=== PATIENT | female | born 1945 | race Caucasian/White ===

== ENCOUNTER 2016-06-29 10:58 | Inpatient (IN) | payer OTHER, MEDICAID ==
[~2016-06-29] VITALS: Ht 162.6 cm; Wt 136.8 kg
[2016-06-29] MEDS ORDERED: ALBUTEROL 0.083% (NEB) 2.5 MG/3 ML AMP NEB STA ×2 (11:01→12:59)
[2016-06-29] MEDS ORDERED: IPRATROPIUM (NEB) 0.5 MG/2.5 ML AMP NEB STA ×2 (11:01→12:59)
[2016-06-29] MEDS ORDERED: SODIUM CHLORIDE 0.9% 1L BAG IV* STA (11:16)
--- NOTE | 2016-06-29 11:41 | ERA ---
ER Documentation Chief Complaint Date/Time DATE: 06/29/16 TIME: 11:21 Chief Complaint HPI This is a 71-year-old female that was brought into the emergency department from [facility] by EMS with a known history of DM and CHF after she developed an episode of tremors which was concerning for seizures. The patient has no history of seizure disorder however and during these tremors the patient did not lose consciousness, remembers the entire episode and did not bite her tongue or lose urinary incontinence. The tremors will last for roughly 20 seconds and then will spontaneously resolve. She had about 20 episodes and therefore EMS was called. When EMS arrived the patient was hypoxic satting at 60%. They placed her on a nonrebreather and her pulse ox improved to 98%. The patient's last known normal time was 13 hours prior to arrival at 10 PM yesterday evening after she had been playing bingo at her nursing care facility. There is been no documentation of productive or nonproductive cough. The patient has not had a fever. There has been no recent hospitalizations. The patient denies any chest pain, shortness of breath or pain in her lower extremities. The patient at baseline is alert awake to person place but not to time. The patient is able to ambulate with assistance. Patient has a history of diabetes and her blood glucose was normal according to EMS ROS All systems reviewed and are negative except as per history of present illness. Medications Home Meds Reported Medications Insulin Aspart* (Novolog Insulin Pen*) 100 Unit/Ml Soln, 0 SC .SLIDING SCALE AC , EA 0-149 = 0 UNITS 150-199 = 1 UNIT 200-249 = 2 UNITS 250-299 = 3 UNITS 300-349 = 4 UNITS 350-400 = 5 UNITS OVER 400 GIVE 5 UNITS AND CALL MD UNDER 60 USE HYPOGLYCEMIC PROTACOL AND CALL MD INSULIN IS TO BE GIVEN SUBCUTANEOUSLY BEFORE MEALS AND AT BEDTIME 06/29/16 Oxycodone Hcl* (Oxycontin*) 10 Mg Tab.sr.12h, 10 MG PO Q12 Y for PAIN MANAGMENT , TAB 06/29/16 Lactobacillus Combo No.11 (Probiotic) 1 Each Cap.sprink, 1 CAP PO DAILY, CAP 06/29/16 Guaifenesin-Dextromethorphan* (Robitussin* DM) 100MG/10MG/5ML Syrup, 5 ML PO Q6H Y for COUGH, ML 06/29/16 Cholecalciferol* (Vitamin D3*) 1,000 Unit Tablet, 2000 UNIT PO BID, TAB 06/29/16 Hydrocodone/Acetaminophen ([place] 5-325 Tablet) 1 Each Tablet, 2 EACH PO Q4 Y for SEVERE PAIN LEVEL 7-10, TAB 06/29/16 Hydrocodone/Acetaminophen ([place] 5-325 Tablet) 1 Each Tablet, 1 EACH PO Q4 Y for PAIN LEVEL 4-6, TAB 06/29/16 Metoclopramide* (Reglan*) 5 Mg Tablet, 5 MG PO Q8 Y for NAUSEA AND OR VOMITING, TAB 06/29/16 Pregabalin* (Lyrica*) 50 Mg Capsule, 50 MG PO TID, CAP 06/29/16 Atorvastatin Calcium (Atorvastatin Calcium) 10 Mg Tablet, 2.5 MG PO QHS, #30 TAB 06/29/16 Insulin Detemir (Levemir) 100 Unit/1 Ml Vial, 30 UNIT SC QHS, VIAL 06/29/16 Furosemide* (Lasix*) 40 Mg Tablet, 40 MG PO DAILY, TAB 06/29/16 Isosorbide Mononitrate* (Isosorbide Mononitrate*) 30 Mg Tab.er.24h, 30 MG PO DAILY, TAB 06/29/16 Hydralazine Hcl* (Hydralazine Hcl*) 100 Mg Tablet, 100 MG PO Q8 Y for ELEVATED BLOOD PRESSURE, #90 TAB HOLD IF SBP LOWER THAN 110 06/29/16 Gabapentin* (Gabapentin*) 300 Mg Capsule, 300 MG PO TID, #90 CAP 06/29/16 Roslyn-3S/Dha/Epa/Fish Oil/D3 (FISH OIL + D3 SOFTGEL) 1 Each Capsule, 1 EACH PO DAILY, CAP 06/29/16 Docusate Sodium* (Docusate Sodium*) 100 Mg Capsule, 100 MG PO BID, #60 CAP 06/29/16 Cranberry Fruit Concentrate (CRANBERRY) 450 Mg Capsule, 450 MG PO DAILY, CAP 06/29/16 Aspirin (Low Dose Aspirin) 81 Mg Tablet.dr, 81 MG PO DAILY, #30 TAB 06/29/16 Ascorbic Acid* (Ascorbic Acid*) 500 Mg/5 Ml Syrup, 500 MG PO BID, #300 ML 06/29/16 Zolpidem Tartrate* (Ambien*) 5 Mg Tablet, 5 MG PO QHS Y for INSOMNIA, #30 TAB 06/29/16 Allopurinol* (Allopurinol*) 100 Mg Tablet, 100 MG PO BID, TAB 06/29/16 Acetaminophen* (Acetaminophen*) 650 Mg Tablet, 650 MG PO Q6H Y for MILD PAIN LEVEL 1-3, #30 TAB 06/29/16 Allergies Allergies: Coded Allergies: Penicillins (Verified Allergy, Unknown, per xavi facesheet, 06/29/16) Sulfa (Sulfonamide Antibiotics) (Verified Allergy, Unknown, per xavi facesheet, 06/29/16) Physical Exam Vitals Vital Signs Date Time Temp Pulse Resp B/P Pulse Ox O2 Delivery O2 Flow Rate FiO2 06/29/16 14:05 83 20 139/83 100 BIPAP 06/29/16 13:14 85 20 97 Nasal Cannula 4.0 06/29/16 13:05 80 100 50 06/29/16 12:32 78 20 97 Nasal Cannula 4.0 06/29/16 12:32 4.0 06/29/16 12:03 Nasal Cannula 3 06/29/16 11:25 98.6 76 14 137/72 94 Physical Exam Constitutional:Well-developed. Well-nourished. HEENT:Normocephalic. Atraumatic.Pupils were equal round reactive to light. Very dry mucous membranes.No tonsillar exudates. Neck: No nuchal rigidity. No lymphadenopathy. No posterior cervical spine tenderness or step-offs. Respiratory: Not using accessory muscles of respiration.Lungs were clear to auscultation bilaterally. No rhonchi. No rales. No wheezing. Cardiovascular: Irregular rate rhythm.No murmurs. No rubs were appreciated.S1, S2 normal. Distal pulses are palpable 2+ bilaterally. GI: Abdomen was obese so exam is limited due to body habitus. Nontender. Non Distended. No pulsatile abdominal masses or bruits. No rebound. No guarding. Bowel sounds were present and normal. Muscle skeletal: Full range of motion of both the upper and lower extremities bilaterally.Normal muscle tone. Muscular strength 3 out of 5 in the bilateral lower extremities this is the patient's baseline Skin: No petechia, no purpura. No lesions on the palms or the soles of the feet. No maculopapular rash. Discoloration of the anterior surface of the distal third of the bilateral lower extremities with lymphedema NEURO: Patient was alert, awake, orientated x3.No facial droop. Gait not observed as patient was too weak to ambulate. Result Diagram: 06/29/16 1150 06/29/16 1150 Results 24 hrs Laboratory Tests Test 06/29/16 11:00 06/29/16 11:01 06/29/16 11:50 06/29/16 13:19 Amylase Level 190U/L Lipase 258U/L Blood Gas Specimen Source Blood arterial Arterial Blood Date Drawn 06/29/2016 12:40:20 PM Arterial Blood pH (Temp corrected) 7.231 Arterial Blood pCO2 (Temp correct) 67.0mmhg Arterial Blood pO2 (Temp corrected) 94.1mmHG Arterial Blood HCO3 27.5mmol/L Arterial Blood Base Excess -1.3mmol/L Arterial Blood Oxygen Saturation 94.4mmHG Bill Test ACCEPTAB Arterial Blood Gas Puncture Site Right Radial Arterial Blood Carboxyhemoglobin 1.1% Arterial Blood Methemoglobin 0.3% Blood Gas A-a O2 Differential 63.0mmHg Oxyhemoglobin Percent 93.1% Total Hemoglobin 12.2g/dl Blood Gas Temperature 37.0C Blood Gas Modality NASAL CANNULA FiO2 33.0% Blood Gas Critical Value Read Back PATSY [place] Blood Gas Notified Whom [facility] Blood Gas Notified Time 06/29/2016 12:46:52 PM White Blood Count 7.310^3/ul Red Blood Count 4.4210^6/ul Hemoglobin 12.0g/dl Hematocrit 41.0% Mean Corpuscular Volume 92.8fl Mean Corpuscular Hemoglobin 27.1pg Mean Corpuscular Hemoglobin Concent 29.3g/dl Red Cell Distribution Width 14.7% Platelet Count 73861^3/UL Mean Platelet Volume 12.7fl Neutrophils % 82.2% Lymphocytes % 9.7% Monocytes % 7.0% Eosinophils % 0.0% Basophils % 0.3% Nucleated Red Blood Cells % 0.4/100WBC Neutrophils # 6.010^3/ul Lymphocytes # 0.710^3/ul Monocytes # 0.510^3/ul Eosinophils # 0.010^3/ul Basophils # 0.010^3/ul Nucleated Red Blood Cells # 0.010^3/ul Prothrombin Time 13.4Sec Prothrombin Time Ratio 1.0 INR International Normalized Ratio 1.02 Activated Partial Thromboplast Time 26.4Sec Sodium Level 135mmol/L Potassium Level 5.5mmol/L Chloride Level 93mmol/L Carbon Dioxide Level 27mmol/L Anion Gap 21 Blood Urea Nitrogen 88mg/dl Creatinine 3.46mg/dl Glucose Level 209mg/dl Lactic Acid Level 1.7mmol/L 1.6mmol/L Calcium Level 8.8mg/dl Total Bilirubin 0.5mg/dl Direct Bilirubin 0.00mg/dl Indirect Bilirubin 0.5mg/dl Aspartate Amino Transf (AST/SGOT) 403IU/L Alanine Aminotransferase (ALT/SGPT) 274IU/L Alkaline Phosphatase 130IU/L Creatine Kinase 326IU/L Creatine Kinase Index 1.1 Creatinine Kinase MB (Mass) 3.44ng/ml Troponin I 0.407ng/ml B-Type Natriuretic Peptide 36664JI/ML Total Protein 7.7g/dl Albumin 4.6g/dl Globulin 3.10g/dl Albumin/Globulin Ratio 1.48 Free Thyroxine Index 2.59ug/ml Thyroxine (T4) 6.6ug/dl Triiodothyronine (T3) Uptake 39.3% Current Medications Medications (Trade) Dose Ordered Sig/Marissa Route PRN Reason Start Time Stop Time Status Last Admin Dose Admin Albuterol (Proventil 0.083% (Neb)) 5 mg ONCE STAT NEB 06/29/16 11:01 06/29/16 13:04 DC 06/29/16 12:31 Ipratropium [place] (Atrovent 0.02% (Neb)) 0.5 mg ONCE STAT NEB 06/29/16 11:01 06/29/16 11:04 DC 06/29/16 12:31 Sodium Chloride 3100 ml 3,100 ml BOLUS OVER 2 HOURS STAT IV* 06/29/16 11:16 06/29/16 11:18 DC 06/29/16 11:16 Vancomycin HCl 250 ml @ 125 mls/hr ONCE STAT IVPB 06/29/16 12:27 06/29/16 14:26 DC 06/29/16 14:47 Levofloxacin/ Dextrose (Levaquin 750 Mg/ D5W 150 ml (Pmx)) 150 ml @ 100 mls/hr ONCE STAT IVPB 06/29/16 12:27 06/29/16 13:56 DC 06/29/16 12:48 Albuterol (Proventil 0.083% (Neb)) 5 mg ONCE STAT NEB 06/29/16 12:59 06/29/16 13:01 DC 06/29/16 13:14 Ipratropium [place] (Atrovent 0.02% (Neb)) 0.5 mg ONCE STAT NEB 06/29/16 12:59 06/29/16 13:01 DC 06/29/16 13:13 Methylprednisolone Sodium Succinate (Solu-Medrol) 125 mg ONCE STAT IV 06/29/16 12:59 06/29/16 13:02 DC 06/29/16 13:09 Albuterol (Proventil 0.5% (Neb)) 15 mg ONCE STAT INH 06/29/16 13:01 06/29/16 13:09 DC 06/29/16 13:13 Sodium Bicarbonate (Na Bicarb 8.4% Syg) 50 ml ONCE STAT IV 06/29/16 13:01 06/29/16 13:09 DC 06/29/16 14:29 Calcium Chloride (Ca Chloride 10% Syg) 1,000 mg ONCE STAT IV 06/29/16 13:01 06/29/16 13:09 DC 06/29/16 14:29 Lorazepam (Ativan) 1 mg ONCE ONCE IV 06/29/16 13:30 06/29/16 13:31 DC 06/29/16 14:29 Aspirin (Aspirin) 325 mg ONCE ONCE PO 06/29/16 14:00 06/29/16 14:01 DC 06/29/16 14:30 Procedures/MDM The patient presented to the emergency department with an acute and persistent change in their mental status and new onset tremors. The differential diagnosis is diverse however reversible causes such as hypoglycemia, opiate overdose, thiamine deficiency were immediately considered. The patient was placed on a court monitor, continuous pulse oximetry and IV access was established. The patients airway was secure however hypoxic events such as anemia, shock, or severe pulmonary disease were all considered as etiologies in this patients presentation. Circulation assessed with good cap refill and did not require fluids or pressure support. Finger stick for rapid glucose determined to be normal. The patient was during physical exam having multiple tremors of the upper and lower extremities however she remained alert awake orientated and speaking during this activity with no ectopy on the court monitor and no hypoxia. The patient was placed on 2 L low-flow supplemental oxygen. The patient was given a gentle fluid bolus bolus of normal saline as she did appear to have severe clinical dehydration but given that the patient has CHF fluid hydration was limited to prevent fluid overload 12 Lead EKG tracing ordered and reviewed by myself showed: Irregular regular rhythm at 94 bpm and no arrhythmia. MA interval not appreciated as P waves were not present QRS duration normal. No ST segment elevation No ST segment depression. No changes consistent with acute ischemia. The patient began to become more drowsy and therefore at this time obtained a CT scan of the head which showed no acute intracerebral hemorrhage mass-effect or midline shift. The arterial blood gas was ordered by myself and indicated that the patient had a severe respiratory acidosis. I did feel the patient's symptoms could be exacerbated by CO2 narcosis. She had received a nebulizer treatment of albuterol Atrovent and now the patient was placed on noninvasive mechanical ventilation. The patient had significant elevation of BUN and creatinine have no previous documentation to indicate if this is new onset renal failure. The patient was hyperkalemic. She received an amp of bicarb calcium chloride and albuterol. The patient's troponin was elevated however she denied any chest pain. She will receive serial 12-lead EKG tracings and cardiac set of enzymes. The elevated troponin could also be from the patient's renal failure. She was prophylactically given aspirin 325 mg p.o. The patient was refusing a Kyle catheter to be placed. A chest maneuver for and reviewed by myself as well as radiologist indicated there is atelectasis in the right lung base versus possible infiltrate. The patient had blood cultures and urine cultures obtained was prophylactically treated for possible pneumonia. The patient received vancomycin and Levaquin as she has an allergy to penicillin. Critical Care: Time: 70 minutes Treatments/Evaluations: Close monitoring and treatment of unstable vital signs, cardiorespiratory, and neurologic status, while maintaining tight balance of fluid, respiratory, and cardiac interventions. Time does not include performing any of the above billable procedures. Patient will be admitted in serious condition to the ICU under the care of with an anticipated stay of greater than 2 midnights Departure Diagnosis: Primary Impression: CO2 narcosis Additional Impressions: CHF exacerbation Qualified Code: I50.9 - Acute on chronic congestive heart failure, unspecified congestive heart failure type Renal failure Acute hyperkalemia Condition: Serious RAFIQ GARNER Jun 29, 2016 11:33
--- NOTE | 2016-06-29 11:59 | RADRPT ---
PROCEDURE: XR Chest AP portable CLINICAL INDICATION: Altered mental status TECHNIQUE: An AP portable radiograph of the chest was submitted. COMPARISON: None. FINDINGS: Support Hardware: None Cardiovascular: The heart is mildly enlarged and the aorta appears atherosclerotic well the peripher al pulmonary vasculature is upper normal. Lung Chung: A suboptimal inspiration compresses lung parenchyma and infiltrate/atelectasis is seen within the right lung base obscuring the right hemidiaphragm. There is interstitial prominence at t he left lung base. Pleural Spaces: A right pleural fluid accumulation cannot be excluded as the costophrenic angle is o bscured. No pneumothorax is evident. Osseous Structures: The osseous structures appear intact. Soft Tissues: The soft tissues appear generous. IMPRESSION: 1. Mild cardiomegaly with atherosclerotic changes to the aorta. 2. Atelectasis/infiltrate involving the right lung base and possible right pleural fluid accumulati on. There is interstitial prominence of the left lung base exaggerated by suboptimal inspiration. Physician Fina Date Time Electronically viewed and signed by Gina White Physician on 06/29/2016 11:58 /
[2016-06-29 12:15] LABS: ADD SCAN DIFF NO
[2016-06-29 12:17] LABS: BASOPHILS % 0.3 % (0.0-2.0); LYMPHOCYTES # 0.7 10^3/ul (0.8-2.9); LYMPHOCYTES % 9.7 % (15.0-51.0); MEAN CORPUSCULAR HEMOGLOBIN 27.1 pg (29.0-33.0); MEAN CORPUSCULAR HGB CONC 29.3 g/dl (32.0-37.0); MEAN CORPUSCULAR VOLUME 92.8 fl (82.0-101.0); MEAN PLATELET VOLUME 12.7 fl (7.4-10.4); MONOCYTE # 0.5 10^3/ul (0.3-0.9); NEUTROPHILS % 82.2 % (39.0-77.0); NUCLEATED RED BLOOD CELLS% 0.4 /100WBC (0.0-0.0); PLATELET COUNT 181 10^3/UL (140-415); RED BLOOD COUNT 4.42 10^6/ul (4.20-5.40); RED CELL DISTRIBUTION WIDTH 14.7 % (11.5-14.5); WHITE BLOOD COUNT 7.3 10^3/ul (4.8-10.8)
[2016-06-29] MEDS ORDERED: VANCOMYCIN 1 GM (PMX) 250 ML IVPB STA (12:27)
[2016-06-29] MEDS ORDERED: LEVOFLOXACIN 750MG/D5W (PMX) 150 ML IVPB STA (12:27)
--- NOTE | 2016-06-29 12:27 | RADRPT ---
PROCEDURE: CT Brain without contrast. CLINICAL INDICATION: Altered Mental Status TECHNIQUE: CT scan of the brain was performed on a multidetector high-resolution CT scan. Axial im aging was obtained of the brain without contrast administration. Coronal and sagittal reformatted i mages were obtained from the axial source images. Standard CT scan of the head without contrast prot ocols were performed. The total exam CTDI equals 43.95 mGy and the total exam DLP equals 720.23 mGy-cm. One or more of the following dose reduction techniques were used: - Automated exposure control. - Adjustment of the mA and/or kV according to patient size. Use of iterative reconstruction technique. COMPARISON: None FINDINGS: The patient is tilted to the right and slightly rotated to the right. There is streak artifact degr ading optimal evaluation. There is mild generalized cerebral volume loss. Negative for intracrania l masses hemorrhages or midline shift. There is misregistration artifact present. There are no madhuri varial fractures demonstrated. The paranasal sinuses and mastoids are unremarkable. IMPRESSION: Mild generalized cerebral volume loss without evidence of intracranial masses hemorrhages or midline shift. RPTAT:AAJJ Physician Stephane Date Time Electronically viewed and signed by Physician Stephane on 06/29/2016 12:27 JOYCE/
[2016-06-29 12:33] LABS: ALBUMIN 4.6 g/dl (3.3-4.9)
[2016-06-29 12:34] LABS: POTASSIUM 5.5 mmol/L (3.5-5.1)
[2016-06-29 12:36] LABS: ALBUMIN/GLOBULIN RATIO 1.48; BILIRUBIN,INDIRECT 0.5 mg/dl (0-1.1); BILIRUBIN,TOTAL 0.5 mg/dl (0.2-1.3); CREATININE 3.46 mg/dl (0.44-1.00); TOTAL PROTEIN 7.7 g/dl (6.1-8.1)
[2016-06-29 12:37] LABS: CALCIUM 8.8 mg/dl (8.4-10.2)
[2016-06-29 12:45] LABS: CK-MB 3.44 ng/ml (0.0-2.4)
[2016-06-29 12:47] LABS: Allen Test ACCEPTAB; Arterial Base Excess -1.3 mmol/L (-3.0-3); Arterial COHb 1.1 % (0.0-3.0); Arterial Fraction of Oxyhgb 93.1 % (93.0-99.0); Arterial HCO3 27.5 mmol/L (22.0-26.0); Arterial MetHb 0.3 % (0.0-1.5); Arterial Total Hemglobin 12.2 g/dl (12.0-18.0); MODE NASAL CANNULA
[2016-06-29 12:53] LABS: T3 UPTAKE 39.3 % (23.5-40.5)
[2016-06-29 12:55] LABS: AMYLASE 190 U/L (11-123)
[2016-06-29 12:56] LABS: INR 1.02; PROTIME 13.4 Sec (12.2-14.2)
[2016-06-29 12:57] LABS: PARTIAL THROMBOPLASTIN TIME 26.4 Sec (25.0-35.0)
[2016-06-29] MEDS ORDERED: METHYLPREDNISOLONE 125 MG INJ IV STA (12:59)
[2016-06-29] MEDS ORDERED: CA CHLORIDE 10% 10 ML SYRINGE IV STA (13:01)
[2016-06-29] MEDS ORDERED: ALBUTEROL 0.5% (NEB) 2.5 MG/0.5 ML AMP INH STA (13:01)
[2016-06-29] MEDS ORDERED: NA BICARBONATE 8.4% 50 ML SYG IV STA (13:01)
[2016-06-29 13:02] LABS: TROPONIN-I 0.407 ng/ml (0.00-0.12)
[2016-06-29] MEDS ORDERED: ZOLP5TAB PO (13:15)
[2016-06-29] MEDS ORDERED: ACET-2047 PO (13:15)
[2016-06-29] MEDS ORDERED: ALLO100T PO (13:15)
[2016-06-29] MEDS ORDERED: ASCO500S2 PO (13:16)
[2016-06-29] MEDS ORDERED: ASPI-664 PO (13:16)
[2016-06-29] MEDS ORDERED: CRAN450C PO (13:16)
[2016-06-29] MEDS ORDERED: DOCU-159 PO (13:17)
[2016-06-29] MEDS ORDERED: OMEG-80 PO (13:17)
[2016-06-29] MEDS ORDERED: GABA300C16 PO (13:17)
[2016-06-29] MEDS ORDERED: HYDR100T7 PO (13:19)
[2016-06-29] MEDS ORDERED: FURO-109 PO (13:20)
[2016-06-29] MEDS ORDERED: LEVEM SC (13:20)
[2016-06-29] MEDS ORDERED: ISOS30TA5 PO (13:20)
[2016-06-29] MEDS ORDERED: ATOR10TA65 PO (13:22)
[2016-06-29] MEDS ORDERED: METO5TAB58 PO (13:23)
[2016-06-29] MEDS ORDERED: PREG50CA PO (13:23)
[2016-06-29] MEDS ORDERED: HYDR-906 PO ×2 (13:24→13:27)
[2016-06-29] MEDS ORDERED: CHOL100062 PO (13:28)
[2016-06-29] MEDS ORDERED: UDROBDM PO (13:29)
[2016-06-29] MEDS ORDERED: LORAZEPAM 2 MG INJ IV ONE (13:30)
[2016-06-29] MEDS ORDERED: LACT1CAP56 PO (13:30)
[2016-06-29] MEDS ORDERED: OXYC10TA63 PO (13:31)
[2016-06-29] MEDS ORDERED: NOVO3I SC (13:39)
[2016-06-29] MEDS: ASPIRIN 325 MG TAB PO ONE ×2 (14:00→14:30)
[2016-06-29] MEDS ORDERED: HYDROCODONE/APAP (5/325) TAB PO PRN (15:30)
[2016-06-29] MEDS ORDERED: ONDANSETRON 4 MG INJ IV PRN (15:30)
[2016-06-29] MEDS ORDERED: morphine 2 MG INJ IV PRN (15:30)
[2016-06-29] MEDS ORDERED: BUMETANIDE 6 MG in DEXTROSE 5% 36 ML IV ONE (15:30)
[2016-06-29] MEDS ORDERED: BISACODYL 10 MG SUPP PR PRN (15:30)
[2016-06-29] MEDS ORDERED: ACETAMINOPHEN 325 MG TAB PO PRN (15:30)
[2016-06-29] MEDS ORDERED: MAGNESIUM HYDROXIDE 30ML CUP PO PRN (15:30)
[2016-06-29] MEDS ORDERED: NITROGLYCERIN (SL) 0.4 MG TAB SL PRN ×2 (15:30→16:00)
[2016-06-29] MEDS ORDERED: ALBUTEROL/IPRATROPIUM (NEB) 3 ML AMP NEB PRN ×2 (15:30→17:00)
[2016-06-29 15:58] LABS: ADD UMIC YES; URINE BILIRUBIN (Dip) NEGATIVE (NEGATIVE); URINE BLOOD (Dip) NEGATIVE (NEGATIVE); URINE COLOR YELLOW (YELLOW); URINE GLUCOSE (Dip) NEGATIVE (NEGATIVE); URINE KETONES (Dip) TRACE (NEGATIVE); URINE LEUKOCYTE ESTERASE (Dip) 1+ (NEGATIVE); URINE NITRITE (Dip) NEGATIVE (NEGATIVE); URINE TOTAL PROTEIN (Dip) 1+ (NEGATIVE); URINE UROBILINOGEN (Dip) 0.2 E.U./dL (0.1-1.0)
[2016-06-29] MEDS ORDERED: DEXTROSE 50% 50 ML SYRINGE IV PRN ×2 (16:00)
[2016-06-29] MEDS ORDERED: ASPIRIN 325 MG TAB PO ONE (16:00)
[2016-06-29] MEDS ORDERED: GLUCOSE GEL 15 GRAM TUBE BUCCAL PRN (16:00)
[2016-06-29] MEDS ORDERED: GLUCOSE GEL 15 GRAM TUBE PO PRN ×2 (16:00)
[2016-06-29] MEDS ORDERED: GLUCAGON 1 MG INJ IM PRN (16:00)
[2016-06-29 16:10] LABS: BACTERIA,URINE MANY
[2016-06-29 16:11] LABS: SQUAMOUS EPITHELIAL CELL,UR FEW; URINE RBCS NONE SEEN /HPF (0)
[2016-06-29 16:22] LABS: BARBITURATES Negative (NEGATIVE); BENZODIAZEPINES Negative (NEGATIVE); CANNABINOIDS Negative (NEGATIVE); COCAINE Negative (NEGATIVE)
[2016-06-29 16:29] LABS: OPIATES Positive (NEGATIVE)
[2016-06-29] MEDS ORDERED: BUMETANIDE 1 MG INJ IV ONE (16:30)
--- NOTE | 2016-06-29 16:41 | CONS ---
DATE OF ADMISSION: 06/29/2016 DATE OF CONSULTATION: 06/29/2016 TYPE OF CONSULTATION: Pulmonary. CHIEF COMPLAINT: Shortness of breath. HISTORY OF PRESENT ILLNESS: Briefly, this is a 71-year-old morbidly obese female who is a resident of [facility], also a history of diabetes, congestive heart failure and likely due to d iastolic dysfunction, who was brought in initially by paramedics for tremors and on arrival was note d to be hypoxic with oxygen saturations of 60%. The patient also had an arterial blood gas in the e mergency room which was notable for an acute respiratory acidosis. At this point, the patient was p laced on BiPAP with significant improvement in her condition. At the time of my examination, the pa rogerio remained on BiPAP with settings of IPAP of 15 Pap of EPAP of 5 with 50% FIO2. PAST MEDICAL HISTORY: As above, otherwise unknown. MEDICATIONS: Please see MAR. ALLERGIES: 1. PENICILLIN. 2. SULFA. SOCIAL HISTORY: Resident of [facility] otherwise, prior tobacco but no alcohol or illi cit drug use. FAMILY HISTORY: Noncontributory. REVIEW OF SYSTEMS: Unable to obtain given patient not being able to speak while on BiPAP. PHYSICAL EXAMINATION: VITAL SIGNS: Blood pressure is 139/83 on with unsupported. Heart rate is 83, oxygen saturation 100 % on 50% FIO2 via BiPAP. Afebrile at 98.6. GENERAL: A morbidly obese female on noninvasive positive pressure ventilation in very mild distress . HEENT: Normocephalic, atraumatic. NECK: Supple. There is jugular venous distension notable, no thyromegaly. CARDIOVASCULAR: Distant S1 and S2, regular rate and rhythm. LUNGS: There are bibasilar crackles heard. ABDOMEN: Morbidly obese, soft, nontender. EXTREMITIES: There is chronic venous stasis changes bilaterally and 2+ lower extremity edema. LABORATORY DATA: ABG: pH 7.23, pCO2 67, pO2 is 94. Chemistry: BUN is 88, creatinine is 3.4. Pot assium is 5.5. AST is 403. ALT is 274, alkaline phosphatase is 130. CK is 326. Troponin is 0.41. BNP is 31,400. Chest x-ray shows considerable amount of pulmonary venous congestion with a right pleural effusion, likely cardiomegaly and prominent vascular congestion. IMPRESSION: 1. Acute hypoxemic and hypercapnic respiratory insufficiency likely due to congestive heart failure in a morbidly obese female with known diastolic dysfunction as well as possible obstructive sleep a pnea and COPD. Based on her laboratory data, I do not believe she has chronic CO2 retention, thereb y unlikely to have obesity hypoventilation syndrome. 2. Acute on chronic renal failure, unclear whether this may represent a cardiorenal etiology versus other. 3. Transaminitis, this may be due to passive congestion in a patient with right heart failure versu s maybe ischemic hepatopathy. 4. Elevated troponin. This may represent demand ischemia; however, will need to trend and I cannot rule out the possibility of a non-ST elevation myocardial infarction at this point. RECOMMENDATIONS: 1. 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 2. Would start a Bumex drip to help facilitate diuresis and if need be, we would start a nitroglyce rin drip as well to optimize preload reduction. 3. Continue to follow serum troponins and if there is a persistent more significant elevation may c onsider treatment for an ACS. 4. Obtain a 2-D echo to evaluate LV function. 5. Follow creatinine closely, as well as urine output and daily weights. 6. Obtain a right upper quadrant ultrasound and follow transaminases. 7. Admission to the ICU, is appropriate, given the patient's current condition and will continue to follow when the patient is in the ICU. Dictated By: VANESSA AVILEZ MD NK/NTS Conf#: [id number] DID#: [id number] CC: REBECCA SALAS MD; RAMY CAMPBELL MD;*EndCC*
[2016-06-29] MEDS ORDERED: ALBUTEROL/IPRATROPIUM (NEB) 3 ML AMP NEB SCH (17:00)
--- NOTE | 2016-06-29 17:01 | HP ---
DATE OF ADMISSION: 06/29/2016 PRIMARY CARE PHYSICIAN: Currently Dr. Humza Briceño at [facility]. CONSULTANTS ON THIS ADMISSION: 1. Mark Taveras MD from pulmonary critical care. 2. Jennie Fregoso MD from nephrology. CHIEF COMPLAINT ON ADMISSION: Altered level of consciousness. HISTORY OF PRESENT ILLNESS: This is a 71-year-old female, super morbid obesity, who is at this poin t wheelchair bound at most, diabetes mellitus, hypertension, congestive heart failure, primarily susan stolic dysfunction, diabetes mellitus, likely obstructive sleep apnea, chronic kidney disease with a baseline creatinine of at least 1.2 which was earlier this month per half-way [facility], who has been on a diuretic at the [facility] and apparently in her usual state of health u ntil this morning. The patient is usually alert and oriented x4. She does not require any suppleme ntal oxygen, according to the [facility] nurse, but this morning she was found to be l ethargic and difficult to arouse. When she was awake and being asked questions, she could only answ er her name. She was unable to process the questions or follow commands; 911 was called and the pat lou was brought to the emergency department. According to the nurse at the [facility] y, also, the patient was noted to have some tremors versus jerking movements, and they were worried about seizures. In the emergency department, patient was found to have some hypercapnia and respira tory acidosis on ABG. She was, therefore, placed on BiPAP. On her laboratory data, she was found t o have acute kidney injury on chronic kidney disease with hyperkalemia, potassium of 5.5, creatinine up to 3.46 and a BUN of 88. Also, LFTs are abnormal and her troponin is slightly elevated. She de finitely has a BNP elevated of 31,400. The patient is still lethargic currently; she is able to ope n her eyes when she is woken up, but she is unable to answer the questions appropriately. She is on BiPAP. She is noted to have some edema in the lower extremities, right lower extremity more promin ent than the left one. She is FULL CODE. 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 Chest x-ray is showing signs of possible underlying pulmonary edema. At this point, given the patient's laboratory data and her overall history, she may be in respirator y distress due to some volume overload. It is difficult to assess, but she will be placed on some d iuretic here. Nephrology is consulted, along with pulmonary critical care. She is being admitted t o the intensive care unit on BiPAP. ALLERGIES 1. PENICILLIN. 2. SULFA. PAST MEDICAL HISTORY: This is confirmed with the half-way facility. 1. Congestive heart failure, seems to be diastolic, as the patient had an echocardiogram back in that showed an EF of 60%, but severe asymmetric septal hypertrophy and mild to moderate mitral st enosis. 2. Diabetes mellitus. 3. Super morbid obesity. 4. Hypertension. 5. Diabetic neuropathy. 6. Chronic pain, narcotic dependent. 7. Likely obstructive sleep apnea, but patient has never been on nocturnal oxygen, CPAP or BiPAP, a ccording to half-way facility. 8. Gout, per records. 9. Hyperlipidemia. PAST SURGICAL HISTORY: None reported; the patient unable to give more details. REVIEW OF SYSTEMS: Unable to obtain from patient. OUTPATIENT MEDICATIONS: Based on half-way facility list of medications: 1. Atorvastatin 2.5 mg p.o. at bedtime. 2. Hydralazine 100 mg p.o. q.8 hours. 3. Isosorbide mononitrate 30 mg p.o. daily. 4. Fish oil 1 tab p.o. daily. 5. Tylenol 650 mg p.o. q.6 hours p.r.n. mild pain. 6. Aspirin 81 mg daily. 7. Gabapentin 300 mg p.o. t.i.d. 8. Sebastian 5/325 one tab p.o. q.4 hours p.r.n. pain level 4 to 6. 9. Sebastian 5/325 two tabs p.o. q.4 hours p.r.n. severe pain. 10. OxyContin 10 mg p.o. q.12 hours p.r.n. 11. Lyrica 50 mg p.o. t.i.d. 12. Ambien 5 mg p.o. at bedtime p.r.n. insomnia. 13. Lasix 40 mg p.o. daily. 14. Robitussin DM q.6 hours p.r.n. cough. 15. Colace 100 mg p.o. b.i.d. 16. Probiotic 1 tab p.o. daily. 17. Reglan 5 mg p.o. q.8 hours p.r.n. nausea, vomiting. 18. Sliding scale insulin. 19. Levemir 30 units subcutaneously at bedtime. 20. Vitamin C 500 mg p.o. b.i.d. 21. Vitamin D3 at 2000 units p.o. b.i.d. 22. Allopurinol 100 mg p.o. b.i.d. 23. Cranberry 450 mg p.o. daily. 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 P er half-way facility report, she is wheelchair bound at best. She does not use oxygen. She does not use any CPAP, BiPAP or nocturnal O2 at night. There is no reported history of smoking or o bstructive sleep apnea; this is according to the half-way facility. No history of alcohol us e. PHYSICAL EXAMINATION: VITAL SIGNS: Temperature is 98.6, pulse of 83, currently in sinus rhythm, respiratory rate of 20, b lood pressure 139/83. Patient is satting 100% on BiPAP; she is currently on 50%. ABG on arrival sh ows a pH of 7.23 with a pCO2 of 67.0 and a PaO2 of 94; this was on nasal cannula. GENERAL: She is lethargic, somnolent; does open her eyes when woken up. She is on the BiPAP curren tly. She does not seem to process all the information that is given. She is having a hard time ans wering questions. HEENT: Pupils are equally round and reactive to light. Extraocular muscles are intact. Anicteric sclerae. NECK: No thyromegaly noted, very difficult to assess JVD. HEART: Regular rate and rhythm. No murmur, rubs, or gallops. LUNGS: Decreased breath sounds significantly bilaterally, but respiratory effort is better at this point. She is on the BiPAP, therefore, the air movement is optimal. ABDOMEN: Soft, obese, nontender, nondistended. Kyle catheter has been placed. EXTREMITIES: She is noted to have bilateral chronic venous stasis dermatitis of both lower extremit ies, but right lower extremity is more edematous than the left lower extremity; the left lower extre mity is barely edematous, the right one is edematous. NEUROLOGIC: Again the patient is lethargic, somnolent, barely following commands. She is on the Bi PAP currently. LABORATORY DATA: White blood cell count is 7.3, hemoglobin 12.0, hematocrit 41.0, platelet count of 181. Chemistry with a sodium of 135, potassium 5.5, chloride 93, bicarbonate 27, BUN 88, creatinin e 3.46, glucose of 209. Lactate, the latest one is 1.6. Calcium 8.8, AST 403, ALT 274, alkaline ph osphatase 130. CK 326, CK-MB 2.44. Troponin of 0.407. BNP 31,400. Total protein 7.7, albumin 4.6 . Amylase 190, lipase 258. Free T4 of 2.59, T4 of 6.6 and T3 of 39.3. INR is 1.02, PT 13.4, PTT 26.4. RADIOLOGICAL DATA: 1. Chest x-ray shows mild cardiomegaly with atherosclerotic changes of the aorta, atelectatic infil trate involving the right lung base and possible right pleural effusion accumulation, interstitial p rominence of the left lung base exaggerated by suboptimal inspiration. 2. CAT scan of the brain showed mild generalized cerebral volume loss without evidence of intracran ial mass, hemorrhage or midline shift. DIAGNOSTICS: 1. EKG at this time shows sinus rhythm at 79 beats per minute with multiple PACs, no acute ST or T- wave abnormality. 2. A 2D echocardiogram is pending, but again there was a 2D echocardiogram done back in August 2015, therefore approximately almost a year now, that did showing normal left ventricular systolic functio n, severe asymmetric septal hypertrophy, ejection fraction of 60%, mild to moderate mitral stenosis. ASSESSMENT AND PLAN: This is a 71-year-old female with: 1. Altered level of consciousness, respiratory distress. According to the records from EMS and the emergency department, the patient had saturation down to 60% at the half-way facility. When she got here, she was satting in the upper-90s on nasal cannula. She is currently on BiPAP with si gns of hypercapnic respiratory failure, more so than hypoxic based on the ABG. Her chest x-ray and her overall medical history is pointing toward volume overload; therefore will attempt diuresis, and see how that would improve her respiratory status. I have consulted nephrology at this point, as t he patient is also having acute on chronic kidney disease that may make it difficult to diurese if t hat is what we need to do. We will trend her cardiac enzymes and 2D echocardiogram is ordered. Car diology has been consulted. Pulmonary critical care has been consulted and agrees with BiPAP peter staley. I have ordered nebulizers as needed. Will hold off of steroids for now, as there is no report ed history of COPD based on half-way and patient history. I will hold off antibiotics for no w. The patient already received a dose of Levaquin and vancomycin in the ER. Continue BiPAP for re spiratory support. 2. Acute kidney injury on chronic kidney disease. The patient has been on Lasix as an outpatient. A Kyle catheter has been placed. Renal ultrasound is ordered, as there is a reported history of g out. Continue allopurinol. Bumex drip for diuresis while awaiting nephrology evaluation. Strict I 's and O's. 3. Super morbid obesity with possibly obstructive sleep apnea. Continue BiPAP for now. 4. Diastolic congestive heart failure with reported severe septal hypertrophy on echocardiogram alexy ost a year ago, and also mild to moderate mitral stenosis. A 2D echocardiogram has been reordered. Patient is being diuresed for now. We will trend her cardiac enzymes. Her troponin is slightly el evated already, and further intervention based on cardiology evaluation and recommendations. 5. Hyperlipidemia. Check fasting lipid panel and followup on liver enzymes in the a.m. Holding of f the statins for now. 6. Abnormal liver enzymes may be secondary to congestive liver, if patient in volume overload. We will trend the liver function testing and hold off statins for now. Further evaluation based on res ults. We will check her ammonia level. 7. Diabetes mellitus. Check hemoglobin A1c in a.m. Continue subcutaneous insulin including Lantus and sliding scale insulin. 8. Chronic pain, narcotic dependent. Will hold off the scheduled OxyContin. Continue Sebastian as nee ded and morphine as needed. 9. Diabetic neuropathy. The patient is on both Neurontin and Lyrica. For now, we will just contin ue her Neurontin and discontinued Lyrica. 10. Gout, per records from half-way facility. Check uric acid and continue allopurinol. Wi ll also check a renal ultrasound. 11. Prophylaxis. Heparin subcutaneously for deep vein thrombosis prophylaxis while awaiting ultras ound of the lower extremity and Pepcid for GI prophylaxis. DISPOSITION: The patient is being admitted to the intensive care unit. Pulmonary, nephrology and c ardiology have been consulted. Dictated By: REBECCA HERNANDEZ/INDIA Conf#: [id number] DID#: [id number]
[2016-06-29 18:16] LABS: AADO2 Arterial 121.9 mmHg (7.0-24.0); Allen Test ACCEPTAB; Arterial Base Excess -0.4 mmol/L (-3.0-3); Arterial COHb 0.7 % (0.0-3.0); Arterial Fraction of Oxyhgb 93.6 % (93.0-99.0); Arterial HCO3 27.9 mmol/L (22.0-26.0); Arterial MetHb 0.3 % (0.0-1.5); Arterial Total Hemglobin 11.5 g/dl (12.0-18.0); Blood Gas IEPAP 15/5; Blood Gas PS 10; MODE MASK - BIPAP
[2016-06-29 18:18] LABS: POTASSIUM 4.6 mmol/L (3.5-5.1)
[2016-06-29 18:21] LABS: CREATININE 3.34 mg/dl (0.44-1.00)
[2016-06-29 18:22] LABS: CALCIUM 8.8 mg/dl (8.4-10.2)
[2016-06-29 18:33] LABS: CK-MB 5.71 ng/ml (0.0-2.4)
[2016-06-29 18:43] LABS: TROPONIN-I 0.378 ng/ml (0.00-0.12)
--- NOTE | 2016-06-29 19:53 | RADRPT ---
PROCEDURE: Ultrasound of the bilateral lower extremity venous system. CLINICAL INDICATION: Bilateral leg pain and swelling, deep venous thrombosis TECHNIQUE: Bowers scale with and without compression, color doppler, spectral doppler of the venous system of the bilateral lower extremities was performed. Venous augmentation maneuvers were utilized . COMPARISON: No prior studies are available for comparison. FINDINGS: RIGHT: Common femoral vein: Patent. Femoral vein: Poorly visualized distally due to the patient's body habitus but otherwise patent. Popliteal vein: Patent. Calf veins: Patent. No soft tissue abnormalities are identified. LEFT: Common femoral vein: Patent. Femoral vein: Poorly visualized distally due to the patient's body habitus but otherwise patent Popliteal vein: Patent. Calf veins: Not visualized No soft tissue abnormalities are identified. IMPRESSION: No evidence of a deep vein thrombosis within the bilateral lower extremities. RPTAT: AADD .Rich Nuñez MD, MD Date Time Electronically viewed and signed by .Rich Nuñez MD, on 06/29/2016 19:53 .B/
--- NOTE | 2016-06-29 19:58 | RADRPT ---
PROCEDURE: Renal US. CLINICAL INDICATION: Acute kidney injury. TECHNIQUE: Multiple sonographic images of the kidneys and urinary bladder were obtained. The imag es were reviewed on a PACS workstation. COMPARISON: No prior studies are available for comparison. FINDINGS: The right kidney measures 11.2 cm. The left kidney is not visualized. No right hydronephrosis, renal mass, or urinary stone is identified. The urinary bladder is not visualized. IMPRESSION: 1. Normal appearance of the right kidney. 2. Nonvisualization of the left kidney and urinary bladder. RPTAT: HTAR .Regulo Emery MD, Date Time Electronically viewed and signed by .Regulo Emery MD, on 06/29/2016 19:58 .R/
[2016-06-29 20:19] LABS: AADO2 Arterial 103.6 mmHg (7.0-24.0); Allen Test ACCEPTAB; Arterial Base Excess 0.8 mmol/L (-3.0-3); Arterial COHb 0.7 % (0.0-3.0); Arterial HCO3 29.4 mmol/L (22.0-26.0); Arterial MetHb 0.3 % (0.0-1.5); Arterial Total Hemglobin 12.6 g/dl (12.0-18.0); Blood Gas IEPAP 15/5; MODE MASK - BIPAP
[2016-06-29] MEDS: GABAPENTIN 300 MG CAP PO SCH (20:27)
[2016-06-29] MEDS: ALLOPURINOL 100 MG TAB PO SCH (20:28)
[2016-06-29] MEDS: DOCUSATE SODIUM 100 MG CAP PO SCH (20:28)
[2016-06-29] MEDS: CHOLECALCIFEROL 1,000 UNIT TAB PO SCH (20:28)
[2016-06-29] MEDS: ASCORBIC ACID 500 MG TAB PO SCH (20:28)
[2016-06-29] MEDS: INSULIN ASPART [NOVOLOG] 3 ML PEN SC SCH ×2 (20:32→22:41)
[2016-06-29] MEDS ORDERED: INSULIN GLARGINE [LANtus] 3 ML PEN SC SCH (21:00)
[2016-06-29 22:16] VITALS: BP 147/71; PULSE 79; RESP 20
[2016-06-29] MEDS: FAMOTIDINE 20 MG INJ IV SCH (22:39)
[2016-06-29] MEDS: HEPARIN 5,000 UNIT/0.5 ML VIAL SC SCH (22:40)
[2016-06-30] VITALS (8 sets, daily range): BP systolic 139–171; BP diastolic 61–83; PULSE 38–72; RESP 15–19; TEMP 98; Ht 162.6 cm; Wt 136.8 kg
[2016-06-30 03:05] LABS: CK-MB 4.83 ng/ml (0.0-2.4)
[2016-06-30 03:26] LABS: TROPONIN-I 0.251 ng/ml (0.00-0.12)
[2016-06-30 05:32] LABS: AADO2 Arterial 100.5 mmHg (7.0-24.0); Allen Test ACCEPTAB; Arterial Base Excess 5.4 mmol/L (-3.0-3); Arterial COHb 0.2 % (0.0-3.0); Arterial Fraction of Oxyhgb 96.1 % (93.0-99.0); Arterial HCO3 32.8 mmol/L (22.0-26.0); Arterial MetHb 0.3 % (0.0-1.5); Arterial Total Hemglobin 11.7 g/dl (12.0-18.0); Blood Gas IEPAP 18/8; MODE MASK - BIPAP
[2016-06-30 05:40] LABS: ADD SCAN DIFF NO
[2016-06-30 05:57] LABS: INR 1.15; PROTIME 14.7 Sec (12.2-14.2); PT RATIO 1.1
[2016-06-30] MEDS: HEPARIN 5,000 UNIT/0.5 ML VIAL SC SCH ×3 (05:57→22:42)
[2016-06-30 05:58] LABS: PARTIAL THROMBOPLASTIN TIME 21.4 Sec (25.0-35.0)
[2016-06-30 05:59] LABS: PHOSPHORUS 7.6 mg/dl (2.5-4.9)
[2016-06-30 06:00] LABS: CHOL/HDL RATIO 2.7 RATIO; MAGNESIUM 2.3 mg/dl (1.7-2.5)
[2016-06-30 06:07] LABS: ALBUMIN 3.6 g/dl (3.3-4.9)
[2016-06-30 06:08] LABS: POTASSIUM 4.7 mmol/L (3.5-5.1)
[2016-06-30 06:10] LABS: BILIRUBIN,INDIRECT 0.3 mg/dl (0-1.1); BILIRUBIN,TOTAL 0.3 mg/dl (0.2-1.3); CREATININE 3.1 mg/dl (0.44-1.00)
[2016-06-30 06:11] LABS: ALBUMIN/GLOBULIN RATIO 1.33; CALCIUM 8.8 mg/dl (8.4-10.2); TOTAL PROTEIN 6.3 g/dl (6.1-8.1)
[2016-06-30 06:30] LABS: THYROID STIMULATING HORMONE 0.206 MIU/L (0.465-4.680)
[2016-06-30 07:13] LABS: ABNORMAL IP MESSAGE 1; HEMATOCRIT 35.1 % (37.0-47.0); LYMPHOCYTES # 0.4 10^3/ul (0.8-2.9); LYMPHOCYTES % 7.8 % (15.0-51.0); MEAN CORPUSCULAR HEMOGLOBIN 28.4 pg (29.0-33.0); MEAN CORPUSCULAR HGB CONC 31.3 g/dl (32.0-37.0); MEAN CORPUSCULAR VOLUME 90.5 fl (82.0-101.0); MEAN PLATELET VOLUME 11.8 fl (7.4-10.4); MONOCYTE # 0.1 10^3/ul (0.3-0.9); MONOCYTES % 2.8 % (0.0-11.0); NEUTROPHIL # 4.1 10^3/ul (1.6-7.5); NUCLEATED RED BLOOD CELLS% 0.9 /100WBC (0.0-0.0); PLATELET COUNT 125 10^3/UL (140-415); RED BLOOD COUNT 3.88 10^6/ul (4.20-5.40); RED CELL DISTRIBUTION WIDTH 14.2 % (11.5-14.5); WHITE BLOOD COUNT 4.6 10^3/ul (4.8-10.8)
--- NOTE | 2016-06-30 08:30 | RADRPT ---
PROCEDURE: XR Chest. CLINICAL INDICATION: Respiratory failure. TECHNIQUE: Single frontal chest x-ray. COMPARISON: Exam dated 06/29/2016. FINDINGS: The examination is under inflated. There are atherosclerotic changes of the aorta. The cardiomediast inal silhouette remains enlarged. There is similar diffuse bilateral alveolar and interstitial dise ase and a moderate layering right effusion. There is no pneumothorax. There are no acute osseous a bnormalities. IMPRESSION: 1. Cardiomegaly with similar findings suggestive of moderate hydrostatic edema and layering moderat e right effusion. Correlate clinically for CHF. 2. Vascular calcifications consistent with atherosclerosis. RPTAT: GG .Ad Burnett MD, MD Date Time Electronically viewed and signed by .Ad Burnett MD, on 06/30/2016 08:30 .P/
--- NOTE | 2016-06-30 09:57 | PN ---
Date/Time of Note Date/Time of Note DATE: 06/30/16 TIME: 09:34 Assessment/Plan VTE Prophylaxis VTE Prophylaxis Intervention: heparin Lines/Catheters Urinary Cath still in place: Yes Reason Cath still needed: other (indicate) (strict i/o and DWIGHT ) Assessment/Plan Assessment/Plan 71-year-old female with: 1. Altered level of consciousness, acute hypercapnic and hypoxemic respiratory distress 2ry to CHF exacerbation acute on chronic diastolic dysfunction at least. On Diuresis, s/p Bumex gtt and will start on Bumex 2 mg IV bid today per Nephro recs and f/u cardiology On BIPAP, nebs prn Continue trending cardiac enzymes and 2D echocardiogram pending 2. Acute kidney injury on chronic kidney disease. Continue IV Bumex this AM post Bumex gtt overnight Good UOP Nephro to see Renal US done, could not visualize Left kidney 3. Super morbid obesity with possibly obstructive sleep apnea. Continue BiPAP for now. 4. Diastolic congestive heart failure with reported severe septal hypertrophy on echocardiogram almost a year ago, and also mild to moderate mitral stenosis. 2D 2D echocardiogram pending Continue diuresis Follow up cardiac enzymes. 5. Hyperlipidemia. Check Liver US and monitor LFTs prior to resuming statins. 6. Abnormal liver enzymes may be secondary to congestive liver. LFTs improving Hold off statins for now. Check Liver US 7. Diabetes mellitus. A1c 7.3 Continue subcutaneous insulin including Lantus and sliding scale insulin and titrate as needed 8. Chronic pain, narcotic dependent. Hold scheduled OxyContin until more awake Continue [place] as needed and morphine as needed. 9. Diabetic neuropathy. Continue Neurontin and discontinued Lyrica. 10. Gout, per records from snf facility. Uric acid wnl, continue allopurinol. Prophylaxis. Heparin subcutaneously for deep vein thrombosis prophylaxis while awaiting ultrasound of the lower extremity and Pepcid for GI prophylaxis. DISPOSITION: Downgrade to Telemetry Continue BiPAP and diuresis, follow up Nephrology, Cardiology and Pulmonary recommendations today Subjective 24 Hr Interval Summary Free Text/Dictation Patient remains stable this AM, on BiPAP, s/p Bumex gtt Appreciate Nephrology and Pulmonary recommendations Downgrading to Telemetry, on BIPAP Exam/Review of Systems Vital Signs Vitals Vital Signs Date Time Temp Pulse Resp B/P Pulse Ox O2 Delivery O2 Flow Rate FiO2 06/30/16 07:00 57 19 128/54 97 BIPAP 06/30/16 05:20 40 06/29/16 20:05 3.0 06/29/16 11:25 98.6 Intake and Output 06/29/16 06/29/16 06/30/16 15:00 23:00 07:00 Intake Total 400 ml Output Total 1100 ml Balance 400 ml -1100 ml Exam Constitutional: obese (super morbid), other (sleeping but easily arousable ) Respiratory: diminished breath sounds (bilaterally ), other (on BIPAP) Cardiovascular: nl pulses, regular rate and rhythm Gastrointestinal: non-tender, soft Musculoskeletal: other (chronic venous stasis changes ) Extremities: normal pulses Neurological: lethargic, other (easily arousable ) Results Result Diagram: 06/30/1651906/30/16519 Results 24 hrs Laboratory Tests Test 06/29/16 11:00 06/29/16 11:01 06/29/16 11:50 06/29/16 13:19 Amylase Level 190 H Lipase 258 Blood Gas Specimen Source Blood arterial Arterial Blood Date Drawn 06/29/2016 12:40:20 PM Arterial Blood pH (Temp corrected) 7.231 *L Arterial Blood pCO2 (Temp correct) 67.0 H Arterial Blood pO2 (Temp corrected) 94.1 H Arterial Blood HCO3 27.5 H Arterial Blood Base Excess -1.3 Arterial Blood Oxygen Saturation 94.4 L Bill Test ACCEPTAB Arterial Blood Gas Puncture Site Right Radial Arterial Blood Carboxyhemoglobin 1.1 Arterial Blood Methemoglobin 0.3 Blood Gas A-a O2 Differential 63.0 H Oxyhemoglobin Percent 93.1 Total Hemoglobin 12.2 Blood Gas Temperature 37.0 Blood Gas Modality NASAL CANNULA FiO2 33.0 Blood Gas Critical Value Read Back PATSY Longoria Blood Gas Notified Whom [facility] Blood Gas Notified Time 06/29/2016 12:46:52 PM White Blood Count 7.3 Red Blood Count 4.42 Hemoglobin 12.0 Hematocrit 41.0 Mean Corpuscular Volume 92.8 Mean Corpuscular Hemoglobin 27.1 L Mean Corpuscular Hemoglobin Concent 29.3 L Red Cell Distribution Width 14.7 H Platelet Count 181 Mean Platelet Volume 12.7 H Neutrophils % 82.2 H Lymphocytes % 9.7 L Monocytes % 7.0 Eosinophils % 0.0 Basophils % 0.3 Nucleated Red Blood Cells % 0.4 H Neutrophils # 6.0 Lymphocytes # 0.7 L Monocytes # 0.5 Eosinophils # 0.0 Basophils # 0.0 Nucleated Red Blood Cells # 0.0 Prothrombin Time 13.4 Prothrombin Time Ratio 1.0 INR International Normalized Ratio 1.02 Activated Partial Thromboplast Time 26.4 Sodium Level 135 Potassium Level 5.5 H Chloride Level 93 L Carbon Dioxide Level 27 Anion Gap 21 H Blood Urea Nitrogen 88 H Creatinine 3.46 H Glucose Level 209 Lactic Acid Level 1.7 1.6 Calcium Level 8.8 Total Bilirubin 0.5 Direct Bilirubin 0.00 Indirect Bilirubin 0.5 Aspartate Amino Transf (AST/SGOT) 403 H Alanine Aminotransferase (ALT/SGPT) 274 H Alkaline Phosphatase 130 H Creatine Kinase 326 H Creatine Kinase Index 1.1 Creatinine Kinase MB (Mass) 3.44 H Troponin I 0.407 *H B-Type Natriuretic Peptide 18273 H Total Protein 7.7 Albumin 4.6 Globulin 3.10 Albumin/Globulin Ratio 1.48 Free Thyroxine Index 2.59 Thyroxine (T4) 6.6 Triiodothyronine (T3) Uptake 39.3 Test 06/29/16 15:20 06/29/16 15:30 06/29/16 16:10 06/29/16 18:00 Lactic Acid Level 1.9 Urine Color YELLOW Urine Clarity SLIGHTLY CLOUDY Urine pH 5.0 Urine Specific [place] 1.025 Urine Ketones TRACE H Urine Nitrite NEGATIVE Urine Bilirubin NEGATIVE Urine Urobilinogen 0.2 E.U./dL Urine Leukocyte Esterase 1+ H Urine Microscopic RBC NONE SEEN Urine Microscopic WBC 10-25 Urine Squamous Epithelial Cells FEW Urine Bacteria MANY Urine Hemoglobin NEGATIVE Urine Glucose NEGATIVE Urine Total Protein 1+ H Urine Opiates Screen Positive Urine Barbiturates Negative Urine Amphetamines Screen Negative Urine Benzodiazepines Screen Negative Urine Cocaine Screen Negative Urine Cannabinoids Negative Uric Acid 6.8 Ammonia 14 Troponin I 0.415 *H Blood Gas Specimen Source Blood arterial Arterial Blood Date Drawn 06/29/2016 6:12:07 PM Arterial Blood pH (Temp corrected) 7.252 *L Arterial Blood pCO2 (Temp correct) 64.8 H Arterial Blood pO2 (Temp corrected) 88.8 Arterial Blood HCO3 27.9 H Arterial Blood Base Excess -0.4 Arterial Blood Oxygen Saturation 94.5 L Bill Test ACCEPTAB Arterial Blood Gas Puncture Site Right Radial Arterial Blood Carboxyhemoglobin 0.7 Arterial Blood Methemoglobin 0.3 Blood Gas A-a O2 Differential 121.9 H Oxyhemoglobin Percent 93.6 Total Hemoglobin 11.5 L Blood Gas Temperature 37.0 Blood Gas Respiration Rate 16.0 Blood Gas Actual Respiration Rate 16 Blood Gas Modality MASK - BIPAP FiO2 40.0 Blood Gas Pressure Support 10 Blood Gas IPAP/EPAP Ratio 15/ Blood Gas Critical Value Read Back GENE Holt Blood Gas Notified Whom [facility] Blood Gas Notified Time 06/29/2016 6:15:05 PM Test 06/29/16 18:06 06/29/16 19:54 06/29/16 19:59 06/29/16 22:24 Sodium Level 135 Potassium Level 4.6 Chloride Level 94 L Carbon Dioxide Level 26 Anion Gap 20 H Blood Urea Nitrogen 92 H Creatinine 3.34 H Glucose Level 255 H Calcium Level 8.8 Creatine Kinase 529 #H Creatine Kinase Index 1.1 Creatinine Kinase MB (Mass) 5.71 H Troponin I 0.378 *H Blood Gas Specimen Source Blood arterial Arterial Blood Date Drawn 06/29/2016 8:14:51 PM Arterial Blood pH (Temp corrected) 7.258 *L Arterial Blood pCO2 (Temp correct) 67.4 H Arterial Blood pO2 (Temp corrected) 104.1 H Arterial Blood HCO3 29.4 H Arterial Blood Base Excess 0.8 Arterial Blood Oxygen Saturation 96.0 Bill Test ACCEPTAB Arterial Blood Gas Puncture Site Right Radial Arterial Blood Carboxyhemoglobin 0.7 Arterial Blood Methemoglobin 0.3 Blood Gas A-a O2 Differential 103.6 H Oxyhemoglobin Percent 95.0 Total Hemoglobin 12.6 Blood Gas Temperature 37.0 Blood Gas Respiration Rate 16.0 Blood Gas Actual Respiration Rate 20 Blood Gas Modality MASK - BIPAP FiO2 40.0 Blood Gas IPAP/EPAP Ratio 15 Blood Gas Critical Value Read Back Jean-Pierre GARNER MD Blood Gas Notified Whom [facility] Blood Gas Notified Time 06/29/2016 8:18:47 PM Bedside Glucose 251 H 305 H Test 06/30/16 01:47 06/30/16 05:00 06/30/16 05:20 06/30/16 08:13 Creatine Kinase 396 H Creatine Kinase Index 1.2 Creatinine Kinase MB (Mass) 4.83 H Troponin I 0.251 *H Blood Gas Specimen Source Blood arterial Arterial Blood Date Drawn 06/30/2016 5:27:28 AM Arterial Blood pH (Temp corrected) 7.338 L Arterial Blood pCO2 (Temp correct) 62.5 H Arterial Blood pO2 (Temp corrected) 112.8 H Arterial Blood HCO3 32.8 H Arterial Blood Base Excess 5.4 H Arterial Blood Oxygen Saturation 96.6 Bill Test ACCEPTAB Arterial Blood Gas Puncture Site Right Radial Arterial Blood Carboxyhemoglobin 0.2 Arterial Blood Methemoglobin 0.3 Blood Gas A-a O2 Differential 100.5 H Oxyhemoglobin Percent 96.1 Total Hemoglobin 11.7 L Blood Gas Temperature 37.0 Blood Gas Respiration Rate 16.0 Blood Gas Actual Respiration Rate 19 Blood Gas Modality MASK - BIPAP FiO2 40.0 Blood Gas IPAP/EPAP Ratio 18/8 Blood Gas Notified Whom MG Blood Gas Notified Time 06/30/2016 5:32:00 AM White Blood Count 4.6 #L Red Blood Count 3.88 L Hemoglobin 11.0 L Hematocrit 35.1 L Mean Corpuscular Volume 90.5 Mean Corpuscular Hemoglobin 28.4 L Mean Corpuscular Hemoglobin Concent 31.3 L Red Cell Distribution Width 14.2 Platelet Count 125 #L Mean Platelet Volume 11.8 H Neutrophils % 89.0 H Lymphocytes % 7.8 L Monocytes % 2.8 Eosinophils % 0.0 Basophils % 0.0 Nucleated Red Blood Cells % 0.9 H Neutrophils # 4.1 Lymphocytes # 0.4 L Monocytes # 0.1 L Eosinophils # 0.0 Basophils # 0.0 Nucleated Red Blood Cells # 0.0 Prothrombin Time 14.7 H Prothrombin Time Ratio 1.1 INR International Normalized Ratio 1.15 Activated Partial Thromboplast Time 21.4 L Sodium Level 138 Potassium Level 4.7 Chloride Level 95 L Carbon Dioxide Level 30 Anion Gap 18 H Blood Urea Nitrogen 104 H Creatinine 3.10 H Glucose Level 250 H Hemoglobin A1c 7.2 H Lactic Acid Level 0.8 Calcium Level 8.8 Phosphorus Level 7.6 H Magnesium Level 2.3 Total Bilirubin 0.3 Direct Bilirubin 0.00 Indirect Bilirubin 0.3 Aspartate Amino Transf (AST/SGOT) 195 H Alanine Aminotransferase (ALT/SGPT) 218 H Alkaline Phosphatase 88 Total Protein 6.3 # Albumin 3.6 # Globulin 2.70 Albumin/Globulin Ratio 1.33 Triglycerides Level 92 Cholesterol Level 132 LDL Cholesterol, Calculated 66 HDL Cholesterol 48 Cholesterol/HDL Ratio 2.7 Thyroid Stimulating Hormone (TSH) 0.206 L Free Thyroxine 1.25 Bedside Glucose 230 H Medications Medications Current Medications Acetaminophen (Tylenol Tab) 650 mg Q6H PRN PO MILD PAIN LEVEL 1-3; Start at 15:30 Allopurinol (Zyloprim) 100 mg BID PO Last administered on 06/29/16 20:28; Admin Dose 100 MG; Start 06/29/16 at 21:00 Ascorbic Acid (Vitamin C) 500 mg BID PO Last administered on 06/29/16 20:28; Admin Dose 500 MG; Start 06/29/16 at 21:00 Aspirin (Halfprin) 81 mg DAILY PO ; Start 06/30/16 at 09:00 Cholecalciferol (Vitamin D) 2,000 unit BID PO Last administered on 06/29/16 20: 28; Admin Dose 2,000 UNIT; Start 06/29/16 at 21:00 Docusate Sodium (Colace) 100 mg BID PO Last administered on 06/29/16 20:28; Admin Dose 100 MG; Start 06/29/16 at 21:00 Gabapentin (Neurontin) 300 mg TID PO Last administered on 06/29/16 20:27; Admin Dose 300 MG; Start 06/29/16 at 21:00 Acetaminophen/ Hydrocodone Bitart ([place] (5/325)) 1 tab Q4 PRN PO PAIN LEVEL 4- 6 Last administered on 06/30/16 05:55; Admin Dose 1 TAB; Start 06/29/16 at 15:30 Acetaminophen/ Hydrocodone Bitart ([place] (5/325)) 2 tab Q4 PRN PO SEVERE PAIN LEVEL 7-10; Start 06/29/16 at 15:30 Isosorbide Mononitrate (Imdur) 30 mg DAILY PO ; Start 06/30/16 at 09:00 Insulin Glargine (Lantus) 20 unit QHS SC Last administered on 06/29/16 22:55; Admin Dose 20 UNIT; Start 06/29/16 at 21:00 Ondansetron HCl (Zofran Inj) 4 mg Q6H PRN IV NAUSEA AND/OR VOMITING; Start 06/29 at 15:30 Nitroglycerin (Nitroglycerin (Sl Tab) 0.4 Mg) 1 tab Q5M PRN SL CHEST PAIN; Start 06/29/16 at 15:30 Morphine Sulfate (morphine) 2 mg Q4H PRN IV PAIN LEVEL 7-10; Start 06/29/16 at 15:30 Magnesium Hydroxide (Milk Of Mag) 30 ml DAILY PRN PO CONSTIPATION; Start at 15:30 Bisacodyl (Dulcolax Supp) 10 mg DAILY PRN [place] CONSTIPATION; Start 06/29/16 at 15: 30 Famotidine (Pepcid Iv) 20 mg Q12 IV Last administered on 06/29/16 22:39; Admin Dose 20 MG; Start 06/29/16 at 21:00 Heparin Sodium (Porcine) (Heparin (5000 Units/0.5 ml)) 5,000 unit Q8 SC Last administered on 06/30/16 05:57; Admin Dose 5,000 UNIT; Start 06/29/16 at 22:00 Miscellaneous Information 1 ea NOTE XX ; Start 06/29/16 at 16:00 Glucose (Glutose) 15 gm Q15M PRN PO DECREASED GLUCOSE; Start 06/29/16 at 16:00 Glucose (Glutose) 22.5 gm Q15M PRN PO DECREASED GLUCOSE; Start 06/29/16 at 16:00 Dextrose (D50w Syringe) 25 ml Q15M PRN IV DECREASED GLUCOSE; Start 06/29/16 at 16:00 Dextrose (D50w Syringe) 50 ml Q15M PRN IV DECREASED GLUCOSE; Start 06/29/16 at 16:00 Glucagon (Glucagen) 1 mg Q15M PRN IM DECREASED GLUCOSE; Start 06/29/16 at 16:00 Glucose (Glutose) 15 gm Q15M PRN BUCCAL DECREASED GLUCOSE; Start 06/29/16 at 16: 00 Procedures Procedures PROCEDURE: Renal US. CLINICAL INDICATION: Acute kidney injury. TECHNIQUE: Multiple sonographic images of the kidneys and urinary bladder were obtained. The images were reviewed on a PACS workstation. COMPARISON: No prior studies are available for comparison. FINDINGS: The right kidney measures 11.2 cm. The left kidney is not visualized. No right hydronephrosis, renal mass, or urinary stone is identified. The urinary bladder is not visualized. IMPRESSION: 1. Normal appearance of the right kidney. 2. Nonvisualization of the left kidney and urinary bladder. PROCEDURE: Ultrasound of the bilateral lower extremity venous system. CLINICAL INDICATION: Bilateral leg pain and swelling, deep venous thrombosis TECHNIQUE: Bowers scale with and without compression, color doppler, spectral doppler of the venous system of the bilateral lower extremities was performed. Venous augmentation maneuvers were utilized. COMPARISON: No prior studies are available for comparison. FINDINGS: RIGHT: Common femoral vein: Patent. Femoral vein: Poorly visualized distally due to the patient's body habitus but otherwise patent. Popliteal vein: Patent. Calf veins: Patent. No soft tissue abnormalities are identified. LEFT: Common femoral vein: Patent. Femoral vein: Poorly visualized distally due to the patient's body habitus but otherwise patent Popliteal vein: Patent. Calf veins: Not visualized No soft tissue abnormalities are identified. IMPRESSION: No evidence of a deep vein thrombosis within the bilateral lower extremities. PROCEDURE: XR Chest. CLINICAL INDICATION: Respiratory failure. TECHNIQUE: Single frontal chest x-ray. COMPARISON: Exam dated 06/29/2016. FINDINGS: The examination is under inflated. There are atherosclerotic changes of the aorta. The cardiomediastinal silhouette remains enlarged. There is similar diffuse bilateral alveolar and interstitial disease and a moderate layering right effusion. There is no pneumothorax. There are no acute osseous abnormalities. IMPRESSION: 1. Cardiomegaly with similar findings suggestive of moderate hydrostatic edema and layering moderate right effusion. Correlate clinically for CHF. 2. Vascular calcifications consistent with atherosclerosis. REBECCA SALAS Jun 30, 2016 09:47
[2016-06-30] MEDS ORDERED: BUMETANIDE 1 MG INJ IV SCH ×2 (10:00)
[2016-06-30] MEDS: INSULIN ASPART [NOVOLOG] 3 ML PEN SC SCH ×6 (10:01→22:36)
[2016-06-30] MEDS: FAMOTIDINE 20 MG INJ IV SCH ×2 (10:02→21:31)
[2016-06-30] MEDS: DOCUSATE SODIUM 100 MG CAP PO SCH ×2 (10:02→21:41)
[2016-06-30] MEDS: GABAPENTIN 300 MG CAP PO SCH ×3 (10:03→21:42)
[2016-06-30] MEDS: CHOLECALCIFEROL 1,000 UNIT TAB PO SCH ×2 (10:03→21:41)
[2016-06-30] MEDS: ISOSORBIDE MONONITRATE(SR)30 MG TAB PO SCH (10:03)
[2016-06-30] MEDS: ALLOPURINOL 100 MG TAB PO SCH ×2 (10:03→21:41)
--- NOTE | 2016-06-30 10:12 | QN ---
Documentation Comment Observation Note: Time: 4 hours Family Hx: Negative for diabetes Evaluation: Multiple exams showed improving symptoms and no evidence of clinical decompensation. The patient was seen by Dr. Orellana in the morning after being here for 22 hours. The patient is no longer requiring ICU will be downgraded to a telemetry bed. CHRISTIAN BUSBY MD Jun 30, 2016 10:11
[2016-06-30 10:22] LABS: IRON 32 ug/dl (35-150)
[2016-06-30] MEDS ORDERED: BUMETANIDE 2 MG in DEXTROSE 5% 17 ML IV ONE (10:30)
[2016-06-30 10:31] LABS: TOTAL IRON BINDING CAPACITY 289 ug/dl (241-421)
[2016-06-30] MEDS: ASCORBIC ACID 500 MG TAB PO SCH ×2 (10:37→21:41)
[2016-06-30] MEDS: ASPIRIN (EC) 81 MG TAB PO SCH (10:37)
[2016-06-30 11:06] LABS: CK-MB 3.66 ng/ml (0.0-2.4)
[2016-06-30 11:15] LABS: TROPONIN-I 0.214 ng/ml (0.00-0.12)
--- NOTE | 2016-06-30 15:44 | RADRPT ---
Echocardiogram Report Patient Name: JONY YOUNG Gender: Female Date: 1945 Study Date: 30-Jun-2016 Manager Software Development: [facility] Location: ER=3 Race: = Ref. Physician: MARGY SALAS Quality: Technically Difficult Study Procedures: Transthoracic echocardiogram with complete 2D, M-Mode, and doppler examination. Indications: Congestive Heart Failure and elevated troponin. 2D/M Mode Doppler Measurement Value Normal Ranges Measurement Value Normal Ranges LVIDd 2D 5.2 3.5 - 5.6 cm PATRICK Vmax 1.1 cm2 LVIDs 2D 3.3 2.1 - 4.1 cm AV Peak Prabhu 1.6 m/sec FS 2D 35.7 % AV Peak PG 10.0 mmHg LVPWd 2D 1.3 0.6 - 1.1 cm LVOT Peak Prabhu 0.7 m/sec IVSd 2D 1.1 0.6 - 1.1 cm LVOT Peak PG 2.0 mmHg IVS/LVPW 2D 0.9 MV PHT 70.0 msec AoR Diam 2D 3.0 2.0 - 3.7 cm MV Peak Prabhu 1.4 m/sec LA/Ao 2D 2 0 - 1 MV Peak PG 8.0 mmHg EDV 2D 141.0 cm3 MV Mean Prabhu 0.6 m/sec ESV 2D 37.6 cm3 MV Mean PG 2.0 mmHg LA Dimen 2D 4.8 2.3 - 4.0 cm MV Decel Casey 5 LVOT Diam 1.8 cm MV PHT Peak Prabhu 1.1 m/sec LVOT Area 2.5 cm2 MV PHT 70.0 msec MV VTI 44.7 cm MVA PHT 3.1 cm2 TR Peak Prabhu 2.2 m/sec TR Peak PG 19.0 mmHg Findings Left Ventricle: Normal left ventricular systolic function. Normal left ventricular cavity size. Left ventricular wall thickness upper limits of normal. Ejection fraction is visually estimated at 65 %. Abnormal Diastolic Function. Right Ventricle: Normal right ventricular systolic function. Not well visualized. Left Atrium: There is moderate enlargement of left atrium. Right Atrium: Not well visualized. Mitral Valve: Mitral valve leaflets appear moderately thickened. Moderate mitral leaflet calcification. Moderate mitral annular calcification. Trace mitral regurgitation. Mild mitral stenosis. Aortic Valve: Normal appearance of the aortic valve. No significant aortic stenosis or insufficiency. Tricuspid Valve: Normal appearance of the tricuspid valve. Estimated peak PA systolic pressure 23 mmHg. There is mild tricuspid regurgitation. Pulmonic Valve: Pulmonic valve not well visualized. There is trace pulmonic regurgitation. Pericardium: Left pleural effusion seen. Aorta: Normal aortic root. IVC: Inferior vena cava without respiratory collapse, however, patient on BiPAP. Conclusions 1.Normal left ventricular systolic function. Normal left ventricular cavity size. Left ventricular wall thickness upper limits of normal. Ejection fraction is visually estimated at 65 %. Abnormal Diastolic Function. 2.Normal right ventricular systolic function. Not well visualized. 3.There is moderate enlargement of left atrium. 4.Not well visualized. 5.Mitral valve leaflets appear moderately thickened. Moderate mitral leaflet calcification. Moderate mitral annular calcification. Trace mitral regurgitation. Mild mitral stenosis. 6.No significant aortic stenosis or insufficiency. 7.Estimated peak PA systolic pressure 23 mmHg. There is mild tricuspid regurgitation. 8.Left pleural effusion seen. Electronically Signed By: Guy Greer 30-Jun-2016 15:42:49 -0700 Patient Name: JONY YOUNG Study Date: 30-Jun-2016 [id number]
--- NOTE | 2016-06-30 18:25 | CONS ---
Date/Time of Note Date/Time of Note DATE: 06/30/16 TIME: 18:20 Assessment/Plan Assessment/Plan Additional Assessment/Plan Acute decompensated diastolic congestive heart failure Respiratory failure Hypertension Morbid obesity Renal dysfunction -Patient with significant improvement in respiratory status with initiation of diuretic therapy. Patient currently off BiPAP on nasal cannula. Continue diuretics as per our nephrology colleagues. Troponins minimally elevated likely secondary to respiratory failure and decompensated congestive heart failure. ECG without any significant ischemic abnormalities. Continue aspirin therapy, no statin secondary to abnormal LFTs, no beta-safia secondary to bradycardia. Consultation Date/Type/Reason Admit Date/Time Type of Consultation: cv Reason for Consultation Shortness of breath Hx of Present Illness This is a 71-year-old female with past medical history of congestive heart failure, obesity, hypertension who presents with progressive worsening shortness of breath, and altered mental status. Patient found to be in decompensated congestive heart failure and respiratory failure. Patient placed on BiPAP and started on IV diuresis. Patient with significant improvement in symptoms with diuretics. She currently denies any chest pain, dizziness or lightheadedness. Her shortness of breath has improved significantly. She denies any abdominal pain, nausea or vomiting. She does walk daily using limited. She denies any fevers or chills. 12 point review of systems was performed with all pertinent positives and negatives mentioned above and all else is negative Constitutional: diaphoresis Eyes: no complaints ENT: no complaints Respiratory: shortness of breath, wheezing Cardiovascular: edema Gastrointestinal: no complaints Psychological: no complaints Past Medical History Obesity Medical History: coronary artery disease, diabetes, hypertension Past Surgical History Past Surgical Hx: no surgical history Family History Significant Family History: no pertinent family hx Social History Alcohol Use: none Smoking Status: Never smoker Drug Use: none Other Social History From nursing facility Exam/Review of Systems Vital Signs Vitals Vital Signs Date Time Temp Pulse Resp B/P Pulse Ox O2 Delivery O2 Flow Rate FiO2 06/30/16 17:00 98.0 65 19 137/61 97 Nasal Cannula 3.0 06/30/16 05:20 40 Intake and Output 06/29/16 06/29/16 06/30/16 15:00 23:00 07:00 Intake Total 400 ml Output Total 1100 ml Balance 400 ml -1100 ml Exam No apparent distress Constitutional: alert, obese, oriented Head: normocephalic Neck: supple Respiratory: other (Coarse breath sounds bilaterally and decreased at the bases , no wheezing) Cardiovascular: other (S1-S2 heard), regular rate and rhythm Gastrointestinal: bowel sounds, non-tender, soft Extremities: edema, other (No cyanosis) Results Result Diagram: 06/30/16 0520 06/30/16 0520 Results 24 hrs Laboratory Tests Test 06/29/16 19:54 06/29/16 19:59 06/29/16 22:24 06/30/16 01:47 Blood Gas Specimen Source Blood arterial Arterial Blood Date Drawn 06/29/2016 8:14:51 PM Arterial Blood pH (Temp corrected) 7.258 *L Arterial Blood pCO2 (Temp correct) 67.4 H Arterial Blood pO2 (Temp corrected) 104.1 H Arterial Blood HCO3 29.4 H Arterial Blood Base Excess 0.8 Arterial Blood Oxygen Saturation 96.0 Bill Test ACCEPTAB Arterial Blood Gas Puncture Site Right Radial Arterial Blood Carboxyhemoglobin 0.7 Arterial Blood Methemoglobin 0.3 Blood Gas A-a O2 Differential 103.6 H Oxyhemoglobin Percent 95.0 Total Hemoglobin 12.6 Blood Gas Temperature 37.0 Blood Gas Respiration Rate 16.0 Blood Gas Actual Respiration Rate 20 Blood Gas Modality MASK - BIPAP FiO2 40.0 Blood Gas IPAP/EPAP Ratio 15/5 Blood Gas Critical Value Read Back Jean-Pierre GARNER MD Blood Gas Notified Whom MG Blood Gas Notified Time 06/29/2016 8:18:47 PM Bedside Glucose 251 H 305 H Creatine Kinase 396 H Creatine Kinase Index 1.2 Creatinine Kinase MB (Mass) 4.83 H Troponin I 0.251 *H Test 06/30/16 05:00 06/30/16 05:20 06/30/16 08:13 06/30/16 09:57 Blood Gas Specimen Source Blood arterial Arterial Blood Date Drawn 06/30/2016 5:27:28 AM Arterial Blood pH (Temp corrected) 7.338 L Arterial Blood pCO2 (Temp correct) 62.5 H Arterial Blood pO2 (Temp corrected) 112.8 H Arterial Blood HCO3 32.8 H Arterial Blood Base Excess 5.4 H Arterial Blood Oxygen Saturation 96.6 Bill Test ACCEPTAB Arterial Blood Gas Puncture Site Right Radial Arterial Blood Carboxyhemoglobin 0.2 Arterial Blood Methemoglobin 0.3 Blood Gas A-a O2 Differential 100.5 H Oxyhemoglobin Percent 96.1 Total Hemoglobin 11.7 L Blood Gas Temperature 37.0 Blood Gas Respiration Rate 16.0 Blood Gas Actual Respiration Rate 19 Blood Gas Modality MASK - BIPAP FiO2 40.0 Blood Gas IPAP/EPAP Ratio 18/8 Blood Gas Notified Whom MG Blood Gas Notified Time 06/30/2016 5:32:00 AM White Blood Count 4.6 #L Red Blood Count 3.88 L Hemoglobin 11.0 L Hematocrit 35.1 L Mean Corpuscular Volume 90.5 Mean Corpuscular Hemoglobin 28.4 L Mean Corpuscular Hemoglobin Concent 31.3 L Red Cell Distribution Width 14.2 Platelet Count 125 #L Mean Platelet Volume 11.8 H Neutrophils % 89.0 H Lymphocytes % 7.8 L Monocytes % 2.8 Eosinophils % 0.0 Basophils % 0.0 Nucleated Red Blood Cells % 0.9 H Neutrophils # 4.1 Lymphocytes # 0.4 L Monocytes # 0.1 L Eosinophils # 0.0 Basophils # 0.0 Nucleated Red Blood Cells # 0.0 Prothrombin Time 14.7 H Prothrombin Time Ratio 1.1 INR International Normalized Ratio 1.15 Activated Partial Thromboplast Time 21.4 L Sodium Level 138 Potassium Level 4.7 Chloride Level 95 L Carbon Dioxide Level 30 Anion Gap 18 H Blood Urea Nitrogen 104 H Creatinine 3.10 H Glucose Level 250 H Hemoglobin A1c 7.2 H Lactic Acid Level 0.8 Calcium Level 8.8 Phosphorus Level 7.6 H Magnesium Level 2.3 Iron Level 32 L Total Iron Binding Capacity 289 Percent Iron Saturation 11 L Total Bilirubin 0.3 Direct Bilirubin 0.00 Indirect Bilirubin 0.3 Aspartate Amino Transf (AST/SGOT) 195 H Alanine Aminotransferase (ALT/SGPT) 218 H Alkaline Phosphatase 88 Total Protein 6.3 # Albumin 3.6 # Globulin 2.70 Albumin/Globulin Ratio 1.33 Triglycerides Level 92 Cholesterol Level 132 LDL Cholesterol, Calculated 66 HDL Cholesterol 48 Cholesterol/HDL Ratio 2.7 Thyroid Stimulating Hormone (TSH) 0.206 L Free Thyroxine 1.25 Bedside Glucose 230 H 200 Test 06/30/16 10:30 06/30/16 14:00 Creatine Kinase 273 H Creatine Kinase Index 1.3 Creatinine Kinase MB (Mass) 3.66 H Troponin I 0.214 *H B-Type Natriuretic Peptide 72308 H Parathyroid Hormone (Intact) Bedside Glucose 210 Medications Medications Current Medications Acetaminophen (Tylenol Tab) 650 mg Q6H PRN PO MILD PAIN LEVEL 1-3; Start at 15:30 Allopurinol (Zyloprim) 100 mg BID PO Last administered on 06/30/16 10:03; Admin Dose 100 MG; Start 06/29/16 at 21:00 Ascorbic Acid (Vitamin C) 500 mg BID PO Last administered on 06/30/16 10:37; Admin Dose 500 MG; Start 06/29/16 at 21:00 Aspirin (Halfprin) 81 mg DAILY PO Last administered on 06/30/16 10:37; Admin Dose 81 MG; Start 06/30/16 at 09:00 Cholecalciferol (Vitamin D) 2,000 unit BID PO Last administered on 06/30/16 10: 03; Admin Dose 2,000 UNIT; Start 06/29/16 at 21:00 Docusate Sodium (Colace) 100 mg BID PO Last administered on 06/30/16 10:02; Admin Dose 100 MG; Start 06/29/16 at 21:00 Gabapentin (Neurontin) 300 mg TID PO Last administered on 06/30/16 14:02; Admin Dose 300 MG; Start 06/29/16 at 21:00 Acetaminophen/ Hydrocodone Bitart ([place] (5/325)) 1 tab Q4 PRN PO PAIN LEVEL 4- 6 Last administered on 06/30/16 05:55; Admin Dose 1 TAB; Start 06/29/16 at 15:30 Acetaminophen/ Hydrocodone Bitart ([place] (5/325)) 2 tab Q4 PRN PO SEVERE PAIN LEVEL 7-10; Start 06/29/16 at 15:30 Isosorbide Mononitrate (Imdur) 30 mg DAILY PO Last administered on 06/30/16 10: 03; Admin Dose 30 MG; Start 06/30/16 at 09:00 Ondansetron HCl (Zofran Inj) 4 mg Q6H PRN IV NAUSEA AND/OR VOMITING; Start 06/29 at 15:30 Nitroglycerin (Nitroglycerin (Sl Tab) 0.4 Mg) 1 tab Q5M PRN SL CHEST PAIN; Start 06/29/16 at 15:30 Morphine Sulfate (morphine) 2 mg Q4H PRN IV PAIN LEVEL 7-10; Start 06/29/16 at 15:30 Magnesium Hydroxide (Milk Of Mag) 30 ml DAILY PRN PO CONSTIPATION; Start at 15:30 Bisacodyl (Dulcolax Supp) 10 mg DAILY PRN [place] CONSTIPATION; Start 06/29/16 at 15: 30 Famotidine (Pepcid Iv) 20 mg Q12 IV Last administered on 06/30/16 10:02; Admin Dose 20 MG; Start 06/29/16 at 21:00 Heparin Sodium (Porcine) (Heparin (5000 Units/0.5 ml)) 5,000 unit Q8 SC Last administered on 06/30/16 14:06; Admin Dose 5,000 UNIT; Start 06/29/16 at 22:00 Miscellaneous Information 1 ea NOTE XX ; Start 06/29/16 at 16:00 Glucose (Glutose) 15 gm Q15M PRN PO DECREASED GLUCOSE; Start 06/29/16 at 16:00 Glucose (Glutose) 22.5 gm Q15M PRN PO DECREASED GLUCOSE; Start 06/29/16 at 16:00 Dextrose (D50w Syringe) 25 ml Q15M PRN IV DECREASED GLUCOSE; Start 06/29/16 at 16:00 Dextrose (D50w Syringe) 50 ml Q15M PRN IV DECREASED GLUCOSE; Start 06/29/16 at 16:00 Glucagon (Glucagen) 1 mg Q15M PRN IM DECREASED GLUCOSE; Start 06/29/16 at 16:00 Glucose (Glutose) 15 gm Q15M PRN BUCCAL DECREASED GLUCOSE; Start 06/29/16 at 16: 00 Insulin Glargine (Lantus) 25 unit QHS SC ; Start 06/30/16 at 21:00 Guy Greer DO Jun 30, 2016 18:25
[2016-06-30] MEDS: INSULIN GLARGINE [LANtus] 3 ML PEN SC SCH (22:36)
[2016-07-01] VITALS (11 sets, daily range): BP systolic 106–153; BP diastolic 53–67; PULSE 60–83; RESP 16–21
[2016-07-01] MEDS: HEPARIN 5,000 UNIT/0.5 ML VIAL SC SCH (05:21)
[2016-07-01 06:30] LABS: ADD SCAN DIFF NO
[2016-07-01 06:37] LABS: BASOPHILS % 0.3 % (0.0-2.0); EOSINOPHILS # 0.1 10^3/ul (0.0-0.5); EOSINOPHILS % 0.8 % (0.0-7.0); HEMATOCRIT 34.6 % (37.0-47.0); HEMOGLOBIN 10.6 g/dl (12.0-16.0); LYMPHOCYTES # 0.9 10^3/ul (0.8-2.9); LYMPHOCYTES % 12.2 % (15.0-51.0); MEAN CORPUSCULAR HEMOGLOBIN 27.7 pg (29.0-33.0); MEAN CORPUSCULAR HGB CONC 30.6 g/dl (32.0-37.0); MEAN CORPUSCULAR VOLUME 90.3 fl (82.0-101.0); MEAN PLATELET VOLUME 11.4 fl (7.4-10.4); MONOCYTE # 0.6 10^3/ul (0.3-0.9); MONOCYTES % 7.5 % (0.0-11.0); NEUTROPHIL # 6.1 10^3/ul (1.6-7.5); NEUTROPHILS % 78.7 % (39.0-77.0); NUCLEATED RED BLOOD CELLS% 0.5 /100WBC (0.0-0.0); PLATELET COUNT 139 10^3/UL (140-415); RED BLOOD COUNT 3.83 10^6/ul (4.20-5.40); RED CELL DISTRIBUTION WIDTH 14.3 % (11.5-14.5); WHITE BLOOD COUNT 7.7 10^3/ul (4.8-10.8)
[2016-07-01 06:52] LABS: INR 1.11; PROTIME 14.3 Sec (12.2-14.2); PT RATIO 1.1
[2016-07-01 06:53] LABS: ALBUMIN 3.4 g/dl (3.3-4.9); POTASSIUM 4.2 mmol/L (3.5-5.1)
[2016-07-01 06:54] LABS: MAGNESIUM 2.3 mg/dl (1.7-2.5); PHOSPHORUS 6.2 mg/dl (2.5-4.9)
[2016-07-01 06:56] LABS: ALBUMIN/GLOBULIN RATIO 1.3; BILIRUBIN,INDIRECT 0.2 mg/dl (0-1.1); BILIRUBIN,TOTAL 0.2 mg/dl (0.2-1.3); CREATININE 2.82 mg/dl (0.44-1.00)
[2016-07-01 06:57] LABS: PARTIAL THROMBOPLASTIN TIME 23.3 Sec (25.0-35.0)
--- NOTE | 2016-07-01 07:27 | RADRPT ---
PROCEDURE: XR Chest. CLINICAL INDICATION: Pulmonary edema TECHNIQUE: Portable single view of the chest COMPARISON: 06/30 FINDINGS: Lung volumes are slightly improved but there has otherwise been no interval change. Cardiomegaly an d pulmonary vascular congestion with probable right pleural effusion. Underlying right base infiltr ate cannot be excluded. Probable interstitial edema. IMPRESSION: Slightly improved lung volumes. Otherwise stable exam. RPTAT: HLBE Rasheeda Alcala Physician Date Time Electronically viewed and signed by Rasheeda Alcala, Physician on 07/01/2016 07:27 LEROY/
[2016-07-01] MEDS: INSULIN ASPART [NOVOLOG] 3 ML PEN SC SCH ×6 (07:55→21:23)
[2016-07-01] MEDS: ASPIRIN (EC) 81 MG TAB PO SCH (08:45)
[2016-07-01] MEDS: FAMOTIDINE 20 MG INJ IV SCH (08:45)
[2016-07-01] MEDS: DOCUSATE SODIUM 100 MG CAP PO SCH ×2 (08:45→20:59)
[2016-07-01] MEDS: ISOSORBIDE MONONITRATE(SR)30 MG TAB PO SCH (08:46)
[2016-07-01] MEDS: CHOLECALCIFEROL 1,000 UNIT TAB PO SCH ×2 (08:47→20:59)
[2016-07-01] MEDS: GABAPENTIN 300 MG CAP PO SCH ×3 (08:47→20:59)
[2016-07-01] MEDS: ASCORBIC ACID 500 MG TAB PO SCH ×2 (08:47→20:59)
[2016-07-01] MEDS: ALLOPURINOL 100 MG TAB PO SCH ×2 (08:47→20:59)
--- NOTE | 2016-07-01 10:20 | CONS ---
Date/Time of Note Date/Time of Note DATE: 07/01/16 TIME: 10:13 Assessment/Plan Assessment/Plan Chief Complaint/Hosp Course - CKD III - ACUTE KIDNEY INJURY - CAD / CHF - ANEMIA - PANCYTOPENIA - DM - DM NEPHROPATHY - OBESITY - HYPERPHOSPHATEMIA PLAN: Acute Kidney Disease possible due to ATN & decrease renal perfusion due to CHF & Volume overload with decrease in CO Had ~ 6 hours of Bumex drip in the ER, remains on Bi-PAP Making better UO at this point Feels better & Less SOB - awaiting estimated proteinuria - add Tums PO TID with meals as a phosphourous binder for now - Start PO IRON for low Iron % - Bumex IV BID - Pending PTH THANK YOU V. MUCH Problems: Consultation Date/Type/Reason Admit Date/Time Jun 29, 2016 at 13:37 Initial Consult Date 06/30/16 Type of Consultation: NEPHROLOGY Reason for Consultation ACUTE KIDNEY INJURY CKD III 24 HR Interval Summary Constitutional: improved, no complaints Exam/Review of Systems Vital Signs Vitals Vital Signs Date Time Temp Pulse Resp B/P Pulse Ox O2 Delivery O2 Flow Rate FiO2 07/01/16 08:47 70 07/01/16 07:13 97.8 21 106/53 95 07/01/16 03:40 3.0 07/01/16 01:00 Nasal Cannula 07/01/16 00:30 32 Intake and Output 06/30/16 06/30/16 07/01/16 15:00 23:00 07:00 Intake Total 250 ml 500 ml Output Total 950 ml 800 ml Balance -700 ml -300 ml Exam Constitutional: alert, oriented Psych: no complaints Eyes: nl conjunctiva Neck: jvd, supple Respiratory: crackles/rales Cardiovascular: regular rate and rhythm, systolic murmur Gastrointestinal: soft Results Result Diagram: 07/01/16 0605 07/01/16 0605 Results 24 hrs Laboratory Tests Test 06/30/16 10:30 06/30/16 14:00 06/30/16 18:59 06/30/16 22:02 Creatine Kinase 273 H Creatine Kinase Index 1.3 Creatinine Kinase MB (Mass) 3.66 H Troponin I 0.214 *H B-Type Natriuretic Peptide 47848 H Parathyroid Hormone (Intact) Bedside Glucose 210 230 H 255 H Test 07/01/16 06:05 07/01/16 09:03 White Blood Count 7.7 # Red Blood Count 3.83 L Hemoglobin 10.6 L Hematocrit 34.6 L Mean Corpuscular Volume 90.3 Mean Corpuscular Hemoglobin 27.7 L Mean Corpuscular Hemoglobin Concent 30.6 L Red Cell Distribution Width 14.3 Platelet Count 139 L Mean Platelet Volume 11.4 H Neutrophils % 78.7 H Lymphocytes % 12.2 L Monocytes % 7.5 Eosinophils % 0.8 Basophils % 0.3 Nucleated Red Blood Cells % 0.5 H Neutrophils # 6.1 Lymphocytes # 0.9 Monocytes # 0.6 Eosinophils # 0.1 Basophils # 0.0 Nucleated Red Blood Cells # 0.0 Prothrombin Time 14.3 H Prothrombin Time Ratio 1.1 INR International Normalized Ratio 1.11 Activated Partial Thromboplast Time 23.3 L Sodium Level 141 Potassium Level 4.2 Chloride Level 97 Carbon Dioxide Level 33 H Anion Gap 15 Blood Urea Nitrogen 115 H Creatinine 2.82 H Glucose Level 112 # Calcium Level 8.0 L Phosphorus Level 6.2 H Magnesium Level 2.3 Total Bilirubin 0.2 Direct Bilirubin 0.00 Indirect Bilirubin 0.2 Aspartate Amino Transf (AST/SGOT) 133 H Alanine Aminotransferase (ALT/SGPT) 200 H Alkaline Phosphatase 82 Total Protein 6.0 L Albumin 3.4 Globulin 2.60 Albumin/Globulin Ratio 1.30 Bedside Glucose 102 Medications Medications Current Medications Acetaminophen (Tylenol Tab) 650 mg Q6H PRN PO MILD PAIN LEVEL 1-3 Last administered on 07/01/16 09:00; Admin Dose 650 MG; Start 06/29/16 at 15:30 Allopurinol (Zyloprim) 100 mg BID PO Last administered on 07/01/16 08:47; Admin Dose 100 MG; Start 06/29/16 at 21:00 Ascorbic Acid (Vitamin C) 500 mg BID PO Last administered on 07/01/16 08:47; Admin Dose 500 MG; Start 06/29/16 at 21:00 Aspirin (Halfprin) 81 mg DAILY PO Last administered on 07/01/16 08:45; Admin Dose 81 MG; Start 06/30/16 at 09:00 Cholecalciferol (Vitamin D) 2,000 unit BID PO Last administered on 07/01/16 08: 47; Admin Dose 2,000 UNIT; Start 06/29/16 at 21:00 Docusate Sodium (Colace) 100 mg BID PO Last administered on 07/01/16 08:45; Admin Dose 100 MG; Start 06/29/16 at 21:00 Gabapentin (Neurontin) 300 mg TID PO Last administered on 07/01/16 08:47; Admin Dose 300 MG; Start 06/29/16 at 21:00 Acetaminophen/ Hydrocodone Bitart ([place] (5/325)) 1 tab Q4 PRN PO PAIN LEVEL 4- 6 Last administered on 06/30/16 05:55; Admin Dose 1 TAB; Start 06/29/16 at 15:30 Acetaminophen/ Hydrocodone Bitart ([place] (5/325)) 2 tab Q4 PRN PO SEVERE PAIN LEVEL 7-10; Start 06/29/16 at 15:30 Isosorbide Mononitrate (Imdur) 30 mg DAILY PO Last administered on 07/01/16 08: 46; Admin Dose 30 MG; Start 06/30/16 at 09:00 Ondansetron HCl (Zofran Inj) 4 mg Q6H PRN IV NAUSEA AND/OR VOMITING; Start 06/29 at 15:30 Nitroglycerin (Nitroglycerin (Sl Tab) 0.4 Mg) 1 tab Q5M PRN SL CHEST PAIN; Start 06/29/16 at 15:30 Morphine Sulfate (morphine) 2 mg Q4H PRN IV PAIN LEVEL 7-10; Start 06/29/16 at 15:30 Magnesium Hydroxide (Milk Of Mag) 30 ml DAILY PRN PO CONSTIPATION; Start at 15:30 Bisacodyl (Dulcolax Supp) 10 mg DAILY PRN [place] CONSTIPATION; Start 06/29/16 at 15: 30 Famotidine (Pepcid Iv) 20 mg Q12 IV Last administered on 07/01/16 08:45; Admin Dose 20 MG; Start 06/29/16 at 21:00 Heparin Sodium (Porcine) (Heparin (5000 Units/0.5 ml)) 5,000 unit Q8 SC Last administered on 07/01/16 05:21; Admin Dose 5,000 UNIT; Start 06/29/16 at 22:00 Miscellaneous Information 1 ea NOTE XX ; Start 06/29/16 at 16:00 Glucose (Glutose) 15 gm Q15M PRN PO DECREASED GLUCOSE; Start 06/29/16 at 16:00 Glucose (Glutose) 22.5 gm Q15M PRN PO DECREASED GLUCOSE; Start 06/29/16 at 16:00 Dextrose (D50w Syringe) 25 ml Q15M PRN IV DECREASED GLUCOSE; Start 06/29/16 at 16:00 Dextrose (D50w Syringe) 50 ml Q15M PRN IV DECREASED GLUCOSE; Start 06/29/16 at 16:00 Glucagon (Glucagen) 1 mg Q15M PRN IM DECREASED GLUCOSE; Start 06/29/16 at 16:00 Glucose (Glutose) 15 gm Q15M PRN BUCCAL DECREASED GLUCOSE; Start 06/29/16 at 16: 00 Insulin Glargine (Lantus) 25 unit QHS SC Last administered on 06/30/16t 22:36; Admin Dose 25 UNIT; Start 06/30/16 at 21:00 SILVANA SIDHU MD Jul 01, 2016 10:20
--- NOTE | 2016-07-01 10:29 | PN ---
Date/Time of Note Date/Time of Note DATE: 07/01/16 TIME: 10:14 Assessment/Plan VTE Prophylaxis VTE Prophylaxis Intervention: SCD's Lines/Catheters IV Catheter Type (from Nrsg): Saline Lock Urinary Cath still in place: Yes Reason Cath still needed: other (indicate) (for DWIGHT and strict i/o ) Assessment/Plan Assessment/Plan 71-year-old female with: 1. Altered level of consciousness, acute hypercapnic and hypoxemic respiratory distress 2ry to CHF exacerbation acute on chronic diastolic dysfunction at least. On Diuresis, s/p Bumex gtt and on Bumex to be decreased to 1 mg IV bid today per Nephro recs and f/u cardiology On 2L NC, nebs prn Continue trending cardiac enzymes 2D echocardiogram with diastolic dysfunction and EF 65% 2. Acute kidney injury on chronic kidney disease. Continue IV Bumex this AM post Bumex gtt Good UOP Nephro following Renal US done, could not visualize Left kidney 3. Super morbid obesity with possibly obstructive sleep apnea. Continue BiPAP prn only 4. Diastolic congestive heart failure with reported severe septal hypertrophy on echocardiogram almost a year ago, and also mild to moderate mitral stenosis. 2D 2D echocardiogram confirmed diastolic dysfunction and EF 65%. Continue diuresis with Bumex IV today with plan to change to PO in AM . 5. Hyperlipidemia. Monitor LFTs prior to resuming statins. 6. Abnormal liver enzymes may be secondary to congestive liver. LFTs improving Hold off statins for now. Check Liver US if needed 7. Diabetes mellitus. A1c 7.3, BG better this AM on current regimen Continue subcutaneous insulin including Lantus and sliding scale insulin and titrate as needed 8. Chronic pain, narcotic dependent. Hold scheduled OxyContin for now. Continue [place] as needed and morphine as needed. PT eval 9. Diabetic neuropathy. Continue Neurontin and discontinued Lyrica. 10. Gout, per records from alf facility. Uric acid wnl, continue allopurinol. 11. Mild Anemia and thrombocytopenia. D/c Heparin, monitor 12. Urine cx with GNR, Levaquin and follow up culture and sensitivities Prophylaxis. SCDs for deep vein thrombosis prophylaxis and Pepcid for GI prophylaxis. DISPOSITION: On Telemetry. Continue BiPAP prn and diuresis, Cardiology and Pulmonary recommendations. Subjective 24 Hr Interval Summary Free Text/Dictation Patient feels better and found her on RA with O2 sats 85% when checked, back on 2L NC Afebrile and WBC wnl Urine cx with GNR Adjusting diuretics PT eval and d/c Kyle by AM Exam/Review of Systems Vital Signs Vitals Vital Signs Date Time Temp Pulse Resp B/P Pulse Ox O2 Delivery O2 Flow Rate FiO2 07/01/16 08:47 70 07/01/16 07:13 97.8 21 106/53 95 07/01/16 03:40 3.0 07/01/16 01:00 Nasal Cannula 07/01/16 00:30 32 Intake and Output 06/30/16 06/30/16 07/01/16 15:00 23:00 07:00 Intake Total 250 ml 500 ml Output Total 950 ml 800 ml Balance -700 ml -300 ml Exam Constitutional: alert, obese (morbid), oriented Respiratory: diminished breath sounds (bases b/l ), normal air movement Cardiovascular: nl pulses, regular rate and rhythm Gastrointestinal: non-tender, soft Musculoskeletal: nl extremities to inspection Extremities: edema (improving ), normal pulses, other (no clubbing or cyanosis ) Neurological: PATHOLOGICAL TECHNICIAN II-XII intact, nl mental status, nl speech, other ( generalized weakness ) Results Result Diagram: 07/01/1660407/01/16 0605 Results 24 hrs Laboratory Tests Test 06/30/16 10:30 06/30/16 14:00 06/30/16 18:59 06/30/16 22:02 Creatine Kinase 273 H Creatine Kinase Index 1.3 Creatinine Kinase MB (Mass) 3.66 H Troponin I 0.214 *H B-Type Natriuretic Peptide 86736 H Parathyroid Hormone (Intact) Bedside Glucose 210 230 H 255 H Test 07/01/16 06:05 07/01/16 09:03 White Blood Count 7.7 # Red Blood Count 3.83 L Hemoglobin 10.6 L Hematocrit 34.6 L Mean Corpuscular Volume 90.3 Mean Corpuscular Hemoglobin 27.7 L Mean Corpuscular Hemoglobin Concent 30.6 L Red Cell Distribution Width 14.3 Platelet Count 139 L Mean Platelet Volume 11.4 H Neutrophils % 78.7 H Lymphocytes % 12.2 L Monocytes % 7.5 Eosinophils % 0.8 Basophils % 0.3 Nucleated Red Blood Cells % 0.5 H Neutrophils # 6.1 Lymphocytes # 0.9 Monocytes # 0.6 Eosinophils # 0.1 Basophils # 0.0 Nucleated Red Blood Cells # 0.0 Prothrombin Time 14.3 H Prothrombin Time Ratio 1.1 INR International Normalized Ratio 1.11 Activated Partial Thromboplast Time 23.3 L Sodium Level 141 Potassium Level 4.2 Chloride Level 97 Carbon Dioxide Level 33 H Anion Gap 15 Blood Urea Nitrogen 115 H Creatinine 2.82 H Glucose Level 112 # Calcium Level 8.0 L Phosphorus Level 6.2 H Magnesium Level 2.3 Total Bilirubin 0.2 Direct Bilirubin 0.00 Indirect Bilirubin 0.2 Aspartate Amino Transf (AST/SGOT) 133 H Alanine Aminotransferase (ALT/SGPT) 200 H Alkaline Phosphatase 82 Total Protein 6.0 L Albumin 3.4 Globulin 2.60 Albumin/Globulin Ratio 1.30 Bedside Glucose 102 Medications Medications Current Medications Acetaminophen (Tylenol Tab) 650 mg Q6H PRN PO MILD PAIN LEVEL 1-3 Last administered on 07/01/16 09:00; Admin Dose 650 MG; Start 06/29/16 at 15:30 Allopurinol (Zyloprim) 100 mg BID PO Last administered on 07/01/16 08:47; Admin Dose 100 MG; Start 06/29/16 at 21:00 Ascorbic Acid (Vitamin C) 500 mg BID PO Last administered on 07/01/16 08:47; Admin Dose 500 MG; Start 06/29/16 at 21:00 Aspirin (Halfprin) 81 mg DAILY PO Last administered on 07/01/16 08:45; Admin Dose 81 MG; Start 06/30/16 at 09:00 Cholecalciferol (Vitamin D) 2,000 unit BID PO Last administered on 07/01/16 08: 47; Admin Dose 2,000 UNIT; Start 06/29/16 at 21:00 Docusate Sodium (Colace) 100 mg BID PO Last administered on 07/01/16 08:45; Admin Dose 100 MG; Start 06/29/16 at 21:00 Gabapentin (Neurontin) 300 mg TID PO Last administered on 07/01/16 08:47; Admin Dose 300 MG; Start 06/29/16 at 21:00 Acetaminophen/ Hydrocodone Bitart ([place] (5/325)) 1 tab Q4 PRN PO PAIN LEVEL 4- 6 Last administered on 06/30/16 05:55; Admin Dose 1 TAB; Start 06/29/16 at 15:30 Acetaminophen/ Hydrocodone Bitart ([place] (5/325)) 2 tab Q4 PRN PO SEVERE PAIN LEVEL 7-10; Start 06/29/16 at 15:30 Isosorbide Mononitrate (Imdur) 30 mg DAILY PO Last administered on 07/01/16 08: 46; Admin Dose 30 MG; Start 06/30/16 at 09:00 Ondansetron HCl (Zofran Inj) 4 mg Q6H PRN IV NAUSEA AND/OR VOMITING; Start 06/29 at 15:30 Nitroglycerin (Nitroglycerin (Sl Tab) 0.4 Mg) 1 tab Q5M PRN SL CHEST PAIN; Start 06/29/16 at 15:30 Morphine Sulfate (morphine) 2 mg Q4H PRN IV PAIN LEVEL 7-10; Start 06/29/16 at 15:30 Magnesium Hydroxide (Milk Of Mag) 30 ml DAILY PRN PO CONSTIPATION; Start at 15:30 Bisacodyl (Dulcolax Supp) 10 mg DAILY PRN [place] CONSTIPATION; Start 06/29/16 at 15: 30 Famotidine (Pepcid Iv) 20 mg Q12 IV Last administered on 07/01/16 08:45; Admin Dose 20 MG; Start 06/29/16 at 21:00 Heparin Sodium (Porcine) (Heparin (5000 Units/0.5 ml)) 5,000 unit Q8 SC Last administered on 07/01/16 05:21; Admin Dose 5,000 UNIT; Start 06/29/16 at 22:00 Miscellaneous Information 1 ea NOTE XX ; Start 06/29/16 at 16:00 Glucose (Glutose) 15 gm Q15M PRN PO DECREASED GLUCOSE; Start 06/29/16 at 16:00 Glucose (Glutose) 22.5 gm Q15M PRN PO DECREASED GLUCOSE; Start 06/29/16 at 16:00 Dextrose (D50w Syringe) 25 ml Q15M PRN IV DECREASED GLUCOSE; Start 06/29/16 at 16:00 Dextrose (D50w Syringe) 50 ml Q15M PRN IV DECREASED GLUCOSE; Start 06/29/16 at 16:00 Glucagon (Glucagen) 1 mg Q15M PRN IM DECREASED GLUCOSE; Start 06/29/16 at 16:00 Glucose (Glutose) 15 gm Q15M PRN BUCCAL DECREASED GLUCOSE; Start 06/29/16 at 16: 00 Insulin Glargine (Lantus) 25 unit QHS SC Last administered on 06/30/16t 22:36; Admin Dose 25 UNIT; Start 06/30/16 at 21:00 Procedures Procedures Echocardiogram Report Patient Name: JONY YOUNG Gender: Female Date: 1945 Study Date: 30-Jun-2016 Bias Cutter Helper: [facility] Location: ER=3 Race: = Ref. Physician: MARGY SALAS Quality: Technically Difficult Study Procedures: Transthoracic echocardiogram with complete 2D, M-Mode, and doppler examination. Indications: Congestive Heart Failure and elevated troponin. 2D/M Mode Doppler Measurement Value Normal Ranges Measurement Value Normal Ranges LVIDd 2D 5.2 3.5 - 5.6 cm PATRICK Vmax 1.1 cm2 LVIDs 2D 3.3 2.1 - 4.1 cm AV Peak Prabhu 1.6 m/sec FS 2D 35.7 % AV Peak PG 10.0 mmHg LVPWd 2D 1.3 0.6 - 1.1 cm LVOT Peak Prabhu 0.7 m/sec IVSd 2D 1.1 0.6 - 1.1 cm LVOT Peak PG 2.0 mmHg IVS/LVPW 2D 0.9 MV PHT 70.0 msec AoR Diam 2D 3.0 2.0 - 3.7 cm MV Peak Prabhu 1.4 m/sec LA/Ao 2D 2 0 - 1 MV Peak PG 8.0 mmHg EDV 2D 141.0 cm3 MV Mean Prabhu 0.6 m/sec ESV 2D 37.6 cm3 MV Mean PG 2.0 mmHg LA Dimen 2D 4.8 2.3 - 4.0 cm MV Decel [place] 5 LVOT Diam 1.8 cm MV PHT Peak Prabhu 1.1 m/sec LVOT Area 2.5 cm2 MV PHT 70.0 msec MV VTI 44.7 cm MVA PHT 3.1 cm2 TR Peak Prabhu 2.2 m/sec TR Peak PG 19.0 mmHg Findings Left Ventricle: Normal left ventricular systolic function. Normal left ventricular cavity size. Left ventricular wall thickness upper limits of normal. Ejection fraction is visually estimated at 65 %. Abnormal Diastolic Function. Right Ventricle: Normal right ventricular systolic function. Not well visualized. Left Atrium: There is moderate enlargement of left atrium. Right Atrium: Not well visualized. Mitral Valve: Mitral valve leaflets appear moderately thickened. Moderate mitral leaflet calcification. Moderate mitral annular calcification. Trace mitral regurgitation. Mild mitral stenosis. Aortic Valve: Normal appearance of the aortic valve. No significant aortic stenosis or insufficiency. Tricuspid Valve: Normal appearance of the tricuspid valve. Estimated peak PA systolic pressure 23 mmHg. There is mild tricuspid regurgitation. Pulmonic Valve: Pulmonic valve not well visualized. There is trace pulmonic regurgitation. Pericardium: Left pleural effusion seen. Aorta: Normal aortic root. IVC: Inferior vena cava without respiratory collapse, however, patient on BiPAP. Conclusions 1. Normal left ventricular systolic function. Normal left ventricular cavity size. Left ventricular wall thickness upper limits of normal. Ejection fraction is visually estimated at 65 %. Abnormal Diastolic Function. 2. Normal right ventricular systolic function. Not well visualized. 3. There is moderate enlargement of left atrium. 4. Not well visualized. 5. Mitral valve leaflets appear moderately thickened. Moderate mitral leaflet calcification. Moderate mitral annular calcification. Trace mitral regurgitation. Mild mitral stenosis. 6. No significant aortic stenosis or insufficiency. 7. Estimated peak PA systolic pressure 23 mmHg. There is mild tricuspid regurgitation. 8. Left pleural effusion seen. Electronically Signed By: Guy Greer 30-Jun-2016 15:42:49 -0700 REBECCA SALAS Jul 01, 2016 10:24
[2016-07-01] MEDS: BUMETANIDE 1 MG INJ IV SCH ×2 (10:30→18:20)
[2016-07-01] MEDS: FERROUS SULFATE (EC) 325 MG TAB PO SCH (10:30)
[2016-07-01] MEDS ORDERED: LEVOFLOXACIN 500 MG TAB PO SCH (11:10)
--- NOTE | 2016-07-01 12:43 | PN ---
DATE: 07/01/2016 Ms. Gales condition is stable. The patient is reporting significant improvement in shortness o f breath. Denies any wheezing, cough, chest pain, angina. PHYSICAL EXAMINATION: GENERAL: Elderly lady, morbidly obese, currently in no distress. VITAL SIGNS: Temperature 98.8 degree Fahrenheit, respiratory rate is 18 per minute, heart rate of 8 0 per minute, blood pressure is 130/70, O2 sat is 95% on 2 liters nasal cannula. HEENT: Supple neck. JVD difficult to see, because of short neck. No thyromegaly. No neck bruits. Midline trachea. No thyromegaly. Pupils are mid size, reactive to light. CHEST: Diminished but clear breath sounds. HEART: S1, S2 audible, no murmurs, regular rhythm. ABDOMEN: Soft, protuberant. Bowel sounds audible, no organomegaly. EXTREMITIES: No peripheral edema. CENTRAL NERVOUS SYSTEM: No focal deficit. MEDICATIONS: Reviewed. LABORATORY DATA: From today, sodium is 141, potassium 4.2, chloride 97, bicarbonate 33, creatinine 2.8, BUN 115. White count 7.7, hemoglobin 10.6, platelet count of 139. IMAGING: Chest x-ray also was reviewed from today which is showing improvement in pulmonary vascula r congestion as well as right upper lobe infiltrate. ASSESSMENT AND PLAN: 1. Patient admitted for CHF exacerbation with possibly some element of right lower lobe pneumonia, clinically and radiologically much improved. 2. Acute hypoxemic and hypercapnic respiratory failure. The patient off BiPAP now. 3. Chronic renal insufficiency. 4. Mild elevation in troponin. RECOMMENDATIONS: Continue current treatment. The patient responding well to current treatment shi men. Dictated By: MARIA C MOELLER/INDIA Conf#: [id number] DID#: [id number]
[2016-07-01] MEDS: CALCIUM CARBONATE 500 MG CHEW TAB PO SCH ×2 (13:00→20:59)
--- NOTE | 2016-07-01 13:12 | CONS ---
Date/Time of Note Date/Time of Note DATE: 07/01/16 TIME: 13:08 Assessment/Plan Assessment/Plan Additional Assessment/Plan Acute decompensated diastolic congestive heart failure Preserved EF Respiratory failure Hypertension Morbid obesity DWIGHT, improved -renal fxn improving, cont diuretics as BP and renal fxn permits. BP improved and HR. Cont ASA Consultation Date/Type/Reason Admit Date/Time Jun 29, 2016 at 13:37 Initial Consult Date 06/30/16 Type of Consultation: cv 24 HR Interval Summary Free Text/Dictation sob much better, no cp, dizziness Exam/Review of Systems Vital Signs Vitals Vital Signs Date Time Temp Pulse Resp B/P Pulse Ox O2 Delivery O2 Flow Rate FiO2 07/01/16 08:47 70 07/01/16 07:13 97.8 21 106/53 95 07/01/16 03:40 3.0 07/01/16 01:00 Nasal Cannula 07/01/16 00:30 32 Intake and Output 06/30/16 06/30/16 07/01/16 15:00 23:00 07:00 Intake Total 250 ml 500 ml Output Total 950 ml 800 ml Balance -700 ml -300 ml Exam nad, family at bedside Constitutional: alert, obese, oriented Head: normocephalic Neck: supple Respiratory: other (course bs, decrease at bases) Cardiovascular: other (s1s2), regular rate and rhythm Gastrointestinal: bowel sounds, non-tender, other (no guarding), soft Extremities: edema, other (no cyanosis) Results Result Diagram: 07/01/16 0605 07/01/16 0605 Results 24 hrs Laboratory Tests Test 06/30/16 14:00 06/30/16 18:59 06/30/16 22:02 07/01/16 06:05 Bedside Glucose 210 230 H 255 H White Blood Count 7.7 # Red Blood Count 3.83 L Hemoglobin 10.6 L Hematocrit 34.6 L Mean Corpuscular Volume 90.3 Mean Corpuscular Hemoglobin 27.7 L Mean Corpuscular Hemoglobin Concent 30.6 L Red Cell Distribution Width 14.3 Platelet Count 139 L Mean Platelet Volume 11.4 H Neutrophils % 78.7 H Lymphocytes % 12.2 L Monocytes % 7.5 Eosinophils % 0.8 Basophils % 0.3 Nucleated Red Blood Cells % 0.5 H Neutrophils # 6.1 Lymphocytes # 0.9 Monocytes # 0.6 Eosinophils # 0.1 Basophils # 0.0 Nucleated Red Blood Cells # 0.0 Prothrombin Time 14.3 H Prothrombin Time Ratio 1.1 INR International Normalized Ratio 1.11 Activated Partial Thromboplast Time 23.3 L Sodium Level 141 Potassium Level 4.2 Chloride Level 97 Carbon Dioxide Level 33 H Anion Gap 15 Blood Urea Nitrogen 115 H Creatinine 2.82 H Glucose Level 112 # Calcium Level 8.0 L Phosphorus Level 6.2 H Magnesium Level 2.3 Total Bilirubin 0.2 Direct Bilirubin 0.00 Indirect Bilirubin 0.2 Aspartate Amino Transf (AST/SGOT) 133 H Alanine Aminotransferase (ALT/SGPT) 200 H Alkaline Phosphatase 82 Total Protein 6.0 L Albumin 3.4 Globulin 2.60 Albumin/Globulin Ratio 1.30 Test 07/01/16 09:03 07/01/16 12:13 Bedside Glucose 102 154 Medications Medications Current Medications Acetaminophen (Tylenol Tab) 650 mg Q6H PRN PO MILD PAIN LEVEL 1-3 Last administered on 07/01/16 09:00; Admin Dose 650 MG; Start 06/29/16 at 15:30 Allopurinol (Zyloprim) 100 mg BID PO Last administered on 07/01/16 08:47; Admin Dose 100 MG; Start 06/29/16 at 21:00 Ascorbic Acid (Vitamin C) 500 mg BID PO Last administered on 07/01/16 08:47; Admin Dose 500 MG; Start 06/29/16 at 21:00 Aspirin (Halfprin) 81 mg DAILY PO Last administered on 07/01/16 08:45; Admin Dose 81 MG; Start 06/30/16 at 09:00 Cholecalciferol (Vitamin D) 2,000 unit BID PO Last administered on 07/01/16 08: 47; Admin Dose 2,000 UNIT; Start 06/29/16 at 21:00 Docusate Sodium (Colace) 100 mg BID PO Last administered on 07/01/16 08:45; Admin Dose 100 MG; Start 06/29/16 at 21:00 Gabapentin (Neurontin) 300 mg TID PO Last administered on 07/01/16 08:47; Admin Dose 300 MG; Start 06/29/16 at 21:00 Acetaminophen/ Hydrocodone Bitart ([place] (5/325)) 1 tab Q4 PRN PO PAIN LEVEL 4- 6 Last administered on 06/30/16 05:55; Admin Dose 1 TAB; Start 06/29/16 at 15:30 Acetaminophen/ Hydrocodone Bitart ([place] (5/325)) 2 tab Q4 PRN PO SEVERE PAIN LEVEL 7-10; Start 06/29/16 at 15:30 Isosorbide Mononitrate (Imdur) 30 mg DAILY PO Last administered on 07/01/16 08: 46; Admin Dose 30 MG; Start 06/30/16 at 09:00 Ondansetron HCl (Zofran Inj) 4 mg Q6H PRN IV NAUSEA AND/OR VOMITING; Start 06/29 at 15:30 Nitroglycerin (Nitroglycerin (Sl Tab) 0.4 Mg) 1 tab Q5M PRN SL CHEST PAIN; Start 06/29/16 at 15:30 Morphine Sulfate (morphine) 2 mg Q4H PRN IV PAIN LEVEL 7-10; Start 06/29/16 at 15:30 Magnesium Hydroxide (Milk Of Mag) 30 ml DAILY PRN PO CONSTIPATION; Start at 15:30 Bisacodyl (Dulcolax Supp) 10 mg DAILY PRN [place] CONSTIPATION; Start 06/29/16 at 15: 30 Famotidine (Pepcid Iv) 20 mg Q12 IV Last administered on 07/01/16 08:45; Admin Dose 20 MG; Start 06/29/16 at 21:00 Miscellaneous Information 1 ea NOTE XX ; Start 06/29/16 at 16:00 Glucose (Glutose) 15 gm Q15M PRN PO DECREASED GLUCOSE; Start 06/29/16 at 16:00 Glucose (Glutose) 22.5 gm Q15M PRN PO DECREASED GLUCOSE; Start 06/29/16 at 16:00 Dextrose (D50w Syringe) 25 ml Q15M PRN IV DECREASED GLUCOSE; Start 06/29/16 at 16:00 Dextrose (D50w Syringe) 50 ml Q15M PRN IV DECREASED GLUCOSE; Start 06/29/16 at 16:00 Glucagon (Glucagen) 1 mg Q15M PRN IM DECREASED GLUCOSE; Start 06/29/16 at 16:00 Glucose (Glutose) 15 gm Q15M PRN BUCCAL DECREASED GLUCOSE; Start 06/29/16 at 16: 00 Insulin Glargine (Lantus) 25 unit QHS SC Last administered on 06/30/16t 22:36; Admin Dose 25 UNIT; Start 06/30/16 at 21:00 Calcium Carbonate (Tums) 500 mg TID PO ; Start 07/01/16 at 13:00 Ferrous Sulfate (Ferrous Sulfate (Ec)) 325 mg DAILY PO ; Start 07/01/16 at 10:30 Levofloxacin (Levaquin) 500 mg NOW PO ; Start 07/01/16 at 11:10; Stop 07/01/16 at 23:00 Levofloxacin (Levaquin) 250 mg DAILY@06 PO ; Start 07/02/16 at 06:00 Guy Greer DO Jul 01, 2016 13:12
[2016-07-01] MEDS: IMIPENEM-CILAST 500MG IV (PMX) 100 ML IVPB SCH ×2 (18:31→20:58)
[2016-07-01] MEDS ORDERED: GUAIFENESIN/DM 5ML CUP PO PRN (19:00)
[2016-07-01] MEDS: INSULIN GLARGINE [LANtus] 3 ML PEN SC SCH (21:24)
[2016-07-02] VITALS (12 sets, daily range): BP systolic 120–168; BP diastolic 57–80; PULSE 58–76; RESP 17–18
[2016-07-02] MEDS: BUMETANIDE 1 MG INJ IV SCH (06:00)
[2016-07-02] MEDS ORDERED: LEVOFLOXACIN 250 MG TAB PO SCH (06:00)
[2016-07-02 07:19] LABS: ADD SCAN DIFF NO
[2016-07-02 07:25] LABS: BASOPHILS % 0.5 % (0.0-2.0); EOSINOPHILS # 0.3 10^3/ul (0.0-0.5); EOSINOPHILS % 4.9 % (0.0-7.0); HEMATOCRIT 35.8 % (37.0-47.0); HEMOGLOBIN 10.7 g/dl (12.0-16.0); LYMPHOCYTES # 1.2 10^3/ul (0.8-2.9); LYMPHOCYTES % 18.8 % (15.0-51.0); MEAN CORPUSCULAR HEMOGLOBIN 27.4 pg (29.0-33.0); MEAN CORPUSCULAR HGB CONC 29.9 g/dl (32.0-37.0); MEAN CORPUSCULAR VOLUME 91.8 fl (82.0-101.0); MEAN PLATELET VOLUME 12.8 fl (7.4-10.4); MONOCYTE # 0.6 10^3/ul (0.3-0.9); MONOCYTES % 9.2 % (0.0-11.0); NEUTROPHIL # 4.1 10^3/ul (1.6-7.5); NEUTROPHILS % 66.4 % (39.0-77.0); PLATELET COUNT 145 10^3/UL (140-415); RED CELL DISTRIBUTION WIDTH 14.5 % (11.5-14.5); WHITE BLOOD COUNT 6.2 10^3/ul (4.8-10.8)
[2016-07-02 07:30] LABS: POTASSIUM 3.6 mmol/L (3.5-5.1)
[2016-07-02 07:33] LABS: CREATININE 2.13 mg/dl (0.44-1.00)
[2016-07-02 07:34] LABS: CALCIUM 8.1 mg/dl (8.4-10.2)
[2016-07-02 07:35] LABS: ALBUMIN 3.4 g/dl (3.3-4.9)
[2016-07-02 07:38] LABS: BILIRUBIN,INDIRECT 0.4 mg/dl (0-1.1); BILIRUBIN,TOTAL 0.4 mg/dl (0.2-1.3); TOTAL PROTEIN 5.7 g/dl (6.1-8.1)
[2016-07-02] MEDS: INSULIN ASPART [NOVOLOG] 3 ML PEN SC SCH ×7 (07:53→20:56)
[2016-07-02 07:54] LABS: PHOSPHORUS 4.6 mg/dl (2.5-4.9)
[2016-07-02] MEDS: FERROUS SULFATE (EC) 325 MG TAB PO SCH (08:47)
[2016-07-02] MEDS: IMIPENEM-CILAST 500MG IV (PMX) 100 ML IVPB SCH ×2 (08:47→21:54)
[2016-07-02] MEDS: ALLOPURINOL 100 MG TAB PO SCH ×2 (08:48→21:47)
[2016-07-02] MEDS: CALCIUM CARBONATE 500 MG CHEW TAB PO SCH ×3 (08:48→21:48)
[2016-07-02] MEDS: CHOLECALCIFEROL 1,000 UNIT TAB PO SCH ×2 (08:48→21:49)
[2016-07-02] MEDS: DOCUSATE SODIUM 100 MG CAP PO SCH ×2 (08:48→21:47)
[2016-07-02] MEDS: FAMOTIDINE 20 MG TAB PO SCH (08:48)
[2016-07-02] MEDS: ASCORBIC ACID 500 MG TAB PO SCH ×2 (08:48→21:49)
[2016-07-02] MEDS: ASPIRIN (EC) 81 MG TAB PO SCH (08:49)
[2016-07-02] MEDS: GABAPENTIN 300 MG CAP PO SCH ×3 (08:49→21:48)
[2016-07-02] MEDS: ISOSORBIDE MONONITRATE(SR)30 MG TAB PO SCH (08:49)
[2016-07-02] MEDS: HYDROCODONE/APAP (5/325) TAB PO PRN ×2 (10:52→19:58)
--- NOTE | 2016-07-02 12:06 | PN ---
Date/Time of Note Date/Time of Note DATE: 07/02/16 TIME: 11:52 Assessment/Plan VTE Prophylaxis VTE Prophylaxis Intervention: SCD's Lines/Catheters IV Catheter Type (from Nrsg): Saline Lock Urinary Cath still in place: Yes Reason Cath still needed: other (indicate) (DWIGHT, diuresing ) Assessment/Plan Assessment/Plan 71-year-old female with: 1. Altered level of consciousness, acute hypercapnic and hypoxemic respiratory distress 2ry to CHF exacerbation acute on chronic diastolic dysfunction at least. On Diuresis, s/p Bumex gtt and on Bumex to be decreased to 1 mg po bid today per Nephro recs and f/u cardiology On 2L NC, nebs prn Continue trending cardiac enzymes 2D echocardiogram with diastolic dysfunction and EF 65% 2. Acute kidney injury on chronic kidney disease. Change Bumex to po this AM post Bumex gtt Good UOP Nephro following Renal US done, could not visualize Left kidney 3. Super morbid obesity with possibly obstructive sleep apnea. Continue BiPAP prn only 4. Diastolic congestive heart failure with reported severe septal hypertrophy on echocardiogram almost a year ago, and also mild to moderate mitral stenosis. 2D echocardiogram confirmed diastolic dysfunction and EF 65%. Continue diuresis with Bumex po today. 5. Hyperlipidemia. Monitor LFTs prior to resuming statins. 6. Abnormal liver enzymes may be secondary to congestive liver. LFTs improving Hold off statins for now. 7. Diabetes mellitus. A1c 7.3, BG better this AM on current regimen Continue subcutaneous insulin including Lantus and sliding scale insulin and titrate as needed 8. Chronic pain, narcotic dependent. Hold scheduled OxyContin for now. Continue [place] as needed and morphine as needed. PT eval 9. Diabetic neuropathy. Continue Neurontin and discontinued Lyrica. 10. Gout, per records from detention facility. Uric acid wnl, continue allopurinol. 11. Mild Anemia and thrombocytopenia: improving Off Heparin, monitor 12. ESBL E coli UTI: contact isolation, abx changed to Imipenem D/c Kyle catheter. Prophylaxis. SCDs for deep vein thrombosis prophylaxis and Pepcid for GI prophylaxis. DISPOSITION: On Telemetry. Continue BiPAP prn and diuresis, Cardiology and Pulmonary recommendations. Subjective 24 Hr Interval Summary Free Text/Dictation Patient doing better today No complaints, on contact isolation for ESBL Urine and abx changed to Imipenem Respiratory status better Renal function keeps improving and excellent UOP with Bumex Exam/Review of Systems Vital Signs Vitals Vital Signs Date Time Temp Pulse Resp B/P Pulse Ox O2 Delivery O2 Flow Rate FiO2 07/02/16 11:16 98.1 61 18 120/57 99 07/02/16 08:00 Nasal Cannula 2.0 07/01/16 00:30 32 Intake and Output 07/01/16 07/01/16 07/02/16 15:00 23:00 07:00 Intake Total 1200 ml 700 ml Output Total 1400 ml 1000 ml Balance -200 ml -300 ml Exam Constitutional: alert, obese (morbid), oriented, well developed Respiratory: diminished breath sounds (bases bilaterally ), normal air movement Cardiovascular: nl pulses, regular rate and rhythm Gastrointestinal: non-tender, soft Musculoskeletal: nl extremities to inspection Extremities: normal pulses, other (much improved anasarca ) Neurological: SENIOR ADVISORY II-XII intact, nl mental status, nl speech, other ( generalized weakness at baseline or at least much improved ) Results Result Diagram: 07/02/1645 07/02/16 0645 Results 24 hrs Laboratory Tests Test 07/01/16 12:13 07/01/16 18:17 07/01/16 20:58 07/02/16 06:45 Bedside Glucose 154 143 202 White Blood Count 6.2 Red Blood Count 3.90 L Hemoglobin 10.7 L Hematocrit 35.8 L Mean Corpuscular Volume 91.8 Mean Corpuscular Hemoglobin 27.4 L Mean Corpuscular Hemoglobin Concent 29.9 L Red Cell Distribution Width 14.5 Platelet Count 145 Mean Platelet Volume 12.8 H Neutrophils % 66.4 Lymphocytes % 18.8 Monocytes % 9.2 Eosinophils % 4.9 Basophils % 0.5 Nucleated Red Blood Cells % 0.0 Neutrophils # 4.1 Lymphocytes # 1.2 Monocytes # 0.6 Eosinophils # 0.3 Basophils # 0.0 Nucleated Red Blood Cells # 0.0 Sodium Level 142 Potassium Level 3.6 Chloride Level 98 Carbon Dioxide Level 37 H Anion Gap 11 Blood Urea Nitrogen 109 H Creatinine 2.13 H Glucose Level 102 Calcium Level 8.1 L Phosphorus Level 4.6 Magnesium Level 2.0 Total Bilirubin 0.4 Direct Bilirubin 0.00 Indirect Bilirubin 0.4 Aspartate Amino Transf (AST/SGOT) 148 H Alanine Aminotransferase (ALT/SGPT) 226 H Alkaline Phosphatase 83 Total Protein 5.7 L Albumin 3.4 Test 07/02/16 07:50 Bedside Glucose 103 Medications Medications Current Medications Acetaminophen (Tylenol Tab) 650 mg Q6H PRN PO MILD PAIN LEVEL 1-3 Last administered on 07/01/16 09:00; Admin Dose 650 MG; Start 06/29/16 at 15:30 Allopurinol (Zyloprim) 100 mg BID PO Last administered on 07/02/16 08:48; Admin Dose 100 MG; Start 06/29/16 at 21:00 Ascorbic Acid (Vitamin C) 500 mg BID PO Last administered on 07/02/16 08:48; Admin Dose 500 MG; Start 06/29/16 at 21:00 Aspirin (Halfprin) 81 mg DAILY PO Last administered on 07/02/16 08:49; Admin Dose 81 MG; Start 06/30/16 at 09:00 Cholecalciferol (Vitamin D) 2,000 unit BID PO Last administered on 07/02/16 08: 48; Admin Dose 2,000 UNIT; Start 06/29/16 at 21:00 Docusate Sodium (Colace) 100 mg BID PO Last administered on 07/02/16 08:48; Admin Dose 100 MG; Start 06/29/16 at 21:00 Gabapentin (Neurontin) 300 mg TID PO Last administered on 07/02/16 08:49; Admin Dose 300 MG; Start 06/29/16 at 21:00 Acetaminophen/ Hydrocodone Bitart ([place] (5/325)) 1 tab Q4 PRN PO PAIN LEVEL 4- 6 Last administered on 06/30/16 05:55; Admin Dose 1 TAB; Start 06/29/16 at 15:30 Acetaminophen/ Hydrocodone Bitart ([place] (5/325)) 2 tab Q4 PRN PO SEVERE PAIN LEVEL 7-10 Last administered on 07/02/16 10:52; Admin Dose 2 TAB; Start 06/29/16 at 15:30 Isosorbide Mononitrate (Imdur) 30 mg DAILY PO Last administered on 07/02/16 08: 49; Admin Dose 30 MG; Start 06/30/16 at 09:00 Ondansetron HCl (Zofran Inj) 4 mg Q6H PRN IV NAUSEA AND/OR VOMITING; Start 06/29 at 15:30 Nitroglycerin (Nitroglycerin (Sl Tab) 0.4 Mg) 1 tab Q5M PRN SL CHEST PAIN; Start 06/29/16 at 15:30 Morphine Sulfate (morphine) 2 mg Q4H PRN IV PAIN LEVEL 7-10; Start 06/29/16 at 15:30 Magnesium Hydroxide (Milk Of Mag) 30 ml DAILY PRN PO CONSTIPATION; Start at 15:30 Bisacodyl (Dulcolax Supp) 10 mg DAILY PRN [place] CONSTIPATION; Start 06/29/16 at 15: 30 Miscellaneous Information 1 ea NOTE XX ; Start 06/29/16 at 16:00 Glucose (Glutose) 15 gm Q15M PRN PO DECREASED GLUCOSE; Start 06/29/16 at 16:00 Glucose (Glutose) 22.5 gm Q15M PRN PO DECREASED GLUCOSE; Start 06/29/16 at 16:00 Dextrose (D50w Syringe) 25 ml Q15M PRN IV DECREASED GLUCOSE; Start 06/29/16 at 16:00 Dextrose (D50w Syringe) 50 ml Q15M PRN IV DECREASED GLUCOSE; Start 06/29/16 at 16:00 Glucagon (Glucagen) 1 mg Q15M PRN IM DECREASED GLUCOSE; Start 06/29/16 at 16:00 Glucose (Glutose) 15 gm Q15M PRN BUCCAL DECREASED GLUCOSE; Start 06/29/16 at 16: 00 Insulin Glargine (Lantus) 25 unit QHS SC Last administered on 07/01/16 21:24; Admin Dose 25 UNIT; Start 06/30/16 at 21:00 Calcium Carbonate (Tums) 500 mg TID PO Last administered on 07/02/16 08:48; Admin Dose 500 MG; Start 07/01/16 at 13:00 Ferrous Sulfate 325 mg 325 mg DAILY PO Last administered on 07/02/16 08:47; Admin Dose 325 MG; Start 07/01/16 at 10:30 Imipenem/ Cilastatin Sodium (Primaxin 500 Mg/ 100 ml (Pmx)) 100 ml @ 100 mls/ hr Q12 IVPB Last administered on 07/02/16 08:47; Admin Dose 100 MLS/HR; Start 07/01/16 at 16:00 Famotidine (Pepcid) 20 mg DAILY PO Last administered on 07/02/16 08:48; Admin Dose 20 MG; Start 07/02/16 at 09:00 Guaifenesin/ Dextromethorphan (Robitussin Dm Liquid Cup) 10 ml Q4H PRN PO COUGH Last administered on 07/01/16 21:19; Admin Dose 10 ML; Start 07/01/16 at 19 :00 REBECCA SALAS Jul 02, 2016 12:02
--- NOTE | 2016-07-02 12:10 | CONS ---
Date/Time of Note Date/Time of Note DATE: 07/02/16 TIME: 12:09 Assessment/Plan Assessment/Plan Additional Assessment/Plan Assessment recommendations; next 1. Patient admitted for CHF exacerbation and right lower lobe pneumonia with significant clinical and radiological improvement. 2. Underlying morbid obesity. 3. History of renal insufficiency. Continue current treatment. Consultation Date/Type/Reason Admit Date/Time Jun 29, 2016 at 13:37 Initial Consult Date 06/30/16 Type of Consultation: Pulmonary 24 HR Interval Summary Free Text/Dictation Patient condition is stable. Denies any shortness of breath, wheezing, sputum production, fever chills or chest pain. Exam; elderly lady, currently in no distress. Awake and alert. Exam/Review of Systems Vital Signs Vitals Vital Signs Date Time Temp Pulse Resp B/P Pulse Ox O2 Delivery O2 Flow Rate FiO2 07/02/16 11:16 98.1 61 18 120/57 99 07/02/16 08:00 Nasal Cannula 2.0 07/01/16 00:30 32 Intake and Output 07/01/16 07/01/16 07/02/16 14:59 22:59 06:59 Intake Total 1200 ml 700 ml Output Total 1400 ml 1000 ml Balance -200 ml -300 ml Exam HEENT exam is; supple neck, no JVD. No lymphadenopathy. Midline trachea. No thyromegaly. Pupils are small bilaterally. No neck masses. Chest exam is; clear to auscultation. S1-S2 audible, no murmurs. Regular rhythm. Abdomen examination; soft, protuberant. Nontender. Bowel sounds audible. Extremity exam is; no peripheral edema. Pulses 1+ bilaterally. TABLEAU DEVELOPER examination; no focal deficit. Results Result Diagram: 07/02/16 0645 07/02/16 0645 Results 24 hrs Laboratory Tests Test 07/01/16 12:13 07/01/16 18:17 07/01/16 20:58 07/02/16 06:45 Bedside Glucose 154 143 202 White Blood Count 6.2 Red Blood Count 3.90 L Hemoglobin 10.7 L Hematocrit 35.8 L Mean Corpuscular Volume 91.8 Mean Corpuscular Hemoglobin 27.4 L Mean Corpuscular Hemoglobin Concent 29.9 L Red Cell Distribution Width 14.5 Platelet Count 145 Mean Platelet Volume 12.8 H Neutrophils % 66.4 Lymphocytes % 18.8 Monocytes % 9.2 Eosinophils % 4.9 Basophils % 0.5 Nucleated Red Blood Cells % 0.0 Neutrophils # 4.1 Lymphocytes # 1.2 Monocytes # 0.6 Eosinophils # 0.3 Basophils # 0.0 Nucleated Red Blood Cells # 0.0 Sodium Level 142 Potassium Level 3.6 Chloride Level 98 Carbon Dioxide Level 37 H Anion Gap 11 Blood Urea Nitrogen 109 H Creatinine 2.13 H Glucose Level 102 Calcium Level 8.1 L Phosphorus Level 4.6 Magnesium Level 2.0 Total Bilirubin 0.4 Direct Bilirubin 0.00 Indirect Bilirubin 0.4 Aspartate Amino Transf (AST/SGOT) 148 H Alanine Aminotransferase (ALT/SGPT) 226 H Alkaline Phosphatase 83 Total Protein 5.7 L Albumin 3.4 Test 07/02/16 07:50 Bedside Glucose 103 Medications Medications Current Medications Acetaminophen (Tylenol Tab) 650 mg Q6H PRN PO MILD PAIN LEVEL 1-3 Last administered on 07/01/16 09:00; Admin Dose 650 MG; Start 06/29/16 at 15:30 Allopurinol (Zyloprim) 100 mg BID PO Last administered on 07/02/16 08:48; Admin Dose 100 MG; Start 06/29/16 at 21:00 Ascorbic Acid (Vitamin C) 500 mg BID PO Last administered on 07/02/16 08:48; Admin Dose 500 MG; Start 06/29/16 at 21:00 Aspirin (Halfprin) 81 mg DAILY PO Last administered on 07/02/16 08:49; Admin Dose 81 MG; Start 06/30/16 at 09:00 Cholecalciferol (Vitamin D) 2,000 unit BID PO Last administered on 07/02/16 08: 48; Admin Dose 2,000 UNIT; Start 06/29/16 at 21:00 Docusate Sodium (Colace) 100 mg BID PO Last administered on 07/02/16 08:48; Admin Dose 100 MG; Start 06/29/16 at 21:00 Gabapentin (Neurontin) 300 mg TID PO Last administered on 07/02/16 08:49; Admin Dose 300 MG; Start 06/29/16 at 21:00 Acetaminophen/ Hydrocodone Bitart ([place] (5/325)) 1 tab Q4 PRN PO PAIN LEVEL 4- 6 Last administered on 06/30/16 05:55; Admin Dose 1 TAB; Start 06/29/16 at 15:30 Acetaminophen/ Hydrocodone Bitart ([place] (5/325)) 2 tab Q4 PRN PO SEVERE PAIN LEVEL 7-10 Last administered on 07/02/16 10:52; Admin Dose 2 TAB; Start 06/29/16 at 15:30 Isosorbide Mononitrate (Imdur) 30 mg DAILY PO Last administered on 07/02/16 08: 49; Admin Dose 30 MG; Start 06/30/16 at 09:00 Ondansetron HCl (Zofran Inj) 4 mg Q6H PRN IV NAUSEA AND/OR VOMITING; Start 06/29 at 15:30 Nitroglycerin (Nitroglycerin (Sl Tab) 0.4 Mg) 1 tab Q5M PRN SL CHEST PAIN; Start 06/29/16 at 15:30 Morphine Sulfate (morphine) 2 mg Q4H PRN IV PAIN LEVEL 7-10; Start 06/29/16 at 15:30 Magnesium Hydroxide (Milk Of Mag) 30 ml DAILY PRN PO CONSTIPATION; Start at 15:30 Bisacodyl (Dulcolax Supp) 10 mg DAILY PRN [place] CONSTIPATION; Start 06/29/16 at 15: 30 Miscellaneous Information 1 ea NOTE XX ; Start 06/29/16 at 16:00 Glucose (Glutose) 15 gm Q15M PRN PO DECREASED GLUCOSE; Start 06/29/16 at 16:00 Glucose (Glutose) 22.5 gm Q15M PRN PO DECREASED GLUCOSE; Start 06/29/16 at 16:00 Dextrose (D50w Syringe) 25 ml Q15M PRN IV DECREASED GLUCOSE; Start 06/29/16 at 16:00 Dextrose (D50w Syringe) 50 ml Q15M PRN IV DECREASED GLUCOSE; Start 06/29/16 at 16:00 Glucagon (Glucagen) 1 mg Q15M PRN IM DECREASED GLUCOSE; Start 06/29/16 at 16:00 Glucose (Glutose) 15 gm Q15M PRN BUCCAL DECREASED GLUCOSE; Start 06/29/16 at 16: 00 Insulin Glargine (Lantus) 25 unit QHS SC Last administered on 07/01/16 21:24; Admin Dose 25 UNIT; Start 06/30/16 at 21:00 Calcium Carbonate (Tums) 500 mg TID PO Last administered on 07/02/16 08:48; Admin Dose 500 MG; Start 07/01/16 at 13:00 Ferrous Sulfate 325 mg 325 mg DAILY PO Last administered on 07/02/16 08:47; Admin Dose 325 MG; Start 07/01/16 at 10:30 Imipenem/ Cilastatin Sodium (Primaxin 500 Mg/ 100 ml (Pmx)) 100 ml @ 100 mls/ hr Q12 IVPB Last administered on 07/02/16 08:47; Admin Dose 100 MLS/HR; Start 07/01/16 at 16:00 Famotidine (Pepcid) 20 mg DAILY PO Last administered on 07/02/16 08:48; Admin Dose 20 MG; Start 07/02/16 at 09:00 Guaifenesin/ Dextromethorphan (Robitussin Dm Liquid Cup) 10 ml Q4H PRN PO COUGH Last administered on 07/01/16 21:19; Admin Dose 10 ML; Start 07/01/16 at 19 :00 MARIA C DYSON Jul 02, 2016 12:10
--- NOTE | 2016-07-02 12:52 | CONS ---
Date/Time of Note Date/Time of Note DATE: 07/02/16 TIME: 12:50 Assessment/Plan Assessment/Plan Additional Assessment/Plan Acute decompensated diastolic congestive heart failure Preserved EF Respiratory failure Hypertension Morbid obesity DWIGHT, improved -renal fxn improving, cont diuretics as BP and renal fxn permits. Continue aspirin therapy, will start beta-safia as heart rate and blood pressure permits. Consultation Date/Type/Reason Admit Date/Time Jun 29, 2016 at 13:37 Initial Consult Date 06/30/16 Type of Consultation: cv 24 HR Interval Summary Free Text/Dictation Patient with improvement in shortness of breath. Denies chest pain or dizziness Exam/Review of Systems Vital Signs Vitals Vital Signs Date Time Temp Pulse Resp B/P Pulse Ox O2 Delivery O2 Flow Rate FiO2 07/02/16 12:21 65 07/02/16 11:16 98.1 18 120/57 99 07/02/16 08:00 Nasal Cannula 2.0 07/01/16 00:30 32 Intake and Output 07/01/16 07/01/16 07/02/16 15:00 23:00 07:00 Intake Total 1200 ml 700 ml Output Total 1400 ml 1000 ml Balance -200 ml -300 ml Exam Sleeping but arousable, follows commands, no apparent distress Head: normocephalic Neck: supple Respiratory: other (Coarse breath sounds bilaterally, decreased at the bases) Cardiovascular: other (S1-S2 heard), regular rate and rhythm Gastrointestinal: bowel sounds, non-tender, soft Extremities: edema, other (No cyanosis) Results Result Diagram: 07/02/16 0645 07/02/16 0645 Results 24 hrs Laboratory Tests Test 07/01/16 18:17 07/01/16 20:58 07/02/16 06:45 07/02/16 07:50 Bedside Glucose 143 202 103 White Blood Count 6.2 Red Blood Count 3.90 L Hemoglobin 10.7 L Hematocrit 35.8 L Mean Corpuscular Volume 91.8 Mean Corpuscular Hemoglobin 27.4 L Mean Corpuscular Hemoglobin Concent 29.9 L Red Cell Distribution Width 14.5 Platelet Count 145 Mean Platelet Volume 12.8 H Neutrophils % 66.4 Lymphocytes % 18.8 Monocytes % 9.2 Eosinophils % 4.9 Basophils % 0.5 Nucleated Red Blood Cells % 0.0 Neutrophils # 4.1 Lymphocytes # 1.2 Monocytes # 0.6 Eosinophils # 0.3 Basophils # 0.0 Nucleated Red Blood Cells # 0.0 Sodium Level 142 Potassium Level 3.6 Chloride Level 98 Carbon Dioxide Level 37 H Anion Gap 11 Blood Urea Nitrogen 109 H Creatinine 2.13 H Glucose Level 102 Calcium Level 8.1 L Phosphorus Level 4.6 Magnesium Level 2.0 Total Bilirubin 0.4 Direct Bilirubin 0.00 Indirect Bilirubin 0.4 Aspartate Amino Transf (AST/SGOT) 148 H Alanine Aminotransferase (ALT/SGPT) 226 H Alkaline Phosphatase 83 Total Protein 5.7 L Albumin 3.4 Test 07/02/16 12:09 07/02/16 12:31 Bedside Glucose 114 Lab Scanned Report REFERENCE LAB Medications Medications Current Medications Acetaminophen (Tylenol Tab) 650 mg Q6H PRN PO MILD PAIN LEVEL 1-3 Last administered on 07/01/16 09:00; Admin Dose 650 MG; Start 06/29/16 at 15:30 Allopurinol (Zyloprim) 100 mg BID PO Last administered on 07/02/16 08:48; Admin Dose 100 MG; Start 06/29/16 at 21:00 Ascorbic Acid (Vitamin C) 500 mg BID PO Last administered on 07/02/16 08:48; Admin Dose 500 MG; Start 06/29/16 at 21:00 Aspirin (Halfprin) 81 mg DAILY PO Last administered on 07/02/16 08:49; Admin Dose 81 MG; Start 06/30/16 at 09:00 Cholecalciferol (Vitamin D) 2,000 unit BID PO Last administered on 07/02/16 08: 48; Admin Dose 2,000 UNIT; Start 06/29/16 at 21:00 Docusate Sodium (Colace) 100 mg BID PO Last administered on 07/02/16 08:48; Admin Dose 100 MG; Start 06/29/16 at 21:00 Gabapentin (Neurontin) 300 mg TID PO Last administered on 07/02/16 08:49; Admin Dose 300 MG; Start 06/29/16 at 21:00 Acetaminophen/ Hydrocodone Bitart ([place] (5/325)) 1 tab Q4 PRN PO PAIN LEVEL 4- 6 Last administered on 06/30/16 05:55; Admin Dose 1 TAB; Start 06/29/16 at 15:30 Acetaminophen/ Hydrocodone Bitart ([place] (5/325)) 2 tab Q4 PRN PO SEVERE PAIN LEVEL 7-10 Last administered on 07/02/16 10:52; Admin Dose 2 TAB; Start 06/29/16 at 15:30 Isosorbide Mononitrate (Imdur) 30 mg DAILY PO Last administered on 07/02/16 08: 49; Admin Dose 30 MG; Start 06/30/16 at 09:00 Ondansetron HCl (Zofran Inj) 4 mg Q6H PRN IV NAUSEA AND/OR VOMITING; Start 06/29 at 15:30 Nitroglycerin (Nitroglycerin (Sl Tab) 0.4 Mg) 1 tab Q5M PRN SL CHEST PAIN; Start 06/29/16 at 15:30 Morphine Sulfate (morphine) 2 mg Q4H PRN IV PAIN LEVEL 7-10; Start 06/29/16 at 15:30 Magnesium Hydroxide (Milk Of Mag) 30 ml DAILY PRN PO CONSTIPATION; Start at 15:30 Bisacodyl (Dulcolax Supp) 10 mg DAILY PRN [place] CONSTIPATION; Start 06/29/16 at 15: 30 Miscellaneous Information 1 ea NOTE XX ; Start 06/29/16 at 16:00 Glucose (Glutose) 15 gm Q15M PRN PO DECREASED GLUCOSE; Start 06/29/16 at 16:00 Glucose (Glutose) 22.5 gm Q15M PRN PO DECREASED GLUCOSE; Start 06/29/16 at 16:00 Dextrose (D50w Syringe) 25 ml Q15M PRN IV DECREASED GLUCOSE; Start 06/29/16 at 16:00 Dextrose (D50w Syringe) 50 ml Q15M PRN IV DECREASED GLUCOSE; Start 06/29/16 at 16:00 Glucagon (Glucagen) 1 mg Q15M PRN IM DECREASED GLUCOSE; Start 06/29/16 at 16:00 Glucose (Glutose) 15 gm Q15M PRN BUCCAL DECREASED GLUCOSE; Start 06/29/16 at 16: 00 Insulin Glargine (Lantus) 25 unit QHS SC Last administered on 07/01/16 21:24; Admin Dose 25 UNIT; Start 06/30/16 at 21:00 Calcium Carbonate (Tums) 500 mg TID PO Last administered on 07/02/16 08:48; Admin Dose 500 MG; Start 07/01/16 at 13:00 Ferrous Sulfate 325 mg 325 mg DAILY PO Last administered on 07/02/16 08:47; Admin Dose 325 MG; Start 07/01/16 at 10:30 Imipenem/ Cilastatin Sodium (Primaxin 500 Mg/ 100 ml (Pmx)) 100 ml @ 100 mls/ hr Q12 IVPB Last administered on 07/02/16 08:47; Admin Dose 100 MLS/HR; Start 07/01/16 at 16:00 Famotidine (Pepcid) 20 mg DAILY PO Last administered on 07/02/16 08:48; Admin Dose 20 MG; Start 07/02/16 at 09:00 Guaifenesin/ Dextromethorphan (Robitussin Dm Liquid Cup) 10 ml Q4H PRN PO COUGH Last administered on 07/01/16 21:19; Admin Dose 10 ML; Start 07/01/16 at 19 :00 Guy Greer DO Jul 02, 2016 12:52
--- NOTE | 2016-07-02 15:23 | CONS ---
Date/Time of Note Date/Time of Note DATE: 07/02/16 TIME: 15:21 Assessment/Plan Assessment/Plan Chief Complaint/Hosp Course - CKD III - ACUTE KIDNEY INJURY - CAD / CHF - ANEMIA - PANCYTOPENIA - DM - DM NEPHROPATHY - OBESITY - HYPERPHOSPHATEMIA PLAN: Acute Kidney Disease possible due to ATN & decrease renal perfusion due to CHF & Volume overload with decrease in CO Had ~ 6 hours of Bumex drip in the ER, remains on Bi-PAP Making better UO at this point Feels better & Less SOB Stable renal with creatinine stable with diuresis - added Tums PO TID with meals as a phosphourous binder for now - Cont. PO IRON for low Iron % Problems: Consultation Date/Type/Reason Admit Date/Time Jun 29, 2016 at 13:37 Initial Consult Date 06/30/16 Type of Consultation: NEPHROLOGY 24 HR Interval Summary Constitutional: improved Exam/Review of Systems Vital Signs Vitals Vital Signs Date Time Temp Pulse Resp B/P Pulse Ox O2 Delivery O2 Flow Rate FiO2 07/02/16 12:21 65 07/02/16 11:16 98.1 18 120/57 99 07/02/16 08:00 Nasal Cannula 2.0 07/01/16 00:30 32 Intake and Output 07/01/16 07/01/16 07/02/16 15:00 23:00 07:00 Intake Total 1200 ml 700 ml Output Total 1400 ml 1000 ml Balance -200 ml -300 ml Exam Constitutional: alert Psych: no complaints Head: normocephalic Respiratory: crackles/rales Cardiovascular: systolic murmur Gastrointestinal: soft Results Result Diagram: 07/02/16 0645 07/02/16 0645 Results 24 hrs Laboratory Tests Test 07/01/16 18:17 07/01/16 20:58 07/02/16 06:45 07/02/16 07:50 Bedside Glucose 143 202 103 White Blood Count 6.2 Red Blood Count 3.90 L Hemoglobin 10.7 L Hematocrit 35.8 L Mean Corpuscular Volume 91.8 Mean Corpuscular Hemoglobin 27.4 L Mean Corpuscular Hemoglobin Concent 29.9 L Red Cell Distribution Width 14.5 Platelet Count 145 Mean Platelet Volume 12.8 H Neutrophils % 66.4 Lymphocytes % 18.8 Monocytes % 9.2 Eosinophils % 4.9 Basophils % 0.5 Nucleated Red Blood Cells % 0.0 Neutrophils # 4.1 Lymphocytes # 1.2 Monocytes # 0.6 Eosinophils # 0.3 Basophils # 0.0 Nucleated Red Blood Cells # 0.0 Sodium Level 142 Potassium Level 3.6 Chloride Level 98 Carbon Dioxide Level 37 H Anion Gap 11 Blood Urea Nitrogen 109 H Creatinine 2.13 H Glucose Level 102 Calcium Level 8.1 L Phosphorus Level 4.6 Magnesium Level 2.0 Total Bilirubin 0.4 Direct Bilirubin 0.00 Indirect Bilirubin 0.4 Aspartate Amino Transf (AST/SGOT) 148 H Alanine Aminotransferase (ALT/SGPT) 226 H Alkaline Phosphatase 83 Total Protein 5.7 L Albumin 3.4 Test 07/02/16 12:09 07/02/16 12:31 Bedside Glucose 114 Lab Scanned Report REFERENCE LAB Medications Medications Current Medications Acetaminophen (Tylenol Tab) 650 mg Q6H PRN PO MILD PAIN LEVEL 1-3 Last administered on 07/01/16 09:00; Admin Dose 650 MG; Start 06/29/16 at 15:30 Allopurinol (Zyloprim) 100 mg BID PO Last administered on 07/02/16 08:48; Admin Dose 100 MG; Start 06/29/16 at 21:00 Ascorbic Acid (Vitamin C) 500 mg BID PO Last administered on 07/02/16 08:48; Admin Dose 500 MG; Start 06/29/16 at 21:00 Aspirin (Halfprin) 81 mg DAILY PO Last administered on 07/02/16 08:49; Admin Dose 81 MG; Start 06/30/16 at 09:00 Cholecalciferol (Vitamin D) 2,000 unit BID PO Last administered on 07/02/16 08: 48; Admin Dose 2,000 UNIT; Start 06/29/16 at 21:00 Docusate Sodium (Colace) 100 mg BID PO Last administered on 07/02/16 08:48; Admin Dose 100 MG; Start 06/29/16 at 21:00 Gabapentin (Neurontin) 300 mg TID PO Last administered on 07/02/16 13:48; Admin Dose 300 MG; Start 06/29/16 at 21:00 Acetaminophen/ Hydrocodone Bitart ([place] (5/325)) 1 tab Q4 PRN PO PAIN LEVEL 4- 6 Last administered on 06/30/16 05:55; Admin Dose 1 TAB; Start 06/29/16 at 15:30 Acetaminophen/ Hydrocodone Bitart ([place] (5/325)) 2 tab Q4 PRN PO SEVERE PAIN LEVEL 7-10 Last administered on 07/02/16 10:52; Admin Dose 2 TAB; Start 06/29/16 at 15:30 Isosorbide Mononitrate (Imdur) 30 mg DAILY PO Last administered on 07/02/16 08: 49; Admin Dose 30 MG; Start 06/30/16 at 09:00 Ondansetron HCl (Zofran Inj) 4 mg Q6H PRN IV NAUSEA AND/OR VOMITING; Start 06/29 at 15:30 Nitroglycerin (Nitroglycerin (Sl Tab) 0.4 Mg) 1 tab Q5M PRN SL CHEST PAIN; Start 06/29/16 at 15:30 Morphine Sulfate (morphine) 2 mg Q4H PRN IV PAIN LEVEL 7-10; Start 06/29/16 at 15:30 Magnesium Hydroxide (Milk Of Mag) 30 ml DAILY PRN PO CONSTIPATION; Start at 15:30 Bisacodyl (Dulcolax Supp) 10 mg DAILY PRN [place] CONSTIPATION; Start 06/29/16 at 15: 30 Miscellaneous Information 1 ea NOTE XX ; Start 06/29/16 at 16:00 Glucose (Glutose) 15 gm Q15M PRN PO DECREASED GLUCOSE; Start 06/29/16 at 16:00 Glucose (Glutose) 22.5 gm Q15M PRN PO DECREASED GLUCOSE; Start 06/29/16 at 16:00 Dextrose (D50w Syringe) 25 ml Q15M PRN IV DECREASED GLUCOSE; Start 06/29/16 at 16:00 Dextrose (D50w Syringe) 50 ml Q15M PRN IV DECREASED GLUCOSE; Start 06/29/16 at 16:00 Glucagon (Glucagen) 1 mg Q15M PRN IM DECREASED GLUCOSE; Start 06/29/16 at 16:00 Glucose (Glutose) 15 gm Q15M PRN BUCCAL DECREASED GLUCOSE; Start 06/29/16 at 16: 00 Insulin Glargine (Lantus) 25 unit QHS SC Last administered on 07/01/16 21:24; Admin Dose 25 UNIT; Start 06/30/16 at 21:00 Calcium Carbonate (Tums) 500 mg TID PO Last administered on 07/02/16 13:48; Admin Dose 500 MG; Start 07/01/16 at 13:00 Ferrous Sulfate 325 mg 325 mg DAILY PO Last administered on 07/02/16 08:47; Admin Dose 325 MG; Start 07/01/16 at 10:30 Imipenem/ Cilastatin Sodium (Primaxin 500 Mg/ 100 ml (Pmx)) 100 ml @ 100 mls/ hr Q12 IVPB Last administered on 07/02/16 08:47; Admin Dose 100 MLS/HR; Start 07/01/16 at 16:00 Famotidine (Pepcid) 20 mg DAILY PO Last administered on 07/02/16 08:48; Admin Dose 20 MG; Start 07/02/16 at 09:00 Guaifenesin/ Dextromethorphan (Robitussin Dm Liquid Cup) 10 ml Q4H PRN PO COUGH Last administered on 07/01/16 21:19; Admin Dose 10 ML; Start 07/01/16 at 19 :00 Carvedilol (Coreg) 3.125 mg BID PO ; Start 07/02/16 at 21:00 SILVANA SIDHU MD Jul 02, 2016 15:23
[2016-07-02] MEDS: BUMETANIDE 1 MG TAB PO SCH (17:44)
[2016-07-02] MEDS: INSULIN GLARGINE [LANtus] 3 ML PEN SC SCH (22:09)
[2016-07-03] VITALS (19 sets, daily range): BP systolic 97–187; BP diastolic 60–89; PULSE 60–95; RESP 0–20
[2016-07-03] MEDS: BUMETANIDE 1 MG TAB PO SCH ×2 (06:45→17:33)
[2016-07-03] MEDS: INSULIN ASPART [NOVOLOG] 3 ML PEN SC SCH ×7 (07:39→20:57)
[2016-07-03 08:14] LABS: ADD SCAN DIFF NO
[2016-07-03 08:19] LABS: BASOPHILS % 0.5 % (0.0-2.0); EOSINOPHILS # 0.3 10^3/ul (0.0-0.5); EOSINOPHILS % 4.5 % (0.0-7.0); HEMATOCRIT 41.7 % (37.0-47.0); HEMOGLOBIN 12.5 g/dl (12.0-16.0); LYMPHOCYTES # 0.8 10^3/ul (0.8-2.9); LYMPHOCYTES % 12.6 % (15.0-51.0); MEAN CORPUSCULAR HEMOGLOBIN 27.9 pg (29.0-33.0); MEAN CORPUSCULAR VOLUME 93.1 fl (82.0-101.0); MEAN PLATELET VOLUME 12.3 fl (7.4-10.4); MONOCYTE # 0.6 10^3/ul (0.3-0.9); MONOCYTES % 9.7 % (0.0-11.0); NEUTROPHIL # 4.3 10^3/ul (1.6-7.5); NEUTROPHILS % 72.4 % (39.0-77.0); PLATELET COUNT 136 10^3/UL (140-415); RED BLOOD COUNT 4.48 10^6/ul (4.20-5.40); RED CELL DISTRIBUTION WIDTH 14.5 % (11.5-14.5)
[2016-07-03] MEDS: GABAPENTIN 300 MG CAP PO SCH ×3 (08:27→20:10)
[2016-07-03] MEDS: ASPIRIN (EC) 81 MG TAB PO SCH (08:27)
[2016-07-03] MEDS: ISOSORBIDE MONONITRATE(SR)30 MG TAB PO SCH (08:27)
[2016-07-03] MEDS: CALCIUM CARBONATE 500 MG CHEW TAB PO SCH ×3 (08:27→20:10)
[2016-07-03] MEDS: DOCUSATE SODIUM 100 MG CAP PO SCH ×2 (08:27→20:07)
[2016-07-03] MEDS: IMIPENEM-CILAST 500MG IV (PMX) 100 ML IVPB SCH ×2 (08:27→20:25)
[2016-07-03] MEDS: CHOLECALCIFEROL 1,000 UNIT TAB PO SCH ×2 (08:28→20:10)
[2016-07-03] MEDS: ASCORBIC ACID 500 MG TAB PO SCH ×2 (08:28→20:10)
[2016-07-03] MEDS: ALLOPURINOL 100 MG TAB PO SCH ×2 (08:28→20:10)
[2016-07-03] MEDS: FERROUS SULFATE (EC) 325 MG TAB PO SCH (08:28)
[2016-07-03] MEDS: FAMOTIDINE 20 MG TAB PO SCH (08:28)
[2016-07-03 08:31] LABS: ALBUMIN 3.8 g/dl (3.3-4.9); ALBUMIN/GLOBULIN RATIO 1.31; BILIRUBIN,INDIRECT 0.7 mg/dl (0-1.1); BILIRUBIN,TOTAL 0.7 mg/dl (0.2-1.3); CREATININE 1.66 mg/dl (0.44-1.00); POTASSIUM 3.9 mmol/L (3.5-5.1); TOTAL PROTEIN 6.7 g/dl (6.1-8.1)
[2016-07-03 09:00] LABS: MAGNESIUM 1.7 mg/dl (1.7-2.5); PHOSPHORUS 3.8 mg/dl (2.5-4.9)
--- NOTE | 2016-07-03 11:08 | PN ---
Date/Time of Note Date/Time of Note DATE: 07/03/16 TIME: 10:50 Assessment/Plan VTE Prophylaxis VTE Prophylaxis Intervention: SCD's Lines/Catheters IV Catheter Type (from Nrsg): Saline Lock Urinary Cath still in place: No Assessment/Plan Assessment/Plan 71-year-old female with: 1. Altered level of consciousness, acute hypercapnic and hypoxemic respiratory distress 2ry to CHF exacerbation acute on chronic diastolic dysfunction at least. Resolved so far On Diuresis, s/p Bumex gtt and on Bumex po now Continue Bumex 1 mg po bid if OK with Nephro. On 2L NC, nebs prn. 2D echocardiogram with diastolic dysfunction and EF 65% 2. Acute kidney injury on chronic kidney disease. Continue Bumex 1 mg po bid amd OK to continue per nephrology at discharge, good UOP and improving renal function. Renal US done, could not visualize Left kidney Serial BMP at [facility] 3. Super morbid obesity with possibly obstructive sleep apnea. Did not require BiPAP x 2 days now 4. Diastolic congestive heart failure with reported severe septal hypertrophy on echocardiogram almost a year ago, and also mild to moderate mitral stenosis. 2D echocardiogram confirmed diastolic dysfunction and EF 65%. Continue diuresis with Bumex po at SNF. 5. Hyperlipidemia. Resume Lipitor at SNF. 6. Abnormal liver enzymes may be secondary to congestive liver. LFTs improving. Statins at SNF. 7. Diabetes mellitus. A1c 7.3, BG better this AM on current regimen Continue subcutaneous insulin including Lantus and sliding scale insulin and titrate as needed 8. Chronic pain, narcotic dependent. Resume OxyContin for now. Continue [place] as needed and morphine as needed. PT eval 9. Diabetic neuropathy. Continue Neurontin and discontinued Lyrica. 10. Gout, per records from [facility] facility. Uric acid wnl, continue allopurinol. 11. Mild Anemia and thrombocytopenia: improving Off Heparin, monitor 12. ESBL E coli UTI: contact isolation, abx changed to Imipenem and will need 5 more days of treatment. Prophylaxis. SCDs for deep vein thrombosis prophylaxis and Pepcid for GI prophylaxis. DISPOSITION: Planning for SNF d/c with PIV for Imipenem x 5 days. F Subjective 24 Hr Interval Summary Free Text/Dictation Patient doing well today, on RA actually and sating 95 % No complaints except for chronic pain, will resume Oxycodone Exam/Review of Systems Vital Signs Vitals Vital Signs Date Time Temp Pulse Resp B/P Pulse Ox O2 Delivery O2 Flow Rate FiO2 07/03/16 10:29 Nasal Cannula 2.0 07/03/16 09:30 154/68 07/03/16 08:26 79 07/03/16 07:57 98.1 20 94 07/01/16 00:30 32 Intake and Output 07/02/16 07/02/16 07/03/16 15:00 23:00 07:00 Intake Total 1100 ml 850 ml Output Total 2700 ml 450 ml Balance -1600 ml 400 ml Exam Constitutional: alert, obese, oriented, well developed Respiratory: clear to auscultation, normal air movement Cardiovascular: nl pulses, regular rate and rhythm Gastrointestinal: non-tender, soft Musculoskeletal: nl extremities to inspection Neurological: CERTIFIED [employer] COUNSEL[employer] II-XII intact, lethargic, nl mental status, nl speech, other (baseline strength ) Results Result Diagram: 07/03/16 0705 07/03/16 0805 Results 24 hrs Laboratory Tests Test 07/02/16 12:09 07/02/16 12:31 07/02/16 17:44 07/02/16 20:44 Bedside Glucose 114 90 94 Lab Scanned Report REFERENCE LAB Test 07/02/16 21:58 07/03/16 07:05 07/03/16 07:36 07/03/16 08:05 Bedside Glucose 92 185 White Blood Count 6.0 Red Blood Count 4.48 Hemoglobin 12.5 Hematocrit 41.7 Mean Corpuscular Volume 93.1 Mean Corpuscular Hemoglobin 27.9 L Mean Corpuscular Hemoglobin Concent 30.0 L Red Cell Distribution Width 14.5 Platelet Count 136 L Mean Platelet Volume 12.3 H Neutrophils % 72.4 Lymphocytes % 12.6 L Monocytes % 9.7 Eosinophils % 4.5 Basophils % 0.5 Nucleated Red Blood Cells % 0.0 Neutrophils # 4.3 Lymphocytes # 0.8 Monocytes # 0.6 Eosinophils # 0.3 Basophils # 0.0 Nucleated Red Blood Cells # 0.0 Phosphorus Level 3.8 Magnesium Level 1.7 Sodium Level 143 Potassium Level 3.9 Chloride Level 97 Carbon Dioxide Level 37 H Anion Gap 13 Blood Urea Nitrogen 94 H Creatinine 1.66 H Glucose Level 185 Calcium Level 9.0 Total Bilirubin 0.7 Direct Bilirubin 0.00 Indirect Bilirubin 0.7 Aspartate Amino Transf (AST/SGOT) 172 H Alanine Aminotransferase (ALT/SGPT) 257 H Alkaline Phosphatase 100 Total Protein 6.7 # Albumin 3.8 Globulin 2.90 Albumin/Globulin Ratio 1.31 Medications Medications Current Medications Acetaminophen (Tylenol Tab) 650 mg Q6H PRN PO MILD PAIN LEVEL 1-3 Last administered on 07/01/16 09:00; Admin Dose 650 MG; Start 06/29/16 at 15:30 Allopurinol (Zyloprim) 100 mg BID PO Last administered on 07/03/16 08:28; Admin Dose 100 MG; Start 06/29/16 at 21:00 Ascorbic Acid (Vitamin C) 500 mg BID PO Last administered on 07/03/16 08:28; Admin Dose 500 MG; Start 06/29/16 at 21:00 Aspirin (Halfprin) 81 mg DAILY PO Last administered on 07/03/16 08:27; Admin Dose 81 MG; Start 06/30/16 at 09:00 Cholecalciferol (Vitamin D) 2,000 unit BID PO Last administered on 07/03/16 08: 28; Admin Dose 2,000 UNIT; Start 06/29/16 at 21:00 Docusate Sodium (Colace) 100 mg BID PO Last administered on 07/03/16 08:27; Admin Dose 100 MG; Start 06/29/16 at 21:00 Gabapentin (Neurontin) 300 mg TID PO Last administered on 07/03/16 08:27; Admin Dose 300 MG; Start 06/29/16 at 21:00 Acetaminophen/ Hydrocodone Bitart ([place] (5/325)) 1 tab Q4 PRN PO PAIN LEVEL 4- 6 Last administered on 06/30/16 05:55; Admin Dose 1 TAB; Start 06/29/16 at 15:30 Acetaminophen/ Hydrocodone Bitart ([place] (5/325)) 2 tab Q4 PRN PO SEVERE PAIN LEVEL 7-10 Last administered on 07/02/16 19:58; Admin Dose 2 TAB; Start 06/29/16 at 15:30 Isosorbide Mononitrate (Imdur) 30 mg DAILY PO Last administered on 07/03/16 08: 27; Admin Dose 30 MG; Start 06/30/16 at 09:00 Ondansetron HCl (Zofran Inj) 4 mg Q6H PRN IV NAUSEA AND/OR VOMITING; Start 06/29 at 15:30 Nitroglycerin (Nitroglycerin (Sl Tab) 0.4 Mg) 1 tab Q5M PRN SL CHEST PAIN; Start 06/29/16 at 15:30 Morphine Sulfate (morphine) 2 mg Q4H PRN IV PAIN LEVEL 7-10; Start 06/29/16 at 15:30 Magnesium Hydroxide (Milk Of Mag) 30 ml DAILY PRN PO CONSTIPATION; Start at 15:30 Bisacodyl (Dulcolax Supp) 10 mg DAILY PRN [place] CONSTIPATION; Start 06/29/16 at 15: 30 Miscellaneous Information 1 ea NOTE XX ; Start 06/29/16 at 16:00 Glucose (Glutose) 15 gm Q15M PRN PO DECREASED GLUCOSE; Start 06/29/16 at 16:00 Glucose (Glutose) 22.5 gm Q15M PRN PO DECREASED GLUCOSE; Start 06/29/16 at 16:00 Dextrose (D50w Syringe) 25 ml Q15M PRN IV DECREASED GLUCOSE; Start 06/29/16 at 16:00 Dextrose (D50w Syringe) 50 ml Q15M PRN IV DECREASED GLUCOSE; Start 06/29/16 at 16:00 Glucagon (Glucagen) 1 mg Q15M PRN IM DECREASED GLUCOSE; Start 06/29/16 at 16:00 Glucose (Glutose) 15 gm Q15M PRN BUCCAL DECREASED GLUCOSE; Start 06/29/16 at 16: 00 Insulin Glargine (Lantus) 25 unit QHS SC Last administered on 07/02/16 22:09; Admin Dose 25 UNIT; Start 06/30/16 at 21:00 Calcium Carbonate (Tums) 500 mg TID PO Last administered on 07/03/16 08:27; Admin Dose 500 MG; Start 07/01/16 at 13:00 Ferrous Sulfate 325 mg 325 mg DAILY PO Last administered on 07/03/16 08:28; Admin Dose 325 MG; Start 07/01/16 at 10:30 Imipenem/ Cilastatin Sodium (Primaxin 500 Mg/ 100 ml (Pmx)) 100 ml @ 100 mls/ hr Q12 IVPB Last administered on 07/03/16 08:27; Admin Dose 100 MLS/HR; Start 07/01/16 at 16:00 Famotidine (Pepcid) 20 mg DAILY PO Last administered on 07/03/16 08:28; Admin Dose 20 MG; Start 07/02/16 at 09:00 Guaifenesin/ Dextromethorphan (Robitussin Dm Liquid Cup) 10 ml Q4H PRN PO COUGH Last administered on 07/01/16 21:19; Admin Dose 10 ML; Start 07/01/16 at 19 :00 Carvedilol (Coreg) 3.125 mg BID PO Last administered on 07/03/16 08:27; Admin Dose 3.125 MG; Start 07/02/16 at 21:00 REBECCA SALAS Jul 03, 2016 11:04
--- NOTE | 2016-07-03 11:21 | CONS ---
Date/Time of Note Date/Time of Note DATE: 07/03/16 TIME: 11:19 Assessment/Plan Assessment/Plan Additional Assessment/Plan Assessment recommendations; next 1. Patient admitted for CHF and right lower lobe pneumonia with significant clinical improvement. 2. Underlying morbid obesity. Continue current treatment. Consultation Date/Type/Reason Admit Date/Time Jun 29, 2016 at 13:37 Initial Consult Date 06/30/16 Type of Consultation: Pulmonary 24 HR Interval Summary Free Text/Dictation Patient condition stable. Remains awake and alert. Denies any shortness of breath, chest pain, sputum production. Any fever chills. On exam; elderly lady, morbidly obese currently in no distress, awake and alert. Exam/Review of Systems Vital Signs Vitals Vital Signs Date Time Temp Pulse Resp B/P Pulse Ox O2 Delivery O2 Flow Rate FiO2 07/03/16 10:29 Nasal Cannula 2.0 07/03/16 09:30 154/68 07/03/16 08:26 79 07/03/16 07:57 98.1 20 94 07/01/16 00:30 32 Intake and Output 07/02/16 07/02/16 07/03/16 15:00 23:00 07:00 Intake Total 1100 ml 850 ml Output Total 2700 ml 450 ml Balance -1600 ml 400 ml Exam HEENT exam; supple neck, no JVD. No lymphadenopathy. Midline trachea. No thyromegaly. Pharynx is clear. Pupils are midsize and reactive to light. Chest exam; diminished but clear breath sounds bilaterally. S1-S2 audible, no murmurs. Regular rhythm. Abdomen examination of abdomen soft, protuberant. Nontender. Bowel sounds audible. Extremity exam; trace peripheral edema. Pulses 1+ bilaterally. Venous examination; no focal deficit. Results Result Diagram: 07/03/16 0705 07/03/16 0805 Results 24 hrs Laboratory Tests Test 07/02/16 12:09 07/02/16 12:31 07/02/16 17:44 07/02/16 20:44 Bedside Glucose 114 90 94 Lab Scanned Report REFERENCE LAB Test 07/02/16 21:58 07/03/16 07:05 07/03/16 07:36 07/03/16 08:05 Bedside Glucose 92 185 White Blood Count 6.0 Red Blood Count 4.48 Hemoglobin 12.5 Hematocrit 41.7 Mean Corpuscular Volume 93.1 Mean Corpuscular Hemoglobin 27.9 L Mean Corpuscular Hemoglobin Concent 30.0 L Red Cell Distribution Width 14.5 Platelet Count 136 L Mean Platelet Volume 12.3 H Neutrophils % 72.4 Lymphocytes % 12.6 L Monocytes % 9.7 Eosinophils % 4.5 Basophils % 0.5 Nucleated Red Blood Cells % 0.0 Neutrophils # 4.3 Lymphocytes # 0.8 Monocytes # 0.6 Eosinophils # 0.3 Basophils # 0.0 Nucleated Red Blood Cells # 0.0 Phosphorus Level 3.8 Magnesium Level 1.7 Sodium Level 143 Potassium Level 3.9 Chloride Level 97 Carbon Dioxide Level 37 H Anion Gap 13 Blood Urea Nitrogen 94 H Creatinine 1.66 H Glucose Level 185 Calcium Level 9.0 Total Bilirubin 0.7 Direct Bilirubin 0.00 Indirect Bilirubin 0.7 Aspartate Amino Transf (AST/SGOT) 172 H Alanine Aminotransferase (ALT/SGPT) 257 H Alkaline Phosphatase 100 Total Protein 6.7 # Albumin 3.8 Globulin 2.90 Albumin/Globulin Ratio 1.31 Medications Medications Current Medications Acetaminophen (Tylenol Tab) 650 mg Q6H PRN PO MILD PAIN LEVEL 1-3 Last administered on 07/01/16 09:00; Admin Dose 650 MG; Start 06/29/16 at 15:30 Allopurinol (Zyloprim) 100 mg BID PO Last administered on 07/03/16; Admin Dose 100 MG; Start 06/29/16 at 21:00 Ascorbic Acid (Vitamin C) 500 mg BID PO Last administered on 07/03/16:; Admin Dose 500 MG; Start 06/29/16 at 21:00 Aspirin (Halfprin) 81 mg DAILY PO Last administered on 07/03/16; Admin Dose 81 MG; Start 06/30/16 at 09:00 Cholecalciferol (Vitamin D) 2,000 unit BID PO Last administered on 07/03/16; Admin Dose 2,000 UNIT; Start 06/29/16 at 21:00 Docusate Sodium (Colace) 100 mg BID PO Last administered on 07/03/16:; Admin Dose 100 MG; Start 06/29/16 at 21:00 Gabapentin (Neurontin) 300 mg TID PO Last administered on 07/03/16; Admin Dose 300 MG; Start 06/29/16 at 21:00 Acetaminophen/ Hydrocodone Bitart ([place] (5/325)) 1 tab Q4 PRN PO PAIN LEVEL 4- 6 Last administered on 06/30/16 05:55; Admin Dose 1 TAB; Start 06/29/16 at 15:30 Acetaminophen/ Hydrocodone Bitart ([place] (5/325)) 2 tab Q4 PRN PO SEVERE PAIN LEVEL 7-10 Last administered on 07/02/16 19:58; Admin Dose 2 TAB; Start 06/29/16 at 15:30 Isosorbide Mononitrate (Imdur) 30 mg DAILY PO Last administered on 07/03/16 08: 27; Admin Dose 30 MG; Start 06/30/16 at 09:00 Ondansetron HCl (Zofran Inj) 4 mg Q6H PRN IV NAUSEA AND/OR VOMITING; Start 06/29 at 15:30 Nitroglycerin (Nitroglycerin (Sl Tab) 0.4 Mg) 1 tab Q5M PRN SL CHEST PAIN; Start 06/29/16 at 15:30 Morphine Sulfate (morphine) 2 mg Q4H PRN IV PAIN LEVEL 7-10; Start 06/29/16 at 15:30 Magnesium Hydroxide (Milk Of Mag) 30 ml DAILY PRN PO CONSTIPATION; Start at 15:30 Bisacodyl (Dulcolax Supp) 10 mg DAILY PRN [place] CONSTIPATION; Start 06/29/16 at 15: 30 Miscellaneous Information 1 ea NOTE XX ; Start 06/29/16 at 16:00 Glucose (Glutose) 15 gm Q15M PRN PO DECREASED GLUCOSE; Start 06/29/16 at 16:00 Glucose (Glutose) 22.5 gm Q15M PRN PO DECREASED GLUCOSE; Start 06/29/16 at 16:00 Dextrose (D50w Syringe) 25 ml Q15M PRN IV DECREASED GLUCOSE; Start 06/29/16 at 16:00 Dextrose (D50w Syringe) 50 ml Q15M PRN IV DECREASED GLUCOSE; Start 06/29/16 at 16:00 Glucagon (Glucagen) 1 mg Q15M PRN IM DECREASED GLUCOSE; Start 06/29/16 at 16:00 Glucose (Glutose) 15 gm Q15M PRN BUCCAL DECREASED GLUCOSE; Start 06/29/16 at 16: 00 Insulin Glargine (Lantus) 25 unit QHS SC Last administered on 07/02/16 22:09; Admin Dose 25 UNIT; Start 06/30/16 at 21:00 Calcium Carbonate (Tums) 500 mg TID PO Last administered on 07/03/16 08:27; Admin Dose 500 MG; Start 07/01/16 at 13:00 Ferrous Sulfate 325 mg 325 mg DAILY PO Last administered on 07/03/16 08:28; Admin Dose 325 MG; Start 07/01/16 at 10:30 Imipenem/ Cilastatin Sodium (Primaxin 500 Mg/ 100 ml (Pmx)) 100 ml @ 100 mls/ hr Q12 IVPB Last administered on 07/03/16 08:27; Admin Dose 100 MLS/HR; Start 07/01/16 at 16:00 Famotidine (Pepcid) 20 mg DAILY PO Last administered on 07/03/16 08:28; Admin Dose 20 MG; Start 07/02/16 at 09:00 Guaifenesin/ Dextromethorphan (Robitussin Dm Liquid Cup) 10 ml Q4H PRN PO COUGH Last administered on 07/01/16 21:19; Admin Dose 10 ML; Start 07/01/16 at 19 :00 Carvedilol (Coreg) 3.125 mg BID PO Last administered on 07/03/16 08:27; Admin Dose 3.125 MG; Start 07/02/16 at 21:00 MARIA C DYSON Jul 03, 2016 11:21
--- NOTE | 2016-07-03 12:22 | PDOCDIS ---
Discharge Instructions CONDITION Patient Condition: Good HOME CARE INSTRUCTIONS: Diet Instructions: Regular ACTIVITY: Activity Restrictions: No Restrictions FOLLOW UP/APPOINTMENTS Appointments Follow up with PCP within 1 week Follow with Nephrology outpatient within 1 to 2 week Follow with Cardiology within 1 to 2 weeks REBECCA SALAS Jul 03, 2016 12:22
[2016-07-03] MEDS: hydrALAzine 20 MG INJ IV PRN ×2 (16:41→22:50)
--- NOTE | 2016-07-03 17:31 | CONS ---
Date/Time of Note Date/Time of Note DATE: 07/03/16 TIME: 17:29 Assessment/Plan Assessment/Plan Chief Complaint/Hosp Course - CKD III - ACUTE KIDNEY INJURY - CAD / CHF - ANEMIA - PANCYTOPENIA - DM - DM NEPHROPATHY - OBESITY - HYPERPHOSPHATEMIA PLAN: Acute Kidney Disease possible due to ATN & decrease renal perfusion due to CHF & Volume overload with decrease in CO Clinically much improved Making better UO at this point Feels better & Less SOB Stable renal with creatinine stable with diuresis - OK for discharge with BID diuretics - Monitor renal next week as out patient Problems: Consultation Date/Type/Reason Admit Date/Time Jun 29, 2016 at 13:37 Initial Consult Date 06/30/16 Type of Consultation: NEPHROLOGY Reason for Consultation - ACUTE KIDNEY INJURY 24 HR Interval Summary Constitutional: improved, no complaints Exam/Review of Systems Vital Signs Vitals Vital Signs Date Time Temp Pulse Resp B/P Pulse Ox O2 Delivery O2 Flow Rate FiO2 07/03/16 17:15 157/81 07/03/16 16:12 83 07/03/16 15:35 98.4 19 96 07/03/16 14:58 21 07/03/16 10:29 Nasal Cannula 2.0 Intake and Output 07/02/16 07/02/16 07/03/16 14:59 22:59 06:59 Intake Total 1100 ml 850 ml Output Total 2700 ml 450 ml Balance -1600 ml 400 ml Exam Constitutional: alert, oriented Psych: no complaints Head: normocephalic Respiratory: crackles/rales Cardiovascular: regular rate and rhythm, systolic murmur Gastrointestinal: soft Results Result Diagram: 07/03/16 0705 07/03/16 0805 Results 24 hrs Laboratory Tests Test 07/02/16 17:44 07/02/16 20:44 07/02/16 21:58 07/03/16 07:05 Bedside Glucose 90 94 92 White Blood Count 6.0 Red Blood Count 4.48 Hemoglobin 12.5 Hematocrit 41.7 Mean Corpuscular Volume 93.1 Mean Corpuscular Hemoglobin 27.9 L Mean Corpuscular Hemoglobin Concent 30.0 L Red Cell Distribution Width 14.5 Platelet Count 136 L Mean Platelet Volume 12.3 H Neutrophils % 72.4 Lymphocytes % 12.6 L Monocytes % 9.7 Eosinophils % 4.5 Basophils % 0.5 Nucleated Red Blood Cells % 0.0 Neutrophils # 4.3 Lymphocytes # 0.8 Monocytes # 0.6 Eosinophils # 0.3 Basophils # 0.0 Nucleated Red Blood Cells # 0.0 Phosphorus Level 3.8 Magnesium Level 1.7 Test 07/03/16 07:36 07/03/16 08:05 07/03/16 11:37 07/03/16 17:03 Bedside Glucose 185 150 186 Sodium Level 143 Potassium Level 3.9 Chloride Level 97 Carbon Dioxide Level 37 H Anion Gap 13 Blood Urea Nitrogen 94 H Creatinine 1.66 H Glucose Level 185 Calcium Level 9.0 Total Bilirubin 0.7 Direct Bilirubin 0.00 Indirect Bilirubin 0.7 Aspartate Amino Transf (AST/SGOT) 172 H Alanine Aminotransferase (ALT/SGPT) 257 H Alkaline Phosphatase 100 Total Protein 6.7 # Albumin 3.8 Globulin 2.90 Albumin/Globulin Ratio 1.31 Medications Medications Current Medications Acetaminophen (Tylenol Tab) 650 mg Q6H PRN PO MILD PAIN LEVEL 1-3 Last administered on 07/01/16 09:00; Admin Dose 650 MG; Start 06/29/16 at 15:30 Allopurinol (Zyloprim) 100 mg BID PO Last administered on 07/03/16 08:28; Admin Dose 100 MG; Start 06/29/16 at 21:00 Ascorbic Acid (Vitamin C) 500 mg BID PO Last administered on 07/03/16 08:28; Admin Dose 500 MG; Start 06/29/16 at 21:00 Aspirin (Halfprin) 81 mg DAILY PO Last administered on 07/03/16 08:27; Admin Dose 81 MG; Start 06/30/16 at 09:00 Cholecalciferol (Vitamin D) 2,000 unit BID PO Last administered on 07/03/16 08: 28; Admin Dose 2,000 UNIT; Start 06/29/16 at 21:00 Docusate Sodium (Colace) 100 mg BID PO Last administered on 07/03/16 08:27; Admin Dose 100 MG; Start 06/29/16 at 21:00 Gabapentin (Neurontin) 300 mg TID PO Last administered on 07/03/16 12:33; Admin Dose 300 MG; Start 06/29/16 at 21:00 Acetaminophen/ Hydrocodone Bitart ([place] (5/325)) 1 tab Q4 PRN PO PAIN LEVEL 4- 6 Last administered on 06/30/16 05:55; Admin Dose 1 TAB; Start 06/29/16 at 15:30 Acetaminophen/ Hydrocodone Bitart ([place] (5/325)) 2 tab Q4 PRN PO SEVERE PAIN LEVEL 7-10 Last administered on 07/02/16 19:58; Admin Dose 2 TAB; Start 06/29/16 at 15:30 Isosorbide Mononitrate (Imdur) 30 mg DAILY PO Last administered on 07/03/16 08: 27; Admin Dose 30 MG; Start 06/30/16 at 09:00 Ondansetron HCl (Zofran Inj) 4 mg Q6H PRN IV NAUSEA AND/OR VOMITING; Start 06/29 at 15:30 Nitroglycerin (Nitroglycerin (Sl Tab) 0.4 Mg) 1 tab Q5M PRN SL CHEST PAIN; Start 06/29/16 at 15:30 Morphine Sulfate (morphine) 2 mg Q4H PRN IV PAIN LEVEL 7-10; Start 06/29/16 at 15:30 Magnesium Hydroxide (Milk Of Mag) 30 ml DAILY PRN PO CONSTIPATION; Start at 15:30 Bisacodyl (Dulcolax Supp) 10 mg DAILY PRN [place] CONSTIPATION; Start 06/29/16 at 15: 30 Miscellaneous Information 1 ea NOTE XX ; Start 06/29/16 at 16:00 Glucose (Glutose) 15 gm Q15M PRN PO DECREASED GLUCOSE; Start 06/29/16 at 16:00 Glucose (Glutose) 22.5 gm Q15M PRN PO DECREASED GLUCOSE; Start 06/29/16 at 16:00 Dextrose (D50w Syringe) 25 ml Q15M PRN IV DECREASED GLUCOSE; Start 06/29/16 at 16:00 Dextrose (D50w Syringe) 50 ml Q15M PRN IV DECREASED GLUCOSE; Start 06/29/16 at 16:00 Glucagon (Glucagen) 1 mg Q15M PRN IM DECREASED GLUCOSE; Start 06/29/16 at 16:00 Glucose (Glutose) 15 gm Q15M PRN BUCCAL DECREASED GLUCOSE; Start 06/29/16 at 16: 00 Calcium Carbonate (Tums) 500 mg TID PO Last administered on 07/03/16 12:32; Admin Dose 500 MG; Start 07/01/16 at 13:00 Ferrous Sulfate 325 mg 325 mg DAILY PO Last administered on 07/03/16 08:28; Admin Dose 325 MG; Start 07/01/16 at 10:30 Imipenem/ Cilastatin Sodium (Primaxin 500 Mg/ 100 ml (Pmx)) 100 ml @ 100 mls/ hr Q12 IVPB Last administered on 07/03/16 08:27; Admin Dose 100 MLS/HR; Start 07/01/16 at 16:00 Famotidine (Pepcid) 20 mg DAILY PO Last administered on 07/03/16 08:28; Admin Dose 20 MG; Start 07/02/16 at 09:00 Guaifenesin/ Dextromethorphan (Robitussin Dm Liquid Cup) 10 ml Q4H PRN PO COUGH Last administered on 07/01/16 21:19; Admin Dose 10 ML; Start 07/01/16 at 19 :00 Carvedilol (Coreg) 3.125 mg BID PO Last administered on 07/03/16 08:27; Admin Dose 3.125 MG; Start 07/02/16 at 21:00 Insulin Glargine (Lantus) 28 unit QHS SC ; Start 07/03/16 at 21:00 Hydralazine HCl (Apresoline) 50 mg Q8 PO Last administered on 07/03/16 12:33; Admin Dose 50 MG; Start 07/03/16 at 12:30 Hydralazine HCl (Apresoline) 10 mg Q8H PRN IV ELEVATED BLOOD PRESSURE Last administered on 07/03/16 16:41; Admin Dose 10 MG; Start 07/03/16 at 12:30 SILVANA SIDHU MD Jul 03, 2016 17:31
[2016-07-03] MEDS ORDERED: MAGNESIUM SULFATE 2 GM/50 ML 50 ML IVPB ONE (18:00)
--- NOTE | 2016-07-03 18:04 | CONS ---
Date/Time of Note Date/Time of Note DATE: 07/03/16 TIME: 18:02 Assessment/Plan Assessment/Plan Additional Assessment/Plan Acute decompensated diastolic congestive heart failure Preserved EF Respiratory failure Hypertension Morbid obesity DWIGHT, improved -renal fxn improving, cont diuretics as BP and renal fxn permits. Continue aspirin therapy, increased dose of beta-safia, magnesium supplementation ordered. Consultation Date/Type/Reason Admit Date/Time Jun 29, 2016 at 13:37 Initial Consult Date 06/30/16 Type of Consultation: cv 24 HR Interval Summary Free Text/Dictation Shortness of breath is improving, denies chest pain or palpitations Exam/Review of Systems Vital Signs Vitals Vital Signs Date Time Temp Pulse Resp B/P Pulse Ox O2 Delivery O2 Flow Rate FiO2 07/03/16 17:15 157/81 07/03/16 16:12 83 07/03/16 15:35 98.4 19 96 07/03/16 14:58 21 07/03/16 10:29 Nasal Cannula 2.0 Intake and Output 07/02/16 07/02/16 07/03/16 15:00 23:00 07:00 Intake Total 1100 ml 850 ml Output Total 2700 ml 450 ml Balance -1600 ml 400 ml Exam Sleeping but arousable, no apparent distress, follows commands Head: normocephalic Respiratory: other (Coarse breath sounds bilaterally, no wheezing) Cardiovascular: other (S1-S2 heard), regular rate and rhythm Gastrointestinal: bowel sounds, non-tender, soft Extremities: edema, other (No cyanosis) Results Result Diagram: 07/03/16 0705 07/03/16 0805 Results 24 hrs Laboratory Tests Test 07/02/16 20:44 07/02/16 21:58 07/03/16 07:05 07/03/16 07:36 Bedside Glucose 94 92 185 White Blood Count 6.0 Red Blood Count 4.48 Hemoglobin 12.5 Hematocrit 41.7 Mean Corpuscular Volume 93.1 Mean Corpuscular Hemoglobin 27.9 L Mean Corpuscular Hemoglobin Concent 30.0 L Red Cell Distribution Width 14.5 Platelet Count 136 L Mean Platelet Volume 12.3 H Neutrophils % 72.4 Lymphocytes % 12.6 L Monocytes % 9.7 Eosinophils % 4.5 Basophils % 0.5 Nucleated Red Blood Cells % 0.0 Neutrophils # 4.3 Lymphocytes # 0.8 Monocytes # 0.6 Eosinophils # 0.3 Basophils # 0.0 Nucleated Red Blood Cells # 0.0 Phosphorus Level 3.8 Magnesium Level 1.7 Test 07/03/16 08:05 07/03/16 11:37 07/03/16 17:03 Sodium Level 143 Potassium Level 3.9 Chloride Level 97 Carbon Dioxide Level 37 H Anion Gap 13 Blood Urea Nitrogen 94 H Creatinine 1.66 H Glucose Level 185 Calcium Level 9.0 Total Bilirubin 0.7 Direct Bilirubin 0.00 Indirect Bilirubin 0.7 Aspartate Amino Transf (AST/SGOT) 172 H Alanine Aminotransferase (ALT/SGPT) 257 H Alkaline Phosphatase 100 Total Protein 6.7 # Albumin 3.8 Globulin 2.90 Albumin/Globulin Ratio 1.31 Bedside Glucose 150 186 Medications Medications Current Medications Acetaminophen (Tylenol Tab) 650 mg Q6H PRN PO MILD PAIN LEVEL 1-3 Last administered on 07/01/16 09:00; Admin Dose 650 MG; Start 06/29/16 at 15:30 Allopurinol (Zyloprim) 100 mg BID PO Last administered on 07/03/16 08:28; Admin Dose 100 MG; Start 06/29/16 at 21:00 Ascorbic Acid (Vitamin C) 500 mg BID PO Last administered on 07/03/16 08:28; Admin Dose 500 MG; Start 06/29/16 at 21:00 Aspirin (Halfprin) 81 mg DAILY PO Last administered on 07/03/16 08:27; Admin Dose 81 MG; Start 06/30/16 at 09:00 Cholecalciferol (Vitamin D) 2,000 unit BID PO Last administered on 07/03/16 08: 28; Admin Dose 2,000 UNIT; Start 06/29/16 at 21:00 Docusate Sodium (Colace) 100 mg BID PO Last administered on 07/03/16 08:27; Admin Dose 100 MG; Start 06/29/16 at 21:00 Gabapentin (Neurontin) 300 mg TID PO Last administered on 07/03/16 12:33; Admin Dose 300 MG; Start 06/29/16 at 21:00 Acetaminophen/ Hydrocodone Bitart ([place] (5/325)) 1 tab Q4 PRN PO PAIN LEVEL 4- 6 Last administered on 06/30/16 05:55; Admin Dose 1 TAB; Start 06/29/16 at 15:30 Acetaminophen/ Hydrocodone Bitart ([place] (5/325)) 2 tab Q4 PRN PO SEVERE PAIN LEVEL 7-10 Last administered on 07/02/16 19:58; Admin Dose 2 TAB; Start 06/29/16 at 15:30 Isosorbide Mononitrate (Imdur) 30 mg DAILY PO Last administered on 07/03/16 08: 27; Admin Dose 30 MG; Start 06/30/16 at 09:00 Ondansetron HCl (Zofran Inj) 4 mg Q6H PRN IV NAUSEA AND/OR VOMITING; Start 06/29 at 15:30 Nitroglycerin (Nitroglycerin (Sl Tab) 0.4 Mg) 1 tab Q5M PRN SL CHEST PAIN; Start 06/29/16 at 15:30 Morphine Sulfate (morphine) 2 mg Q4H PRN IV PAIN LEVEL 7-10; Start 06/29/16 at 15:30 Magnesium Hydroxide (Milk Of Mag) 30 ml DAILY PRN PO CONSTIPATION; Start at 15:30 Bisacodyl (Dulcolax Supp) 10 mg DAILY PRN [place] CONSTIPATION; Start 06/29/16 at 15: 30 Miscellaneous Information 1 ea NOTE XX ; Start 06/29/16 at 16:00 Glucose (Glutose) 15 gm Q15M PRN PO DECREASED GLUCOSE; Start 06/29/16 at 16:00 Glucose (Glutose) 22.5 gm Q15M PRN PO DECREASED GLUCOSE; Start 06/29/16 at 16:00 Dextrose (D50w Syringe) 25 ml Q15M PRN IV DECREASED GLUCOSE; Start 06/29/16 at 16:00 Dextrose (D50w Syringe) 50 ml Q15M PRN IV DECREASED GLUCOSE; Start 06/29/16 at 16:00 Glucagon (Glucagen) 1 mg Q15M PRN IM DECREASED GLUCOSE; Start 06/29/16 at 16:00 Glucose (Glutose) 15 gm Q15M PRN BUCCAL DECREASED GLUCOSE; Start 06/29/16 at 16: 00 Calcium Carbonate (Tums) 500 mg TID PO Last administered on 07/03/16 12:32; Admin Dose 500 MG; Start 07/01/16 at 13:00 Ferrous Sulfate 325 mg 325 mg DAILY PO Last administered on 07/03/16 08:28; Admin Dose 325 MG; Start 07/01/16 at 10:30 Imipenem/ Cilastatin Sodium (Primaxin 500 Mg/ 100 ml (Pmx)) 100 ml @ 100 mls/ hr Q12 IVPB Last administered on 07/03/16 08:27; Admin Dose 100 MLS/HR; Start 07/01/16 at 16:00 Famotidine (Pepcid) 20 mg DAILY PO Last administered on 07/03/16 08:28; Admin Dose 20 MG; Start 07/02/16 at 09:00 Guaifenesin/ Dextromethorphan (Robitussin Dm Liquid Cup) 10 ml Q4H PRN PO COUGH Last administered on 07/01/16 21:19; Admin Dose 10 ML; Start 07/01/16 at 19 :00 Carvedilol (Coreg) 3.125 mg BID PO Last administered on 07/03/16 08:27; Admin Dose 3.125 MG; Start 07/02/16 at 21:00 Insulin Glargine (Lantus) 28 unit QHS SC ; Start 07/03/16 at 21:00 Hydralazine HCl (Apresoline) 50 mg Q8 PO Last administered on 07/03/16 12:33; Admin Dose 50 MG; Start 07/03/16 at 12:30 Hydralazine HCl (Apresoline) 10 mg Q8H PRN IV ELEVATED BLOOD PRESSURE Last administered on 07/03/16 16:41; Admin Dose 10 MG; Start 07/03/16 at 12:30 Guy Greer DO Jul 03, 2016 18:04
[2016-07-03] MEDS ORDERED: INSULIN GLARGINE [LANtus] 3 ML PEN SC SCH (21:00)
== END 2016-07-03 23:43 | DRG 291 ==
LOC: E/R 10:58 → TEL 13:37
PROVIDERS: ADMIT Internal Medicine; ATTEND Internal Medicine
DX: I13.0 Hypertensive heart and chronic kidney disease with heart failure and stage 1 through stage 4 chronic kidney disease, or unspecified chronic kidney disease (principal); I50.33 Acute on chronic diastolic (congestive) heart failure; J96.22 Acute and chronic respiratory failure with hypercapnia; N17.0 Acute kidney failure with tubular necrosis; J18.9 Pneumonia, unspecified organism; D61.818 Other pancytopenia; J44.9 Chronic obstructive pulmonary disease, unspecified; E11.40 Type 2 diabetes mellitus with diabetic neuropathy, unspecified; N39.0 Urinary tract infection, site not specified; Z68.43 Body mass index [BMI] 50.0-59.9, adult; F11.20 Opioid dependence, uncomplicated; N18.3 Chronic kidney disease, stage 3 (moderate); E11.9 Type 2 diabetes mellitus without complications; E66.01 Morbid (severe) obesity due to excess calories; R25.1 Tremor, unspecified; G47.33 Obstructive sleep apnea (adult) (pediatric); M10.9 Gout, unspecified; G89.29 Other chronic pain; B96.20 Unspecified Escherichia coli [E. coli] as the cause of diseases classified elsewhere; Z16.12 Extended spectrum beta lactamase (ESBL) resistance
CPT/HCPCS: 36415; 36600; 70450; 71010; 76775; 80048; 80053; 80061; 80076; 80307; 81001; 81003; 82140; 82150; 82550; 82553; 82803; 82962; 83036; 83540; 83605; 83690; 83735; 83880; 83970; 84100; 84436; 84439; 84443; 84479; 84484; 84560; 85025; 85610; 85730; 87040; 87081; 87086; 93005; 93306; 93923; 94640; 94660; 94664; 96372; 96374; 96375; 96376; 97162; J0360; J0743; J1644; J1815; J1956; J2060; J2930; J3370; J3475; J7030

== ENCOUNTER 2017-03-11 14:36 | Inpatient (IN) | payer OTHER, MEDICAID ==
[~2017-03-11] VITALS: Ht 170.2 cm; Wt 140.0 kg
[~2017-03-11 14:36] MED LIST: ACET-2047 PO; ALLO100T PO; ASCO500S2 PO; ASPI-664 PO; ATOR10TA65 PO; CHOL100062 PO; CRAN450C PO; DOCU-159 PO; ETOMIDATE 20 MG INJ ONE; FURO-109 PO; GABA300C16 PO; HYDR-906 PO; HYDR100T25 PO; ISOS30TA5 PO; LACT1CAP56 PO; LEVEM SC; METO5TAB58 PO; NORepinephrine 8MG/250 ML BAG ONE; NOVO3I SC; OMEG-80 PO; OXYC10TA63 PO; PREG50CA PO; UDROBDM PO; ZOLP5TAB PO
[2017-03-11] MEDS ORDERED: SODIUM CHLORIDE 0.9% 1L BAG IV* STA (14:47)
[2017-03-11] MEDS ORDERED: PROPOFOL 100 ML IV STA (14:47)
[2017-03-11] MEDS ORDERED: ETOMIDATE 20 MG INJ IV STA (14:47)
[2017-03-11] MEDS ORDERED: ROCURONIUM 50 MG INJ IV STA (14:47)
[2017-03-11] MEDS ORDERED: AZTREONAM 2 GM in DEXTROSE 5% 100 ML IVPB ONE (15:00)
[2017-03-11] MEDS ORDERED: VANCOMYCIN 1 GM (PMX) 250 ML IVPB ONE (15:00)
[2017-03-11] MEDS ORDERED: NORepinephrine 8MG/250 ML (PMX 250 ML IV STA (15:02)
[2017-03-11 15:38] LABS: ABNORMAL IP MESSAGE 1; BASOPHILS % 0.3 % (0.0-2.0); HEMATOCRIT 35.1 % (37.0-47.0); HEMOGLOBIN 10.4 g/dl (12.0-16.0); LYMPHOCYTES # 0.5 10^3/ul (0.8-2.9); LYMPHOCYTES % 3.5 % (15.0-51.0); MEAN CORPUSCULAR HEMOGLOBIN 29.1 pg (29.0-33.0); MEAN CORPUSCULAR HGB CONC 29.6 g/dl (32.0-37.0); MEAN CORPUSCULAR VOLUME 98.3 fl (82.0-101.0); MEAN PLATELET VOLUME 10.4 fl (7.4-10.4); MONOCYTE # 0.5 10^3/ul (0.3-0.9); NEUTROPHIL # 14.1 10^3/ul (1.6-7.5); NEUTROPHILS % 92.7 % (39.0-77.0); NUCLEATED RED BLOOD CELLS # 0.1 10^3/ul (0.0-0.0); NUCLEATED RED BLOOD CELLS% 0.6 /100WBC (0.0-0.0); PLATELET COUNT 268 10^3/UL (140-415); RED BLOOD COUNT 3.57 10^6/ul (4.20-5.40); RED CELL DISTRIBUTION WIDTH 14.5 % (11.5-14.5); WHITE BLOOD COUNT 15.2 10^3/ul (4.8-10.8)
[2017-03-11 15:40] LABS: POSITIVE DIFF @See below
[2017-03-11] MEDS ORDERED: MIDAZOLAM (DRIP) 50 mg/50 mL 50 ML IV STA (15:44)
[2017-03-11 15:59] LABS: INR 1.01; PARTIAL THROMBOPLASTIN TIME 26.4 Sec (25.0-35.0); PROTIME 13.4 Sec (11.9-14.9)
[2017-03-11] MEDS ORDERED: FENTAnyl (DRIP) 1000 mcg/100mL 100 ML IV ONE (16:00)
[2017-03-11 16:07] LABS: ALANINE AMINOTRANSFERASE 29 IU/L (13-69); ALBUMIN 2.6 g/dl (3.3-4.9); ALKALINE PHOSPHATASE 97 IU/L (42-121); ANION GAP 17 (8-16); ASPARTATE AMINO TRANSFERASE 15 IU/L (15-46); BILIRUBIN,INDIRECT 0.3 mg/dl (0-1.1); BILIRUBIN,TOTAL 0.3 mg/dl (0.2-1.3); BLOOD UREA NITROGEN 52 mg/dl (7-20); CALCIUM 8.7 mg/dl (8.4-10.2); CARBON DIOXIDE 29 mmol/L (21-31); CHLORIDE 100 mmol/L (97-110); GLUCOSE 168 mg/dl (70-220); POTASSIUM 5.4 mmol/L (3.5-5.1); SODIUM 141 mmol/L (135-144); TOTAL PROTEIN 5.2 g/dl (6.1-8.1)
[2017-03-11 16:09] LABS: ETHANOL < 10.0 mg/dl
--- NOTE | 2017-03-11 16:13 | RADRPT ---
PROCEDURE: X-ray Chest. CLINICAL INDICATION: Sepsis. TECHNIQUE: Single view chest x-ray. COMPARISON: Exam dated 07/01/2016. FINDINGS: There is a well-positioned right IJ catheter tip overlying the mid SVC. The ETT is low-lyi ng with its tip 7 mm above the tasneem. The examination is under inflated. There are atherosclerotic changes of the aorta. The cardiomediastinal silhouette is within normal limits. There is elevation of the right hemidiaphragm and associated right basilar subsegmental atelectasis. The lungs are othe rwise clear. There is no pneumothorax. There are no acute osseous abnormalities. IMPRESSION: 1. Low-lying ETT with its tip 7 mm above the tasneem. This should be retracted approximately 3-4 cm. 2. Vascular calcifications consistent with atherosclerosis. 3. No acute cardiopulmonary abnormality. RPTAT: HLBP .Ad Burnett MD, Date Time Electronically viewed and signed by .Ad Burnett MD, MD on 03/11/2017 16:13 .P/
[2017-03-11 16:17] LABS: TROPONIN-I 0.092 ng/ml (0.00-0.12)
[2017-03-11 16:24] LABS: OPIATES Positive (NEGATIVE)
[2017-03-11 16:29] LABS: BARBITURATES Negative (NEGATIVE); BENZODIAZEPINES Negative (NEGATIVE); CANNABINOIDS Negative (NEGATIVE); COCAINE Negative (NEGATIVE)
[2017-03-11 16:30] LABS: UR CLARITY HAZY (CLEAR); UR COLOR YELLOW (YELLOW)
[2017-03-11 16:31] LABS: ADD UMIC YES; UR BILIRUBIN (Dip) NEGATIVE (NEGATIVE); UR BLOOD (Dip) NEGATIVE (NEGATIVE); UR GLUCOSE (Dip) NEGATIVE (NEGATIVE); UR KETONES (Dip) NEGATIVE (NEGATIVE); UR LEUKOCYTE ESTERASE (Dip) 1+ Leu/ul (NEGATIVE); UR NITRITE (Dip) NEGATIVE (NEGATIVE); UR TOTAL PROTEIN (Dip) TRACE mg/dl (NEGATIVE); UR UROBILINOGEN (Dip) 0.2 E.U./dL mg/dL (NEGATIVE)
[2017-03-11 16:32] LABS: UR SQUAMOUS EPITHELIAL CELL RARE /HPF (FEW)
[2017-03-11 16:39] LABS: T3 UPTAKE 45.5 % (23.5-40.5)
[2017-03-11] MEDS ORDERED: WHEA1POW8 PO (17:22)
[2017-03-11] MEDS ORDERED: BISA10SU75 PR (17:22)
[2017-03-11] MEDS ORDERED: CALC-459 PO (17:23)
[2017-03-11] MEDS ORDERED: CARV3.1260 PO (17:24)
[2017-03-11] MEDS ORDERED: FER325 PO (17:26)
[2017-03-11] MEDS ORDERED: FAMO20TA18 PO (17:26)
[2017-03-11] MEDS ORDERED: HEPA500021 IJ (17:27)
[2017-03-11] MEDS ORDERED: LACT20SO2 PO (17:28)
[2017-03-11] MEDS ORDERED: LANT3I SC (17:28)
[2017-03-11] MEDS ORDERED: MAGN400O4 PO (17:29)
[2017-03-11] MEDS ORDERED: LISI-313 PO (17:29)
[2017-03-11] MEDS ORDERED: MELA3TAB29 PO (17:30)
[2017-03-11] MEDS ORDERED: ROSU5TAB5 PO (17:31)
[2017-03-11] MEDS ORDERED: LACT1CAP47 PO (17:31)
--- NOTE | 2017-03-11 17:34 | ERD ---
ER Documentation Chief Complaint Chief Complaint Respiratory distress, Altered HPI This is a morbidly obese 72-year-old female who presents from correction facility in respiratory distress. It appears the patient had saturations of 60 % and respiratory distress. It appears the patient has a history of CHF and, COPD. The patient seemed to have an improved oxygenation with supplemental oxygen but the patient is unresponsive upon arrival. The patient is reported to be full code. Remainder of HPI is limited given critical nature. ROS Critical patient Medications Home Meds Reported Medications Rosuvastatin Calcium* (Crestor*) 5 Mg Tablet, 5 MG PO QHS, #30 TAB 03/11/17 Lactobacillus Acidophilus (Probiotic) 1 Each Capsule, 1 CAP PO DAILY, CAP 03/11/17 Melatonin (MELADOX) 3 Mg Tablet.er, 3 MG PO QHS, TAB 03/11/17 Magnesium Hydroxide* (Milk Of Magnesia*) 400 Mg/5 Ml Oral.susp, 30 ML PO DAILY, ML 03/11/17 Lisinopril* (Lisinopril*) 5 Mg Tablet, 5 MG PO DAILY, #30 TAB HOLD FOR SBP BELOW 110 03/11/17 Insulin Glargine* (Lantus*) 100 Unit/Ml Soln, 20 UNIT SC QHS, #1 VIAL 03/11/17 Lactulose* (Lactulose*) 20 Gm/30 Ml Solution, 30 GM PO Q24H, ML 03/11/17 Heparin Sodium,Porcine/Pf (HEPARIN SOD 5,000 UNIT/ 0.5 ML) 5,000 Unit/0.5 Ml Vial, 1 ML IJ Q12H, VIAL 03/11/17 Ferrous Sulfate* (Ferrous Sulfate*) 325 Mg Tabec, 325 MG PO DAILY, TAB 03/11/17 Famotidine* (Famotidine*) 20 Mg Tablet, 20 MG PO DAILY, #30 TAB 03/11/17 Carvedilol* (Carvedilol*) 3.125 Mg Tablet, 3.125 MG PO BID, #60 TAB HOLD IF SBP<100 03/11/17 Calcium Carbonate (Calcium Carbonate) 500 Mg Tab.chew, 500 MG PO TID, TAB.CHEW 03/11/17 Bisacodyl* (Bisacodyl*) 10 Mg Supp, 10 MG PA DAILY, SUPP 03/11/17 Wheat Dextrin (Benefiber) 1 Each Powd.pack, 1 EACH PO BID TAKE 1 SCOOP PO BID 03/11/17 Insulin Aspart* (Novolog Insulin Pen*) 100 Unit/Ml Soln, 0 SC .SLIDING SCALE AC , EA IF 60-149=0<60,HYPOGLYCEMIC PROTOCOL AND INFORM MD IF BS 150-199=2 UNITS,200-249=4 UNITS, 250-299=6 UNITSW, 300-349=8 UNITS, 350-399=10 UNITS, 400+=12 UNITS>400,12 UNITS AND INFORM MD. 06/29/16 Oxycodone Hcl* (Oxycontin*) 10 Mg Tab.sr.12h, 10 MG PO Q12 Y for PAIN MANAGMENT , TAB 06/29/16 Guaifenesin-Dextromethorphan* (Robitussin* DM) 100MG/10MG/5ML Syrup, 10 ML PO Q4H Y for COUGH, ML 06/29/16 Cholecalciferol* (Vitamin D3*) 1,000 Unit Tablet, 1000 UNIT PO BID, TAB 06/29/16 Gabapentin* (Gabapentin*) 300 Mg Capsule, 300 MG PO TID, #90 CAP 06/29/16 Docusate Sodium* (Docusate Sodium*) 100 Mg Capsule, 100 MG PO BID, #60 CAP 06/29/16 Aspirin (Low Dose Aspirin) 81 Mg Tablet.dr, 81 MG PO DAILY, #30 TAB 06/29/16 Ascorbic Acid* (Ascorbic Acid*) 500 Mg/5 Ml Syrup, 500 MG PO BID, #300 ML 06/29/16 Allopurinol* (Allopurinol*) 100 Mg Tablet, 100 MG PO BID, TAB 06/29/16 Acetaminophen* (Acetaminophen*) 650 Mg Tablet, 650 MG PO Q6H Y for MILD PAIN LEVEL 1-3, #30 TAB AND FOR TEMPERATURE 06/29/16 Discontinued Reported Medications Lactobacillus Combo No.11 (Probiotic) 1 Each Cap.sprink, 1 CAP PO DAILY, CAP 06/29/16 Hydrocodone/Acetaminophen ([place] 5-325 Tablet) 1 Each Tablet, 2 EACH PO Q4 Y for SEVERE PAIN LEVEL 7-10, TAB 06/29/16 Hydrocodone/Acetaminophen ([place] 5-325 Tablet) 1 Each Tablet, 1 EACH PO Q4 Y for PAIN LEVEL 4-6, TAB 06/29/16 Metoclopramide* (Reglan*) 5 Mg Tablet, 5 MG PO Q8 Y for NAUSEA AND OR VOMITING, TAB 06/29/16 Pregabalin* (Lyrica*) 50 Mg Capsule, 50 MG PO TID, CAP 06/29/16 Atorvastatin Calcium (Atorvastatin Calcium) 10 Mg Tablet, 2.5 MG PO QHS, #30 TAB 06/29/16 Insulin Detemir (Levemir) 100 Unit/1 Ml Vial, 30 UNIT SC QHS, VIAL 06/29/16 Furosemide* (Lasix*) 40 Mg Tablet, 40 MG PO DAILY, TAB 06/29/16 Isosorbide Mononitrate* (Isosorbide Mononitrate*) 30 Mg Tab.er.24h, 30 MG PO DAILY, TAB 06/29/16 Hydralazine Hcl* (Hydralazine Hcl*) 100 Mg Tablet, 100 MG PO Q8 Y for ELEVATED BLOOD PRESSURE, #90 TAB HOLD IF SBP LOWER THAN 110 06/29/16 Warne-3S/Dha/Epa/Fish Oil/D3 (FISH OIL + D3 SOFTGEL) 1 Each Capsule, 1 EACH PO DAILY, CAP 06/29/16 Cranberry Fruit Concentrate (CRANBERRY) 450 Mg Capsule, 450 MG PO DAILY, CAP 06/29/16 Zolpidem Tartrate* (Ambien*) 5 Mg Tablet, 5 MG PO QHS Y for INSOMNIA, #30 TAB 06/29/16 Allergies Allergies: Coded Allergies: Penicillins (Verified Allergy, Unknown, per xavi facesheet, 03/11/17) Sulfa (Sulfonamide Antibiotics) (Verified Allergy, Unknown, per xavi facesheet, 03/11/17) PMhx/Soc History of Surgery: Yes Anesthesia Reaction: No Hx Neurological Disorder: No Hx Respiratory Disorders: No Hx Cardiac Disorders: Yes (heart failure) Hx Psychiatric Problems: No Hx Miscellaneous Medical Probl: Yes (DM, morbidly obese,CHF,htn,w/c bound) Hx Alcohol Use: No Hx Substance Use: No Hx Tobacco Use: No Smoking Status: Never smoker FmHx Family History: No diabetes Physical Exam Vitals Vital Signs Date Time Temp Pulse Resp B/P Pulse Ox O2 Delivery O2 Flow Rate FiO2 03/11/17 18:35 73 18 135/66 100 Room Air 03/11/17 18:30 73 126/93 100 Mechanical Ventilator 03/11/17 18:15 69 94/70 100 Mechanical Ventilator 03/11/17 18:05 72 91/41 100 Mechanical Ventilator 03/11/17 17:57 77 18 87/74 98 Mechanical Ventilator 03/11/17 17:45 79 21 75/53 97 Mechanical Ventilator 03/11/17 17:37 82 19 219/188 100 Mechanical Ventilator 03/11/17 17:15 79 18 99 35 03/11/17 17:06 98.1 88 20 102/77 99 Room Air 03/11/17 15:15 93 18 100 100 03/11/17 14:45 99.1 88 20 60/52 99 03/11/17 14:45 Bag Valve Mask 15.0 03/11/17 14:45 Bag Valve Mask 15 Physical Exam General: Obtunded, respiratory distress Head: Normocephalic, atraumatic. Eyes: Pupils slightly pinpoint ENT: Dry mucous membranes Neck: Supple, no lymphadenopathy Respiratory: respiratory distress, rhonchi, increased work of breathing Cardiovascular: Tachycardia, no murmurs, rubs, or gallops Abdominal: Soft, non-tender, non-distended, no peritoneal signs : Deferred MSK: Limited movement of all 4 extremities, no bony abnormalities Neurologic: Limited exam, and encephalopathic, limited movement of all 4 extremities Skin: No rash, no significant breakdown Psych: Unable to assess Result Diagram: 03/11/17 1515 03/11/17 1515 Results 24 hrs Laboratory Tests Test 03/11/17 14:47 03/11/17 15:15 03/11/17 15:40 03/11/17 18:40 Blood Gas Specimen Source Blood arterial Arterial Blood Date Drawn 03/11/2017 4:30:28 PM Arterial Blood pH (Temp corrected) 7.408 Arterial Blood pCO2 (Temp correct) 41.9mmhg Arterial Blood pO2 (Temp corrected) 330.5mmHG Arterial Blood HCO3 25.8mmol/L Arterial Blood Base Excess 1.0mmol/L Arterial Blood Oxygen Saturation 97.6mmHG Bill Test ACCEPTAB Arterial Blood Gas Puncture Site Right Radial Arterial Blood Carboxyhemoglobin 0.3% Arterial Blood Methemoglobin 0.2% Blood Gas A-a O2 Differential 340.6mmHg Oxyhemoglobin Percent 97.1% Total Hemoglobin 11.9g/dl Blood Gas Temperature 37.0C Blood Gas Respiration Rate 18.0 Blood Gas Actual Respiration Rate 18 Blood Gas Modality VENT - AC FiO2 100.0% Blood Gas Tidal Volume 500.0mL Blood Gas Low PEEP Setting 5.0cmH2O Blood Gas Notified Whom GIN Blood Gas Notified Time 03/11/2017 4:40:10 PM White Blood Count 15.210^3/ul Red Blood Count 3.5710^6/ul Hemoglobin 10.4g/dl Hematocrit 35.1% Mean Corpuscular Volume 98.3fl Mean Corpuscular Hemoglobin 29.1pg Mean Corpuscular Hemoglobin Concent 29.6g/dl Red Cell Distribution Width 14.5% Platelet Count 30528^3/UL Mean Platelet Volume 10.4fl Neutrophils % 92.7% Lymphocytes % 3.5% Monocytes % 3.0% Eosinophils % 0.0% Basophils % 0.3% Nucleated Red Blood Cells % 0.6/100WBC Neutrophils # 14.110^3/ul Lymphocytes # 0.510^3/ul Monocytes # 0.510^3/ul Eosinophils # 0.010^3/ul Basophils # 0.010^3/ul Nucleated Red Blood Cells # 0.110^3/ul Prothrombin Time 13.4Sec Prothrombin Time Ratio 1.0 INR International Normalized Ratio 1.01 Activated Partial Thromboplast Time 26.4Sec Sodium Level 141mmol/L Potassium Level 5.4mmol/L Chloride Level 100mmol/L Carbon Dioxide Level 29mmol/L Anion Gap 17 Blood Urea Nitrogen 52mg/dl Creatinine 2.10mg/dl Glucose Level 168mg/dl Lactic Acid Level 1.8mmol/L 1.2mmol/L Calcium Level 8.7mg/dl Total Bilirubin 0.3mg/dl Direct Bilirubin 0.00mg/dl Indirect Bilirubin 0.3mg/dl Aspartate Amino Transf (AST/SGOT) 15IU/L Alanine Aminotransferase (ALT/SGPT) 29IU/L Alkaline Phosphatase 97IU/L Troponin I 0.092ng/ml Total Protein 5.2g/dl Albumin 2.6g/dl Globulin 2.60g/dl Albumin/Globulin Ratio 1.00 Free Thyroxine Index 2.28ug/ml Thyroxine (T4) 5.0ug/dl Triiodothyronine (T3) Uptake 45.5% Ethyl Alcohol Level < 10.0mg/dl Urine Color YELLOW Urine Clarity HAZY Urine pH 5.0 Urine Specific [place] 1.030 Urine Ketones NEGATIVEmg/dL Urine Nitrite NEGATIVEmg/dL Urine Bilirubin NEGATIVEmg/dL Urine Urobilinogen 0.2 E.U./dLmg/dL Urine Leukocyte Esterase 1+Jose/ul Urine Microscopic WBC 2-5/HPF Urine Squamous Epithelial Cells RARE/HPF Urine Hemoglobin NEGATIVEmg/dL Urine Glucose NEGATIVEmg/dL Urine Total Protein TRACEmg/dl Urine Opiates Screen Positive Urine Barbiturates Negative Urine Amphetamines Screen Negative Urine Benzodiazepines Screen Negative Urine Cocaine Screen Negative Urine Cannabinoids Negative Current Medications Medications (Trade) Dose Ordered Sig/Marissa Route PRN Reason Start Time Stop Time Status Last Admin Dose Admin Sodium Chloride 4030 ml 4,030 ml BOLUS OVER 2 HOURS STAT IV* 03/11/17 14:47 03/11/17 14:52 DC 03/11/17 15:54 Vancomycin HCl (Vancocin) 250 ml @ 125 mls/hr ONCE ONCE IVPB 03/11/17 15:00 03/11/17 16:59 DC 03/11/17 17:50 Rocuronium [place] (Zemuron) 100 mg ONCE STAT IV 03/11/17 14:47 03/11/17 14:52 DC 03/11/17 14:47 Etomidate 20 mg 20 mg ONCE STAT IV 03/11/17 14:47 03/11/17 14:52 DC 03/11/17 14:47 Propofol 100 ml @ 0 mls/hr ONCE STAT IV 03/11/17 14:47 03/11/17 14:52 DC 03/11/17 17:46 Aztreonam 2 gm/ Dextrose 100 ml @ 100 mls/hr ONCE ONCE IVPB 03/11/17 15:00 03/11/17 15:59 DC 03/11/17 16:46 Norepinephrine 250 ml @ 7.5 mls/hr ONCE STAT IV 03/11/17 15:02 03/13/17 00:21 03/11/17 15:53 Midazolam HCl 50 ml @ 3 mls/hr ONCE STAT IV 03/11/17 15:44 03/12/17 08:23 03/11/17 16:17 Fentanyl 100 ml @ 2.5 mls/hr TITRATE ONCE IV 03/11/17 16:00 03/13/17 07:59 03/11/17 16:48 Clindamycin HCl/ Dextrose (Cleocin 600 Mg/ D5W (Pmx)) 50 ml @ 50 mls/hr ONCE IVPB 03/11/17 18:30 03/11/17 19:29 DC 03/11/17 19:01 Procedures/MDM EKG, MONITORS, & DIAGNOSTIC IMAGING: EKG: I reviewed and interpreted a 12-lead EKG. Rhythm: Normal sinus rhythm Ectopy: None Intervals: No abnormalities ST segments: No elevations or depressions T waves: No contiguous inversions CT brain: PENDING Chest x-ray: I reviewed and interpreted a 1 view of the chest Mediastinum: No enlargement Cardiac silhouette: No cardiomegaly Airspace: Interstitial process with atelectasis versus infiltrate at the bases bilaterally, endotracheal tube with the tip near the tasneem, triple-lumen catheter in good position no pneumothorax Bones: No evidence of fracture PROCEDURES: Intubation Note: Indication: Airway protection Consent: This was an emergent situation, implied consent was observed RSI Medications: Etomidate 20 mg, Rocuronium 100 mg Tube size: 7.5 Secured at: 22 Procedure: Endotracheal intubation was performed. The patient was preoxygenated with supplemental oxygen, the room was set up with emergent airway equipment including [id number], suction, adjunct airways. Direct visualization of the cords was performed with direct laryngoscopy using a 4.0 Mac blade, insertion of the endotracheal tube through the cords was visualized by the varnishing unit operator. Bilateral breath sounds were auscultated, color change was observed. The tube was then secured in a postintubation chest x-ray was ordered. The patient tolerated the procedure well there were no complications. ETT moved to 21 based on CXR Central Line Note: Consent: Critical patient Indication: Critically ill patient requiring specialized vascular access for fluid or pressor management Location: Right IJ Procedure: Sterile procedure was observed throughout insertion of the central line. The insertion site was prepped with sterile solution. Ultrasound-guided identification of the vein was performed. Insertion of a needle into the vein was obtained with return of dark, nonpulsatile blood. The wire was then threaded through the needle without complication. The wire was then identified within the vein using ultrasound. A small skin incision was made, the needle was removed intact, dilation of the vein was performed and insertion of a triple lumen catheter was completed. The catheter was then sutured to the skin. All 3 ports justine back and flushed without difficulty. A sterile dressing was applied. The patient tolerated the procedure well there were no complications. Emergency Bedside Ultrasound: Indication: Central line Probe Type: Linear Findings: Dynamic ultrasound utilizing compressive technique with both linear and horizontal views, additional images showing wire within the venous system were obtained. The images were saved along with patient information on a paper chart to be scanned into EMR. The patient tolerated the procedure well and there were no complications. A post-line chest x-ray was ordered as indicated. LAB INTERPRETATION: Leukocytosis of 15, anemia of 10, renal insufficiency of 2.1 and a lactic of 1.8 , troponin negative MEDICAL DECISION MAKING: The patient presents with altered mental status and acute respiratory distress. A broad differential exists including narcotic overdose given that the patient does take narcotics but more likely consistent with respiratory failure secondary to healthcare associated pneumonia. ER COURSE: Upon arrival the patient is obtunded. She requires an advanced airway. The patient was intubated. She rapidly had deterioration of her blood pressure and was given a 30 cc/kg bolus of saline. The patient had a triple-lumen catheter inserted and was started on levo. The patient had a good blood pressure response. Post intubation sedation provided. Empiric antibiotics in the form of vancomycin and Azactam given penicillin allergy was provided. Low pretest probability for pulmonary embolism. Given the patient's chest x-ray , leukocytosis And hypoxia this is more consistent with pneumonia A CT brain will be appropriate to rule out intracranial hemorrhage the low concern for that as well. Given the concern for narcotics and possible aspiration, clindamycin added to the antibiotic regimen. The patient still requires pressor support, we will continue to titrate for mean arterial pressure greater than 65. I kept the patient and/or family informed of laboratory and diagnostic imaging results throughout the emergency room course. DISPOSITION PLAN: Intensive care unit CONSULTATION: Accepting care team and consultations: I discussed the current laboratory data, diagnostic imaging and emergency care provided. Admitting team: Dr. Hill Admitting team indication: Insurance directed Consulting services: Pulmonary medicine, Dr. Mena paged Sepsis Documentation: Patient's infectious symptoms have not stabilized and the patient is at risk of rapid decompensation. The patient will be admitted for careful hydration, antibiotic therapy, and infectious source control. SEVERE SEPSIS CRITERIA: Infectious source: Healthcare associated pneumonia End organ damage indicated by: Hypotension (SBP < 90 or >40 mmHG drop or MAP < 65) Acute Resp Failure (sat < 92% w/o oxygen) SEPSIS MANAGEMENT Time of recognition of severe sepsis/septic shock: Upon arrival 3 HOUR BUNDLE Blood cultures x 2 before broad-spectrum antibiotics: Yes 30 ml/kg NS bolus Completed Initial lactate 1.8 Repeat lactate 1.2 SEPTIC SHOCK ASSESSMENT: No lactic acid > 4.0 Persistent hypotension (SBP < 90 or 40 mmHg drop, MAP < 65) despite 30 mL/kg IV fluid bolus VOLUME REASSESSMENT FOR SEPTIC SHOCK: Reevaluation Time: 7:15 PM Temp 98.1 pulse is 73 respirations 18 blood pressure 135/66 pulse ox 100% on ventilator. Heart Regular rate & rhythm Lungs rhonchi bilaterally Skin Warm & dry Cap Refill Less than 2 seconds Peripheral pulses Radially present PERSISTENT HYPOTENSION TREATMENT: Comfort care no Central line right IJ Vasopressor started levo I considered further perfusion assessment with CVP measurement, SCVO2, bedside ultrasound volume assessment, passive leg raise, trial of further fluid bolus. And proceeded with 30 ml/kg fluid bolus of NSS, broad spectrum antbiotics, and admission. CRITICAL CARE Critical care time 45 minutes Emergent fluid management while maintaining close respiratory support. Provision of immediate and broad-spectrum antibiotic therapy. Simultaneous assessment for possible sources in order to direct targeted therapy. Consideration for invasive and chemical support to prevent cardiopulmonary collapse. Critical care time is independent of procedures performed. Departure Diagnosis: Primary Impression: Acute respiratory failure Respiratory failure complication: hypoxia Qualified Code: J96.01 - Acute respiratory failure with hypoxia Additional Impressions: Morbid obesity Septic shock Healthcare-associated pneumonia Aspiration pneumonia Aspiration pneumonia type: unspecified Laterality: unspecified laterality Lung location: unspecified part of lung Qualified Code: J69.0 - Aspiration pneumonia, unspecified aspiration pneumonia type, unspecified laterality, unspecified part of lung Chronic renal insufficiency Chronic kidney disease stage: unspecified stage Qualified Code: N18.9 - Chronic renal impairment, unspecified CKD stage Condition: Critical JOHN SCHUSTER MD Mar 11, 2017 17:34
[2017-03-11 18:28] LABS: AADO2 Arterial 340.6 mmHg (7.0-24.0); Allen Test ACCEPTAB; Arterial COHb 0.3 % (0.0-3.0); Arterial Fraction of Oxyhgb 97.1 % (93.0-99.0); Arterial HCO3 25.8 mmol/L (22.0-26.0); Arterial MetHb 0.2 % (0.0-1.5); Arterial Total Hemglobin 11.9 g/dl (12.0-18.0); MODE VENT - AC
[2017-03-11] MEDS ORDERED: CLINDAMYCIN 600 MG/D5W (PMX) 50 ML IVPB SCH (18:30)
--- NOTE | 2017-03-11 20:52 | RADRPT ---
PROCEDURE: CT Brain without contrast. CLINICAL INDICATION: Altered mental status, possible sepsis TECHNIQUE: Routine CT scan of the brain was performed on a high resolution multi detector scanner without intravenous contrast. One or more of the following dose reduction techniques were used: Auto mated exposure control; Adjustment of the mA and/or kV according to patient size; Use of iterative r econstruction technique. CTDI = 45 mGy. DLP = 720 mGy-cm. DICOM images are available. COMPARISON: CT BRAIN 06/29/2016 FINDINGS: Hemorrhage: No evidence of intracranial hemorrhage. Acute ischemic changes: No evidence of acute ischemic changes. Mass effect: None. Parenchymal volume: Mild central parenchymal volume loss is evident. Ventricular system: Concordant with parenchymal volume. Chronic changes: There are multiple areas of low attenuation change within the supratentorial white matter most compatible with moderate chronic microvascular ischemic changes. Atherosclerotic calcifications of the cavernous portions of both internal carotid arteries are prese nt. Extracranial soft tissues: Unremarkable. Calvarium: No fractures. Paranasal sinuses: Visualized paranasal sinuses are clear. Mastoid air cells: Visualized mastoid air cells are clear. IMPRESSION: No acute intracranial abnormalities. Moderate chronic-appearing microvascular ischemic changes of the supratentorial white matter are unc hanged. RPTAT: AADD .Rich Nuñez MD, MD Date Time Electronically viewed and signed by .Rich Nuñez MD, MD on 03/11/2017 20:51 .B/
[2017-03-11] MEDS ORDERED: SOD CHLORIDE 0.9% 1,000 ML IV SCH (20:55)
[2017-03-11] MEDS ORDERED: morphine 2 MG INJ IV PRN ×2 (21:00→21:15)
[2017-03-11] MEDS ORDERED: VANCOMYCIN IV PER PHARMACY XX SCH ×2 (21:00→21:15)
[2017-03-11] MEDS ORDERED: ONDANSETRON 4 MG TAB PO PRN ×2 (21:00→21:15)
[2017-03-11] MEDS ORDERED: ALLOPURINOL 100 MG TAB PO SCH (21:00)
[2017-03-11] MEDS ORDERED: NON-FORMULARY/PATIENT OWN MED (Rosuvastatin Calcium* (Crestor*) 5 MG) PO SCH (21:00)
[2017-03-11] MEDS ORDERED: INSULIN ASPART [NOVOLOG] 3 ML PEN SC SCH (21:00)
[2017-03-11] MEDS ORDERED: ACETAMINOPHEN 325 MG TAB PO PRN ×2 (21:00→21:15)
[2017-03-11] MEDS ORDERED: ALBUTEROL/IPRATROPIUM (NEB) 3 ML AMP NEB SCH (21:00)
[2017-03-11] MEDS ORDERED: WHEAT DEXTRIN PO SCH ×2 (21:00→21:15)
[2017-03-11] MEDS ORDERED: GABAPENTIN 300 MG CAP PO SCH (21:00)
[2017-03-11] MEDS ORDERED: ALBUTEROL 0.083% (NEB) 2.5 MG/3 ML AMP NEB PRN (21:00)
[2017-03-11] MEDS ORDERED: NON-FORMULARY/PATIENT OWN MED (Calcium Carbonate 500 MG) PO SCH (21:00)
[2017-03-11] MEDS ORDERED: LACTULOSE 30ML CUP PO SCH (21:00)
[2017-03-11 21:30] VITALS: TEMP 97.3
[2017-03-11] MEDS ORDERED: MEROPENEM 1 GM/50ML(PMX) 50 ML IVPB SCH (22:00)
[2017-03-11 23:00] VITALS: PULSE 76
[2017-03-11 23:20] VITALS: RESP 18
--- NOTE | 2017-03-11 23:26 | QN ---
Documentation Comment H&P dict a/p 1. pulm; respiratory failure, likely secondary to sepsis, cont support 2. cards: elevateed troponin of unclear clinical significance, cont asa, await serial values 3. renal: cld3, current creat value similar to prior, monitor 4. gi: epigastric tenderness on exam, obtain ct and us, cont abx 5. sepsis of unclear source 6. htn 7. dm CELINE MOSLEY MD Mar 11, 2017 23:26
[2017-03-11] MEDS: INSULIN ASPART [NOVOLOG] 3 ML PEN SC SCH (23:30)
[2017-03-11] MEDS ORDERED: DEXTROSE 50% 50 ML SYRINGE IV PRN ×2 (23:30)
[2017-03-11] MEDS ORDERED: GLUCOSE GEL 15 GRAM TUBE BUCCAL PRN (23:30)
[2017-03-11] MEDS ORDERED: GLUCAGON 1 MG INJ IM PRN (23:30)
[2017-03-11] MEDS ORDERED: BARIUM SULF 2% 450 ML BTL (BERRY SMOOTHIE) PO ONE (23:30)
[2017-03-11] MEDS ORDERED: GLUCOSE GEL 15 GRAM TUBE PO PRN ×2 (23:30)
[2017-03-12] VITALS (70 sets, daily range): BP systolic 71–164; BP diastolic 34–132; PULSE 57–78; RESP 5–28
[2017-03-12] MEDS ORDERED: VANCOMYCIN 1 GM in NS 250 ML IVPB ONE (00:30)
[2017-03-12] MEDS ORDERED: ALBUTEROL/IPRATROPIUM (NEB) 3 ML AMP NEB SCH (01:00)
[2017-03-12] MEDS: IPRATROPIUM (HFA) 12.9 GM INHALER INH SCH ×5 (01:08→21:36)
[2017-03-12] MEDS: ALBUTEROL HFA 8 GM INHALER INH SCH ×5 (01:08→21:36)
[2017-03-12] MEDS: CALCIUM CARBONATE 500 MG CHEW TAB PO SCH ×4 (01:33→21:12)
[2017-03-12] MEDS: ATORVASTATIN 20 MG TAB PO SCH ×2 (01:33→21:12)
[2017-03-12] MEDS: GABAPENTIN 300 MG CAP PO SCH ×4 (01:33→21:12)
[2017-03-12] MEDS: LACTULOSE 30ML CUP PO SCH ×2 (01:34→23:30)
[2017-03-12] MEDS: ALLOPURINOL 100 MG TAB PO SCH ×3 (01:34→21:12)
--- NOTE | 2017-03-12 01:56 | RADRPT ---
PROCEDURE: XR Chest. CLINICAL INDICATION: Endotracheal tube placement. TECHNIQUE: Single frontal chest x-ray. COMPARISON: 03/11/2017 FINDINGS: Patient is rotated to the right. Endotracheal tube tip is 1.5 cm above tasneem. NG tube tip is in the stomach. Right internal jugular central line tips in the SVC.. Heart is enlarged.. There is no CHF .. There is elevation right hemidiaphragm with increased right basilar atelectasis.. Small right pl eural effusion is suspected. There is no pneumothorax. The osseous structures are unremarkable. IMPRESSION: Endotracheal tube tip above tasneem. Increased right basilar atelectasis versus infiltrate. Possible small right pleural effusion. NG tube tip in stomach. Otherwise no change. RPTAT: HMVK .Guy Parker MD, Date Time Electronically viewed and signed by .Guy Parker MD, on 03/12/2017 01:55 .K/
[2017-03-12] MEDS: SOD CHLORIDE 0.9% 1,000 ML IV SCH ×3 (01:59→20:00)
[2017-03-12] MEDS: MEROPENEM 1 GM/50ML(PMX) 50 ML IVPB SCH ×4 (02:00→22:36)
[2017-03-12] MEDS ORDERED: ACCU-CHEK XX SCH (02:00)
[2017-03-12] MEDS: ACCU-CHEK XX SCH (02:14)
--- NOTE | 2017-03-12 02:56 | HP ---
DATE OF ADMISSION: 03/11/2017 CHIEF COMPLAINT: Shortness of breath. HISTORY OF PRESENT ILLNESS: Ms. Smith is referred to the emergency room at [facility] for shortness of breath. At time of arrival, she was felt to be obtu nded, not protecting her airway and is emergently intubated by the emergency room physician. At the time of my arrival, she is intubated and unable to provide additional history. The remainder of th is is garnered from review of the medical record. PAST MEDICAL HISTORY: Significant for hypertension, diabetes, morbid obesity. MEDICATIONS: Medications as an outpatient include: 1. Iron sulfate 325 mg daily. 2. Heparin p.r.n. 3. Coreg 3.125 mg b.i.d. 4. Lisinopril 5 mg daily. 5. Crestor 5 mg daily. 6. Tylenol p.r.n. 7. Aspirin 81 mg daily. 8. Neurontin 300 mg t.i.d. 9. OxyContin 10 mg q.12. 10. Os-Dylan. 11. Lactulose. 12. Dulcolax 10 mg p.r.n. daily. 13. Colace 100 mg b.i.d. 14. Pepcid 20 mg daily. 15. Lantus 20 units daily. 16. Aspart, ____ mealtime bolus. 17. Vitamin C. 18. Vitamin D. 19. Allopurinol. ALLERGIES: 1. PENICILLIN. 2. SULFA. SOCIAL HISTORY: The patient is apparently a long-term resident of a skilled nurse facility. FAMILY HISTORY: Unobtainable. REVIEW OF SYSTEMS: Unobtainable secondary to the patient's status. PHYSICAL EXAMINATION: VITAL SIGNS: Blood pressure is 107/69, pulse rate 67, respirations 18. Temperature is 97.3. GENERAL: Pleasant woman, intubated. HEENT: Normocephalic, atraumatic without evident scleral icterus, perioral cyanosis. Mucous membra audra are dry. NECK: Soft and supple without masses. No evidence of jugular venous distention or carotid bruits. CHEST: Clear to auscultation and percussion anteriorly. HEART: Regular rate and rhythm, S1-S2, no added sounds. ABDOMEN: Soft, tender in the epigastrium. No palpable hepatosplenomegaly. EXTREMITIES: Without clubbing, cyanosis, or edema. There are venous stasis changes bilaterally. SKIN: Without rashes. NEUROLOGIC: Grossly intact. LABORATORY STUDIES: Reveal a hemoglobin of 10.4 g/dL, white count of 15,200, platelets of 268,000. INR is 1.0. Sodium is 141, potassium 5.4, chloride 100, bicarbonate 29, BUN 52, creatinine 2.10, g lucose 168. Liver function tests are remarkable only for a total protein of 5.2, albumin 2.6. Lact ic acid is 1.5. Troponin is 0.092 and a repeat value is 0.235. Arterial blood gas reveals a pH of 7.408, pCO2 of 42, po2 of 330 on 100% ventilator. UA is negative for signs of infection. Tox scree n is positive only for opiates. CT scan of brain shows no acute intracranial abnormalities. Chest x-ray reveals elevation of right hemidiaphragm and possible collapse of right middle lobe but no acu te infiltrates or effusions are appreciated. ASSESSMENT AND PLAN: 1. Pulmonary: The patient with respiratory failure of unclear etiology, most likely is secondary t o sepsis, though cannot rule out narcotic effect. Continue supportive care and mechanical ventilat ion. 2. Cardiac: The patient with elevation of troponin of unclear clinical significance. Continue to follow serial values. Continue Crestor and aspirin. 3. Renal: The patient with chronic kidney disease. Current value of creatinine is similar to prio r. 4. Gastrointestinal: The patient with epigastric tenderness. This may well be the source of sepsi s. We will plan to obtain abdominal ultrasound and CT scan for further clarification. Continue emp iric antibiotics. 5. Hypertension. 6. Diabetes mellitus. 7. Sepsis of unclear etiology. Continue antibiotics and fluid support at this time. 8. Prophylaxis with Lovenox. Dictated By: CELINE MOSLEY MD RER/NTS Conf#: [id number] DID#: [id number] CC: CELINE MOSLEY MD;*EndCC*
[2017-03-12 03:04] LABS: BASOPHILS % 0.3 % (0.0-2.0); HEMATOCRIT 35.9 % (37.0-47.0); HEMOGLOBIN 11.2 g/dl (12.0-16.0); LYMPHOCYTES # 0.9 10^3/ul (0.8-2.9); MEAN CORPUSCULAR HEMOGLOBIN 29.4 pg (29.0-33.0); MEAN CORPUSCULAR HGB CONC 31.2 g/dl (32.0-37.0); MEAN CORPUSCULAR VOLUME 94.2 fl (82.0-101.0); MEAN PLATELET VOLUME 10.5 fl (7.4-10.4); MONOCYTE # 0.6 10^3/ul (0.3-0.9); MONOCYTES % 3.9 % (0.0-11.0); NEUTROPHIL # 13.9 10^3/ul (1.6-7.5); NEUTROPHILS % 89.3 % (39.0-77.0); NUCLEATED RED BLOOD CELLS # 0.1 10^3/ul (0.0-0.0); NUCLEATED RED BLOOD CELLS% 0.6 /100WBC (0.0-0.0); PLATELET COUNT 339 10^3/UL (140-415); RED BLOOD COUNT 3.81 10^6/ul (4.20-5.40); RED CELL DISTRIBUTION WIDTH 13.9 % (11.5-14.5); WHITE BLOOD COUNT 15.5 10^3/ul (4.8-10.8)
[2017-03-12 03:29] LABS: ALBUMIN 2.6 g/dl (3.3-4.9); ALBUMIN/GLOBULIN RATIO 0.96; BILIRUBIN,INDIRECT 0.3 mg/dl (0-1.1); BILIRUBIN,TOTAL 0.3 mg/dl (0.2-1.3); CALCIUM 8.5 mg/dl (8.4-10.2); CREATININE 2.11 mg/dl (0.44-1.00); POTASSIUM 4.4 mmol/L (3.5-5.1); TOTAL PROTEIN 5.3 g/dl (6.1-8.1)
[2017-03-12] MEDS ORDERED: PANTOPRAZOLE (EC) 40 MG TAB PO SCH (06:00)
[2017-03-12] MEDS: PANTOPRAZOLE (EC) 40 MG TAB PO SCH (06:16)
[2017-03-12] MEDS: ASPIRIN 81 MG TAB NGT SCH (08:47)
[2017-03-12] MEDS ORDERED: MAGNESIUM HYDROXIDE 30ML CUP PO SCH (09:00)
[2017-03-12] MEDS: INSULIN ASPART [NOVOLOG] 3 ML PEN SC SCH ×4 (09:00→22:00)
[2017-03-12] MEDS ORDERED: ASPIRIN (EC) 81 MG TAB PO SCH ×2 (09:00)
[2017-03-12] MEDS: FERROUS SULFATE (EC) 325 MG TAB PO SCH (09:00)
[2017-03-12] MEDS ORDERED: ENOXAPARIN 40 MG/0.4 ML SYG SC SCH ×2 (09:00)
[2017-03-12] MEDS: MAGNESIUM HYDROXIDE 30ML CUP PO SCH (09:00)
[2017-03-12] MEDS ORDERED: INSULIN GLARGINE [LANtus] 3 ML PEN SC SCH (09:00)
[2017-03-12] MEDS ORDERED: FERROUS SULFATE (EC) 325 MG TAB PO SCH (09:00)
[2017-03-12] MEDS: INSULIN GLARGINE [LANtus] 3 ML PEN SC SCH (10:11)
--- NOTE | 2017-03-12 10:47 | PN ---
Date/Time of Note Date/Time of Note DATE: 03/12/17 TIME: :17 Assessment/Plan VTE Prophylaxis VTE Prophylaxis Intervention: heparin Lines/Catheters IV Catheter Type (from [facility]): Peripheral IV Urinary Cath still in place: Yes Reason Cath still needed: other (indicate) (Intubated and sedated) Assessment/Plan Assessment/Plan 71-year-old female with: 1. Altered level of consciousness secondary to acute hypoxemic +/- hypercapnic respiratory failure. CT head negative, respiratory status improved once patient intubated yesterday. Mental status much improved this morning, she is awake and alert, hopefully can be extubated within 24 hours. 2. Acute respiratory failure 2ry to right lower lobe pneumonia and likely COPD exacerbation: Stable on mechanical ventilation, agree with meropenem and vancomycin for coverage for pneumonia likely healthcare associated pneumonia as [facility] [place] [facility] [place] [facility] versus aspiration pneumonia. Pulmonary/critical care following Respiratory/pulmonary toilet MDI/nebulizer treatments 3. Sepsis, septic shock likely secondary to pneumonia and further decompensation with respiratory failure. Patient on low-dose of Levophed currently in recovering, will titrate to map of 60. Holding all blood pressure medications. Continue IV antibiotics. Decrease IV fluids to 75 cc/hr, patient does have reported CHF diastolic dysfunction. Follow-up blood cultures and urine culture. 4. Elevated troponin, likely secondary to renal insufficiency but also will demand ischemia. Check cardiac enzymes this morning. Patient remains hemodynamically stable. We will repeat her 2D echocardiogram 5. Acute kidney injury on chronic kidney disease. Renal function slightly above baseline, baseline around 1.6. Continue IV fluids for now, monitor volume status CAT scan of the abdomen and pelvis pending. Monitor renal function and avoid nephrotoxic drugs/titrate all medications renally. 6. Super morbid obesity with possibly obstructive sleep apnea. Currently intubated. 7. Diastolic congestive heart failure with reported severe septal hypertrophy on previous echocardiogram and also mild to moderate mitral stenosis. Repeat 2D echocardiogram pending. Monitor volume status. 8. Diabetes mellitus. Last A1c 7.3, BG better this AM on current regimen. Continue current insulin regimen, recheck A1c. 9. Mild Anemia and thrombocytopenia: Stable hemoglobin so far, patient has been on ferrous sulfate supplements. Monitor especially while patient on DVT prophylaxis which will be changed to heparin subcu as patient does have renal insufficiency and is morbidly obese. 10. Chronic pain, narcotic dependent. Resume OxyContin once patient more awake and off the ventilator, currently using fentanyl for sedation. 11. Diabetic neuropathy. Resume Neurontin once extubated. 12. Loose stools, epigastric pain: CAT scan of the abdomen and pelvis pending, on appropriate antibiotics for now, check C. difficile. Prophylaxis. Heparin subcu for DVT prophylaxis and Protonix for GI prophylaxis. DISPOSITION: Hopefully will be able to extubate in the next 24-48 hours. Follow -up CAT scan of abdomen and pelvis. Subjective 24 Hr Interval Summary Free Text/Dictation Patient intubated, on minimal sedation with fentanyl also will take care of her pain, she does have chronic pain. On minimal Levophed with goal map to 60 Mental status much improved now, hopefully can be extubated in the next 24 hours Exam/Review of Systems Vital Signs Vitals Vital Signs Date Time Temp Pulse Resp B/P Pulse Ox O2 Delivery O2 Flow Rate FiO2 03/12/17 09:35 63 18 100 30 03/12/17 09:00 71/59 Mechanical Ventilator 03/12/17 08:00 98.5 03/11/17 14:45 15.0 Intake and Output 03/11/17 03/11/17 03/12/17 15:00 23:00 07:00 Intake Total 100 ml 817.4 ml Output Total 205 ml Balance 100 ml 612.4 ml Exam Constitutional: alert, obese (Super morbid), oriented (x2) Respiratory: diminished breath sounds (Right lower lobe), other (Intubated and on mechanical ventilation) Cardiovascular: nl pulses, regular rate and rhythm Gastrointestinal: soft, tender (Epigastric) Musculoskeletal: other (No edema, clubbing or cyanosis) Extremities: normal pulses Neurological: COSTUME MISTRESS II-XII intact, lethargic, other (Intubated and on some minimal sedation on clinical ventilator) Results Result Diagram: 03/12/17 0258 03/12/17 0258 Results 24 hrs Laboratory Tests Test 03/11/17 14:47 03/11/17 15:15 03/11/17 15:40 03/11/17 18:40 Blood Gas Specimen Source Blood arterial Arterial Blood Date Drawn 03/11/2017 4:30:28 PM Arterial Blood pH (Temp corrected) 7.408 Arterial Blood pCO2 (Temp correct) 41.9 Arterial Blood pO2 (Temp corrected) 330.5 H Arterial Blood HCO3 25.8 Arterial Blood Base Excess 1.0 Arterial Blood Oxygen Saturation 97.6 Bill Test ACCEPTAB Arterial Blood Gas Puncture Site Right Radial Arterial Blood Carboxyhemoglobin 0.3 Arterial Blood Methemoglobin 0.2 Blood Gas A-a O2 Differential 340.6 H Oxyhemoglobin Percent 97.1 Total Hemoglobin 11.9 L Blood Gas Temperature 37.0 Blood Gas Respiration Rate 18.0 Blood Gas Actual Respiration Rate 18 Blood Gas Modality VENT - AC FiO2 100.0 Blood Gas Tidal Volume 500.0 Blood Gas Low PEEP Setting 5.0 Blood Gas Notified Whom ND Blood Gas Notified Time 03/11/2017 4:40:10 PM White Blood Count 15.2 #H Red Blood Count 3.57 #L Hemoglobin 10.4 L Hematocrit 35.1 L Mean Corpuscular Volume 98.3 Mean Corpuscular Hemoglobin 29.1 Mean Corpuscular Hemoglobin Concent 29.6 L Red Cell Distribution Width 14.5 Platelet Count 268 # Mean Platelet Volume 10.4 Neutrophils % 92.7 H Lymphocytes % 3.5 L Monocytes % 3.0 Eosinophils % 0.0 Basophils % 0.3 Nucleated Red Blood Cells % 0.6 H Neutrophils # 14.1 H Lymphocytes # 0.5 L Monocytes # 0.5 Eosinophils # 0.0 Basophils # 0.0 Nucleated Red Blood Cells # 0.1 H Prothrombin Time 13.4 Prothrombin Time Ratio 1.0 INR International Normalized Ratio 1.01 Activated Partial Thromboplast Time 26.4 Sodium Level 141 Potassium Level 5.4 H Chloride Level 100 Carbon Dioxide Level 29 Anion Gap 17 H Blood Urea Nitrogen 52 H Creatinine 2.10 H Glucose Level 168 Lactic Acid Level 1.8 1.2 Calcium Level 8.7 Total Bilirubin 0.3 Direct Bilirubin 0.00 Indirect Bilirubin 0.3 Aspartate Amino Transf (AST/SGOT) 15 Alanine Aminotransferase (ALT/SGPT) 29 Alkaline Phosphatase 97 Troponin I 0.092 Total Protein 5.2 L Albumin 2.6 L Globulin 2.60 Albumin/Globulin Ratio 1.00 Free Thyroxine Index 2.28 Thyroxine (T4) 5.0 L Triiodothyronine (T3) Uptake 45.5 H Ethyl Alcohol Level < 10.0 Urine Color YELLOW Urine Clarity HAZY A Urine pH 5.0 Urine Specific [place] 1.030 Urine Ketones NEGATIVE Urine Nitrite NEGATIVE Urine Bilirubin NEGATIVE Urine Urobilinogen 0.2 E.U./dL Urine Leukocyte Esterase 1+ Urine Microscopic WBC 2-5 Urine Squamous Epithelial Cells RARE Urine Hemoglobin NEGATIVE Urine Glucose NEGATIVE Urine Total Protein TRACE Urine Opiates Screen Positive Urine Barbiturates Negative Urine Amphetamines Screen Negative Urine Benzodiazepines Screen Negative Urine Cocaine Screen Negative Urine Cannabinoids Negative Test 03/11/17 21:00 03/12/17 02:11 03/12/17 02:58 03/12/17 08:42 Lactic Acid Level 1.5 Troponin I 0.235 *H 0.192 *H Bedside Glucose 204 200 White Blood Count 15.5 H Red Blood Count 3.81 L Hemoglobin 11.2 L Hematocrit 35.9 L Mean Corpuscular Volume 94.2 Mean Corpuscular Hemoglobin 29.4 Mean Corpuscular Hemoglobin Concent 31.2 L Red Cell Distribution Width 13.9 Platelet Count 339 # Mean Platelet Volume 10.5 H Neutrophils % 89.3 H Lymphocytes % 6.0 L Monocytes % 3.9 Eosinophils % 0.0 Basophils % 0.3 Nucleated Red Blood Cells % 0.6 H Neutrophils # 13.9 H Lymphocytes # 0.9 Monocytes # 0.6 Eosinophils # 0.0 Basophils # 0.0 Nucleated Red Blood Cells # 0.1 H Sodium Level 141 Potassium Level 4.4 Chloride Level 106 Carbon Dioxide Level 19 #L Anion Gap 20 H Blood Urea Nitrogen 56 H Creatinine 2.11 H Glucose Level 236 H Calcium Level 8.5 Total Bilirubin 0.3 Direct Bilirubin 0.00 Indirect Bilirubin 0.3 Aspartate Amino Transf (AST/SGOT) 14 L Alanine Aminotransferase (ALT/SGPT) 27 Alkaline Phosphatase 109 Total Protein 5.3 L Albumin 2.6 L Globulin 2.70 Albumin/Globulin Ratio 0.96 Test 03/12/17 09:29 Lab Scanned Report REFERENCE LAB Imaging Free Text/Dictation PROCEDURE: XR Chest. CLINICAL INDICATION: Endotracheal tube placement. TECHNIQUE: Single frontal chest x-ray. COMPARISON: 03/11/2017 FINDINGS: Patient is rotated to the right. Endotracheal tube tip is 1.5 cm above tasneem. NG tube tip is in the stomach. Right internal jugular central line tips in the SVC.. Heart is enlarged.. There is no CHF.. There is elevation right hemidiaphragm with increased right basilar atelectasis.. Small right pleural effusion is suspected. There is no pneumothorax. The osseous structures are unremarkable. IMPRESSION: Endotracheal tube tip above tasneem. Increased right basilar atelectasis versus infiltrate. Possible small right pleural effusion. NG tube tip in stomach. Otherwise no change. RPTAT: HMVK .Guy Parker MD, MD Date Time Electronically viewed and signed by .Guy Parker MD, MD on 03/12/2017 01:55 .K/ Medications Medications Current Medications Fentanyl (Sublimaze) 100 ml @ 2.5 mls/hr TITRATE ONCE IV Last administered on 03/11/17 16:48; Admin Dose 2.5 MLS/HR; Start 03/11/17 at 16:00; Stop at 07:59 Insulin Glargine (Lantus) 12 unit DAILY SC Last administered on 03/12/17 10: 11; Admin Dose 12 UNIT; Start 03/12/17 at 09:00 Acetaminophen (Tylenol Tab) 650 mg Q6H PRN PO MILD PAIN LEVEL 1-3; Start 03/11 at 21:15 Allopurinol (Zyloprim) 100 mg BID PO Last administered on 03/12/17 08:33; Admin Dose 100 MG; Start 03/11/17 at 23:15 Ferrous Sulfate (Ferrous Sulfate (Ec)) 325 mg DAILY PO ; Start 03/12/17 at 09: 00 Gabapentin (Neurontin) 300 mg TID PO Last administered on 03/12/17 08:33; Admin Dose 300 MG; Start 03/11/17 at 23:15 Lactulose (Enulose) 30 gm Q24H PO Last administered on 03/12/17 01:34; Admin Dose 30 GM; Start 03/11/17 at 23:30 Magnesium Hydroxide (Milk Of Mag) 30 ml DAILY PO ; Start 03/12/17 at 09:00 Calcium Carbonate (Tums) 500 mg TID PO Last administered on 03/12/17 08:33; Admin Dose 500 MG; Start 03/11/17 at 23:30 Atorvastatin Calcium (Lipitor) 20 mg DAILY@21 PO Last administered on 01:33; Admin Dose 20 MG; Start 03/11/17 at 23:30 Ondansetron HCl (Zofran Tab) 4 mg Q6H PRN PO NAUSEA AND/OR VOMITING; Start at 21:15 Morphine Sulfate (morphine) 2 mg Q4H PRN IV PAIN LEVEL 7-10; Start 03/11/17 at 21:15 Pantoprazole (Protonix Tab) 40 mg DAILY@06 PO Last administered on 03/12/17 06:16; Admin Dose 40 MG; Start 03/12/17 at 06:00 Enoxaparin Sodium (Lovenox) 40 mg DAILY SC Last administered on 03/12/17 08: 37; Admin Dose 40 MG; Start 03/12/17 at 09:00 Diagnostic Test (Pha) 1 ea 1 ea 02 XX Last administered on 03/12/17 02:14; Admin Dose 1 EA; Start 03/12/17 at 02:00 Sodium Chloride 1,000 ml @ 125 mls/hr Q8H IV Last administered on 03/12/17 01:59; Admin Dose 125 MLS/HR; Start 03/11/17 at 21:15 Meropenem/Sodium Chloride (Merrem 1 Gm/50 ml (Pmx)) 50 ml @ 100 mls/hr Q8 IVPB Last administered on 03/12/17 06:17; Admin Dose 100 MLS/HR; Start 03/11/17 at 23:30 Miscellaneous Information 1 ea NOTE XX ; Start 03/11/17 at 23:30 Glucose (Glutose) 15 gm Q15M PRN PO DECREASED GLUCOSE; Start 03/11/17 at 23:30 Glucose (Glutose) 22.5 gm Q15M PRN PO DECREASED GLUCOSE; Start 03/11/17 at 23: 30 Dextrose (D50w Syringe) 25 ml Q15M PRN IV DECREASED GLUCOSE; Start 03/11/17 at 23:30 Dextrose (D50w Syringe) 50 ml Q15M PRN IV DECREASED GLUCOSE; Start 03/11/17 at 23:30 Glucagon (Glucagen) 1 mg Q15M PRN IM DECREASED GLUCOSE; Start 03/11/17 at 23: 30 Glucose 15 gm 15 gm Q15M PRN BUCCAL DECREASED GLUCOSE; Start 03/11/17 at 23:30 Vancomycin HCl/ Sodium Chloride (Vancocin/NS) 250 ml @ 83.333 mls/ hr Q48H IVPB ; Start 03/12/17 at 18:00 Aspirin 81 mg 81 mg DAILY NGT Last administered on 03/12/17t 08:47; Admin Dose 81 MG; Start 03/12/17 at 09:00 Norepinephrine/ Dextrose (Levophed/D5W) 500 ml @ 1.87 mls/hr TITRATE IV ; Start 03/12/17 at 08:30 REBECCA SALAS Mar 12, 2017 10:27
[2017-03-12 11:26] LABS: AMYLASE < 30 U/L (11-123)
[2017-03-12 11:27] LABS: CREATINE KINASE < 20 IU/L (23-200)
[2017-03-12 11:36] LABS: TROPONIN-I 0.104 ng/ml (0.00-0.12)
[2017-03-12 11:39] LABS: CK-MB < 0.22 ng/ml (0.0-2.4)
[2017-03-12] MEDS: HEPARIN 5,000 UNIT/0.5 ML VIAL SC SCH ×2 (14:00→22:56)
--- NOTE | 2017-03-12 16:55 | CONS ---
DATE OF ADMISSION: 03/11/2017 DATE OF CONSULTATION: REASON FOR CONSULTATION: Ventilator management. Thank you, Dr. Orellana for this consultation. HISTORY OF PRESENT ILLNESS: This is a 72-year-old lady admitted yesterday with increasing shortness of breath, orthopnea, PND, found to have persistent hypoxemia, failed noninvasive measures required emergent intubation and mechanical ventilation. Few further details are available. [facility] a [facility]. Chest x-ray on admission showed right lower lobe infiltrat e and the patient had leukocytosis. PAST MEDICAL HISTORY: 1. Questionable COPD. 2. Obesity. 3. Diabetes mellitus. MEDICATIONS: Per chart. ALLERGIES: PENICILLIN AND SULFA. SOCIAL HISTORY: Nonsmoker, no alcohol, no history of drug use. FAMILY HISTORY: Noncontributory. SYSTEMS REVIEW: A 14-point review of systems unable to performed. PHYSICAL EXAMINATION: GENERAL: Morbidly obese lady, grimaces to painful stimuli. VITAL SIGNS: Currently afebrile, pulse is 78, blood pressure 100/50, O2 saturation 96%, FIO2 of 30% , orally intubated. HEENT: Dry mucous membranes. Pupils equal and reactive to light. CARDIAC: S1, S2, no added sounds or murmurs. CHEST: Diminished air entry bilaterally. ABDOMEN: Soft, nontender. No guarding or rebound. EXTREMITIES: No cyanosis, clubbing, edema. NEUROLOGIC: Generalized weakness. LABORATORY DATA: White count 15.5, hemoglobin 11.2, platelets 53, BUN 56, creatinine 2.11. Troponi n 0.23. EKG showed no acute ischemic changes. ABG: pH 7.4, pCO2 of 41, PaO2 of 330. DIAGNOSTIC DATA: Chest x-ray was reviewed, shows right lower lobe infiltrate. CT brain was perform ed, showed no acute intracranial abnormalities. IMPRESSION: 1. Hypoxemic respiratory failure with possible healthcare-associated pneumonia versus aspiration. 2. Non-ST elevation myocardial infarction. 3. Incomplete data. PLAN: 1. Continued mechanical ventilation. 2. Broad-spectrum antibiotics. 3. Start tube feeding as tolerated. 4. Deep venous thrombosis and GI prophylaxis. 5. Glycemic management per primary team. Dictated By: RAMY RAE/INDIA Conf#: [id number] DID#: [id number]
--- NOTE | 2017-03-12 16:55 | RADRPT ---
Echocardiogram Report Patient Name: JONY YOUNG Gender: Female Date: 1945 Study Date: 12-Mar-2017 Manager Managed Care: Natalie Escalona RDCS Location: [facility] Ref. Physician: MARGY SALAS Quality: Technically Difficult Study Procedures: Transthoracic echocardiogram with complete 2D, M-Mode, and doppler examination. Indications: Evaluate Left Ventricular function, elevated troponin. 2D/M Mode Doppler Measurement Value Normal Ranges Measurement Value Normal Ranges LVIDd 2D 4.3 3.5 - 5.6 cm PATRICK Vmax 1.8 cm2 LVIDs 2D 2.4 2.1 - 4.1 cm PATRICK VTI 1.8 cm2 LVPWd 2D 1.2 0.6 - 1.1 cm AV Mean Prabhu 1.5 m/sec IVSd 2D 1.1 0.6 - 1.1 cm AV Mean PG 9.8 mmHg AoR Diam 2D 3.1 2.0 - 3.7 cm AV Peak Prabhu 2.2 m/sec EDV 2D 83.8 cm3 AV Peak PG 20.2 mmHg ESV 2D 13.0 cm3 AV VTI 43.7 cm LA Dimen 2D 3.8 2.3 - 4.0 cm AI Peak PG 77.5 mmHg LVOT Diam 1.8 cm AI Peak Prabhu 4.4 m/sec AI PHT 656.2 msec LVOT Mean Prabhu 1.0 m/sec LVOT Mean PG 4.7 mmHg LVOT Peak Prabhu 1.6 m/sec LVOT Peak PG 10.6 mmHg LVOT VTI 33.3 cm MV E Peak Prabhu 0.9 m/sec MV A Peak Prabhu 1.3 m/sec MV E/A 0.6 MV PHT 146.0 msec MV Peak Prabhu 1.7 m/sec MV Peak PG 10.9 mmHg MV Mean Prabhu 0.9 m/sec MV Mean PG 3.5 mmHg MV Decel Time 356 msec MV Decel Greer 2 MV E/A 0.6 MV PHT 146.0 msec MV VTI 51.4 cm MVA PHT 1.5 cm2 TR Peak Prabhu 2.7 m/sec TR Peak PG 29.5 mmHg RVSP 45.0 mmHg Findings Left Ventricle: Normal left ventricular systolic function. Normal left ventricular cavity size. Mild concentric left ventricular hypertrophy. Ejection fraction is visually estimated at 65 %. Tissue Doppler/Mitral Doppler indices are consistent with impaired relaxation (Stage I diastolic dysfunction). Right Ventricle: Normal right ventricular size. Normal right ventricular systolic function. Left Atrium: The left atrium is normal in size. Right Atrium: The right atrium is normal in size. Mitral Valve: Moderate mitral leaflet calcification. Moderate mitral annular calcification. Trace mitral regurgitation. Aortic Valve: Aortic sclerosis without significant stenosis. Aortic cusps appear mildly calcified. Trace aortic valve regurgitation. Tricuspid Valve: Normal appearance and function of the tricuspid valve with trace physiologic regurgitation. Estimated peak PA systolic pressure 45 mmHg. Pulmonic Valve: Pulmonic valve not well visualized. Pericardium: Normal pericardium with no significant pericardial effusion. Aorta: Normal aortic root. IVC: Dilated IVC without respiratory collapse consistent with elevated right atrial pressure. Conclusions 1.Normal left ventricular systolic function. Normal left ventricular cavity size. Mild concentric left ventricular hypertrophy. Ejection fraction is visually estimated at 65 %. Tissue Doppler/Mitral Doppler indices are consistent with impaired relaxation (Stage I diastolic dysfunction). 2.Normal right ventricular size. Normal right ventricular systolic function. 3.The left atrium is normal in size. 4.The right atrium is normal in size. 5.No significant valvular stenosis or regurgitation seen. 6.Normal pericardium with no significant pericardial effusion. Electronically Signed By: Guy Greer 12-Mar-2017 13:47:52 -0800 Patient Name: JONY YOUNG Study Date: 12-Mar-2017 [id number]
--- NOTE | 2017-03-12 17:03 | RADRPT ---
PROCEDURE: CT Abdomen and Pelvis without contrast. CLINICAL INDICATION: In the gastric pain, tenderness. TECHNIQUE: CT scan of the abdomen and pelvis without contrast was performed on a multidetector hig h-resolution CT scanner. The patient was scanned without intravenous contrast. Coronal and sagittal reformatted images were obtained from the axial source images. Images were reviewed on a high-resol [employer] PACS workstation. The total exam CTDI equals 24.15 mGy and the total exam DLP equals 1504.51 m Gy-cm. One or the following dose reduction techniques were used: -Automated exposure control. -Adjustment of the mA and/or KV according to patient's size. -Use of iterative reconstruction technique. DICOM images are available. COMPARISON: None. FINDINGS: Note: The overall sensitivity of the study is lower by the fact that intravenous contrast was not u tilized and also secondary to patient's body habitus. Lower thorax: There is some minimal right basilar consolidation and/or atelectasis with a tiny right pleural effusion. GI:. Unremarkable. Liver: Unremarkable. Gallbladder: Gallbladder is markedly dilated with a thickened wall was. Cholecystic stranding. Defin ite dilation of the common bile duct is not seen. Pancreas: Unremarkable. Spleen: Unremarkablel Adrenals: Unremarkable. Kidneys: Kidneys are small with an extrarenal pelvis on the left. There is no urolithiasis or obstru ctive uropathy appreciated. Bladder: There is a Kyle catheter in the urinary bladder. Pelvic Organs: Unremarkable. Skeleton: Normal for age. Other: N/A IMPRESSION: 1. Markedly dilated gallbladder with wall thickening and stranding in the surrounding fat. This is s trongly suggestive of acute cholecystitis. 2. Right basilar consolidation and/or atelectasis with tiny right pleural effusion. 3. Scattered colonic diverticulosis without evidence of acute diverticulitis. Note: A call report was made to Nico TAMEZ on 03/12/2017 5:01:11 PM. RPTAT: [facility] Physician Swati Date Time Electronically viewed and signed by Elijah Wan Physician on 03/12/2017 17:03 /
[2017-03-12] MEDS ORDERED: VANCOMYCIN 1.5 GM in SOD CHLORIDE 0.9% 250 ML IVPB SCH (18:00)
[2017-03-12] MEDS: VANCOMYCIN 1 GM in NS 250 ML IVPB SCH (18:41)
[2017-03-13] VITALS (71 sets, daily range): BP systolic 83–176; BP diastolic 37–134; PULSE 59–106; RESP 0–39
[2017-03-13] MEDS: ALBUTEROL HFA 8 GM INHALER INH SCH ×6 (01:44→22:24)
[2017-03-13] MEDS: IPRATROPIUM (HFA) 12.9 GM INHALER INH SCH ×6 (01:44→22:24)
[2017-03-13] MEDS: ACCU-CHEK XX SCH (02:00)
[2017-03-13] MEDS: SOD CHLORIDE 0.9% 1,000 ML IV SCH ×2 (02:35→10:00)
[2017-03-13] MEDS: MEROPENEM 1 GM/50ML(PMX) 50 ML IVPB SCH ×3 (05:10→23:21)
[2017-03-13] MEDS: PANTOPRAZOLE (EC) 40 MG TAB PO SCH (05:10)
[2017-03-13] MEDS: HEPARIN 5,000 UNIT/0.5 ML VIAL SC SCH ×3 (05:21→23:28)
[2017-03-13 06:34] LABS: BASOPHILS % 0.1 % (0.0-2.0); EOSINOPHILS # 0.2 10^3/ul (0.0-0.5); EOSINOPHILS % 1.3 % (0.0-7.0); HEMATOCRIT 33.5 % (37.0-47.0); LYMPHOCYTES # 0.8 10^3/ul (0.8-2.9); LYMPHOCYTES % 5.3 % (15.0-51.0); MEAN CORPUSCULAR HEMOGLOBIN 29.1 pg (29.0-33.0); MEAN CORPUSCULAR HGB CONC 32.8 g/dl (32.0-37.0); MEAN CORPUSCULAR VOLUME 88.6 fl (82.0-101.0); MEAN PLATELET VOLUME 11.3 fl (7.4-10.4); MONOCYTE # 0.4 10^3/ul (0.3-0.9); MONOCYTES % 2.9 % (0.0-11.0); NEUTROPHILS % 89.7 % (39.0-77.0); NUCLEATED RED BLOOD CELLS% 0.2 /100WBC (0.0-0.0); PLATELET COUNT 311 10^3/UL (140-415); RED BLOOD COUNT 3.78 10^6/ul (4.20-5.40); RED CELL DISTRIBUTION WIDTH 13.9 % (11.5-14.5); WHITE BLOOD COUNT 14.5 10^3/ul (4.8-10.8)
[2017-03-13 07:02] LABS: MAGNESIUM 1.4 mg/dl (1.7-2.5); PHOSPHORUS 3.2 mg/dl (2.5-4.9)
[2017-03-13 07:10] LABS: ALBUMIN 2.7 g/dl (3.3-4.9); ALBUMIN/GLOBULIN RATIO 0.87; BILIRUBIN,INDIRECT 0.4 mg/dl (0-1.1); BILIRUBIN,TOTAL 0.4 mg/dl (0.2-1.3); CALCIUM 8.8 mg/dl (8.4-10.2); CREATININE 1.51 mg/dl (0.44-1.00); TOTAL PROTEIN 5.8 g/dl (6.1-8.1)
[2017-03-13] MEDS: ALLOPURINOL 100 MG TAB PO SCH ×2 (08:28→21:00)
[2017-03-13] MEDS: GABAPENTIN 300 MG CAP PO SCH ×3 (08:28→21:00)
[2017-03-13] MEDS: ASPIRIN 81 MG TAB NGT SCH (08:28)
[2017-03-13] MEDS: CALCIUM CARBONATE 500 MG CHEW TAB PO SCH ×3 (08:28→21:00)
[2017-03-13 08:37] LABS: AADO2 Arterial 118.1 mmHg (7.0-24.0); Allen Test ACCEPTAB; Arterial Base Excess -1.6 mmol/L (-3.0-3); Arterial COHb 0.5 % (0.0-3.0); Arterial Fraction of Oxyhgb 92.9 % (93.0-99.0); Arterial HCO3 20.2 mmol/L (22.0-26.0); Arterial MetHb 0.2 % (0.0-1.5); Arterial Total Hemglobin 10.5 g/dl (12.0-18.0); MODE VENT - AC
[2017-03-13] MEDS: INSULIN ASPART [NOVOLOG] 3 ML PEN SC SCH ×4 (08:43→21:00)
[2017-03-13] MEDS: MAGNESIUM HYDROXIDE 30ML CUP PO SCH (08:46)
[2017-03-13] MEDS: FERROUS SULFATE (EC) 325 MG TAB PO SCH (08:46)
[2017-03-13] MEDS: INSULIN GLARGINE [LANtus] 3 ML PEN SC SCH (09:01)
--- NOTE | 2017-03-13 10:15 | RADRPT ---
PROCEDURE: XR Chest 1 view. CLINICAL INDICATION: Shortness of breath. TECHNIQUE: Single views of the chest was obtained. COMPARISON: Yesterday FINDINGS: The heart is large. Calcified atherosclerosis is noted in the aorta. Endotracheal and nasogastric t ubes are stable. Right-sided central line is unchanged. Central pulmonary vascular congestion and mi ld interstitial prominence is seen in both lungs. The lungs are hypoinflated. Right lower lung infil trates have decreased. Scattered atelectasis remains. Atelectasis is noted at the left lung base. T he osseous structures are unchanged. IMPRESSION: Cardiomegaly with calcified atherosclerosis in the aorta. Central pulmonary vascular congestion and interstitial prominence in both lungs. Interval decrease in right lower lung infiltrates. Scattered atelectasis remains. Atelectasis at the left lung base. Hypoinflated lungs. RPTAT: AA .Ronnie Carrillo MD, Date Time Electronically viewed and signed by .Ronnie Carrillo MD, on 03/13/2017 10:15 .P/
--- NOTE | 2017-03-13 10:27 | CONS ---
Date/Time of Note Date/Time of Note DATE: 03/13/17 TIME: 10:23 Assessment/Plan Assessment/Plan Additional Assessment/Plan Chest x-ray was reviewed from today which is essentially unremarkable except for very minimal vascular congestion. Ventilator setting; AC of 18, tidal volume 500, PEEP of 5, 30% FiO2. Patient is on fentanyl drip at 25 mics per hour. Patient is off Levophed. Assessment and recommendations; 1. Patient admitted for abdominal pain status post laparoscopic cholecystectomy , patient could not be immediately extubated postop likely from underlying obesity/hypoventilation syndrome. 2. Chronic renal insufficiency. 3. Interval resolution of hypotension. 4. History of gout, anemia, diabetes and neuropathy. Hold further fentanyl dosing. Once the patient is off fentanyl drip she will be evaluated for possible weaning from ventilator. Meanwhile continue current supportive care. 35 minutes of critical care time was spent evaluating the patient. Consultation Date/Type/Reason Admit Date/Time Mar 11, 2017 at 18:58 Initial Consult Date Type of Consultation: Pulmonary/critical care 24 HR Interval Summary Free Text/Dictation Patient's condition remains critical. Still requiring invasive mechanical ventilation. Despite being on fentanyl drip patient is completely awake and alert. And wants to be extubated. She denies any shortness of breath. But complains of mild upper abdominal pain. Denies any nausea. General exam; elderly woman, awake alert, currently in no distress. Orally intubated. Exam/Review of Systems Vital Signs Vitals Vital Signs Date Time Temp Pulse Resp B/P Pulse Ox O2 Delivery O2 Flow Rate FiO2 03/13/17 09:14 72 18 100 30 03/13/17 06:30 118/70 03/13/17 05:00 Mechanical Ventilator 03/13/17 04:00 98.0 03/11/17 14:45 15.0 Intake and Output 03/12/17 03/12/17 03/13/17 14:59 22:59 06:59 Intake Total 1122.60 ml 704.86 ml 611.36 ml Output Total 240 ml 345 ml 440 ml Balance 882.60 ml 359.86 ml 171.36 ml Exam HEENT exam; supple neck, JVD difficult to see because of short neck. No thyromegaly. No neck masses. Orally intubated. Patient has good dentition. Pupils are midsize and reactive to light. No neck masses. Chest exam; diminished but clear breath sounds. S1-S2 audible, no murmurs. Regular rhythm. Abdomen exam; soft, nontender. No organomegaly. Bowel sounds audible. Well- healed laparoscopic incision sites are present. Extremity exam; no edema. TIME STUDY ANALYST exam; no focal deficit. Results Result Diagram: 03/13/17 0500 03/13/17 0500 Results 24 hrs Laboratory Tests Test 03/12/17 12:45 03/12/17 18:22 03/12/17 22:05 03/13/17 03:08 Bedside Glucose 201 188 187 151 Test 03/13/17 05:00 03/13/17 07:00 03/13/17 08:27 White Blood Count 14.5 H Red Blood Count 3.78 L Hemoglobin 11.0 L Hematocrit 33.5 L Mean Corpuscular Volume 88.6 Mean Corpuscular Hemoglobin 29.1 Mean Corpuscular Hemoglobin Concent 32.8 Red Cell Distribution Width 13.9 Platelet Count 311 Mean Platelet Volume 11.3 H Neutrophils % 89.7 H Lymphocytes % 5.3 L Monocytes % 2.9 Eosinophils % 1.3 Basophils % 0.1 Nucleated Red Blood Cells % 0.2 H Neutrophils # 13.0 H Lymphocytes # 0.8 Monocytes # 0.4 Eosinophils # 0.2 Basophils # 0.0 Nucleated Red Blood Cells # 0.0 Sodium Level 143 Potassium Level 4.0 Chloride Level 108 Carbon Dioxide Level 24 Anion Gap 15 Blood Urea Nitrogen 54 H Creatinine 1.51 H Glucose Level 174 Hemoglobin A1c 6.0 H Calcium Level 8.8 Phosphorus Level 3.2 Magnesium Level 1.4 L Total Bilirubin 0.4 Direct Bilirubin 0.00 Indirect Bilirubin 0.4 Aspartate Amino Transf (AST/SGOT) 17 Alanine Aminotransferase (ALT/SGPT) 24 Alkaline Phosphatase 124 H Total Protein 5.8 L Albumin 2.7 L Globulin 3.10 Albumin/Globulin Ratio 0.87 Blood Gas Specimen Source Blood arterial Arterial Blood Date Drawn 03/13/2017 8:00:17 AM Arterial Blood pH (Temp corrected) 7.517 H Arterial Blood pCO2 (Temp correct) 25.5 L Arterial Blood pO2 (Temp corrected) 65.8 L Arterial Blood HCO3 20.2 L Arterial Blood Base Excess -1.6 Arterial Blood Oxygen Saturation 93.6 L Bill Test ACCEPTAB Arterial Blood Gas Puncture Site Right Radial Arterial Blood Carboxyhemoglobin 0.5 Arterial Blood Methemoglobin 0.2 Blood Gas A-a O2 Differential 118.1 H Oxyhemoglobin Percent 92.9 L Total Hemoglobin 10.5 L Blood Gas Temperature 37.0 Blood Gas Respiration Rate 18.0 Blood Gas Actual Respiration Rate 18 Blood Gas Modality VENT - AC FiO2 30.0 Blood Gas Tidal Volume 500.0 Blood Gas Low PEEP Setting 5.0 Blood Gas Notified Whom JLD Blood Gas Notified Time 03/13/2017 8:36:53 AM Bedside Glucose 154 Medications Medications Current Medications Insulin Glargine (Lantus) 12 unit DAILY SC Last administered on 03/13/17 09: 01; Admin Dose 12 UNIT; Start 03/12/17 at 09:00 Acetaminophen (Tylenol Tab) 650 mg Q6H PRN PO MILD PAIN LEVEL 1-3; Start 03/11 at 21:15 Allopurinol (Zyloprim) 100 mg BID PO Last administered on 03/13/17 08:28; Admin Dose 100 MG; Start 03/11/17 at 23:15 Ferrous Sulfate (Ferrous Sulfate (Ec)) 325 mg DAILY PO ; Start 03/12/17 at 09: 00 Gabapentin (Neurontin) 300 mg TID PO Last administered on 03/13/17 08:28; Admin Dose 300 MG; Start 03/11/17 at 23:15 Lactulose (Enulose) 30 gm Q24H PO Last administered on 03/12/17 01:34; Admin Dose 30 GM; Start 03/11/17 at 23:30 Magnesium Hydroxide (Milk Of Mag) 30 ml DAILY PO ; Start 03/12/17 at 09:00 Calcium Carbonate (Tums) 500 mg TID PO Last administered on 03/13/17 08:28; Admin Dose 500 MG; Start 03/11/17 at 23:30 Atorvastatin Calcium (Lipitor) 20 mg DAILY@21 PO Last administered on 21:12; Admin Dose 20 MG; Start 03/11/17 at 23:30 Ondansetron HCl (Zofran Tab) 4 mg Q6H PRN PO NAUSEA AND/OR VOMITING; Start at 21:15 Morphine Sulfate (morphine) 2 mg Q4H PRN IV PAIN LEVEL 7-10; Start 03/11/17 at 21:15 Pantoprazole (Protonix Tab) 40 mg DAILY@06 PO Last administered on 03/13/17 05:10; Admin Dose 40 MG; Start 03/12/17 at 06:00 Diagnostic Test (Pha) 1 ea 1 ea 02 XX Last administered on 03/12/17 02:14; Admin Dose 1 EA; Start 03/12/17 at 02:00 Sodium Chloride 1,000 ml @ 75 mls/hr [id number] IV Last administered on 15:00; Admin Dose 75 MLS/HR; Start 03/11/17 at 21:15 Meropenem/Sodium Chloride (Merrem 1 Gm/50 ml (Pmx)) 50 ml @ 100 mls/hr Q8 IVPB Last administered on 03/13/17 05:10; Admin Dose 100 MLS/HR; Start 03/11/17 at 23:30 Miscellaneous Information 1 ea NOTE XX ; Start 03/11/17 at 23:30 Glucose (Glutose) 15 gm Q15M PRN PO DECREASED GLUCOSE; Start 03/11/17 at 23:30 Glucose (Glutose) 22.5 gm Q15M PRN PO DECREASED GLUCOSE; Start 03/11/17 at 23: 30 Dextrose (D50w Syringe) 25 ml Q15M PRN IV DECREASED GLUCOSE; Start 03/11/17 at 23:30 Dextrose (D50w Syringe) 50 ml Q15M PRN IV DECREASED GLUCOSE; Start 03/11/17 at 23:30 Glucagon (Glucagen) 1 mg Q15M PRN IM DECREASED GLUCOSE; Start 03/11/17 at 23: 30 Glucose (Glutose) 15 gm Q15M PRN BUCCAL DECREASED GLUCOSE; Start 03/11/17 at 23:30 Aspirin 81 mg 81 mg DAILY NGT Last administered on 03/13/17 08:28; Admin Dose 81 MG; Start 03/12/17 at 09:00 Norepinephrine/ Dextrose (Levophed/D5W) 500 ml @ 1.87 mls/hr TITRATE IV Last administered on 03/12/17 11:20; Admin Dose 22.5 MLS/HR; Start 03/12/17 at 08: 30 Heparin Sodium (Porcine) 5000 unit 5,000 unit Q8 SC Last administered on 05:21; Admin Dose 5,000 UNIT; Start 12/14/17 at 14:00 Vancomycin HCl (Vancocin) 250 ml @ 125 mls/hr Q24H IVPB Last administered on 03/12/17t 18:41; Admin Dose 125 MLS/HR; Start 03/12/17 at 18:00 MARIA C DYSON Mar 13, 2017 10:27
--- NOTE | 2017-03-13 12:13 | PN ---
Date/Time of Note Date/Time of Note DATE: 03/13/17 TIME: 12:07 Assessment/Plan VTE Prophylaxis VTE Prophylaxis Intervention: heparin Lines/Catheters IV [facility]ter Type (from [facility] Peripheral IV Urinary Cath still in place: Yes Reason Cath still needed: other (indicate) (Intubated and on vent) Assessment/Plan Assessment/Plan 71-year-old female with: 1. Altered level of consciousness secondary to acute hypoxemic +/- hypercapnic respiratory failure. Resolved currently, patient awake and alert CT head negative, respiratory status improved once patient intubated on admission Mental status back to baseline however she failed CPAP trial and will remain intubated. 2. Acute respiratory failure 2ry to right lower lobe pneumonia and likely COPD exacerbation: Stable on mechanical ventilation, On meropenem and vancomycin for coverage for pneumonia likely healthcare associated pneumonia as patient resides in a group home versus aspiration pneumonia. Pulmonary/critical care following, she failed CPAP trial this morning therefore remains intubated. Continue respiratory/pulmonary toilet MDI/nebulizer treatments 3. Sepsis, septic shock likely secondary to pneumonia and further decompensation with respiratory failure. Also patient had CAT scan of the abdomen and pelvis yesterday and found to have possible acute cholecystitis that could be another source of her sepsis. Patient much stable and out of shock state, off levo fed. Continue current IV antibiotics. Dr. Leavitt from general surgery is consulted, he has requested a HIDA scan and will see the patient. Decrease IV fluids to 75 cc/hr, patient does have reported CHF diastolic dysfunction. Blood cultures and urine culture no growth to date. 4. Elevated troponin resolved, likely secondary to renal insufficiency but also will demand ischemia. Patient remains hemodynamically stable. 2D echocardiogram with preserved EF and no wall motion abnormalities. If needs surgery for cholecystitis she will need to be evaluated by cardiology first. 5. Acute kidney injury on chronic kidney disease. Renal function slightly above baseline, baseline around 1.6. Currently renal function back to baseline. Continue IV fluids for now, monitor volume status Monitor renal function and avoid nephrotoxic drugs/titrate all medications renally. 6. Super morbid obesity with possibly obstructive sleep apnea. Currently intubated. 7. Diastolic congestive heart failure with reported severe septal hypertrophy on previous echocardiogram and also mild to moderate mitral stenosis. Repeat 2D echocardiogram with preserved EF and no wall motion abnormalities. Monitor volume status. 8. Diabetes mellitus. Last A1c 7.3, BG better this AM on current regimen. Continue current insulin regimen, recheck A1c is 6.0. 9. Mild Anemia and thrombocytopenia: Stable hemoglobin so far, patient has been on ferrous sulfate supplements. Monitor especially while patient on DVT prophylaxis which will be changed to heparin subcu as patient does have renal insufficiency and is morbidly obese. 10. Chronic pain, narcotic dependent. Resume OxyContin once patient more awake and off the ventilator, currently using fentanyl for sedation. 11. Diabetic neuropathy. Resume Neurontin once extubated. 12. Possible acute cholecystitis on CAT scan of the abdomen and pelvis yesterday afternoon, patient already on antibiotics, Dr. Leavitt has been consulted he will see the patient today, in the meantime will awaiting a HIDA scan if able to do while the patient is intubated. Follow-up further recommendations from general surgery Prophylaxis. Heparin subcu for DVT prophylaxis and Protonix for GI prophylaxis. DISPOSITION: Follow-up HIDA scan, follow-up general surgery recommendation, unfortunately patient failed CPAP trial today therefore remains intubated in ICU. Subjective 24 Hr Interval Summary Free Text/Dictation Patient remained stable hemodynamically, she is off Levophed, WBCs trending down slowly, CAT scan of the abdomen and pelvis yesterday did show signs of possible acute cholecystitis, Dr. Leavitt will be seeing patient today, HIDA scan with CCK ordered and pending. She has failed CPAP trial this morning, she will remain on the ventilator, otherwise she is awake and alert. Her fentanyl will be restarted for pain control, she does have chronic pain and is narcotic dependent Exam/Review of Systems Vital Signs Vitals Vital Signs Date Time Temp Pulse Resp B/P Pulse Ox O2 Delivery O2 Flow Rate FiO2 03/13/17 11:30 90 10 132/81 100 03/13/17 11:00 Mechanical Ventilator 03/13/17 09:14 30 03/13/17 08:00 98.2 03/11/17 14:45 15.0 Intake and Output 03/12/17 03/12/17 03/13/17 15:00 23:00 07:00 Intake Total 1061.35 ml 666.74 ml 632.61 ml Output Total 240 ml 405 ml 380 ml Balance 821.35 ml 261.74 ml 252.61 ml Exam Constitutional: alert, obese (Super morbid), oriented (x3), well developed Respiratory: diminished breath sounds (Right lower lobe), other (Intubated) Cardiovascular: nl pulses, regular rate and rhythm Gastrointestinal: soft, tender (Epigastric/upper abdomen area) Musculoskeletal: nl extremities to inspection Extremities: normal pulses, other (No edema, clubbing or cyanosis) Neurological: STAFFING COORDINATOR II-XII intact, nl mental status, other (Intubated) Results Result Diagram: 03/13/17 0500 03/13/17 0500 Results 24 hrs Laboratory Tests Test 03/12/17 12:45 03/12/17 18:22 03/12/17 22:05 03/13/17 03:08 Bedside Glucose 201 188 187 151 Test 03/13/17 05:00 03/13/17 07:00 03/13/17 08:27 White Blood Count 14.5 H Red Blood Count 3.78 L Hemoglobin 11.0 L Hematocrit 33.5 L Mean Corpuscular Volume 88.6 Mean Corpuscular Hemoglobin 29.1 Mean Corpuscular Hemoglobin Concent 32.8 Red Cell Distribution Width 13.9 Platelet Count 311 Mean Platelet Volume 11.3 H Neutrophils % 89.7 H Lymphocytes % 5.3 L Monocytes % 2.9 Eosinophils % 1.3 Basophils % 0.1 Nucleated Red Blood Cells % 0.2 H Neutrophils # 13.0 H Lymphocytes # 0.8 Monocytes # 0.4 Eosinophils # 0.2 Basophils # 0.0 Nucleated Red Blood Cells # 0.0 Sodium Level 143 Potassium Level 4.0 Chloride Level 108 Carbon Dioxide Level 24 Anion Gap 15 Blood Urea Nitrogen 54 H Creatinine 1.51 H Glucose Level 174 Hemoglobin A1c 6.0 H Calcium Level 8.8 Phosphorus Level 3.2 Magnesium Level 1.4 L Total Bilirubin 0.4 Direct Bilirubin 0.00 Indirect Bilirubin 0.4 Aspartate Amino Transf (AST/SGOT) 17 Alanine Aminotransferase (ALT/SGPT) 24 Alkaline Phosphatase 124 H Total Protein 5.8 L Albumin 2.7 L Globulin 3.10 Albumin/Globulin Ratio 0.87 Blood Gas Specimen Source Blood arterial Arterial Blood Date Drawn 03/13/2017 8:00:17 AM Arterial Blood pH (Temp corrected) 7.517 H Arterial Blood pCO2 (Temp correct) 25.5 L Arterial Blood pO2 (Temp corrected) 65.8 L Arterial Blood HCO3 20.2 L Arterial Blood Base Excess -1.6 Arterial Blood Oxygen Saturation 93.6 L Bill Test ACCEPTAB Arterial Blood Gas Puncture Site Right Radial Arterial Blood Carboxyhemoglobin 0.5 Arterial Blood Methemoglobin 0.2 Blood Gas A-a O2 Differential 118.1 H Oxyhemoglobin Percent 92.9 L Total Hemoglobin 10.5 L Blood Gas Temperature 37.0 Blood Gas Respiration Rate 18.0 Blood Gas Actual Respiration Rate 18 Blood Gas Modality VENT - AC FiO2 30.0 Blood Gas Tidal Volume 500.0 Blood Gas Low PEEP Setting 5.0 Blood Gas Notified Whom JLD Blood Gas Notified Time 03/13/2017 8:36:53 AM Bedside Glucose 154 Imaging Free Text/Dictation PROCEDURE: CT Abdomen and Pelvis without contrast. CLINICAL INDICATION: In the gastric pain, tenderness. TECHNIQUE: CT scan of the abdomen and pelvis without contrast was performed on a multidetector high-resolution CT scanner. The patient was scanned without intravenous contrast. Coronal and sagittal reformatted images were obtained from the axial source images. Images were reviewed on a high-resolution PACS workstation. The total exam CTDI equals 24.15 mGy and the total exam DLP equals 1504.51 mGy-cm. One or the following dose reduction techniques were used: -Automated exposure control. -Adjustment of the mA and/or KV according to patient's size. -Use of iterative reconstruction technique. DICOM images are available. COMPARISON: None. FINDINGS: Note: The overall sensitivity of the study is lower by the fact that intravenous contrast was not utilized and also secondary to patient's body habitus. Lower thorax: There is some minimal right basilar consolidation and/or atelectasis with a tiny right pleural effusion. GI:. Unremarkable. Liver: Unremarkable. Gallbladder: Gallbladder is markedly dilated with a thickened wall was. Cholecystic stranding. Definite dilation of the common bile duct is not seen. Pancreas: Unremarkable. Spleen: Unremarkablel Adrenals: Unremarkable. Kidneys: Kidneys are small with an extrarenal pelvis on the left. There is no urolithiasis or obstructive uropathy appreciated. Bladder: There is a Kyle catheter in the urinary bladder. Pelvic Organs: Unremarkable. Skeleton: Normal for age. Other: N/A IMPRESSION: 1. Markedly dilated gallbladder with wall thickening and stranding in the surrounding fat. This is strongly suggestive of acute cholecystitis. 2. Right basilar consolidation and/or atelectasis with tiny right pleural effusion. 3. Scattered colonic diverticulosis without evidence of acute diverticulitis. PROCEDURE: XR Chest 1 view. CLINICAL INDICATION: Shortness of breath. TECHNIQUE: Single views of the chest was obtained. COMPARISON: Yesterday FINDINGS: The heart is large. Calcified atherosclerosis is noted in the aorta. Endotracheal and nasogastric tubes are stable. Right-sided central line is unchanged. Central pulmonary vascular congestion and mild interstitial prominence is seen in both lungs. The lungs are hypoinflated. Right lower lung infiltrates have decreased. Scattered atelectasis remains. Atelectasis is noted at the left lung base. The osseous structures are unchanged. IMPRESSION: Cardiomegaly with calcified atherosclerosis in the aorta. Central pulmonary vascular congestion and interstitial prominence in both lungs. Interval decrease in right lower lung infiltrates. Scattered atelectasis remains. Atelectasis at the left lung base. Hypoinflated lungs. RPTAT: AA .Ronnie Carrillo MD, MD Date Time Electronically viewed and signed by .Ronnie Carrillo MD, MD on 03/13/2017 10:15 Medications Medications Current Medications Insulin Glargine (Lantus) 12 unit DAILY SC Last administered on 03/13/17 09: 01; Admin Dose 12 UNIT; Start 03/12/17 at 09:00 Acetaminophen (Tylenol Tab) 650 mg Q6H PRN PO MILD PAIN LEVEL 1-3; Start 03/11 at 21:15 Allopurinol (Zyloprim) 100 mg BID PO Last administered on 03/13/17 08:28; Admin Dose 100 MG; Start 03/11/17 at 23:15 Ferrous Sulfate (Ferrous Sulfate (Ec)) 325 mg DAILY PO ; Start 03/12/17 at 09: 00 Gabapentin (Neurontin) 300 mg TID PO Last administered on 03/13/17 08:28; Admin Dose 300 MG; Start 03/11/17 at 23:15 Lactulose (Enulose) 30 gm Q24H PO Last administered on 03/12/17 01:34; Admin Dose 30 GM; Start 03/11/17 at 23:30 Magnesium Hydroxide (Milk Of Mag) 30 ml DAILY PO ; Start 03/12/17 at 09:00 Calcium Carbonate (Tums) 500 mg TID PO Last administered on 03/13/17 08:28; Admin Dose 500 MG; Start 03/11/17 at 23:30 Atorvastatin Calcium (Lipitor) 20 mg DAILY@21 PO Last administered on 21:12; Admin Dose 20 MG; Start 03/11/17 at 23:30 Ondansetron HCl (Zofran Tab) 4 mg Q6H PRN PO NAUSEA AND/OR VOMITING; Start at 21:15 Morphine Sulfate (morphine) 2 mg Q4H PRN IV PAIN LEVEL 7-10 Last administered on 03/13/17 11:55; Admin Dose 2 MG; Start 03/11/17 at 21:15 Pantoprazole (Protonix Tab) 40 mg DAILY@06 PO Last administered on 03/13/17 05:10; Admin Dose 40 MG; Start 03/12/17 at 06:00 Diagnostic Test (Pha) 1 ea 1 ea 02 XX Last administered on 03/12/17 02:14; Admin Dose 1 EA; Start 03/12/17 at 02:00 Sodium Chloride 1,000 ml @ 75 mls/hr [id number] IV Last administered on 10:00; Admin Dose 75 MLS/HR; Start 03/11/17 at 21:15 Meropenem/Sodium Chloride (Merrem 1 Gm/50 ml (Pmx)) 50 ml @ 100 mls/hr Q8 IVPB Last administered on 03/13/17 05:10; Admin Dose 100 MLS/HR; Start 03/11/17 at 23:30 Miscellaneous Information 1 ea NOTE XX ; Start 03/11/17 at 23:30 Glucose (Glutose) 15 gm Q15M PRN PO DECREASED GLUCOSE; Start 03/11/17 at 23:30 Glucose (Glutose) 22.5 gm Q15M PRN PO DECREASED GLUCOSE; Start 03/11/17 at 23: 30 Dextrose (D50w Syringe) 25 ml Q15M PRN IV DECREASED GLUCOSE; Start 03/11/17 at 23:30 Dextrose (D50w Syringe) 50 ml Q15M PRN IV DECREASED GLUCOSE; Start 03/11/17 at 23:30 Glucagon (Glucagen) 1 mg Q15M PRN IM DECREASED GLUCOSE; Start 03/11/17 at 23: 30 Glucose (Glutose) 15 gm Q15M PRN BUCCAL DECREASED GLUCOSE; Start 03/11/17 at 23:30 Aspirin 81 mg 81 mg DAILY NGT Last administered on 03/13/17 08:28; Admin Dose 81 MG; Start 03/12/17 at 09:00 Norepinephrine/ Dextrose (Levophed/D5W) 500 ml @ 1.87 mls/hr TITRATE IV Last administered on 03/12/17 11:20; Admin Dose 22.5 MLS/HR; Start 03/12/17 at 08: 30 Heparin Sodium (Porcine) 5000 unit 5,000 unit Q8 SC Last administered on 05:21; Admin Dose 5,000 UNIT; Start 03/12/17 at 14:00 Vancomycin HCl (Vancocin) 250 ml @ 125 mls/hr Q24H IVPB Last administered on 03/12/17 18:41; Admin Dose 125 MLS/HR; Start 03/12/17 at 18:00 Procedures Procedures Echocardiogram Report Patient Name: JONY YOUNG Gender: Female Date: 1945 Study Date: 12-Mar-2017 Silk Spotter: Natalie Escalona RDCS Location: [address] [place] [address]. Physician: MARGY SALAS Quality: Technically Difficult Study Procedures: Transthoracic echocardiogram with complete 2D, M-Mode, and doppler examination. Indications: Evaluate Left Ventricular function, elevated troponin. 2D/M Mode Doppler Measurement Value Normal Ranges Measurement Value Normal Ranges LVIDd 2D 4.3 3.5 - 5.6 cm PATRICK Vmax 1.8 cm2 LVIDs 2D 2.4 2.1 - 4.1 cm PATRICK VTI 1.8 cm2 LVPWd 2D 1.2 0.6 - 1.1 cm AV Mean Prabhu 1.5 m/sec IVSd 2D 1.1 0.6 - 1.1 cm AV Mean PG 9.8 mmHg AoR Diam 2D 3.1 2.0 - 3.7 cm AV Peak Prabhu 2.2 m/sec EDV 2D 83.8 cm3 AV Peak PG 20.2 mmHg ESV 2D 13.0 cm3 AV VTI 43.7 cm LA Dimen 2D 3.8 2.3 - 4.0 cm AI Peak PG 77.5 mmHg LVOT Diam 1.8 cm AI Peak Prabhu 4.4 m/sec AI PHT 656.2 msec LVOT Mean Prabhu 1.0 m/sec LVOT Mean PG 4.7 mmHg LVOT Peak Prabhu 1.6 m/sec LVOT Peak PG 10.6 mmHg LVOT VTI 33.3 cm MV E Peak Prabhu 0.9 m/sec MV A Peak Prabhu 1.3 m/sec MV E/A 0.6 MV PHT 146.0 msec MV Peak Prabhu 1.7 m/sec MV Peak PG 10.9 mmHg MV Mean Prabhu 0.9 m/sec MV Mean PG 3.5 mmHg MV Decel Time 356 msec MV Decel [place] 2 MV E/A 0.6 MV PHT 146.0 msec MV VTI 51.4 cm MVA PHT 1.5 cm2 TR Peak Prabhu 2.7 m/sec TR Peak PG 29.5 mmHg RVSP 45.0 mmHg Findings Left Ventricle: Normal left ventricular systolic function. Normal left ventricular cavity size. Mild concentric left ventricular hypertrophy. Ejection fraction is visually estimated at 65 %. Tissue Doppler/Mitral Doppler indices are consistent with impaired relaxation (Stage I diastolic dysfunction). Right Ventricle: Normal right ventricular size. Normal right ventricular systolic function. Left Atrium: The left atrium is normal in size. Right Atrium: The right atrium is normal in size. Mitral Valve: Moderate mitral leaflet calcification. Moderate mitral annular calcification. Trace mitral regurgitation. Aortic Valve: Aortic sclerosis without significant stenosis. Aortic cusps appear mildly calcified. Trace aortic valve regurgitation. Tricuspid Valve: Normal appearance and function of the tricuspid valve with trace physiologic regurgitation. Estimated peak PA systolic pressure 45 mmHg. Pulmonic Valve: Pulmonic valve not well visualized. Pericardium: Normal pericardium with no significant pericardial effusion. Aorta: Normal aortic root. IVC: Dilated IVC without respiratory collapse consistent with elevated right atrial pressure. Conclusions 1. Normal left ventricular systolic function. Normal left ventricular cavity size. Mild concentric left ventricular hypertrophy. Ejection fraction is visually estimated at 65 %. Tissue Doppler/Mitral Doppler indices are consistent with impaired relaxation (Stage I diastolic dysfunction). 2. Normal right ventricular size. Normal right ventricular systolic function. 3. The left atrium is normal in size. 4. The right atrium is normal in size. 5. No significant valvular stenosis or regurgitation seen. 6. Normal pericardium with no significant pericardial effusion. Electronically Signed By: Guy Greer 12-Mar-2017 13:47:52 -0800 REBECCA SALAS Mar 13, 2017 12:13
[2017-03-13] MEDS ORDERED: SINCALIDE 5 MCG INJ IV SCH (16:00)
--- NOTE | 2017-03-13 16:32 | CONS ---
Date/Time of Note Date/Time of Note DATE: 03/13/17 TIME: 16:27 Assessment/Plan Assessment/Plan Additional Assessment/Plan Respiratory failure Possible acute cholecystitis Recommend: CCK HIDA scan. If positive, then attempt at medical therapy with antibiotics alone. If this is ineffective, percutaneous CT guided cholecystostomy is recommended. Further recommendations will be forthcoming based on the patient's further workup and clinical course. I will follow with you. Consultation Date/Type/Reason Admit Date/Time Mar 11, 2017 at 18:58 Date of Consultation: Mar 13, 2017 Reason for Consultation Possible acute cholecystitis Hx of Present Illness The patient is a 72-year-old morbidly obese diabetic female who resides in a nursing home facility. She was admitted 2 days ago because of respiratory failure, and required intubation. She is still intubated. He has had a low- grade white blood cell count in the 15,000 range. While on the ventilator the patient complained of abdominal pain. A CT scan showed a distended gallbladder with stones and findings suggestive of cholecystitis. Surgical consultation was requested in that regard. Past Medical History Medical History: congestive heart failure, coronary artery disease, diabetes, gallstones Past Surgical History Past Surgical Hx: no surgical history Family History Significant Family History: no pertinent family hx Social History Smoking Status: Never smoker Exam/Review of Systems Vital Signs Vitals Vital Signs Date Time Temp Pulse Resp B/P Pulse Ox O2 Delivery O2 Flow Rate FiO2 03/13/17 13:23 93 26 100 30 03/13/17 11:30 132/81 03/13/17 11:00 Mechanical Ventilator 03/13/17 08:00 98.2 03/11/17 14:45 15.0 Intake and Output 03/12/17 03/12/17 03/13/17 15:00 23:00 07:00 Intake Total 1061.35 ml 666.74 ml 632.61 ml Output Total 240 ml 405 ml 380 ml Balance 821.35 ml 261.74 ml 252.61 ml Exam Constitutional: alert, oriented, other (Patient is intubated and on a ventilator) Psych: no complaints Head: normocephalic Eyes: nl conjunctiva, nl sclera ENMT: nl external ears & nose Neck: supple Respiratory: diminished breath sounds Cardiovascular: regular rate and rhythm Gastrointestinal: tender (Slight tenderness right upper quadrant) Musculoskeletal: nl extremities to inspection Extremities: normal pulses Skin: nl turgor Lymph: nl lymph nodes Results Result Diagram: 03/13/17 0500 03/13/17 0500 Results 24 hrs Laboratory Tests Test 03/12/17 18:22 03/12/17 22:05 03/13/17 03:08 03/13/17 05:00 Bedside Glucose 188 187 151 White Blood Count 14.5 H Red Blood Count 3.78 L Hemoglobin 11.0 L Hematocrit 33.5 L Mean Corpuscular Volume 88.6 Mean Corpuscular Hemoglobin 29.1 Mean Corpuscular Hemoglobin Concent 32.8 Red Cell Distribution Width 13.9 Platelet Count 311 Mean Platelet Volume 11.3 H Neutrophils % 89.7 H Lymphocytes % 5.3 L Monocytes % 2.9 Eosinophils % 1.3 Basophils % 0.1 Nucleated Red Blood Cells % 0.2 H Neutrophils # 13.0 H Lymphocytes # 0.8 Monocytes # 0.4 Eosinophils # 0.2 Basophils # 0.0 Nucleated Red Blood Cells # 0.0 Sodium Level 143 Potassium Level 4.0 Chloride Level 108 Carbon Dioxide Level 24 Anion Gap 15 Blood Urea Nitrogen 54 H Creatinine 1.51 H Glucose Level 174 Hemoglobin A1c 6.0 H Calcium Level 8.8 Phosphorus Level 3.2 Magnesium Level 1.4 L Total Bilirubin 0.4 Direct Bilirubin 0.00 Indirect Bilirubin 0.4 Aspartate Amino Transf (AST/SGOT) 17 Alanine Aminotransferase (ALT/SGPT) 24 Alkaline Phosphatase 124 H Total Protein 5.8 L Albumin 2.7 L Globulin 3.10 Albumin/Globulin Ratio 0.87 Test 03/13/17 07:00 03/13/17 08:27 03/13/17 12:14 Blood Gas Specimen Source Blood arterial Arterial Blood Date Drawn 03/13/2017 8:00:17 AM Arterial Blood pH (Temp corrected) 7.517 H Arterial Blood pCO2 (Temp correct) 25.5 L Arterial Blood pO2 (Temp corrected) 65.8 L Arterial Blood HCO3 20.2 L Arterial Blood Base Excess -1.6 Arterial Blood Oxygen Saturation 93.6 L Bill Test ACCEPTAB Arterial Blood Gas Puncture Site Right Radial Arterial Blood Carboxyhemoglobin 0.5 Arterial Blood Methemoglobin 0.2 Blood Gas A-a O2 Differential 118.1 H Oxyhemoglobin Percent 92.9 L Total Hemoglobin 10.5 L Blood Gas Temperature 37.0 Blood Gas Respiration Rate 18.0 Blood Gas Actual Respiration Rate 18 Blood Gas Modality VENT - AC FiO2 30.0 Blood Gas Tidal Volume 500.0 Blood Gas Low PEEP Setting 5.0 Blood Gas Notified Whom JLD Blood Gas Notified Time 03/13/2017 8:36:53 AM Bedside Glucose 154 159 Medications Medications Current Medications Insulin Glargine (Lantus) 12 unit DAILY SC Last administered on 03/13/17 09: 01; Admin Dose 12 UNIT; Start 03/12/17 at 09:00 Acetaminophen (Tylenol Tab) 650 mg Q6H PRN PO MILD PAIN LEVEL 1-3; Start 03/11 at 21:15 Allopurinol (Zyloprim) 100 mg BID PO Last administered on 03/13/17 08:28; Admin Dose 100 MG; Start 03/11/17 at 23:15 Ferrous Sulfate (Ferrous Sulfate (Ec)) 325 mg DAILY PO ; Start 03/12/17 at 09: 00 Gabapentin (Neurontin) 300 mg TID PO Last administered on 03/13/17 14:28; Admin Dose 300 MG; Start 03/11/17 at 23:15 Lactulose (Enulose) 30 gm Q24H PO Last administered on 03/12/17 01:34; Admin Dose 30 GM; Start 03/11/17 at 23:30 Magnesium Hydroxide (Milk Of Mag) 30 ml DAILY PO ; Start 03/12/17 at 09:00 Calcium Carbonate (Tums) 500 mg TID PO Last administered on 03/13/17 14:28; Admin Dose 500 MG; Start 03/11/17 at 23:30 Atorvastatin Calcium (Lipitor) 20 mg DAILY@21 PO Last administered on 21:12; Admin Dose 20 MG; Start 03/11/17 at 23:30 Ondansetron HCl (Zofran Tab) 4 mg Q6H PRN PO NAUSEA AND/OR VOMITING; Start at 21:15 Pantoprazole (Protonix Tab) 40 mg DAILY@06 PO Last administered on 03/13/17 05:10; Admin Dose 40 MG; Start 03/12/17 at 06:00 Diagnostic Test (Pha) 1 ea 1 ea 02 XX Last administered on 03/12/17 02:14; Admin Dose 1 EA; Start 03/12/17 at 02:00 Sodium Chloride 1,000 ml @ 75 mls/hr [id number] IV Last administered on 10:00; Admin Dose 75 MLS/HR; Start 03/11/17 at 21:15 Meropenem/Sodium Chloride (Merrem 1 Gm/50 ml (Pmx)) 50 ml @ 100 mls/hr Q8 IVPB Last administered on 03/13/17 14:28; Admin Dose 100 MLS/HR; Start 03/11/17 at 23:30 Miscellaneous Information 1 ea NOTE XX ; Start 03/11/17 at 23:30 Glucose (Glutose) 15 gm Q15M PRN PO DECREASED GLUCOSE; Start 03/11/17 at 23:30 Glucose (Glutose) 22.5 gm Q15M PRN PO DECREASED GLUCOSE; Start 03/11/17 at 23: 30 Dextrose (D50w Syringe) 25 ml Q15M PRN IV DECREASED GLUCOSE; Start 03/11/17 at 23:30 Dextrose (D50w Syringe) 50 ml Q15M PRN IV DECREASED GLUCOSE; Start 03/11/17 at 23:30 Glucagon (Glucagen) 1 mg Q15M PRN IM DECREASED GLUCOSE; Start 03/11/17 at 23: 30 Glucose (Glutose) 15 gm Q15M PRN BUCCAL DECREASED GLUCOSE; Start 03/11/17 at 23:30 Aspirin 81 mg 81 mg DAILY NGT Last administered on 03/13/17 08:28; Admin Dose 81 MG; Start 03/12/17 at 09:00 Norepinephrine/ Dextrose (Levophed/D5W) 500 ml @ 1.87 mls/hr TITRATE IV Last administered on 03/12/17 11:20; Admin Dose 22.5 MLS/HR; Start 03/12/17 at 08: 30 Heparin Sodium (Porcine) 5000 unit 5,000 unit Q8 SC Last administered on 15:05; Admin Dose 5,000 UNIT; Start 03/12/17 at 14:00 Vancomycin HCl 250 ml @ 125 mls/hr Q24H IVPB Last administered on 03/12/17 18:41; Admin Dose 125 MLS/HR; Start 03/12/17 at 18:00 Fentanyl (Sublimaze) 100 ml @ 2.5 mls/hr TITRATE IV ; Start 03/13/17 at 12:30 DEJA FLORENCE MD Mar 13, 2017 16:32
[2017-03-13] MEDS: VANCOMYCIN 1 GM in NS 250 ML IVPB SCH (18:17)
[2017-03-13] MEDS: ATORVASTATIN 20 MG TAB PO SCH (21:00)
[2017-03-13] MEDS: BALSAM PERU/CASTOR OIL 60 GM TUBE TOP SCH (22:00)
[2017-03-13] MEDS: FENTAnyl (DRIP) 1000 mcg/100mL 100 ML IV SCH (23:24)
[2017-03-13] MEDS: LACTULOSE 30ML CUP PO SCH (23:30)
--- NOTE | 2017-03-13 23:44 | RADRPT ---
PROCEDURE: HIDA scan CLINICAL INDICATION: 72 -year-old patient with abdominal pain. TECHNIQUE: Following the intravenous injection of 8.2 mCi of Tc-99m Mebrofenin, multiple anterior dynamic images of the abdomen along with numerous planar spot images of the abdomen were obtained up to 45 minutes post injection. COMPARISON: No prior HIDA scans. FINDINGS: The liver is promptly visualized, demonstrates homogeneous distribution of radionuclide. There is a visualization of the common bile duct and gastrointestinal activity within normal time. The gallbladder is not visualized up to 45 minutes post injection. IMPRESSION: 1. Nonvisualization of the gallbladder up to 45 minutes post injection. 2. Persistent common bile duct uptake and a visualization of the gastrointestinal activity within n ormal time possibly represent physiologic uptake; a partial common bile duct obstruction cannot be r uled out. RPTAT: QQ .Louisa Oliver MD, Date Time Electronically viewed and signed by .Louisa Oliver MD, on 03/13/2017 23:43 .L/
[2017-03-14] VITALS (40 sets, daily range): BP systolic 97–185; BP diastolic 32–140; PULSE 65–90; RESP 12–28
[2017-03-14] MEDS: IPRATROPIUM (HFA) 12.9 GM INHALER INH SCH ×6 (01:12→21:23)
[2017-03-14] MEDS: ALBUTEROL HFA 8 GM INHALER INH SCH ×6 (01:12→21:23)
[2017-03-14] MEDS: ACCU-CHEK XX SCH (02:00)
[2017-03-14] MEDS: SOD CHLORIDE 0.9% 1,000 ML IV SCH ×2 (05:17→19:56)
[2017-03-14] MEDS: MEROPENEM 1 GM/50ML(PMX) 50 ML IVPB SCH ×3 (05:17→21:31)
[2017-03-14] MEDS: PANTOPRAZOLE (EC) 40 MG TAB PO SCH (05:17)
[2017-03-14] MEDS: HEPARIN 5,000 UNIT/0.5 ML VIAL SC SCH (05:18)
[2017-03-14 05:33] LABS: BASOPHILS % 0.2 % (0.0-2.0); EOSINOPHILS # 0.3 10^3/ul (0.0-0.5); EOSINOPHILS % 2.1 % (0.0-7.0); HEMATOCRIT 29.1 % (37.0-47.0); HEMOGLOBIN 9.4 g/dl (12.0-16.0); LYMPHOCYTES # 0.9 10^3/ul (0.8-2.9); LYMPHOCYTES % 7.7 % (15.0-51.0); MEAN CORPUSCULAR HGB CONC 32.3 g/dl (32.0-37.0); MEAN CORPUSCULAR VOLUME 89.8 fl (82.0-101.0); MEAN PLATELET VOLUME 10.5 fl (7.4-10.4); MONOCYTE # 0.5 10^3/ul (0.3-0.9); NEUTROPHIL # 9.9 10^3/ul (1.6-7.5); NEUTROPHILS % 85.4 % (39.0-77.0); NUCLEATED RED BLOOD CELLS% 0.2 /100WBC (0.0-0.0); PLATELET COUNT 233 10^3/UL (140-415); RED BLOOD COUNT 3.24 10^6/ul (4.20-5.40); WHITE BLOOD COUNT 11.6 10^3/ul (4.8-10.8)
[2017-03-14 06:08] LABS: MAGNESIUM 1.6 mg/dl (1.7-2.5); PHOSPHORUS 2.7 mg/dl (2.5-4.9)
[2017-03-14 07:30] LABS: ALBUMIN/GLOBULIN RATIO 0.83; BILIRUBIN,INDIRECT 0.5 mg/dl (0-1.1); BILIRUBIN,TOTAL 0.5 mg/dl (0.2-1.3); CALCIUM 8.6 mg/dl (8.4-10.2); CREATININE 1.04 mg/dl (0.44-1.00); POTASSIUM 3.7 mmol/L (3.5-5.1); TOTAL PROTEIN 4.4 g/dl (6.1-8.1)
[2017-03-14] MEDS: INSULIN ASPART [NOVOLOG] 3 ML PEN SC SCH ×4 (07:35→21:00)
[2017-03-14] MEDS: GABAPENTIN 300 MG CAP PO SCH ×3 (08:27→21:12)
[2017-03-14] MEDS: ALLOPURINOL 100 MG TAB PO SCH ×2 (08:27→21:12)
[2017-03-14] MEDS: CALCIUM CARBONATE 500 MG CHEW TAB PO SCH ×3 (08:27→21:12)
[2017-03-14] MEDS: ASPIRIN 81 MG TAB NGT SCH (08:27)
[2017-03-14] MEDS: MAGNESIUM HYDROXIDE 30ML CUP PO SCH (08:27)
[2017-03-14] MEDS: FERROUS SULFATE (EC) 325 MG TAB PO SCH (08:28)
--- NOTE | 2017-03-14 10:08 | PN ---
Date/Time of Note Date/Time of Note DATE: 03/14/17 TIME: 10:06 Assessment/Plan Lines/Catheters IV Catheter Type (from Nrs): Central Line Kyle in Place (from Nrs): Yes Assessment/Plan Chief Complaint/Hosp Course The patient is a 72-year-old morbidly obese diabetic female who resides in a [facility] facility. She was admitted 2 days ago because of respiratory failure, and required intubation. She is still intubated. He has had a low- grade white blood cell count in the 15,000 range. While on the ventilator the patient complained of abdominal pain. A CT scan showed a distended gallbladder with stones and findings suggestive of cholecystitis. Surgical consultation was requested in that regard. Problems: Assessment/Plan Recommend percutaneous cholecystostomy by IR. Continue medical management and vent weaning Subjective 24 Hr Interval Summary Failed attempt at weaning. Still on ventilator States that she is symptomatically improved Leukocytosis improved Exam/Review of Systems Vital Signs Vitals Vital Signs Date Time Temp Pulse Resp B/P Pulse Ox O2 Delivery O2 Flow Rate FiO2 03/14/17 08:09 67 13 100 30 03/14/17 08:00 97.7 156/74 Mechanical Ventilator 03/11/17 14:45 15.0 Intake and Output 03/13/17 03/13/17 03/14/17 15:00 23:00 07:00 Intake Total 650 ml 700 ml 678.0 ml Output Total 650 ml 540 ml 230 ml Balance 0 ml 160 ml 448.0 ml Results Result Diagram: 03/14/17 0458 03/14/17 0500 DEJA FLORENCE MD Mar 14, 2017 10:08
--- NOTE | 2017-03-14 11:22 | CONS ---
Date/Time of Note Date/Time of Note DATE: 03/14/17 TIME: 11:20 Consult Date/Type/Reason Admit Date/Time Mar 11, 2017 at 18:58 Initial Consult Date 03/13/17 Type of Consultation: Pulmonary/critical care Subjective Awake alert and oriented. Remains comfortable. Mild abdominal tenderness noted. Objective Vital Signs Date Time Temp Pulse Resp B/P Pulse Ox O2 Delivery O2 Flow Rate FiO2 03/14/17 10:56 35 03/14/17 08:09 67 13 100 03/14/17 08:00 97.7 156/74 Mechanical Ventilator 03/11/17 14:45 15.0 Intake and Output 03/13/17 03/13/17 03/14/17 15:00 23:00 07:00 Intake Total 650 ml 700 ml 678.0 ml Output Total 650 ml 540 ml 230 ml Balance 0 ml 160 ml 448.0 ml Exam PHYSICAL EXAMINATION: GENERAL: Morbidly obese lady, grimaces to painful stimuli. VITAL SIGNS: As above. HEENT: Dry mucous membranes. Pupils equal and reactive to light. CARDIAC: S1, S2, no added sounds or murmurs. CHEST: Diminished air entry bilaterally. ABDOMEN: Tender right upper quadrant. EXTREMITIES: No cyanosis, clubbing, edema. NEUROLOGIC: Generalized weakness. Results/Medications Result Diagram: 03/14/17 0458 03/14/17 0500 Results 24 hrs Laboratory Tests Test 03/13/17 12:14 03/13/17 18:17 03/13/17 23:19 03/14/17 02:09 Bedside Glucose 159 153 132 128 Test 03/14/17 04:58 03/14/17 05:00 03/14/17 08:47 White Blood Count 11.6 H Red Blood Count 3.24 L Hemoglobin 9.4 L Hematocrit 29.1 L Mean Corpuscular Volume 89.8 Mean Corpuscular Hemoglobin 29.0 Mean Corpuscular Hemoglobin Concent 32.3 Red Cell Distribution Width 14.0 Platelet Count 233 # Mean Platelet Volume 10.5 H Neutrophils % 85.4 H Lymphocytes % 7.7 L Monocytes % 4.0 Eosinophils % 2.1 Basophils % 0.2 Nucleated Red Blood Cells % 0.2 H Neutrophils # 9.9 H Lymphocytes # 0.9 Monocytes # 0.5 Eosinophils # 0.3 Basophils # 0.0 Nucleated Red Blood Cells # 0.0 Phosphorus Level 2.7 Magnesium Level 1.6 L Sodium Level 144 Potassium Level 3.7 Chloride Level 112 H Carbon Dioxide Level 23 Anion Gap 13 Blood Urea Nitrogen 47 H Creatinine 1.04 H Glucose Level 125 # Calcium Level 8.6 Total Bilirubin 0.5 Direct Bilirubin 0.00 Indirect Bilirubin 0.5 Aspartate Amino Transf (AST/SGOT) 18 Alanine Aminotransferase (ALT/SGPT) 26 Alkaline Phosphatase 83 Total Protein 4.4 #L Albumin 2.0 L Globulin 2.40 Albumin/Globulin Ratio 0.83 Bedside Glucose 119 Medications Current Medications Insulin Glargine (Lantus) 12 unit DAILY SC Last administered on 03/13/17 09: 01; Admin Dose 12 UNIT; Start 03/12/17 at 09:00 Acetaminophen (Tylenol Tab) 650 mg Q6H PRN PO MILD PAIN LEVEL 1-3; Start 03/11 at 21:15 Allopurinol (Zyloprim) 100 mg BID PO Last administered on 03/14/17 08:27; Admin Dose 100 MG; Start 03/11/17 at 23:15 Ferrous Sulfate (Ferrous Sulfate (Ec)) 325 mg DAILY PO ; Start 03/12/17 at 09: 00 Gabapentin (Neurontin) 300 mg TID PO Last administered on 03/14/17 08:27; Admin Dose 300 MG; Start 03/11/17 at 23:15 Lactulose (Enulose) 30 gm Q24H PO Last administered on 03/12/17 01:34; Admin Dose 30 GM; Start 03/11/17 at 23:30 Magnesium Hydroxide (Milk Of Mag) 30 ml DAILY PO Last administered on 08:27; Admin Dose 30 ML; Start 03/12/17 at 09:00 Calcium Carbonate (Tums) 500 mg TID PO Last administered on 03/14/17 08:27; Admin Dose 500 MG; Start 03/11/17 at 23:30 Atorvastatin Calcium (Lipitor) 20 mg DAILY@21 PO Last administered on 21:12; Admin Dose 20 MG; Start 03/11/17 at 23:30 Ondansetron HCl (Zofran Tab) 4 mg Q6H PRN PO NAUSEA AND/OR VOMITING; Start at 21:15 Pantoprazole (Protonix Tab) 40 mg DAILY@06 PO Last administered on 03/14/17 05:17; Admin Dose 40 MG; Start 03/12/17 at 06:00 Diagnostic Test (Pha) 1 ea 1 ea 02 XX Last administered on 03/12/17 02:14; Admin Dose 1 EA; Start 03/12/17 at 02:00 Sodium Chloride 1,000 ml @ 75 mls/hr [id number] IV Last administered on 05:17; Admin Dose 75 MLS/HR; Start 03/11/17 at 21:15 Meropenem/Sodium Chloride (Merrem 1 Gm/50 ml (Pmx)) 50 ml @ 100 mls/hr Q8 IVPB Last administered on 03/14/17 05:17; Admin Dose 100 MLS/HR; Start 03/11/17 at 23:30 Miscellaneous Information 1 ea NOTE XX ; Start 03/11/17 at 23:30 Glucose (Glutose) 15 gm Q15M PRN PO DECREASED GLUCOSE; Start 03/11/17 at 23:30 Glucose (Glutose) 22.5 gm Q15M PRN PO DECREASED GLUCOSE; Start 03/11/17 at 23: 30 Dextrose (D50w Syringe) 25 ml Q15M PRN IV DECREASED GLUCOSE; Start 03/11/17 at 23:30 Dextrose (D50w Syringe) 50 ml Q15M PRN IV DECREASED GLUCOSE; Start 03/11/17 at 23:30 Glucagon (Glucagen) 1 mg Q15M PRN IM DECREASED GLUCOSE; Start 03/11/17 at 23: 30 Glucose 15 gm 15 gm Q15M PRN BUCCAL DECREASED GLUCOSE; Start 03/11/17 at 23:30 Norepinephrine 16 mg/Dextrose 500 ml @ 1.87 mls/hr TITRATE IV Last administered on 03/12/17 11:20; Admin Dose 22.5 MLS/HR; Start 03/12/17 at 08: 30 Vancomycin HCl 250 ml @ 125 mls/hr Q24H IVPB Last administered on 03/13/17 18:17; Admin Dose 125 MLS/HR; Start 03/12/17 at 18:00 Fentanyl (Sublimaze) 100 ml @ 2.5 mls/hr TITRATE IV Last administered on 03/13 23:24; Admin Dose 1.5 MLS/HR; Start 03/13/17 at 12:30 Miscellaneous Information (*Rx Drug Level Order Reminder*) VANCO TROUGH @ 1, 700 ON ... ONCE ONCE XX ; Start 03/14/17 at 17:00; Stop 03/14/17 at 17:01 Assessment/Plan Chief Complaint/Hosp Course IMPRESSION: 1. Hypoxemic respiratory failure with possible healthcare-associated pneumonia versus aspiration. 2. Non-ST elevation myocardial infarction. 3. Acute cholecystitis PLAN: 1. Continued mechanical ventilation. CPAP trial as tolerated 2. Broad-spectrum antibiotics. 3. Discussed with general surgery. Patient not ideal candidate for laparoscopic cholecystectomy given significant midline incision. Will attempt percutaneous drainage first. 4. Deep venous thrombosis and GI prophylaxis. 5. Glycemic management per primary team. Problems: RAMY CAMPBELL MD, [facility] Mar 14, 2017 11:22
--- NOTE | 2017-03-14 12:10 | PN ---
Date/Time of Note Date/Time of Note DATE: 03/14/17 TIME: 12:09 Assessment/Plan VTE Prophylaxis VTE Prophylaxis Intervention: SCD's Lines/Catheters IV Catheter Type (from Nrsg): Central Line Central line still needed: Yes Urinary Cath still in place: Yes Reason Cath still needed: other (indicate) (critical illness) Assessment/Plan Assessment/Plan 1. pulm: resp failure, cont vent support, appreciate pulm assistance 2. gi: cholecystitis, planning cholecystostomy drainage 3. renal: arf on ckd, resolved 4. dm 5. mobid obesity Subjective 24 Hr Interval Summary Free Text/Dictation no complaints, still with pain RUQ Exam/Review of Systems Vital Signs Vitals Vital Signs Date Time Temp Pulse Resp B/P Pulse Ox O2 Delivery O2 Flow Rate FiO2 03/14/17 11:47 93 20 100 30 03/14/17 08:00 97.7 156/74 Mechanical Ventilator 03/11/17 14:45 15.0 Intake and Output 03/13/17 03/13/17 03/14/17 15:00 23:00 07:00 Intake Total 650 ml 700 ml 678.0 ml Output Total 650 ml 540 ml 230 ml Balance 0 ml 160 ml 448.0 ml Exam nad, intubated but alert and respods to questions ctab, rrr, soft tender ruq Results Result Diagram: 03/14/17 0458 03/14/17 0500 Results 24 hrs Laboratory Tests Test 03/13/17 12:14 03/13/17 18:17 03/13/17 23:19 03/14/17 02:09 Bedside Glucose 159 153 132 128 Test 03/14/17 04:58 03/14/17 05:00 03/14/17 08:47 White Blood Count 11.6 H Red Blood Count 3.24 L Hemoglobin 9.4 L Hematocrit 29.1 L Mean Corpuscular Volume 89.8 Mean Corpuscular Hemoglobin 29.0 Mean Corpuscular Hemoglobin Concent 32.3 Red Cell Distribution Width 14.0 Platelet Count 233 # Mean Platelet Volume 10.5 H Neutrophils % 85.4 H Lymphocytes % 7.7 L Monocytes % 4.0 Eosinophils % 2.1 Basophils % 0.2 Nucleated Red Blood Cells % 0.2 H Neutrophils # 9.9 H Lymphocytes # 0.9 Monocytes # 0.5 Eosinophils # 0.3 Basophils # 0.0 Nucleated Red Blood Cells # 0.0 Phosphorus Level 2.7 Magnesium Level 1.6 L Sodium Level 144 Potassium Level 3.7 Chloride Level 112 H Carbon Dioxide Level 23 Anion Gap 13 Blood Urea Nitrogen 47 H Creatinine 1.04 H Glucose Level 125 # Calcium Level 8.6 Total Bilirubin 0.5 Direct Bilirubin 0.00 Indirect Bilirubin 0.5 Aspartate Amino Transf (AST/SGOT) 18 Alanine Aminotransferase (ALT/SGPT) 26 Alkaline Phosphatase 83 Total Protein 4.4 #L Albumin 2.0 L Globulin 2.40 Albumin/Globulin Ratio 0.83 Bedside Glucose 119 Medications Medications Current Medications Insulin Glargine (Lantus) 12 unit DAILY SC Last administered on 03/13/17 09: 01; Admin Dose 12 UNIT; Start 03/12/17 at 09:00 Acetaminophen (Tylenol Tab) 650 mg Q6H PRN PO MILD PAIN LEVEL 1-3; Start 03/11 at 21:15 Allopurinol (Zyloprim) 100 mg BID PO Last administered on 03/14/17 08:27; Admin Dose 100 MG; Start 03/11/17 at 23:15 Ferrous Sulfate (Ferrous Sulfate (Ec)) 325 mg DAILY PO ; Start 03/12/17 at 09: 00 Gabapentin (Neurontin) 300 mg TID PO Last administered on 03/14/17 08:27; Admin Dose 300 MG; Start 03/11/17 at 23:15 Lactulose (Enulose) 30 gm Q24H PO Last administered on 03/12/17 01:34; Admin Dose 30 GM; Start 03/11/17 at 23:30 Magnesium Hydroxide (Milk Of Mag) 30 ml DAILY PO Last administered on 08:27; Admin Dose 30 ML; Start 03/12/17 at 09:00 Calcium Carbonate (Tums) 500 mg TID PO Last administered on 03/14/17 08:27; Admin Dose 500 MG; Start 03/11/17 at 23:30 Atorvastatin Calcium (Lipitor) 20 mg DAILY@21 PO Last administered on 21:12; Admin Dose 20 MG; Start 03/11/17 at 23:30 Ondansetron HCl (Zofran Tab) 4 mg Q6H PRN PO NAUSEA AND/OR VOMITING; Start at 21:15 Pantoprazole (Protonix Tab) 40 mg DAILY@06 PO Last administered on 03/14/17 05:17; Admin Dose 40 MG; Start 03/12/17 at 06:00 Diagnostic Test (Pha) 1 ea 1 ea 02 XX Last administered on 03/12/17 02:14; Admin Dose 1 EA; Start 03/12/17 at 02:00 Sodium Chloride 1,000 ml @ 75 mls/hr [id number] IV Last administered on 05:17; Admin Dose 75 MLS/HR; Start 03/11/17 at 21:15 Meropenem/Sodium Chloride (Merrem 1 Gm/50 ml (Pmx)) 50 ml @ 100 mls/hr Q8 IVPB Last administered on 03/14/17 05:17; Admin Dose 100 MLS/HR; Start 03/11/17 at 23:30 Miscellaneous Information 1 ea NOTE XX ; Start 03/11/17 at 23:30 Glucose (Glutose) 15 gm Q15M PRN PO DECREASED GLUCOSE; Start 03/11/17 at 23:30 Glucose (Glutose) 22.5 gm Q15M PRN PO DECREASED GLUCOSE; Start 03/11/17 at 23: 30 Dextrose (D50w Syringe) 25 ml Q15M PRN IV DECREASED GLUCOSE; Start 03/11/17 at 23:30 Dextrose (D50w Syringe) 50 ml Q15M PRN IV DECREASED GLUCOSE; Start 03/11/17 at 23:30 Glucagon (Glucagen) 1 mg Q15M PRN IM DECREASED GLUCOSE; Start 03/11/17 at 23: 30 Glucose 15 gm 15 gm Q15M PRN BUCCAL DECREASED GLUCOSE; Start 03/11/17 at 23:30 Norepinephrine 16 mg/Dextrose 500 ml @ 1.87 mls/hr TITRATE IV Last administered on 03/12/17 11:20; Admin Dose 22.5 MLS/HR; Start 03/12/17 at 08: 30 Vancomycin HCl 250 ml @ 125 mls/hr Q24H IVPB Last administered on 03/13/17 18:17; Admin Dose 125 MLS/HR; Start 03/12/17 at 18:00 Fentanyl (Sublimaze) 100 ml @ 2.5 mls/hr TITRATE IV Last administered on 03/13 23:24; Admin Dose 1.5 MLS/HR; Start 03/13/17 at 12:30 Miscellaneous Information (*Rx Drug Level Order Reminder*) VANCO TROUGH @ 1, 700 ON ... ONCE ONCE XX ; Start 03/14/17 at 17:00; Stop 03/14/17 at 17:01 CELINE MOSLEY MD Mar 14, 2017 12:10
[2017-03-14] MEDS: INSULIN GLARGINE [LANtus] 3 ML PEN SC SCH (12:27)
--- NOTE | 2017-03-14 18:54 | RADRPT ---
Vent Rate: 65 bpm RR Interval: 0 msec [place] Interval: 188 msec QRS Duration: 98 msec QT Interval: 420 msec QTC Interval: 436 msec P-R-T [place]: 28 - 18 - 13 degrees Normal sinus rhythm Normal ECG Electronically Signed By: Barry Leon [id number]
[2017-03-14] MEDS: FENTAnyl (DRIP) 1000 mcg/100mL 100 ML IV SCH (19:31)
[2017-03-14] MEDS: VANCOMYCIN 1 GM in NS 250 ML IVPB SCH (19:56)
[2017-03-14] MEDS: ATORVASTATIN 20 MG TAB PO SCH (21:12)
[2017-03-14] MEDS: LACTULOSE 30ML CUP PO SCH (23:30)
[2017-03-15] VITALS (27 sets, daily range): BP systolic 80–130; BP diastolic 28–76; PULSE 64–106; RESP 12–26
[2017-03-15] MEDS: IPRATROPIUM (HFA) 12.9 GM INHALER INH SCH ×3 (01:08→11:43)
[2017-03-15] MEDS: ALBUTEROL HFA 8 GM INHALER INH SCH ×3 (01:08→11:43)
[2017-03-15] MEDS: ACCU-CHEK XX SCH (02:00)
[2017-03-15 04:52] LABS: BASOPHILS % 0.1 % (0.0-2.0); EOSINOPHILS # 0.2 10^3/ul (0.0-0.5); EOSINOPHILS % 2.2 % (0.0-7.0); HEMATOCRIT 29.4 % (37.0-47.0); HEMOGLOBIN 9.5 g/dl (12.0-16.0); LYMPHOCYTES # 0.9 10^3/ul (0.8-2.9); LYMPHOCYTES % 9.8 % (15.0-51.0); MEAN CORPUSCULAR HEMOGLOBIN 29.7 pg (29.0-33.0); MEAN CORPUSCULAR HGB CONC 32.3 g/dl (32.0-37.0); MEAN CORPUSCULAR VOLUME 91.9 fl (82.0-101.0); MEAN PLATELET VOLUME 11.6 fl (7.4-10.4); MONOCYTE # 0.5 10^3/ul (0.3-0.9); MONOCYTES % 5.2 % (0.0-11.0); NEUTROPHIL # 7.1 10^3/ul (1.6-7.5); NEUTROPHILS % 82.1 % (39.0-77.0); PLATELET COUNT 248 10^3/UL (140-415); RED CELL DISTRIBUTION WIDTH 14.4 % (11.5-14.5); WHITE BLOOD COUNT 8.7 10^3/ul (4.8-10.8)
[2017-03-15 05:29] LABS: ALBUMIN 2.3 g/dl (3.3-4.9); ALBUMIN/GLOBULIN RATIO 0.88; BILIRUBIN,INDIRECT 0.3 mg/dl (0-1.1); BILIRUBIN,TOTAL 0.3 mg/dl (0.2-1.3); CALCIUM 8.5 mg/dl (8.4-10.2); CREATININE 0.83 mg/dl (0.44-1.00); POTASSIUM 3.7 mmol/L (3.5-5.1); TOTAL PROTEIN 4.9 g/dl (6.1-8.1)
[2017-03-15] MEDS: PANTOPRAZOLE (EC) 40 MG TAB PO SCH ×2 (06:00→06:11)
[2017-03-15] MEDS: MEROPENEM 1 GM/50ML(PMX) 50 ML IVPB SCH ×3 (06:11→21:27)
[2017-03-15] MEDS: INSULIN ASPART [NOVOLOG] 3 ML PEN SC SCH ×4 (07:35→21:00)
[2017-03-15] MEDS: SOD CHLORIDE 0.9% 1,000 ML IV SCH (08:52)
[2017-03-15] MEDS: BALSAM PERU/CASTOR OIL 60 GM TUBE TOP SCH (09:00)
[2017-03-15] MEDS: FERROUS SULFATE (EC) 325 MG TAB PO SCH (09:00)
[2017-03-15] MEDS: MAGNESIUM HYDROXIDE 30ML CUP PO SCH (09:00)
[2017-03-15] MEDS: ALLOPURINOL 100 MG TAB PO SCH ×2 (09:00→21:27)
[2017-03-15] MEDS: CALCIUM CARBONATE 500 MG CHEW TAB PO SCH ×3 (09:00→21:27)
[2017-03-15] MEDS: GABAPENTIN 300 MG CAP PO SCH ×3 (09:00→21:27)
--- NOTE | 2017-03-15 09:06 | RADRPT ---
PROCEDURE: XR Chest. CLINICAL INDICATION: Pneumonia . Congestive heart failure TECHNIQUE: Single frontal chest x-ray. COMPARISON: 03/13/2017 FINDINGS: Endotracheal tube, nasogastric tube, right jugular central venous catheter in place unchanged. . The re is cardiomegaly with increase hilar vascular and interstitial congestion. Low lung volumes with b ibasilar atelectasis is present.. There are no new infiltrates.. The osseous structures are intact. IMPRESSION: Tubes and lines unchanged. Low lung volumes with cardiomegaly and increased hilar vascular and interstitial congestive changes. . RPTAT: QQ .Lance Merchant MD, Date Time Electronically viewed and signed by .Lance Merchant MD, on 03/15/2017 09:06 .L/
--- NOTE | 2017-03-15 10:06 | CONS ---
Date/Time of Note Date/Time of Note DATE: 03/15/17 TIME: 10:05 Consult Date/Type/Reason Admit Date/Time Mar 11, 2017 at 18:58 Initial Consult Date 03/13/17 Type of Consultation: Pulmonary/critical care Subjective Percutaneous cholecystostomy tube placed this morning. Continues intubation mechanical ventilation. Remains awake alert and oriented. Objective Vital Signs Date Time Temp Pulse Resp B/P Pulse Ox O2 Delivery O2 Flow Rate FiO2 03/15/17 07:15 71 14 100 30 03/15/17 06:00 127/68 Mechanical Ventilator 03/15/17 04:00 97.8 03/11/17 14:45 15.0 Intake and Output 03/14/17 03/14/17 03/15/17 15:00 23:00 07:00 Intake Total 655 ml 1045 ml 585.0 ml Output Total 275 ml 350 ml 370 ml Balance 380 ml 695 ml 215.0 ml Exam PHYSICAL EXAMINATION: GENERAL: Morbidly obese lady, opens eyes follows commands on mechanical ventilation remains awake and alert. VITAL SIGNS: As above. HEENT: Dry mucous membranes. Pupils equal and reactive to light. CARDIAC: S1, S2, no added sounds or murmurs. CHEST: Diminished air entry bilaterally. ABDOMEN: Tender right upper quadrant. EXTREMITIES: No cyanosis, clubbing, edema. NEUROLOGIC: Generalized weakness. Results/Medications Result Diagram: 03/15/17 0400 03/15/17 0415 Results 24 hrs Laboratory Tests Test 03/14/17 12:24 03/14/17 17:45 03/14/17 17:47 03/14/17 21:29 Bedside Glucose 140 124 116 Vancomycin Level Trough 15.4 Test 03/15/17 04:00 03/15/17 04:15 White Blood Count 8.7 # Red Blood Count 3.20 L Hemoglobin 9.5 L Hematocrit 29.4 L Mean Corpuscular Volume 91.9 Mean Corpuscular Hemoglobin 29.7 Mean Corpuscular Hemoglobin Concent 32.3 Red Cell Distribution Width 14.4 Platelet Count 248 Mean Platelet Volume 11.6 H Neutrophils % 82.1 H Lymphocytes % 9.8 L Monocytes % 5.2 Eosinophils % 2.2 Basophils % 0.1 Nucleated Red Blood Cells % 0.0 Neutrophils # 7.1 Lymphocytes # 0.9 Monocytes # 0.5 Eosinophils # 0.2 Basophils # 0.0 Nucleated Red Blood Cells # 0.0 Sodium Level 146 H Potassium Level 3.7 Chloride Level 113 H Carbon Dioxide Level 24 Anion Gap 13 Blood Urea Nitrogen 37 H Creatinine 0.83 Glucose Level 120 Calcium Level 8.5 Total Bilirubin 0.3 Direct Bilirubin 0.00 Indirect Bilirubin 0.3 Aspartate Amino Transf (AST/SGOT) 15 Alanine Aminotransferase (ALT/SGPT) 26 Alkaline Phosphatase 79 Total Protein 4.9 L Albumin 2.3 L Globulin 2.60 Albumin/Globulin Ratio 0.88 Medications Current Medications Insulin Glargine (Lantus) 12 unit DAILY SC Last administered on 03/14/17 12: 27; Admin Dose 12 UNIT; Start 03/12/17 at 09:00 Acetaminophen (Tylenol Tab) 650 mg Q6H PRN PO MILD PAIN LEVEL 1-3; Start 03/11 at 21:15 Allopurinol (Zyloprim) 100 mg BID PO Last administered on 03/14/17 21:12; Admin Dose 100 MG; Start 03/11/17 at 23:15 Ferrous Sulfate (Ferrous Sulfate (Ec)) 325 mg DAILY PO ; Start 03/12/17 at 09: 00 Gabapentin (Neurontin) 300 mg TID PO Last administered on 03/14/17 21:12; Admin Dose 300 MG; Start 03/11/17 at 23:15 Lactulose (Enulose) 30 gm Q24H PO Last administered on 03/12/17 01:34; Admin Dose 30 GM; Start 03/11/17 at 23:30 Magnesium Hydroxide (Milk Of Mag) 30 ml DAILY PO Last administered on 08:27; Admin Dose 30 ML; Start 03/12/17 at 09:00 Calcium Carbonate (Tums) 500 mg TID PO Last administered on 03/14/17 21:12; Admin Dose 500 MG; Start 03/11/17 at 23:30 Atorvastatin Calcium (Lipitor) 20 mg DAILY@21 PO Last administered on 21:12; Admin Dose 20 MG; Start 03/11/17 at 23:30 Ondansetron HCl (Zofran Tab) 4 mg Q6H PRN PO NAUSEA AND/OR VOMITING; Start at 21:15 Pantoprazole (Protonix Tab) 40 mg DAILY@06 PO Last administered on 03/14/17 05:17; Admin Dose 40 MG; Start 03/12/17 at 06:00 Diagnostic Test (Pha) 1 ea 1 ea 02 XX Last administered on 03/12/17 02:14; Admin Dose 1 EA; Start 03/12/17 at 02:00 Sodium Chloride 1,000 ml @ 75 mls/hr [id number] IV Last administered on 08:52; Admin Dose 75 MLS/HR; Start 03/11/17 at 21:15 Meropenem/Sodium Chloride (Merrem 1 Gm/50 ml (Pmx)) 50 ml @ 100 mls/hr Q8 IVPB Last administered on 03/15/17 06:11; Admin Dose 100 MLS/HR; Start 03/11/17 at 23:30 Miscellaneous Information 1 ea NOTE XX ; Start 03/11/17 at 23:30 Glucose (Glutose) 15 gm Q15M PRN PO DECREASED GLUCOSE; Start 03/11/17 at 23:30 Glucose (Glutose) 22.5 gm Q15M PRN PO DECREASED GLUCOSE; Start 03/11/17 at 23: 30 Dextrose (D50w Syringe) 25 ml Q15M PRN IV DECREASED GLUCOSE; Start 03/11/17 at 23:30 Dextrose (D50w Syringe) 50 ml Q15M PRN IV DECREASED GLUCOSE; Start 03/11/17 at 23:30 Glucagon (Glucagen) 1 mg Q15M PRN IM DECREASED GLUCOSE; Start 03/11/17 at 23: 30 Glucose 15 gm 15 gm Q15M PRN BUCCAL DECREASED GLUCOSE; Start 03/11/17 at 23:30 Norepinephrine 16 mg/Dextrose 500 ml @ 1.87 mls/hr TITRATE IV Last administered on 03/12/17 11:20; Admin Dose 22.5 MLS/HR; Start 03/12/17 at 08: 30 Vancomycin HCl 250 ml @ 125 mls/hr Q24H IVPB Last administered on 03/14/17 19:56; Admin Dose 125 MLS/HR; Start 03/12/17 at 18:00 Fentanyl (Sublimaze) 100 ml @ 2.5 mls/hr TITRATE IV Last administered on 03/14 19:31; Admin Dose 5 MLS/HR; Start 03/13/17 at 12:30 Assessment/Plan Chief Complaint/Hosp Course IMPRESSION: 1. Hypoxemic respiratory failure with possible healthcare-associated pneumonia versus aspiration. 2. Non-ST elevation myocardial infarction. 3. Acute cholecystitis status post cholecystostomy tube PLAN: 1. Continued mechanical ventilation. Will attempt CPAP trial again today. 2. Broad-spectrum antibiotics. 3. Discussed with general surgery. Percutaneous drainage. 4. Deep venous thrombosis and GI prophylaxis. 5. Glycemic management per primary team. Critical care time 40 minutes. Problems: RAMY CAMPBELL MD, [facility] Mar 15, 2017 10:06
--- NOTE | 2017-03-15 11:22 | PN ---
Date/Time of Note Date/Time of Note DATE: 03/15/17 TIME: 11:20 Assessment/Plan VTE Prophylaxis VTE Prophylaxis Intervention: heparin Lines/Catheters [facility]from [facility] Central Line Central line still needed: Yes Urinary Cath still in place: Yes Reason Cath still needed: other (indicate) (Patient on a ventilator and is not mobile) Assessment/Plan Chief Complaint/Hosp Course The patient is a 72-year-old morbidly obese diabetic female who resides in a residential facility. She was admitted 2 days ago because of respiratory failure, and required intubation. She is still intubated. He has had a low- grade white blood cell count in the 15,000 range. While on the ventilator the patient complained of abdominal pain. A CT scan showed a distended gallbladder with stones and findings suggestive of cholecystitis. Surgical consultation was requested in that regard. Problems: Assessment/Plan Leukocytosis is resolved Plan: Continue medical management Subjective 24 Hr Interval Summary Free Text/Dictation Status post successful placement of percutaneous cholecystostomy. The patient remains intubated though awake and alert Exam/Review of Systems Vital Signs Vitals Vital Signs Date Time Temp Pulse Resp B/P Pulse Ox O2 Delivery O2 Flow Rate FiO2 03/15/17 11:00 95 25 103/75 97 Mechanical Ventilator 03/15/17 07:15 30 03/15/17 04:00 97.8 03/11/17 14:45 15.0 Intake and Output 03/14/17 03/14/17 03/15/17 14:59 22:59 06:59 Intake Total 654 ml 1050 ml 660.0 ml Output Total 275 ml 320 ml 400 ml Balance 379 ml 730 ml 260.0 ml Results Result Diagram: 03/15/17 0400 03/15/17 0415 Results 24 hrs Laboratory Tests Test 03/14/17 12:24 03/14/17 17:45 03/14/17 17:47 03/14/17 21:29 Bedside Glucose 140 124 116 Vancomycin Level Trough 15.4 Test 03/15/17 04:00 03/15/17 04:15 White Blood Count 8.7 # Red Blood Count 3.20 L Hemoglobin 9.5 L Hematocrit 29.4 L Mean Corpuscular Volume 91.9 Mean Corpuscular Hemoglobin 29.7 Mean Corpuscular Hemoglobin Concent 32.3 Red Cell Distribution Width 14.4 Platelet Count 248 Mean Platelet Volume 11.6 H Neutrophils % 82.1 H Lymphocytes % 9.8 L Monocytes % 5.2 Eosinophils % 2.2 Basophils % 0.1 Nucleated Red Blood Cells % 0.0 Neutrophils # 7.1 Lymphocytes # 0.9 Monocytes # 0.5 Eosinophils # 0.2 Basophils # 0.0 Nucleated Red Blood Cells # 0.0 Sodium Level 146 H Potassium Level 3.7 Chloride Level 113 H Carbon Dioxide Level 24 Anion Gap 13 Blood Urea Nitrogen 37 H Creatinine 0.83 Glucose Level 120 Calcium Level 8.5 Total Bilirubin 0.3 Direct Bilirubin 0.00 Indirect Bilirubin 0.3 Aspartate Amino Transf (AST/SGOT) 15 Alanine Aminotransferase (ALT/SGPT) 26 Alkaline Phosphatase 79 Total Protein 4.9 L Albumin 2.3 L Globulin 2.60 Albumin/Globulin Ratio 0.88 Medications Medications Current Medications Insulin Glargine (Lantus) 12 unit DAILY SC Last administered on 03/14/17 12: 27; Admin Dose 12 UNIT; Start 03/12/17 at 09:00 Acetaminophen (Tylenol Tab) 650 mg Q6H PRN PO MILD PAIN LEVEL 1-3; Start 03/11 at 21:15 Allopurinol (Zyloprim) 100 mg BID PO Last administered on 03/14/17 21:12; Admin Dose 100 MG; Start 03/11/17 at 23:15 Ferrous Sulfate (Ferrous Sulfate (Ec)) 325 mg DAILY PO ; Start 03/12/17 at 09: 00 Gabapentin (Neurontin) 300 mg TID PO Last administered on 03/14/17 21:12; Admin Dose 300 MG; Start 03/11/17 at 23:15 Lactulose (Enulose) 30 gm Q24H PO Last administered on 03/12/17 01:34; Admin Dose 30 GM; Start 03/11/17 at 23:30 Magnesium Hydroxide (Milk Of Mag) 30 ml DAILY PO Last administered on 08:27; Admin Dose 30 ML; Start 03/12/17 at 09:00 Calcium Carbonate (Tums) 500 mg TID PO Last administered on 03/14/17 21:12; Admin Dose 500 MG; Start 03/11/17 at 23:30 Atorvastatin Calcium (Lipitor) 20 mg DAILY@21 PO Last administered on 21:12; Admin Dose 20 MG; Start 03/11/17 at 23:30 Ondansetron HCl (Zofran Tab) 4 mg Q6H PRN PO NAUSEA AND/OR VOMITING; Start at 21:15 Pantoprazole (Protonix Tab) 40 mg DAILY@06 PO Last administered on 03/14/17 05:17; Admin Dose 40 MG; Start 03/12/17 at 06:00 Diagnostic Test (Pha) 1 ea 1 ea 02 XX Last administered on 03/12/17 02:14; Admin Dose 1 EA; Start 03/12/17 at 02:00 Sodium Chloride 1,000 ml @ 75 mls/hr [id number] IV Last administered on 08:52; Admin Dose 75 MLS/HR; Start 03/11/17 at 21:15 Meropenem/Sodium Chloride (Merrem 1 Gm/50 ml (Pmx)) 50 ml @ 100 mls/hr Q8 IVPB Last administered on 03/15/17 06:11; Admin Dose 100 MLS/HR; Start 03/11/17 at 23:30 Miscellaneous Information 1 ea NOTE XX ; Start 03/11/17 at 23:30 Glucose (Glutose) 15 gm Q15M PRN PO DECREASED GLUCOSE; Start 03/11/17 at 23:30 Glucose (Glutose) 22.5 gm Q15M PRN PO DECREASED GLUCOSE; Start 03/11/17 at 23: 30 Dextrose (D50w Syringe) 25 ml Q15M PRN IV DECREASED GLUCOSE; Start 03/11/17 at 23:30 Dextrose (D50w Syringe) 50 ml Q15M PRN IV DECREASED GLUCOSE; Start 03/11/17 at 23:30 Glucagon (Glucagen) 1 mg Q15M PRN IM DECREASED GLUCOSE; Start 03/11/17 at 23: 30 Glucose 15 gm 15 gm Q15M PRN BUCCAL DECREASED GLUCOSE; Start 03/11/17 at 23:30 Norepinephrine 16 mg/Dextrose 500 ml @ 1.87 mls/hr TITRATE IV Last administered on 03/12/17 11:20; Admin Dose 22.5 MLS/HR; Start 03/12/17 at 08: 30 Vancomycin HCl 250 ml @ 125 mls/hr Q24H IVPB Last administered on 03/14/17 19:56; Admin Dose 125 MLS/HR; Start 03/12/17 at 18:00 Fentanyl (Sublimaze) 100 ml @ 2.5 mls/hr TITRATE IV Last administered on 03/14t 19:31; Admin Dose 5 MLS/HR; Start 03/13/17 at 12:30 DEJA FLORENCE MD Mar 15, 2017 11:22
[2017-03-15] MEDS: INSULIN GLARGINE [LANtus] 3 ML PEN SC SCH (11:35)
[2017-03-15 12:07] LABS: AADO2 Arterial 48.8 mmHg (7.0-24.0); Allen Test ACCEPTAB; Arterial Base Excess -3.5 mmol/L (-3.0-3); Arterial COHb 0.2 % (0.0-3.0); Arterial Fraction of Oxyhgb 94.3 % (93.0-99.0); Arterial HCO3 21.9 mmol/L (22.0-26.0); Arterial MetHb 0.2 % (0.0-1.5); Arterial Total Hemglobin 11.1 g/dl (12.0-18.0); Blood Gas PS 10; MODE CPAP
--- NOTE | 2017-03-15 12:24 | PN ---
Date/Time of Note Date/Time of Note DATE: 03/15/17 TIME: 12:21 Assessment/Plan VTE Prophylaxis VTE Prophylaxis Intervention: LMWH Lines/Catheters IV Catheter Type (from Nrsg): Central Line Central line still needed: Yes (critical illness) Urinary Cath still in place: Yes Reason Cath still needed: other (indicate) (critical illness) Assessment/Plan Assessment/Plan 1. pulm: resp failure, new trial of bipap, cont current 2. GI: cholecystitis, s/p cholecystostomy tube, (b) increase free water for increasing Na and BUN, add D5 1/2ns 3. renal:arf resolved 4. cards: demand related increase in trop, cont current Subjective 24 Hr Interval Summary Free Text/Dictation nad, no complaint, of pain Exam/Review of Systems Vital Signs Vitals Vital Signs Date Time Temp Pulse Resp B/P Pulse Ox O2 Delivery O2 Flow Rate FiO2 03/15/17 11:35 84 100 25 03/15/17 11:00 25 103/75 Mechanical Ventilator 03/15/17 04:00 97.8 03/11/17 14:45 15.0 Intake and Output 03/14/17 03/14/17 03/15/17 15:00 23:00 07:00 Intake Total 655 ml 1045 ml 585.0 ml Output Total 275 ml 350 ml 370 ml Balance 380 ml 695 ml 215.0 ml Exam nad, soft nt, ctab ant, rrr, cholecystostomy draining dark bile Results Result Diagram: 03/15/17 0400 03/15/17 0415 Results 24 hrs Laboratory Tests Test 03/14/17 12:24 03/14/17 17:45 03/14/17 17:47 03/14/17 21:29 Bedside Glucose 140 124 116 Vancomycin Level Trough 15.4 Test 03/15/17 04:00 03/15/17 04:15 03/15/17 12:00 White Blood Count 8.7 # Red Blood Count 3.20 L Hemoglobin 9.5 L Hematocrit 29.4 L Mean Corpuscular Volume 91.9 Mean Corpuscular Hemoglobin 29.7 Mean Corpuscular Hemoglobin Concent 32.3 Red Cell Distribution Width 14.4 Platelet Count 248 Mean Platelet Volume 11.6 H Neutrophils % 82.1 H Lymphocytes % 9.8 L Monocytes % 5.2 Eosinophils % 2.2 Basophils % 0.1 Nucleated Red Blood Cells % 0.0 Neutrophils # 7.1 Lymphocytes # 0.9 Monocytes # 0.5 Eosinophils # 0.2 Basophils # 0.0 Nucleated Red Blood Cells # 0.0 Sodium Level 146 H Potassium Level 3.7 Chloride Level 113 H Carbon Dioxide Level 24 Anion Gap 13 Blood Urea Nitrogen 37 H Creatinine 0.83 Glucose Level 120 Calcium Level 8.5 Total Bilirubin 0.3 Direct Bilirubin 0.00 Indirect Bilirubin 0.3 Aspartate Amino Transf (AST/SGOT) 15 Alanine Aminotransferase (ALT/SGPT) 26 Alkaline Phosphatase 79 Total Protein 4.9 L Albumin 2.3 L Globulin 2.60 Albumin/Globulin Ratio 0.88 Blood Gas Specimen Source Blood arterial Arterial Blood Date Drawn 03/15/2017 12:00:07 PM Arterial Blood pH (Temp corrected) 7.348 L Arterial Blood pCO2 (Temp correct) 40.8 Arterial Blood pO2 (Temp corrected) 81.0 Arterial Blood HCO3 21.9 L Arterial Blood Base Excess -3.5 L Arterial Blood Oxygen Saturation 94.7 L Bill Test ACCEPTAB Arterial Blood Gas Puncture Site Right Radial Arterial Blood Carboxyhemoglobin 0.2 Arterial Blood Methemoglobin 0.2 Blood Gas A-a O2 Differential 48.8 H Oxyhemoglobin Percent 94.3 Total Hemoglobin 11.1 L Blood Gas Temperature 37.0 Blood Gas Modality CPAP FiO2 25.0 Blood Gas Low PEEP Setting 5.0 Blood Gas Pressure Support 10 Blood Gas Notified Whom WM. VIOLA SANDHU Blood Gas Notified Time 03/15/2017 12:07:04 PM Medications Medications Current Medications Insulin Glargine (Lantus) 12 unit DAILY SC Last administered on 03/15/17 11: 35; Admin Dose 12 UNIT; Start 03/12/17 at 09:00 Acetaminophen (Tylenol Tab) 650 mg Q6H PRN PO MILD PAIN LEVEL 1-3; Start 03/11 at 21:15 Allopurinol (Zyloprim) 100 mg BID PO Last administered on 03/14/17 21:12; Admin Dose 100 MG; Start 03/11/17 at 23:15 Ferrous Sulfate (Ferrous Sulfate (Ec)) 325 mg DAILY PO ; Start 03/12/17 at 09: 00 Gabapentin (Neurontin) 300 mg TID PO Last administered on 03/14/17 21:12; Admin Dose 300 MG; Start 03/11/17 at 23:15 Lactulose (Enulose) 30 gm Q24H PO Last administered on 03/12/17 01:34; Admin Dose 30 GM; Start 03/11/17 at 23:30 Magnesium Hydroxide (Milk Of Mag) 30 ml DAILY PO Last administered on 08:27; Admin Dose 30 ML; Start 03/12/17 at 09:00 Calcium Carbonate (Tums) 500 mg TID PO Last administered on 03/14/17 21:12; Admin Dose 500 MG; Start 03/11/17 at 23:30 Atorvastatin Calcium (Lipitor) 20 mg DAILY@21 PO Last administered on 21:12; Admin Dose 20 MG; Start 03/11/17 at 23:30 Ondansetron HCl (Zofran Tab) 4 mg Q6H PRN PO NAUSEA AND/OR VOMITING; Start at 21:15 Pantoprazole (Protonix Tab) 40 mg DAILY@06 PO Last administered on 03/14/17 05:17; Admin Dose 40 MG; Start 03/12/17 at 06:00 Diagnostic Test (Pha) 1 ea 1 ea 02 XX Last administered on 03/12/17 02:14; Admin Dose 1 EA; Start 03/12/17 at 02:00 Sodium Chloride 1,000 ml @ 75 mls/hr [id number] IV Last administered on 08:52; Admin Dose 75 MLS/HR; Start 03/11/17 at 21:15 Meropenem/Sodium Chloride (Merrem 1 Gm/50 ml (Pmx)) 50 ml @ 100 mls/hr Q8 IVPB Last administered on 03/15/17 06:11; Admin Dose 100 MLS/HR; Start 03/11/17 at 23:30 Miscellaneous Information 1 ea NOTE XX ; Start 03/11/17 at 23:30 Glucose (Glutose) 15 gm Q15M PRN PO DECREASED GLUCOSE; Start 03/11/17 at 23:30 Glucose (Glutose) 22.5 gm Q15M PRN PO DECREASED GLUCOSE; Start 03/11/17 at 23: 30 Dextrose (D50w Syringe) 25 ml Q15M PRN IV DECREASED GLUCOSE; Start 03/11/17 at 23:30 Dextrose (D50w Syringe) 50 ml Q15M PRN IV DECREASED GLUCOSE; Start 03/11/17 at 23:30 Glucagon (Glucagen) 1 mg Q15M PRN IM DECREASED GLUCOSE; Start 03/11/17 at 23: 30 Glucose 15 gm 15 gm Q15M PRN BUCCAL DECREASED GLUCOSE; Start 03/11/17 at 23:30 Norepinephrine 16 mg/Dextrose 500 ml @ 1.87 mls/hr TITRATE IV Last administered on 03/12/17 11:20; Admin Dose 22.5 MLS/HR; Start 03/12/17 at 08: 30 Vancomycin HCl 250 ml @ 125 mls/hr Q24H IVPB Last administered on 03/14/17 19:56; Admin Dose 125 MLS/HR; Start 03/12/17 at 18:00 Fentanyl (Sublimaze) 100 ml @ 2.5 mls/hr TITRATE IV Last administered on 03/14 19:31; Admin Dose 5 MLS/HR; Start 03/13/17 at 12:30 CELINE MOSLEY MD Mar 15, 2017 12:24
[2017-03-15] MEDS: HYDROCODONE/APAP (5/325) TAB PO PRN (17:16)
[2017-03-15] MEDS: D5W-0.45 NACL + KCL 40 MEQ 1,000 ML IV SCH (17:21)
[2017-03-15] MEDS: VANCOMYCIN 1 GM in NS 250 ML IVPB SCH (17:22)
[2017-03-15] MEDS: ATORVASTATIN 20 MG TAB PO SCH (21:27)
[2017-03-16] VITALS (28 sets, daily range): BP systolic 94–151; BP diastolic 44–120; PULSE 62–158; RESP 18–37; Ht 170.2 cm; Wt 140.0 kg
[2017-03-16] MEDS: LACTULOSE 30ML CUP PO SCH ×2 (00:07→22:33)
[2017-03-16] MEDS: HYDROCODONE/APAP (5/325) TAB PO PRN ×3 (00:08→14:28)
[2017-03-16] MEDS: ACCU-CHEK XX SCH (02:00)
[2017-03-16] MEDS: ALBUTEROL 0.083% (NEB) 2.5 MG/3 ML AMP NEB PRN (03:09)
[2017-03-16 06:13] LABS: BASOPHILS % 0.3 % (0.0-2.0); EOSINOPHILS # 0.3 10^3/ul (0.0-0.5); EOSINOPHILS % 3.5 % (0.0-7.0); HEMATOCRIT 30.4 % (37.0-47.0); HEMOGLOBIN 9.6 g/dl (12.0-16.0); LYMPHOCYTES # 1.1 10^3/ul (0.8-2.9); LYMPHOCYTES % 14.1 % (15.0-51.0); MEAN CORPUSCULAR HEMOGLOBIN 29.2 pg (29.0-33.0); MEAN CORPUSCULAR HGB CONC 31.6 g/dl (32.0-37.0); MEAN CORPUSCULAR VOLUME 92.4 fl (82.0-101.0); MONOCYTE # 0.6 10^3/ul (0.3-0.9); NEUTROPHIL # 5.6 10^3/ul (1.6-7.5); NEUTROPHILS % 73.4 % (39.0-77.0); PLATELET COUNT 247 10^3/UL (140-415); RED BLOOD COUNT 3.29 10^6/ul (4.20-5.40); RED CELL DISTRIBUTION WIDTH 14.7 % (11.5-14.5); WHITE BLOOD COUNT 7.6 10^3/ul (4.8-10.8)
[2017-03-16] MEDS: MEROPENEM 1 GM/50ML(PMX) 50 ML IVPB SCH ×3 (06:36→22:34)
[2017-03-16] MEDS: PANTOPRAZOLE (EC) 40 MG TAB PO SCH (06:36)
[2017-03-16 07:02] LABS: CALCIUM 8.9 mg/dl (8.4-10.2); CREATININE 0.79 mg/dl (0.44-1.00); MAGNESIUM 1.8 mg/dl (1.7-2.5); PHOSPHORUS 2.7 mg/dl (2.5-4.9); POTASSIUM 3.9 mmol/L (3.5-5.1)
[2017-03-16] MEDS: INSULIN ASPART [NOVOLOG] 3 ML PEN SC SCH ×4 (07:35→21:00)
[2017-03-16] MEDS: D5W-0.45 NACL + KCL 40 MEQ 1,000 ML IV SCH (07:45)
--- NOTE | 2017-03-16 08:28 | RADRPT ---
PROCEDURE: XR Chest. CLINICAL INDICATION: Cough TECHNIQUE: Single AP view of the chest was obtained COMPARISON: 03/12/2017 FINDINGS: Heart is borderline enlarged. Aorta is tortuous and atherosclerotic. Elevation right hemidiaphragm. Bibasilar patchy opacities are stable. Right central line is unchanged. Interval removal of endotrac heal and enteric tubes. IMPRESSION: Mild cardiomegaly. Bibasilar atelectasis. Possible trace pleural effusions. RPTAT: PP Physician Kirsten Date Time Electronically viewed and signed by Daphne Avendano Physician on 03/16/2017 08:28 [place]/
[2017-03-16] MEDS: ALLOPURINOL 100 MG TAB PO SCH ×2 (09:47→21:07)
[2017-03-16] MEDS: CALCIUM CARBONATE 500 MG CHEW TAB PO SCH ×3 (09:48→21:00)
[2017-03-16] MEDS: MAGNESIUM HYDROXIDE 30ML CUP PO SCH (09:48)
[2017-03-16] MEDS: GABAPENTIN 300 MG CAP PO SCH ×3 (09:48→21:00)
[2017-03-16] MEDS: FERROUS SULFATE (EC) 325 MG TAB PO SCH (09:48)
[2017-03-16] MEDS: INSULIN GLARGINE [LANtus] 3 ML PEN SC SCH (09:51)
[2017-03-16] MEDS: BALSAM PERU/CASTOR OIL 60 GM TUBE TOP SCH (09:52)
[2017-03-16] MEDS ORDERED: oxyCODONE (CR) 10 MG TAB [oxyCONTIN] PO PRN (10:00)
--- NOTE | 2017-03-16 10:00 | PN ---
Date/Time of Note Date/Time of Note DATE: 03/16/17 TIME: 09:32 Assessment/Plan VTE Prophylaxis VTE Prophylaxis Intervention: SCD's Lines/Catheters IV Catheter Type (from Nrsg): Central Line Central line still needed: Yes (For IV access) Urinary Cath still in place: Yes Reason Cath still needed: other (indicate) (monitor UOP ) Assessment/Plan Assessment/Plan 71-year-old female with: 1. Acute cholecystitis, status post cholecystostomy tube placement yesterday morning. Continue current IV antibiotics. Tolerating p.o. Follow-up further surgical recommendations, Dr Leavitt. 2. Altered level of consciousness secondary to acute hypoxemic +/- hypercapnic respiratory failure. Resolved. Mental status back to baseline. 3. S/p acute respiratory failure 2ry to right lower lobe pneumonia, sepsis and likely COPD exacerbation, patient extubated yesterday, on nasal cannula and stable. Continue current antibiotics, transfer to telemetry. Pulmonary following patient may need CPAP at night. Continue respiratory/pulmonary toilet, MDI/nebulizer treatments 4. S/p sepsis, septic shock likely secondary to pneumonia and/or acute cholecystitis. Patient now stable, WBC has normalized over the past 2 days, vital signs and blood pressure stable. She is tolerating p.o., will discontinue IV fluids. Blood cultures 1/2 with resistant coagulase-negative staph, likely contaminant, repeat blood cultures today. 5. Elevated troponin resolved, likely secondary to renal insufficiency but also demand ischemia. 2D echocardiogram with preserved EF and no wall motion abnormalities. 6. Acute kidney injury on chronic kidney disease. Renal function back to normal Since patient tolerating p.o. well, discontinue IV fluids. Monitor renal function. 7. Super morbid obesity with possibly obstructive sleep apnea. May need CPAP at night. 8. Diastolic congestive heart failure with reported severe septal hypertrophy on previous echocardiogram and also mild to moderate mitral stenosis. Remains stable, will keep on the dry side. 9. Diabetes mellitus. Last A1c 7.3, BG better this AM on current regimen. Continue current insulin regimen, recheck A1c is 6.0. 10. Mild Anemia and thrombocytopenia: Stable hemoglobin so far, patient has been on ferrous sulfate supplements. 11. Chronic pain, narcotic dependent. Resume OxyContin for pain control. 12. Diabetic neuropathy. Resume Neurontin. Prophylaxis. Heparin subcu for DVT prophylaxis and Protonix for GI prophylaxis. DISPOSITION: D/c rectal tube. Transfer to telemetry. PT eval Subjective 24 Hr Interval Summary Free Text/Dictation Patient doing well today, she has been extubated yesterday after placement of her cholecystostomy tube. Afebrile, tolerating p.o., WBC down to normal. Will continue broad-spectrum antibiotics likely to discontinue vancomycin and continue meropenem. Exam/Review of Systems Vital Signs Vitals Vital Signs Date Time Temp Pulse Resp B/P Pulse Ox O2 Delivery O2 Flow Rate FiO2 03/16/17 08:00 Nasal Cannula 1.0 03/16/17 08:00 92 25 122/79 91 03/16/17 03:10 21 03/16/17 00:00 98.0 Intake and Output 03/15/17 03/15/17 03/16/17 15:00 23:00 07:00 Intake Total 100 ml 540 ml 470 ml Output Total 400 ml 810 ml 555 ml Balance -300 ml -270 ml -85 ml Exam Constitutional: alert, obese (Morbid), oriented, well developed Respiratory: clear to auscultation, normal air movement Cardiovascular: nl pulses, regular rate and rhythm Gastrointestinal: soft, tender (Right upper quadrant, epigastric.) Musculoskeletal: nl extremities to inspection Extremities: normal pulses, other (No edema, clubbing or cyanosis) Neurological: COOK SEAFOOD II-XII intact, nl mental status, nl speech, other ( Generalized weakness) Results Result Diagram: 03/16/17 0500 03/16/17 0500 Results 24 hrs Laboratory Tests Test 03/15/17 12:00 03/15/17 21:29 03/16/17 05:00 03/16/17 08:01 Blood Gas Specimen Source Blood arterial Arterial Blood Date Drawn 03/15/2017 12:00:07 PM Arterial Blood pH (Temp corrected) 7.348 L Arterial Blood pCO2 (Temp correct) 40.8 Arterial Blood pO2 (Temp corrected) 81.0 Arterial Blood HCO3 21.9 L Arterial Blood Base Excess -3.5 L Arterial Blood Oxygen Saturation 94.7 L Bill Test ACCEPTAB Arterial Blood Gas Puncture Site Right Radial Arterial Blood Carboxyhemoglobin 0.2 Arterial Blood Methemoglobin 0.2 Blood Gas A-a O2 Differential 48.8 H Oxyhemoglobin Percent 94.3 Total Hemoglobin 11.1 L Blood Gas Temperature 37.0 Blood Gas Modality CPAP FiO2 25.0 Blood Gas Low PEEP Setting 5.0 Blood Gas Pressure Support 10 Blood Gas Notified Whom WM. VIOLA SANDHU Blood Gas Notified Time 03/15/2017 12:07:04 PM Bedside Glucose 140 126 White Blood Count 7.6 Red Blood Count 3.29 L Hemoglobin 9.6 L Hematocrit 30.4 L Mean Corpuscular Volume 92.4 Mean Corpuscular Hemoglobin 29.2 Mean Corpuscular Hemoglobin Concent 31.6 L Red Cell Distribution Width 14.7 H Platelet Count 247 Mean Platelet Volume 11.0 H Neutrophils % 73.4 Lymphocytes % 14.1 L Monocytes % 8.0 Eosinophils % 3.5 Basophils % 0.3 Nucleated Red Blood Cells % 0.0 Neutrophils # 5.6 Lymphocytes # 1.1 Monocytes # 0.6 Eosinophils # 0.3 Basophils # 0.0 Nucleated Red Blood Cells # 0.0 Sodium Level 145 H Potassium Level 3.9 Chloride Level 112 H Carbon Dioxide Level 27 Anion Gap 10 Blood Urea Nitrogen 28 H Creatinine 0.79 Glucose Level 129 Calcium Level 8.9 Phosphorus Level 2.7 Magnesium Level 1.8 Imaging Free Text/Dictation PROCEDURE: XR Chest. CLINICAL INDICATION: Cough TECHNIQUE: Single AP view of the chest was obtained COMPARISON: 03/12/2017 FINDINGS: Heart is borderline enlarged. Aorta is tortuous and atherosclerotic. Elevation right hemidiaphragm. Bibasilar patchy opacities are stable. Right central line is unchanged. Interval removal of endotracheal and enteric tubes. IMPRESSION: Mild cardiomegaly. Bibasilar atelectasis. Possible trace pleural effusions. RPTAT: PP Physician Kirsten Date Time Electronically viewed and signed by Daphne Avendano Physician on 03/16/2017 08 :28 Medications Medications Current Medications Insulin Glargine (Lantus) 12 unit DAILY SC Last administered on 03/15/17t 11: 35; Admin Dose 12 UNIT; Start 03/12/17 at 09:00 Acetaminophen (Tylenol Tab) 650 mg Q6H PRN PO MILD PAIN LEVEL 1-3; Start 03/11 at 21:15 Allopurinol (Zyloprim) 100 mg BID PO Last administered on 03/15/17 21:27; Admin Dose 100 MG; Start 03/11/17 at 23:15 Ferrous Sulfate (Ferrous Sulfate (Ec)) 325 mg DAILY PO ; Start 03/12/17 at 09: 00 Gabapentin (Neurontin) 300 mg TID PO Last administered on 03/15/17 21:27; Admin Dose 300 MG; Start 03/11/17 at 23:15 Lactulose (Enulose) 30 gm Q24H PO Last administered on 03/16/17 00:07; Admin Dose 30 GM; Start 03/11/17 at 23:30 Magnesium Hydroxide (Milk Of Mag) 30 ml DAILY PO Last administered on 08:27; Admin Dose 30 ML; Start 03/12/17 at 09:00 Calcium Carbonate (Tums) 500 mg TID PO Last administered on 03/15/17 21:27; Admin Dose 500 MG; Start 03/11/17 at 23:30 Atorvastatin Calcium (Lipitor) 20 mg DAILY@21 PO Last administered on 21:27; Admin Dose 20 MG; Start 03/11/17 at 23:30 Ondansetron HCl (Zofran Tab) 4 mg Q6H PRN PO NAUSEA AND/OR VOMITING; Start at 21:15 Pantoprazole (Protonix Tab) 40 mg DAILY@06 PO Last administered on 03/16/17 06:36; Admin Dose 40 MG; Start 03/12/17 at 06:00 Diagnostic Test (Pha) 1 ea 1 ea 02 XX Last administered on 03/12/17 02:14; Admin Dose 1 EA; Start 03/12/17 at 02:00 Meropenem/Sodium Chloride (Merrem 1 Gm/50 ml (Pmx)) 50 ml @ 100 mls/hr Q8 IVPB Last administered on 03/16/17 06:36; Admin Dose 100 MLS/HR; Start 03/11/17 at 23:30 Miscellaneous Information 1 ea NOTE XX ; Start 03/11/17 at 23:30 Glucose (Glutose) 15 gm Q15M PRN PO DECREASED GLUCOSE; Start 03/11/17 at 23:30 Glucose (Glutose) 22.5 gm Q15M PRN PO DECREASED GLUCOSE; Start 03/11/17 at 23: 30 Dextrose (D50w Syringe) 25 ml Q15M PRN IV DECREASED GLUCOSE; Start 03/11/17 at 23:30 Dextrose (D50w Syringe) 50 ml Q15M PRN IV DECREASED GLUCOSE; Start 03/11/17 at 23:30 Glucagon (Glucagen) 1 mg Q15M PRN IM DECREASED GLUCOSE; Start 03/11/17 at 23: 30 Glucose 15 gm 15 gm Q15M PRN BUCCAL DECREASED GLUCOSE; Start 03/11/17 at 23:30 Norepinephrine 16 mg/Dextrose 500 ml @ 1.87 mls/hr TITRATE IV Last administered on 03/12/17 11:20; Admin Dose 22.5 MLS/HR; Start 03/12/17 at 08: 30 Vancomycin HCl 250 ml @ 125 mls/hr Q24H IVPB Last administered on 03/15/17 17:22; Admin Dose 125 MLS/HR; Start 03/12/17 at 18:00 Potassium Chloride/Dextrose/ Sod Cl (D5-1/2ns + KCl 40 Meq) 1,000 ml @ 50 mls/ hr Q20H IV Last administered on 03/15/17 17:21; Admin Dose 50 MLS/HR; Start 03/15/17 at 12:30 Acetaminophen/ Hydrocodone Bitart ([place] (5/325)) 1 tab Q4H PRN PO PAIN LEVEL 1 -5; Start 03/15/17 at 13:30 Acetaminophen/ Hydrocodone Bitart ([place] (5/325)) 2 tab Q4H PRN PO PAIN LEVEL 6 -10 Last administered on 03/16/17 07:58; Admin Dose 2 TAB; Start 03/15/17 at 13:30 REBECCA SALAS Mar 16, 2017 09:42
--- NOTE | 2017-03-16 10:50 | CONS ---
Date/Time of Note Date/Time of Note DATE: 03/16/17 TIME: 10:48 Consult Date/Type/Reason Admit Date/Time Mar 11, 2017 at 18:58 Initial Consult Date 03/13/17 Type of Consultation: Pulmonary/critical care Subjective Extubated yesterday. Appears comfortable at rest. No new events. Talking full complete sentences. Decreased abdominal pain. Tolerating p.o. diet. Objective Vital Signs Date Time Temp Pulse Resp B/P Pulse Ox O2 Delivery O2 Flow Rate FiO2 03/16/17 10:00 102 29 105/66 98 Nasal Cannula 1.0 03/16/17 08:00 30 03/16/17 07:30 97.7 Intake and Output 03/15/17 03/15/17 03/16/17 14:59 22:59 06:59 Intake Total 100 ml 490 ml 520 ml Output Total 400 ml 790 ml 625 ml Balance -300 ml -300 ml -105 ml Exam PHYSICAL EXAMINATION: GENERAL: Morbidly obese lady, comfortable at rest no acute distress VITAL SIGNS: As above. HEENT: Dry mucous membranes. Pupils equal and reactive to light. CARDIAC: S1, S2, no added sounds or murmurs. CHEST: Diminished air entry bilaterally. ABDOMEN: Tender right upper quadrant. EXTREMITIES: No cyanosis, clubbing, edema. NEUROLOGIC: Generalized weakness. Results/Medications Result Diagram: 03/16/17 0500 03/16/17 0500 Results 24 hrs Laboratory Tests Test 03/15/17 12:00 03/15/17 21:29 03/16/17 05:00 03/16/17 08:01 Blood Gas Specimen Source Blood arterial Arterial Blood Date Drawn 03/15/2017 12:00:07 PM Arterial Blood pH (Temp corrected) 7.348 L Arterial Blood pCO2 (Temp correct) 40.8 Arterial Blood pO2 (Temp corrected) 81.0 Arterial Blood HCO3 21.9 L Arterial Blood Base Excess -3.5 L Arterial Blood Oxygen Saturation 94.7 L Bill Test ACCEPTAB Arterial Blood Gas Puncture Site Right Radial Arterial Blood Carboxyhemoglobin 0.2 Arterial Blood Methemoglobin 0.2 Blood Gas A-a O2 Differential 48.8 H Oxyhemoglobin Percent 94.3 Total Hemoglobin 11.1 L Blood Gas Temperature 37.0 Blood Gas Modality CPAP FiO2 25.0 Blood Gas Low PEEP Setting 5.0 Blood Gas Pressure Support 10 Blood Gas Notified Whom WM. VIOLA MANCERAP Blood Gas Notified Time 03/15/2017 12:07:04 PM Bedside Glucose 140 126 White Blood Count 7.6 Red Blood Count 3.29 L Hemoglobin 9.6 L Hematocrit 30.4 L Mean Corpuscular Volume 92.4 Mean Corpuscular Hemoglobin 29.2 Mean Corpuscular Hemoglobin Concent 31.6 L Red Cell Distribution Width 14.7 H Platelet Count 247 Mean Platelet Volume 11.0 H Neutrophils % 73.4 Lymphocytes % 14.1 L Monocytes % 8.0 Eosinophils % 3.5 Basophils % 0.3 Nucleated Red Blood Cells % 0.0 Neutrophils # 5.6 Lymphocytes # 1.1 Monocytes # 0.6 Eosinophils # 0.3 Basophils # 0.0 Nucleated Red Blood Cells # 0.0 Sodium Level 145 H Potassium Level 3.9 Chloride Level 112 H Carbon Dioxide Level 27 Anion Gap 10 Blood Urea Nitrogen 28 H Creatinine 0.79 Glucose Level 129 Calcium Level 8.9 Phosphorus Level 2.7 Magnesium Level 1.8 Test 03/16/17 09:52 Bedside Glucose 164 Medications Current Medications Insulin Glargine (Lantus) 12 unit DAILY SC Last administered on 03/16/17 09: 51; Admin Dose 12 UNIT; Start 03/12/17 at 09:00 Acetaminophen (Tylenol Tab) 650 mg Q6H PRN PO MILD PAIN LEVEL 1-3; Start 03/11 at 21:15 Allopurinol (Zyloprim) 100 mg BID PO Last administered on 03/16/17 09:47; Admin Dose 100 MG; Start 03/11/17 at 23:15 Ferrous Sulfate (Ferrous Sulfate (Ec)) 325 mg DAILY PO Last administered on 09:48; Admin Dose 325 MG; Start 03/12/17 at 09:00 Gabapentin (Neurontin) 300 mg TID PO Last administered on 03/16/17 09:48; Admin Dose 300 MG; Start 03/11/17 at 23:15 Lactulose (Enulose) 30 gm Q24H PO Last administered on 03/16/17 00:07; Admin Dose 30 GM; Start 03/11/17 at 23:30 Magnesium Hydroxide (Milk Of Mag) 30 ml DAILY PO Last administered on 09:48; Admin Dose 30 ML; Start 03/12/17 at 09:00 Calcium Carbonate (Tums) 500 mg TID PO Last administered on 03/16/17 09:48; Admin Dose 500 MG; Start 03/11/17 at 23:30 Atorvastatin Calcium (Lipitor) 20 mg DAILY@21 PO Last administered on 21:27; Admin Dose 20 MG; Start 03/11/17 at 23:30 Ondansetron HCl (Zofran Tab) 4 mg Q6H PRN PO NAUSEA AND/OR VOMITING; Start at 21:15 Pantoprazole (Protonix Tab) 40 mg DAILY@06 PO Last administered on 03/16/17 06:36; Admin Dose 40 MG; Start 03/12/17 at 06:00 Diagnostic Test (Pha) 1 ea 1 ea 02 XX Last administered on 03/12/17 02:14; Admin Dose 1 EA; Start 03/12/17 at 02:00 Meropenem/Sodium Chloride (Merrem 1 Gm/50 ml (Pmx)) 50 ml @ 100 mls/hr Q8 IVPB Last administered on 03/16/17 06:36; Admin Dose 100 MLS/HR; Start 03/11/17 at 23:30 Miscellaneous Information 1 ea NOTE XX ; Start 03/11/17 at 23:30 Glucose (Glutose) 15 gm Q15M PRN PO DECREASED GLUCOSE; Start 03/11/17 at 23:30 Glucose (Glutose) 22.5 gm Q15M PRN PO DECREASED GLUCOSE; Start 03/11/17 at 23: 30 Dextrose (D50w Syringe) 25 ml Q15M PRN IV DECREASED GLUCOSE; Start 03/11/17 at 23:30 Dextrose (D50w Syringe) 50 ml Q15M PRN IV DECREASED GLUCOSE; Start 03/11/17 at 23:30 Glucagon (Glucagen) 1 mg Q15M PRN IM DECREASED GLUCOSE; Start 03/11/17 at 23: 30 Glucose 15 gm 15 gm Q15M PRN BUCCAL DECREASED GLUCOSE; Start 03/11/17 at 23:30 Vancomycin HCl (Vancocin) 250 ml @ 125 mls/hr Q24H IVPB Last administered on 03/15/17 17:22; Admin Dose 125 MLS/HR; Start 03/12/17 at 18:00 Acetaminophen/ Hydrocodone Bitart ([place] (5/325)) 1 tab Q4H PRN PO PAIN LEVEL 1 -5; Start 03/15/17 at 13:30 Acetaminophen/ Hydrocodone Bitart ([place] (5/325)) 2 tab Q4H PRN PO PAIN LEVEL 6 -10 Last administered on 03/16/17t 07:58; Admin Dose 2 TAB; Start 03/15/17 at 13:30 Heparin Sodium (Porcine) (Heparin (5000 Units/0.5 ml)) 5,000 unit Q8 SC ; Start 03/16/17 at 14:00 Oxycodone HCl (Oxycontin) 10 mg Q12 PRN PO PAIN MANAGMENT; Start 03/16/17 at 10:00; Status UNV Assessment/Plan Chief Complaint/Hosp Course IMPRESSION: 1. Hypoxemic respiratory failure with possible healthcare-associated pneumonia versus aspiration. Improved following extubation. 2. Non-ST elevation myocardial infarction. 3. Acute cholecystitis status post cholecystostomy tube PLAN: 1. Extubated post respiratory failure continue incentive spirometry postextubation. 2. Broad-spectrum antibiotics. 3. Discussed with general surgery. Percutaneous drainage. 4. Deep venous thrombosis and GI prophylaxis. 5. Glycemic management per primary team. Critical care time 40 minutes. Problems: RAMY CAMPBELL MD, [facility] Mar 16, 2017 10:50
[2017-03-16] MEDS ORDERED: MAGNESIUM SULFATE 2 GM/50 ML 50 ML IVPB ONE (13:30)
[2017-03-16] MEDS: HEPARIN 5,000 UNIT/0.5 ML VIAL SC SCH ×2 (14:29→22:34)
[2017-03-16] MEDS: VANCOMYCIN 1 GM in NS 250 ML IVPB SCH (17:57)
[2017-03-16] MEDS ORDERED: AMIODARONE 900 MG in DEXTROSE 5% 482 ML IV SCH (18:00)
[2017-03-16] MEDS ORDERED: AMIODARONE 150MG/D5W BOLUS 100 ML IV ONE (18:00)
--- NOTE | 2017-03-16 18:08 | PN ---
Date/Time of Note Date/Time of Note DATE: 03/16/17 TIME: 18:06 Assessment/Plan Lines/Catheters IV Catheter Type (from [facility]): Central Line Kyle in Place (from [facility]): Yes Assessment/Plan Chief Complaint/Hosp Course The patient is a 72-year-old morbidly obese diabetic female who resides in a long-term facility. She was admitted 2 days ago because of respiratory failure, and required intubation. She is still intubated. He has had a low- grade white blood cell count in the 15,000 range. While on the ventilator the patient complained of abdominal pain. A CT scan showed a distended gallbladder with stones and findings suggestive of cholecystitis. Surgical consultation was requested in that regard. Problems: Assessment/Plan Abdominal examination is benign Cholecystostomy functioning well Plan: Continue medical management Subjective 24 Hr Interval Summary Patient is now extubated, and awake and alert She states that she feels much improved Exam/Review of Systems Vital Signs Vitals Vital Signs Date Time Temp Pulse Resp B/P Pulse Ox O2 Delivery O2 Flow Rate FiO2 03/16/17 16:00 93 03/16/17 14:00 18 145/94 95 Nasal Cannula 1.0 03/16/17 12:00 98.0 03/16/17 08:00 30 Intake and Output 03/15/17 03/15/17 03/16/17 14:59 22:59 06:59 Intake Total 100 ml 490 ml 520 ml Output Total 400 ml 790 ml 625 ml Balance -300 ml -300 ml -105 ml Results Result Diagram: 03/16/17 0500 03/16/17 0500 DEJA FLORENCE MD Mar 16, 2017 18:07
[2017-03-16] MEDS: ATORVASTATIN 20 MG TAB PO SCH (21:00)
[2017-03-17] VITALS (20 sets, daily range): BP systolic 112–162; BP diastolic 48–91; PULSE 60–84; RESP 12–29
[2017-03-17] MEDS: ACCU-CHEK XX SCH (02:00)
[2017-03-17] MEDS: HYDROCODONE/APAP (5/325) TAB PO PRN ×4 (04:18→17:28)
[2017-03-17] MEDS: MEROPENEM 1 GM/50ML(PMX) 50 ML IVPB SCH ×3 (05:27→23:46)
[2017-03-17] MEDS: PANTOPRAZOLE (EC) 40 MG TAB PO SCH (05:28)
[2017-03-17] MEDS: HEPARIN 5,000 UNIT/0.5 ML VIAL SC SCH ×3 (05:33→23:48)
--- NOTE | 2017-03-17 07:08 | RADRPT ---
Vent Rate: 108 bpm RR Interval: [address] Interval: 0 msec QRS Duration: 88 msec QT Interval: 300 msec QTC Interval: 402 msec P-R-T [place]: 0 - 18 - 51 degrees Atrial fibrillation with rapid ventricular response Nonspecific T wave abnormality Abnormal ECG Electronically Signed By: Joshua Branch [id number]
[2017-03-17 07:28] LABS: BASOPHILS % 0.4 % (0.0-2.0); EOSINOPHILS # 0.3 10^3/ul (0.0-0.5); HEMATOCRIT 33.5 % (37.0-47.0); HEMOGLOBIN 10.3 g/dl (12.0-16.0); LYMPHOCYTES # 1.1 10^3/ul (0.8-2.9); LYMPHOCYTES % 14.3 % (15.0-51.0); MEAN CORPUSCULAR HEMOGLOBIN 29.1 pg (29.0-33.0); MEAN CORPUSCULAR HGB CONC 30.7 g/dl (32.0-37.0); MEAN CORPUSCULAR VOLUME 94.6 fl (82.0-101.0); MEAN PLATELET VOLUME 11.3 fl (7.4-10.4); MONOCYTE # 0.6 10^3/ul (0.3-0.9); MONOCYTES % 7.3 % (0.0-11.0); NEUTROPHIL # 5.8 10^3/ul (1.6-7.5); NEUTROPHILS % 73.1 % (39.0-77.0); NUCLEATED RED BLOOD CELLS% 0.3 /100WBC (0.0-0.0); PLATELET COUNT 268 10^3/UL (140-415); RED BLOOD COUNT 3.54 10^6/ul (4.20-5.40); RED CELL DISTRIBUTION WIDTH 14.8 % (11.5-14.5)
--- NOTE | 2017-03-17 07:46 | CONS ---
Date/Time of Note Date/Time of Note DATE: 03/17/17 TIME: 07:42 Consult Date/Type/Reason Admit Date/Time Mar 11, 2017 at 18:58 Initial Consult Date 03/13/17 Type of Consultation: cv Reason for Consultation AFIB Subjective CARDIOLOGY FOLLOW UP NOTE: S: Case discussed with staff and rhythm strip was reviewed. Patient has remained in sinus rhythm overnight. She denies any chest pain or pressure shortness of breath to me. No bleeding reported. Objective: General: obese female. no acute distress HEENT: NC/AT. pupils are equal. round. NECK: NO JVD. no stridor. CV: RRR. systolic murmur; no gallop or rubs. PULM: no wheezing or rhonchi. GI: SOFT, ND, no rebound or guarding . s/p drainage tube in right side Extremity: + B/L LE edema. no clubbing. neuro: awake and alert, OX3. Psych: calm and pleasant rectal: deferred Objective Vital Signs Date Time Temp Pulse Resp B/P Pulse Ox O2 Delivery O2 Flow Rate FiO2 03/17/17 04:00 97.5 61 22 151/54 98 Nasal Cannula 03/17/17 01:41 2.0 03/16/17 08:00 30 Intake and Output 03/16/17 03/16/17 03/17/17 15:00 23:00 07:00 Intake Total 685 ml 808.6 ml 183.6 ml Output Total 640 ml 400 ml Balance 45 ml 408.6 ml 183.6 ml Results/Medications Result Diagram: 03/17/17 0600 03/16/17 0500 Results 24 hrs Laboratory Tests Test 03/16/17 08:01 03/16/17 09:52 03/16/17 12:37 03/16/17 18:02 Bedside Glucose 126 164 159 162 Test 03/16/17 21:06 03/17/17 06:00 Bedside Glucose 140 White Blood Count 8.0 Red Blood Count 3.54 L Hemoglobin 10.3 L Hematocrit 33.5 L Mean Corpuscular Volume 94.6 Mean Corpuscular Hemoglobin 29.1 Mean Corpuscular Hemoglobin Concent 30.7 L Red Cell Distribution Width 14.8 H Platelet Count 268 Mean Platelet Volume 11.3 H Neutrophils % 73.1 Lymphocytes % 14.3 L Monocytes % 7.3 Eosinophils % 4.0 Basophils % 0.4 Nucleated Red Blood Cells % 0.3 H Neutrophils # 5.8 Lymphocytes # 1.1 Monocytes # 0.6 Eosinophils # 0.3 Basophils # 0.0 Nucleated Red Blood Cells # 0.0 Medications Current Medications Insulin Glargine (Lantus) 12 unit DAILY SC Last administered on 03/16/17 09: 51; Admin Dose 12 UNIT; Start 03/12/17 at 09:00 Acetaminophen (Tylenol Tab) 650 mg Q6H PRN PO MILD PAIN LEVEL 1-3; Start 03/11 at 21:15 Allopurinol (Zyloprim) 100 mg BID PO Last administered on 03/16/17 21:07; Admin Dose 100 MG; Start 03/11/17 at 23:15 Ferrous Sulfate (Ferrous Sulfate (Ec)) 325 mg DAILY PO Last administered on 09:48; Admin Dose 325 MG; Start 03/12/17 at 09:00 Gabapentin (Neurontin) 300 mg TID PO Last administered on 03/16/17 21:00; Admin Dose 300 MG; Start 03/11/17 at 23:15 Lactulose (Enulose) 30 gm Q24H PO Last administered on 03/16/17 22:33; Admin Dose 30 GM; Start 03/11/17 at 23:30 Magnesium Hydroxide (Milk Of Mag) 30 ml DAILY PO Last administered on 09:48; Admin Dose 30 ML; Start 03/12/17 at 09:00 Calcium Carbonate (Tums) 500 mg TID PO Last administered on 03/16/17 21:00; Admin Dose 500 MG; Start 03/11/17 at 23:30 Atorvastatin Calcium (Lipitor) 20 mg DAILY@21 PO Last administered on 21:00; Admin Dose 20 MG; Start 03/11/17 at 23:30 Ondansetron HCl (Zofran Tab) 4 mg Q6H PRN PO NAUSEA AND/OR VOMITING; Start at 21:15 Pantoprazole (Protonix Tab) 40 mg DAILY@06 PO Last administered on 03/17/17 05:28; Admin Dose 40 MG; Start 03/12/17 at 06:00 Diagnostic Test (Pha) 1 ea 1 ea 02 XX Last administered on 03/12/17 02:14; Admin Dose 1 EA; Start 03/12/17 at 02:00 Meropenem/Sodium Chloride (Merrem 1 Gm/50 ml (Pmx)) 50 ml @ 100 mls/hr Q8 IVPB Last administered on 03/17/17 05:27; Admin Dose 100 MLS/HR; Start 03/11/17 at 23:30 Miscellaneous Information 1 ea NOTE XX ; Start 03/11/17 at 23:30 Glucose (Glutose) 15 gm Q15M PRN PO DECREASED GLUCOSE; Start 03/11/17 at 23:30 Glucose (Glutose) 22.5 gm Q15M PRN PO DECREASED GLUCOSE; Start 03/11/17 at 23: 30 Dextrose (D50w Syringe) 25 ml Q15M PRN IV DECREASED GLUCOSE; Start 03/11/17 at 23:30 Dextrose (D50w Syringe) 50 ml Q15M PRN IV DECREASED GLUCOSE; Start 03/11/17 at 23:30 Glucagon (Glucagen) 1 mg Q15M PRN IM DECREASED GLUCOSE; Start 03/11/17 at 23: 30 Glucose 15 gm 15 gm Q15M PRN BUCCAL DECREASED GLUCOSE; Start 03/11/17 at 23:30 Vancomycin HCl (Vancocin) 250 ml @ 125 mls/hr Q24H IVPB Last administered on 03/16/17 17:57; Admin Dose 125 MLS/HR; Start 03/12/17 at 18:00 Acetaminophen/ Hydrocodone Bitart ([place] (5/325)) 1 tab Q4H PRN PO PAIN LEVEL 1 -5; Start 03/15/17 at 13:30 Acetaminophen/ Hydrocodone Bitart ([place] (5/325)) 2 tab Q4H PRN PO PAIN LEVEL 6 -10 Last administered on 03/17/17 04:18; Admin Dose 2 TAB; Start 03/15/17 at 13:30 Heparin Sodium (Porcine) (Heparin (5000 Units/0.5 ml)) 5,000 unit Q8 SC Last administered on 03/17/17 05:33; Admin Dose 5,000 UNIT; Start 03/16/17 at 14: 00 Oxycodone HCl (Oxycontin) 10 mg Q12 PRN PO PAIN MANAGMENT; Start 03/16/17 at 10:00; Status UNV Carvedilol 6.25 mg 6.25 mg BID PO Last administered on 03/16/17 21:04; Admin Dose 6.25 MG; Start 03/16/17 at 13:30 Amiodarone HCl/ Dextrose ([place]one Iv/ D5W) 500 ml @ 0 mls/hr Q0M IV Last administered on 03/16/17 18:59; Admin Dose 33.4 MLS/HR; Start 03/16/17 at 18: 00; Stop 03/17/17 at 17:59 Assessment/Plan Chief Complaint/Hosp Course 1. Paroxysmal atrial fibrillation with rapid ventricular response: Currently back in sinus rhythm on amiodarone 2. Status post sepsis 3. Cholecystitis status post drainage in place. 4. Status post respiratory failure currently extubated. 5. Hypertension 6. Diabetes 7. Morbid obesity 8. Anemia 9. Mildly abnormal troponin secondary to above: we will will follow. Recommendations: We will complete amiodarone drip and monitor the patient on telemetry. Okay to transfer to telemetry from cardiac standpoint. Electrolytes will be checked and adjusted accordingly. Beta-safia as tolerated will be continued. Respiratory care as per branch general manager. Antibiotic management as per internal medicine. Follow-up with surgery recommendations. Thank you for his referral. We will continue to follow along with you. REGINALDO TAYLOR MD [facility] Problems: REGINALDO TAYLOR MD Mar 17, 2017 07:46
[2017-03-17 07:47] LABS: CREATINE KINASE < 20 IU/L (23-200); MAGNESIUM 2.1 mg/dl (1.7-2.5); PHOSPHORUS 3.1 mg/dl (2.5-4.9)
[2017-03-17 07:48] LABS: CHOL/HDL RATIO 3.4 RATIO
[2017-03-17 07:59] LABS: CK-MB 0.74 ng/ml (0.0-2.4); TROPONIN-I 0.031 ng/ml (0.00-0.12)
[2017-03-17] MEDS: INSULIN ASPART [NOVOLOG] 3 ML PEN SC SCH ×4 (08:01→21:00)
--- NOTE | 2017-03-17 08:02 | PN ---
Date/Time of Note Date/Time of Note DATE: 03/17/17 TIME: 08:01 Assessment/Plan Lines/Catheters IV Catheter Type (from Nrs): Central Line Kyle in Place (from Nrs): Yes Assessment/Plan Chief Complaint/Hosp Course The patient is a 72-year-old morbidly obese diabetic female who resides in a correction facility. She was admitted 2 days ago because of respiratory failure, and required intubation. She is still intubated. He has had a low- grade white blood cell count in the 15,000 range. While on the ventilator the patient complained of abdominal pain. A CT scan showed a distended gallbladder with stones and findings suggestive of cholecystitis. Surgical consultation was requested in that regard. Problems: Assessment/Plan Abdominal examination is benign No complaints of abdominal pain Cholecystostomy draining nicely Subjective 24 Hr Interval Summary Continues to improve Exam/Review of Systems Vital Signs Vitals Vital Signs Date Time Temp Pulse Resp B/P Pulse Ox O2 Delivery O2 Flow Rate FiO2 03/17/17 04:00 97.5 61 22 151/54 98 Nasal Cannula 03/17/17 01:41 2.0 03/16/17 08:00 30 Intake and Output 03/16/17 03/16/17 03/17/17 15:00 23:00 07:00 Intake Total 685 ml 808.6 ml 183.6 ml Output Total 640 ml 400 ml Balance 45 ml 408.6 ml 183.6 ml Results Result Diagram: 03/17/17 0600 03/16/17 0500 DEJA FLORENCE MD Mar 17, 2017 08:02
[2017-03-17 08:12] LABS: ALBUMIN 2.6 g/dl (3.3-4.9); ALBUMIN/GLOBULIN RATIO 0.86; BILIRUBIN,INDIRECT 0.2 mg/dl (0-1.1); BILIRUBIN,TOTAL 0.2 mg/dl (0.2-1.3); CALCIUM 9.3 mg/dl (8.4-10.2); CREATININE 0.84 mg/dl (0.44-1.00); POTASSIUM 4.3 mmol/L (3.5-5.1); TOTAL PROTEIN 5.6 g/dl (6.1-8.1)
[2017-03-17] MEDS: ALLOPURINOL 100 MG TAB PO SCH ×2 (08:12→21:17)
[2017-03-17] MEDS: GABAPENTIN 300 MG CAP PO SCH ×3 (08:14→21:18)
[2017-03-17] MEDS: FERROUS SULFATE (EC) 325 MG TAB PO SCH (08:15)
[2017-03-17] MEDS: CALCIUM CARBONATE 500 MG CHEW TAB PO SCH ×3 (08:15→21:16)
[2017-03-17] MEDS: INSULIN GLARGINE [LANtus] 3 ML PEN SC SCH (08:20)
[2017-03-17] MEDS: BALSAM PERU/CASTOR OIL 60 GM TUBE TOP SCH (08:21)
[2017-03-17] MEDS: MAGNESIUM HYDROXIDE 30ML CUP PO SCH (08:21)
[2017-03-17 08:42] LABS: THYROID STIMULATING HORMONE 2.1 MIU/L (0.465-4.680)
--- NOTE | 2017-03-17 10:00 | CONS ---
Date/Time of Note Date/Time of Note DATE: 03/17/17 TIME: 10:00 Consult Date/Type/Reason Admit Date/Time Mar 11, 2017 at 18:58 Initial Consult Date 03/13/17 Type of Consultation: Pulmonary Subjective Patient stable this morning. Mild productive cough. Awake alert and oriented tolerating p.o. diet. Objective Vital Signs Date Time Temp Pulse Resp B/P Pulse Ox O2 Delivery O2 Flow Rate FiO2 03/17/17 08:00 61 03/17/17 07:30 97.7 21 144/68 100 Nasal Cannula 2.0 03/16/17 08:00 30 Intake and Output 03/16/17 03/16/17 03/17/17 15:00 23:00 07:00 Intake Total 685 ml 808.6 ml 183.6 ml Output Total 640 ml 400 ml 425 ml Balance 45 ml 408.6 ml -241.4 ml Exam PHYSICAL EXAMINATION: GENERAL: Morbidly obese lady, comfortable at rest no acute distress VITAL SIGNS: As above. HEENT: Dry mucous membranes. Pupils equal and reactive to light. CARDIAC: S1, S2, no added sounds or murmurs. CHEST: Diminished air entry bilaterally. ABDOMEN: Tender right upper quadrant. EXTREMITIES: No cyanosis, clubbing, edema. NEUROLOGIC: Generalized weakness. Results/Medications Result Diagram: 03/17/17 0600 03/17/17 0600 Results 24 hrs Laboratory Tests Test 03/16/17 12:37 03/16/17 18:02 03/16/17 21:06 03/17/17 06:00 Bedside Glucose 159 162 140 White Blood Count 8.0 Red Blood Count 3.54 L Hemoglobin 10.3 L Hematocrit 33.5 L Mean Corpuscular Volume 94.6 Mean Corpuscular Hemoglobin 29.1 Mean Corpuscular Hemoglobin Concent 30.7 L Red Cell Distribution Width 14.8 H Platelet Count 268 Mean Platelet Volume 11.3 H Neutrophils % 73.1 Lymphocytes % 14.3 L Monocytes % 7.3 Eosinophils % 4.0 Basophils % 0.4 Nucleated Red Blood Cells % 0.3 H Neutrophils # 5.8 Lymphocytes # 1.1 Monocytes # 0.6 Eosinophils # 0.3 Basophils # 0.0 Nucleated Red Blood Cells # 0.0 Sodium Level 141 Potassium Level 4.3 Chloride Level 107 Carbon Dioxide Level 28 Anion Gap 10 Blood Urea Nitrogen 26 H Creatinine 0.84 Glucose Level 153 Calcium Level 9.3 Phosphorus Level 3.1 Magnesium Level 2.1 Total Bilirubin 0.2 Direct Bilirubin 0.00 Indirect Bilirubin 0.2 Aspartate Amino Transf (AST/SGOT) 15 Alanine Aminotransferase (ALT/SGPT) 25 Alkaline Phosphatase 76 Creatine Kinase < 20 L Creatine Kinase Index Creatinine Kinase MB (Mass) 0.74 Troponin I 0.031 B-Type Natriuretic Peptide 76795 H Total Protein 5.6 L Albumin 2.6 L Globulin 3.00 Albumin/Globulin Ratio 0.86 Triglycerides Level 202 H Cholesterol Level 114 LDL Cholesterol, Calculated 41 HDL Cholesterol 33 Cholesterol/HDL Ratio 3.4 Thyroid Stimulating Hormone (TSH) 2.100 Free Thyroxine 1.27 Test 03/17/17 07:52 Bedside Glucose 142 Medications Current Medications Insulin Glargine (Lantus) 12 unit DAILY SC Last administered on 03/17/17 08: 20; Admin Dose 12 UNIT; Start 03/12/17 at 09:00 Acetaminophen (Tylenol Tab) 650 mg Q6H PRN PO MILD PAIN LEVEL 1-3; Start 03/11 at 21:15 Allopurinol (Zyloprim) 100 mg BID PO Last administered on 03/17/17 08:12; Admin Dose 100 MG; Start 03/11/17 at 23:15 Ferrous Sulfate (Ferrous Sulfate (Ec)) 325 mg DAILY PO Last administered on 08:15; Admin Dose 325 MG; Start 03/12/17 at 09:00 Gabapentin (Neurontin) 300 mg TID PO Last administered on 03/17/17 08:14; Admin Dose 300 MG; Start 03/11/17 at 23:15 Lactulose (Enulose) 30 gm Q24H PO Last administered on 03/16/17 22:33; Admin Dose 30 GM; Start 03/11/17 at 23:30 Magnesium Hydroxide (Milk Of Mag) 30 ml DAILY PO Last administered on 08:21; Admin Dose 30 ML; Start 03/12/17 at 09:00 Calcium Carbonate (Tums) 500 mg TID PO Last administered on 03/17/17 08:15; Admin Dose 500 MG; Start 03/11/17 at 23:30 Atorvastatin Calcium (Lipitor) 20 mg DAILY@21 PO Last administered on 21:00; Admin Dose 20 MG; Start 03/11/17 at 23:30 Ondansetron HCl (Zofran Tab) 4 mg Q6H PRN PO NAUSEA AND/OR VOMITING; Start at 21:15 Pantoprazole (Protonix Tab) 40 mg DAILY@06 PO Last administered on 03/17/17 05:28; Admin Dose 40 MG; Start 03/12/17 at 06:00 Diagnostic Test (Pha) 1 ea 1 ea 02 XX Last administered on 03/12/17 02:14; Admin Dose 1 EA; Start 03/12/17 at 02:00 Meropenem/Sodium Chloride (Merrem 1 Gm/50 ml (Pmx)) 50 ml @ 100 mls/hr Q8 IVPB Last administered on 03/17/17 05:27; Admin Dose 100 MLS/HR; Start 03/11/17 at 23:30 Miscellaneous Information 1 ea NOTE XX ; Start 03/11/17 at 23:30 Glucose (Glutose) 15 gm Q15M PRN PO DECREASED GLUCOSE; Start 03/11/17 at 23:30 Glucose (Glutose) 22.5 gm Q15M PRN PO DECREASED GLUCOSE; Start 03/11/17 at 23: 30 Dextrose (D50w Syringe) 25 ml Q15M PRN IV DECREASED GLUCOSE; Start 03/11/17 at 23:30 Dextrose (D50w Syringe) 50 ml Q15M PRN IV DECREASED GLUCOSE; Start 03/11/17 at 23:30 Glucagon (Glucagen) 1 mg Q15M PRN IM DECREASED GLUCOSE; Start 03/11/17 at 23: 30 Glucose 15 gm 15 gm Q15M PRN BUCCAL DECREASED GLUCOSE; Start 03/11/17 at 23:30 Vancomycin HCl (Vancocin) 250 ml @ 125 mls/hr Q24H IVPB Last administered on 03/16/17 17:57; Admin Dose 125 MLS/HR; Start 03/12/17 at 18:00 Acetaminophen/ Hydrocodone Bitart ([place] (5/325)) 1 tab Q4H PRN PO PAIN LEVEL 1 -5; Start 03/15/17 at 13:30 Acetaminophen/ Hydrocodone Bitart ([place] (5/325)) 2 tab Q4H PRN PO PAIN LEVEL 6 -10 Last administered on 03/17/17 08:12; Admin Dose 2 TAB; Start 03/15/17 at 13:30 Heparin Sodium (Porcine) (Heparin (5000 Units/0.5 ml)) 5,000 unit Q8 SC Last administered on 03/17/17 05:33; Admin Dose 5,000 UNIT; Start 03/16/17 at 14: 00 Oxycodone HCl (Oxycontin) 10 mg Q12 PRN PO PAIN MANAGMENT; Start 03/16/17 at 10:00; Status UNV Carvedilol 6.25 mg 6.25 mg BID PO Last administered on 03/17/17 08:14; Admin Dose 6.25 MG; Start 03/16/17 at 13:30 Amiodarone HCl/ Dextrose (Cordarone Iv/ D5W) 500 ml @ 0 mls/hr Q0M IV Last administered on 03/16/17 18:59; Admin Dose 33.4 MLS/HR; Start 03/16/17 at 18: 00; Stop 03/17/17 at 17:59 Assessment/Plan Chief Complaint/Hosp Course IMPRESSION: 1. Hypoxemic respiratory failure with possible healthcare-associated pneumonia versus aspiration. Improved following extubation. 2. Non-ST elevation myocardial infarction. 3. Acute cholecystitis status post cholecystostomy tube PLAN: 1. Extubated post respiratory failure continue incentive spirometry postextubation. Encourage out of bed. 2. Broad-spectrum antibiotics. 3. Discussed with general surgery. Percutaneous drainage. 4. Deep venous thrombosis and GI prophylaxis. 5. Glycemic management per primary team. Transfer to telemetry okay from pulmonary standpoint Problems: RAMY CAMPBELL MD, [facility] Mar 17, 2017 10:00
--- NOTE | 2017-03-17 10:08 | PN ---
Date/Time of Note Date/Time of Note DATE: 03/17/17 TIME: 09:55 Assessment/Plan VTE Prophylaxis VTE Prophylaxis Intervention: heparin Lines/Catheters IV Catheter Type (from Nrsg): Central Line Central line still needed: Yes (For IV access) Urinary Cath still in place: Yes Reason Cath still needed: other (indicate) (Discontinue) Assessment/Plan Assessment/Plan 71-year-old female with: 1. Acute cholecystitis, status post cholecystostomy tube placement POD#2. Cultures with gram-negative rods, Continue current IV antibiotics, will discontinue vancomycin if no signs of MRSA . Patient tolerating p.o. Follow-up further surgical recommendations, Dr Leavitt. 2. Episode of atrial fibrillation, appreciate recommendations from . for that , patient on amiodarone drip for 24 hours. She has been put back on carvedilol. Replete electrolytes. 2D echocardiogram done on admission unchanged. 3. Elevated troponin resolved, likely secondary to renal insufficiency but also demand ischemia. Resolved. 2D echocardiogram with preserved EF and no wall motion abnormalities. 4. S/p acute respiratory failure 2ry to right lower lobe pneumonia, sepsis and likely COPD exacerbation, patient extubated yesterday, on nasal cannula and stable. Continue current antibiotics, transfer to telemetry. Pulmonary following patient and will need CPAP at night. Continue respiratory/pulmonary toilet, MDI/nebulizer treatments 5. S/p sepsis, septic shock likely secondary to pneumonia and/or acute cholecystitis. Patient now stable, WBC has normalized x 3 days, vital signs and blood pressure stable and tolerating p.o. well. Blood cultures 1/2 with resistant coagulase-negative staph, likely contaminant, repeat blood cultures pending. Gram-negative sweetie 2 species from cholecystic fluid. 6. Acute kidney injury on ? chronic kidney disease. Renal function back to normal. Monitor renal function. 7. Super morbid obesity with possibly obstructive sleep apnea. CPAP at night. 8. Diastolic congestive heart failure with reported severe septal hypertrophy on previous echocardiogram and also mild to moderate mitral stenosis. Remains stable, will keep on the dry side. 9. Diabetes mellitus. Last A1c 7.3, BG better this AM on current regimen. Continue current insulin regimen, recheck A1c is 6.0. 10. Mild Anemia and thrombocytopenia: Stable hemoglobin so far, patient has been on ferrous sulfate supplements. 11. Chronic pain, narcotic dependent. OxyCodone prn for pain control. 12. Diabetic neuropathy. Resume Neurontin. Prophylaxis. Heparin subcu for DVT prophylaxis and Protonix for GI prophylaxis. DISPOSITION: D/c rectal tube and Kyle catheter. Transfer to telemetry. PT eval Subjective 24 Hr Interval Summary Free Text/Dictation Patient feels better, she is tolerating p.o. well, she does have chronic pain and asked for [place] on and off. Will discontinue OxyContin for now until we clarify the dosing as an outpatient. Continue as needed oxycodone. Laboratory data remained stable, continue current antibiotics, depending on repeat blood culture and final cultures from cholecystic fluid, we may discontinue vancomycin also. Exam/Review of Systems Vital Signs Vitals Vital Signs Date Time Temp Pulse Resp B/P Pulse Ox O2 Delivery O2 Flow Rate FiO2 03/17/17 07:30 97.7 62 21 144/68 100 Nasal Cannula 2.0 03/16/17 08:00 30 Intake and Output 03/16/17 03/16/17 03/17/17 15:00 23:00 07:00 Intake Total 685 ml 808.6 ml 183.6 ml Output Total 640 ml 400 ml 425 ml Balance 45 ml 408.6 ml -241.4 ml Exam Constitutional: alert, obese (morbid), oriented, well developed Respiratory: clear to auscultation, normal air movement Cardiovascular: nl pulses, other (In sinus rhythm.), regular rate and rhythm Gastrointestinal: non-tender, soft Musculoskeletal: nl extremities to inspection Extremities: normal pulses, other (No edema, clubbing or cyanosis) Neurological: INDUSTRIAL ENGINEERING MANAGER II-XII intact, nl mental status, nl speech, other ( Generalized weakness) Results Result Diagram: 03/17/17 0600 03/17/17 0600 Results 24 hrs Laboratory Tests Test 03/16/17 12:37 03/16/17 18:02 03/16/17 21:06 03/17/17 06:00 Bedside Glucose 159 162 140 White Blood Count 8.0 Red Blood Count 3.54 L Hemoglobin 10.3 L Hematocrit 33.5 L Mean Corpuscular Volume 94.6 Mean Corpuscular Hemoglobin 29.1 Mean Corpuscular Hemoglobin Concent 30.7 L Red Cell Distribution Width 14.8 H Platelet Count 268 Mean Platelet Volume 11.3 H Neutrophils % 73.1 Lymphocytes % 14.3 L Monocytes % 7.3 Eosinophils % 4.0 Basophils % 0.4 Nucleated Red Blood Cells % 0.3 H Neutrophils # 5.8 Lymphocytes # 1.1 Monocytes # 0.6 Eosinophils # 0.3 Basophils # 0.0 Nucleated Red Blood Cells # 0.0 Sodium Level 141 Potassium Level 4.3 Chloride Level 107 Carbon Dioxide Level 28 Anion Gap 10 Blood Urea Nitrogen 26 H Creatinine 0.84 Glucose Level 153 Calcium Level 9.3 Phosphorus Level 3.1 Magnesium Level 2.1 Total Bilirubin 0.2 Direct Bilirubin 0.00 Indirect Bilirubin 0.2 Aspartate Amino Transf (AST/SGOT) 15 Alanine Aminotransferase (ALT/SGPT) 25 Alkaline Phosphatase 76 Creatine Kinase < 20 L Creatine Kinase Index Creatinine Kinase MB (Mass) 0.74 Troponin I 0.031 B-Type Natriuretic Peptide 25064 H Total Protein 5.6 L Albumin 2.6 L Globulin 3.00 Albumin/Globulin Ratio 0.86 Triglycerides Level 202 H Cholesterol Level 114 LDL Cholesterol, Calculated 41 HDL Cholesterol 33 Cholesterol/HDL Ratio 3.4 Thyroid Stimulating Hormone (TSH) 2.100 Free Thyroxine 1.27 Test 03/17/17 07:52 Bedside Glucose 142 Medications Medications Current Medications Insulin Glargine (Lantus) 12 unit DAILY SC Last administered on 03/17/17 08: 20; Admin Dose 12 UNIT; Start 03/12/17 at 09:00 Acetaminophen (Tylenol Tab) 650 mg Q6H PRN PO MILD PAIN LEVEL 1-3; Start 03/11 at 21:15 Allopurinol (Zyloprim) 100 mg BID PO Last administered on 03/17/17 08:12; Admin Dose 100 MG; Start 03/11/17 at 23:15 Ferrous Sulfate (Ferrous Sulfate (Ec)) 325 mg DAILY PO Last administered on 08:15; Admin Dose 325 MG; Start 03/12/17 at 09:00 Gabapentin (Neurontin) 300 mg TID PO Last administered on 03/17/17 08:14; Admin Dose 300 MG; Start 03/11/17 at 23:15 Lactulose (Enulose) 30 gm Q24H PO Last administered on 03/16/17 22:33; Admin Dose 30 GM; Start 03/11/17 at 23:30 Magnesium Hydroxide (Milk Of Mag) 30 ml DAILY PO Last administered on 08:21; Admin Dose 30 ML; Start 03/12/17 at 09:00 Calcium Carbonate (Tums) 500 mg TID PO Last administered on 03/17/17 08:15; Admin Dose 500 MG; Start 03/11/17 at 23:30 Atorvastatin Calcium (Lipitor) 20 mg DAILY@21 PO Last administered on 21:00; Admin Dose 20 MG; Start 03/11/17 at 23:30 Ondansetron HCl (Zofran Tab) 4 mg Q6H PRN PO NAUSEA AND/OR VOMITING; Start at 21:15 Pantoprazole (Protonix Tab) 40 mg DAILY@06 PO Last administered on 03/17/17 05:28; Admin Dose 40 MG; Start 03/12/17 at 06:00 Diagnostic Test (Pha) 1 ea 1 ea 02 XX Last administered on 03/12/17 02:14; Admin Dose 1 EA; Start 03/12/17 at 02:00 Meropenem/Sodium Chloride (Merrem 1 Gm/50 ml (Pmx)) 50 ml @ 100 mls/hr Q8 IVPB Last administered on 03/17/17 05:27; Admin Dose 100 MLS/HR; Start 03/11/17 at 23:30 Miscellaneous Information 1 ea NOTE XX ; Start 03/11/17 at 23:30 Glucose (Glutose) 15 gm Q15M PRN PO DECREASED GLUCOSE; Start 03/11/17 at 23:30 Glucose (Glutose) 22.5 gm Q15M PRN PO DECREASED GLUCOSE; Start 03/11/17 at 23: 30 Dextrose (D50w Syringe) 25 ml Q15M PRN IV DECREASED GLUCOSE; Start 03/11/17 at 23:30 Dextrose (D50w Syringe) 50 ml Q15M PRN IV DECREASED GLUCOSE; Start 03/11/17 at 23:30 Glucagon (Glucagen) 1 mg Q15M PRN IM DECREASED GLUCOSE; Start 03/11/17 at 23: 30 Glucose 15 gm 15 gm Q15M PRN BUCCAL DECREASED GLUCOSE; Start 03/11/17 at 23:30 Vancomycin HCl (Vancocin) 250 ml @ 125 mls/hr Q24H IVPB Last administered on 03/16/17 17:57; Admin Dose 125 MLS/HR; Start 03/12/17 at 18:00 Acetaminophen/ Hydrocodone Bitart ([place] (5/325)) 1 tab Q4H PRN PO PAIN LEVEL 1 -5; Start 03/15/17 at 13:30 Acetaminophen/ Hydrocodone Bitart ([place] (5/325)) 2 tab Q4H PRN PO PAIN LEVEL 6 -10 Last administered on 03/17/17 08:12; Admin Dose 2 TAB; Start 03/15/17 at 13:30 Heparin Sodium (Porcine) (Heparin (5000 Units/0.5 ml)) 5,000 unit Q8 SC Last administered on 03/17/17 05:33; Admin Dose 5,000 UNIT; Start 03/16/17 at 14: 00 Oxycodone HCl (Oxycontin) 10 mg Q12 PRN PO PAIN MANAGMENT; Start 03/16/17 at 10:00; Status UNV Carvedilol 6.25 mg 6.25 mg BID PO Last administered on 03/17/17 08:14; Admin Dose 6.25 MG; Start 03/16/17 at 13:30 Amiodarone HCl/ Dextrose (Cordarone Iv/ D5W) 500 ml @ 0 mls/hr Q0M IV Last administered on 03/16/17 18:59; Admin Dose 33.4 MLS/HR; Start 03/16/17 at 18: 00; Stop 03/17/17 at 17:59 REBECCA SALAS Mar 17, 2017 10:08
--- NOTE | 2017-03-17 13:38 | RADRPT ---
PROCEDURE: CT ultrasound-guided cholecystostomy tube placement CLINICAL INDICATION: Cholecystitis. TECHNIQUE: Informed consent was obtained. Risks including bleeding, infection, vascular injury, annie wel injury, gallbladder injury, bile leak, need for surgery , were discussed. The patient was placed supine on the CT scanner. Save All Operator images were obtained. A site of access was chosen. The skin w as prepped and draped using maximum sterile technique. Subcutaneous tissues were anesthetized with 5 ml of 1% lidocaine subcutaneously. Using a 18-gauge of a needle under CT and ultrasound guidance th e needle was advanced into the gallbladder, using a transhepatic route. A wire was advanced to the n eedle. The tract was dilated with a 8-Latvian dilator. A 8-Latvian pigtail drain was advanced over the wire. The wire was removed and positioning was confirmed with a CT scan. The drain was locked. Ther e was sutured into position. 20 cc of dark fluid was aspirated and sent for culture. Bags was placed to gravity drainage. A sterile dressing was applied. Estimated blood loss: Minimal. Contrast: None. Medications: Lidocaine 5 ml 1% subcutaneously. Complications: None Specimen: 20 cc of dark fluid/bile. COMPARISON: CT scan of the abdomen and pelvis from March 12, 2017 FINDINGS: Successful CT ultrasound guided placement of a transhepatic cholecystostomy tube using 8-Latvian pigt ail drain. IMPRESSION: Successful CT ultrasound guided placement of a transhepatic cholecystostomy tube using 8-Latvian pigt ail drain. The tube should remain in place for 6 weeks prior to removal to avoid a bile leak. RPTAT: QQ .Aide Reyes MD, Date Time Electronically viewed and signed by .Aide eRyes MD, MD on 03/17/2017 13:38 .Arsalan/
[2017-03-17] MEDS: ATORVASTATIN 20 MG TAB PO SCH (21:16)
[2017-03-17] MEDS: oxyCODONE (CR) 10 MG TAB [oxyCONTIN] PO SCH (21:18)
[2017-03-17] MEDS: ALBUTEROL 0.083% (NEB) 2.5 MG/3 ML AMP NEB PRN (22:19)
[2017-03-17] MEDS: LACTULOSE 30ML CUP PO SCH (23:46)
[2017-03-18] VITALS (12 sets, daily range): BP systolic 120–179; BP diastolic 58–101; PULSE 64–80; RESP 18–22
[2017-03-18] MEDS: ACCU-CHEK XX SCH (02:00)
[2017-03-18] MEDS: HYDROCODONE/APAP (5/325) TAB PO PRN (03:50)
[2017-03-18] MEDS: PANTOPRAZOLE (EC) 40 MG TAB PO SCH (05:40)
[2017-03-18] MEDS: HEPARIN 5,000 UNIT/0.5 ML VIAL SC SCH ×3 (05:41→22:06)
[2017-03-18] MEDS: MEROPENEM 1 GM/50ML(PMX) 50 ML IVPB SCH ×3 (05:42→22:03)
[2017-03-18] MEDS: INSULIN ASPART [NOVOLOG] 3 ML PEN SC SCH ×4 (07:55→21:00)
[2017-03-18] MEDS: CALCIUM CARBONATE 500 MG CHEW TAB PO SCH ×3 (08:46→21:12)
[2017-03-18] MEDS: FERROUS SULFATE (EC) 325 MG TAB PO SCH (08:47)
[2017-03-18] MEDS: MAGNESIUM HYDROXIDE 30ML CUP PO SCH (08:47)
[2017-03-18] MEDS: GABAPENTIN 300 MG CAP PO SCH ×3 (08:48→21:12)
[2017-03-18] MEDS: ALLOPURINOL 100 MG TAB PO SCH ×2 (08:48→21:12)
[2017-03-18] MEDS: oxyCODONE (CR) 10 MG TAB [oxyCONTIN] PO SCH ×2 (08:55→21:12)
[2017-03-18] MEDS: INSULIN GLARGINE [LANtus] 3 ML PEN SC SCH (09:05)
[2017-03-18 09:16] LABS: BASOPHILS % 0.4 % (0.0-2.0); EOSINOPHILS # 0.3 10^3/ul (0.0-0.5); EOSINOPHILS % 3.4 % (0.0-7.0); HEMATOCRIT 32.7 % (37.0-47.0); LYMPHOCYTES # 1.6 10^3/ul (0.8-2.9); LYMPHOCYTES % 18.4 % (15.0-51.0); MEAN CORPUSCULAR HEMOGLOBIN 28.9 pg (29.0-33.0); MEAN CORPUSCULAR HGB CONC 30.6 g/dl (32.0-37.0); MEAN CORPUSCULAR VOLUME 94.5 fl (82.0-101.0); MEAN PLATELET VOLUME 11.7 fl (7.4-10.4); MONOCYTE # 0.6 10^3/ul (0.3-0.9); MONOCYTES % 7.3 % (0.0-11.0); NEUTROPHIL # 5.9 10^3/ul (1.6-7.5); NEUTROPHILS % 69.6 % (39.0-77.0); PLATELET COUNT 276 10^3/UL (140-415); RED BLOOD COUNT 3.46 10^6/ul (4.20-5.40); RED CELL DISTRIBUTION WIDTH 15.1 % (11.5-14.5); WHITE BLOOD COUNT 8.5 10^3/ul (4.8-10.8)
[2017-03-18] MEDS ORDERED: FUROSEMIDE 40 MG INJ IV ONE (09:30)
--- NOTE | 2017-03-18 09:32 | CONS ---
Date/Time of Note Date/Time of Note DATE: 03/18/17 TIME: 09:31 Consult Date/Type/Reason Admit Date/Time Mar 11, 2017 at 18:58 Initial Consult Date 03/13/17 Type of Consultation: CV Subjective CARDIOLOGY FOLLOW UP NOTE: S: Case discussed with staff and rhythm strip was reviewed. Patient has remained in sinus rhythm overnight. She denies any chest pain or pressure shortness of breath to me. No bleeding reported. Objective: General: obese female. no acute distress HEENT: NC/AT. pupils are equal. round. NECK: NO JVD. no stridor. CV: RRR. systolic murmur; no gallop or rubs. PULM: no wheezing or rhonchi. GI: SOFT, ND, no rebound or guarding . s/p drainage tube in right side Extremity: + B/L LE edema. no clubbing. neuro: awake and alert, OX3. Psych: calm and pleasant rectal: deferred Objective Vital Signs Date Time Temp Pulse Resp B/P Pulse Ox O2 Delivery O2 Flow Rate FiO2 03/18/17 08:11 67 03/18/17 07:46 98.5 21 175/76 100 03/18/17 02:51 2.0 03/17/17 23:45 Nasal Cannula 03/16/17 08:00 30 Intake and Output 03/17/17 03/17/17 03/18/17 15:00 23:00 07:00 Intake Total 623.6 ml 33.4 ml 220 ml Output Total 324 ml 743 ml Balance 299.6 ml -709.6 ml 220 ml Results/Medications Result Diagram: 03/18/17 0732 03/17/17 0600 Results 24 hrs Laboratory Tests Test 03/17/17 12:03 03/17/17 17:13 03/17/17 21:19 03/18/17 07:32 Bedside Glucose 145 128 138 White Blood Count 8.5 Red Blood Count 3.46 L Hemoglobin 10.0 L Hematocrit 32.7 L Mean Corpuscular Volume 94.5 Mean Corpuscular Hemoglobin 28.9 L Mean Corpuscular Hemoglobin Concent 30.6 L Red Cell Distribution Width 15.1 H Platelet Count 276 Mean Platelet Volume 11.7 H Neutrophils % 69.6 Lymphocytes % 18.4 Monocytes % 7.3 Eosinophils % 3.4 Basophils % 0.4 Nucleated Red Blood Cells % 0.0 Neutrophils # 5.9 Lymphocytes # 1.6 Monocytes # 0.6 Eosinophils # 0.3 Basophils # 0.0 Nucleated Red Blood Cells # 0.0 Test 03/18/17 08:18 Bedside Glucose 128 Medications Current Medications Insulin Glargine (Lantus) 12 unit DAILY SC Last administered on 03/18/17 09: 05; Admin Dose 12 UNIT; Start 03/12/17 at 09:00 Acetaminophen (Tylenol Tab) 650 mg Q6H PRN PO MILD PAIN LEVEL 1-3; Start 03/11 at 21:15 Allopurinol (Zyloprim) 100 mg BID PO Last administered on 03/18/17 08:48; Admin Dose 100 MG; Start 03/11/17 at 23:15 Ferrous Sulfate (Ferrous Sulfate (Ec)) 325 mg DAILY PO Last administered on 08:47; Admin Dose 325 MG; Start 03/12/17 at 09:00 Gabapentin (Neurontin) 300 mg TID PO Last administered on 03/18/17 08:48; Admin Dose 300 MG; Start 03/11/17 at 23:15 Lactulose (Enulose) 30 gm Q24H PO Last administered on 03/17/17 23:46; Admin Dose 30 GM; Start 03/11/17 at 23:30 Magnesium Hydroxide (Milk Of Mag) 30 ml DAILY PO Last administered on 08:47; Admin Dose 30 ML; Start 03/12/17 at 09:00 Calcium Carbonate (Tums) 500 mg TID PO Last administered on 03/18/17 08:46; Admin Dose 500 MG; Start 03/11/17 at 23:30 Atorvastatin Calcium (Lipitor) 20 mg DAILY@21 PO Last administered on 21:16; Admin Dose 20 MG; Start 03/11/17 at 23:30 Ondansetron HCl (Zofran Tab) 4 mg Q6H PRN PO NAUSEA AND/OR VOMITING; Start at 21:15 Pantoprazole (Protonix Tab) 40 mg DAILY@06 PO Last administered on 03/18/17 05:40; Admin Dose 40 MG; Start 03/12/17 at 06:00 Diagnostic Test (Pha) 1 ea 1 ea 02 XX Last administered on 03/12/17 02:14; Admin Dose 1 EA; Start 03/12/17 at 02:00 Meropenem/Sodium Chloride (Merrem 1 Gm/50 ml (Pmx)) 50 ml @ 100 mls/hr Q8 IVPB Last administered on 03/18/17 05:42; Admin Dose 100 MLS/HR; Start 03/11/17 at 23:30 Miscellaneous Information 1 ea NOTE XX ; Start 03/11/17 at 23:30 Glucose (Glutose) 15 gm Q15M PRN PO DECREASED GLUCOSE; Start 03/11/17 at 23:30 Glucose (Glutose) 22.5 gm Q15M PRN PO DECREASED GLUCOSE; Start 03/11/17 at 23: 30 Dextrose (D50w Syringe) 25 ml Q15M PRN IV DECREASED GLUCOSE; Start 03/11/17 at 23:30 Dextrose (D50w Syringe) 50 ml Q15M PRN IV DECREASED GLUCOSE; Start 03/11/17 at 23:30 Glucagon (Glucagen) 1 mg Q15M PRN IM DECREASED GLUCOSE; Start 03/11/17 at 23: 30 Glucose (Glutose) 15 gm Q15M PRN BUCCAL DECREASED GLUCOSE; Start 03/11/17 at 23:30 Acetaminophen/ Hydrocodone Bitart ([place] (5/325)) 1 tab Q4H PRN PO PAIN LEVEL 1 -5; Start 03/15/17 at 13:30 Acetaminophen/ Hydrocodone Bitart ([place] (5/325)) 2 tab Q4H PRN PO PAIN LEVEL 6 -10 Last administered on 03/18/17 03:50; Admin Dose 2 TAB; Start 03/15/17 at 13:30 Heparin Sodium (Porcine) (Heparin (5000 Units/0.5 ml)) 5,000 unit Q8 SC Last administered on 03/18/17 05:41; Admin Dose 5,000 UNIT; Start 03/16/17 at 14: 00 Carvedilol (Coreg) 6.25 mg BID PO Last administered on 03/18/17 08:50; Admin Dose 6.25 MG; Start 03/16/17 at 13:30 Oxycodone HCl (Oxycontin) 10 mg Q12 PO Last administered on 03/18/17 08:55; Admin Dose 10 MG; Start 03/17/17 at 21:00 Assessment/Plan Chief Complaint/Hosp Course 1. Paroxysmal atrial fibrillation with rapid ventricular response: Currently back in sinus rhythm on amiodarone 2. Status post sepsis 3. Cholecystitis status post drainage in place. 4. Status post respiratory failure currently extubated. 5. Hypertension 6. Diabetes 7. Morbid obesity 8. Anemia 9. Mildly abnormal troponin secondary to above: we will will follow. 10. CHF. fluid overload Recommendations: lasix iv x 1 now Electrolytes will be checked and adjusted accordingly. INC Beta-safia as tolerated will be continued. Respiratory care as per dry cleaner hand. Antibiotic management as per internal medicine. Follow-up with surgery recommendations. Thank you for his referral. We will continue to follow along with you. REGINALDO TAYLOR MD [facility] Problems: REGINALDO TAYLOR MD Mar 18, 2017 09:32
[2017-03-18 09:47] LABS: PHOSPHORUS 3.4 mg/dl (2.5-4.9)
[2017-03-18 10:04] LABS: ALBUMIN 2.4 g/dl (3.3-4.9); ALBUMIN/GLOBULIN RATIO 0.88; BILIRUBIN,INDIRECT 0.1 mg/dl (0-1.1); BILIRUBIN,TOTAL 0.1 mg/dl (0.2-1.3); CALCIUM 8.8 mg/dl (8.4-10.2); CREATININE 0.97 mg/dl (0.44-1.00); POTASSIUM 4.2 mmol/L (3.5-5.1); TOTAL PROTEIN 5.1 g/dl (6.1-8.1)
--- NOTE | 2017-03-18 11:46 | CONS ---
Date/Time of Note Date/Time of Note DATE: 03/18/17 TIME: 11:44 Consult Date/Type/Reason Admit Date/Time Mar 11, 2017 at 18:58 Initial Consult Date 03/13/17 Type of Consultation: Pulm Subjective Comfortable this morning. Objective Vital Signs Date Time Temp Pulse Resp B/P Pulse Ox O2 Delivery O2 Flow Rate FiO2 03/18/17 11:16 98.5 70 22 165/101 99 03/18/17 02:51 2.0 03/17/17 23:45 Nasal Cannula 03/16/17 08:00 30 Intake and Output 03/17/17 03/17/17 03/18/17 15:00 23:00 07:00 Intake Total 623.6 ml 33.4 ml 220 ml Output Total 324 ml 743 ml Balance 299.6 ml -709.6 ml 220 ml Exam PHYSICAL EXAMINATION: GENERAL: Morbidly obese lady, comfortable at rest no acute distress VITAL SIGNS: As above. HEENT: Dry mucous membranes. Pupils equal and reactive to light. CARDIAC: S1, S2, no added sounds or murmurs. CHEST: Diminished air entry bilaterally. ABDOMEN: Tender right upper quadrant. EXTREMITIES: No cyanosis, clubbing, edema. NEUROLOGIC: Generalized weakness. Results/Medications Result Diagram: 03/18/17 0732 03/18/17 0732 Results 24 hrs Laboratory Tests Test 03/17/17 12:03 03/17/17 17:13 03/17/17 21:19 03/18/17 07:32 Bedside Glucose 145 128 138 White Blood Count 8.5 Red Blood Count 3.46 L Hemoglobin 10.0 L Hematocrit 32.7 L Mean Corpuscular Volume 94.5 Mean Corpuscular Hemoglobin 28.9 L Mean Corpuscular Hemoglobin Concent 30.6 L Red Cell Distribution Width 15.1 H Platelet Count 276 Mean Platelet Volume 11.7 H Neutrophils % 69.6 Lymphocytes % 18.4 Monocytes % 7.3 Eosinophils % 3.4 Basophils % 0.4 Nucleated Red Blood Cells % 0.0 Neutrophils # 5.9 Lymphocytes # 1.6 Monocytes # 0.6 Eosinophils # 0.3 Basophils # 0.0 Nucleated Red Blood Cells # 0.0 Sodium Level 140 Potassium Level 4.2 Chloride Level 106 Carbon Dioxide Level 26 Anion Gap 12 Blood Urea Nitrogen 27 H Creatinine 0.97 Glucose Level 90 # Calcium Level 8.8 Phosphorus Level 3.4 Magnesium Level 2.0 Total Bilirubin 0.1 L Direct Bilirubin 0.00 Indirect Bilirubin 0.1 Aspartate Amino Transf (AST/SGOT) 14 L Alanine Aminotransferase (ALT/SGPT) 28 Alkaline Phosphatase 76 Total Protein 5.1 L Albumin 2.4 L Globulin 2.70 Albumin/Globulin Ratio 0.88 Test 03/18/17 08:18 Bedside Glucose 128 Medications Current Medications Insulin Glargine (Lantus) 12 unit DAILY SC Last administered on 03/18/17 09: 05; Admin Dose 12 UNIT; Start 03/12/17 at 09:00 Acetaminophen (Tylenol Tab) 650 mg Q6H PRN PO MILD PAIN LEVEL 1-3; Start 03/11 at 21:15 Allopurinol (Zyloprim) 100 mg BID PO Last administered on 03/18/17 08:48; Admin Dose 100 MG; Start 03/11/17 at 23:15 Ferrous Sulfate (Ferrous Sulfate (Ec)) 325 mg DAILY PO Last administered on 08:47; Admin Dose 325 MG; Start 03/12/17 at 09:00 Gabapentin (Neurontin) 300 mg TID PO Last administered on 03/18/17 08:48; Admin Dose 300 MG; Start 03/11/17 at 23:15 Lactulose (Enulose) 30 gm Q24H PO Last administered on 03/17/17 23:46; Admin Dose 30 GM; Start 03/11/17 at 23:30 Magnesium Hydroxide (Milk Of Mag) 30 ml DAILY PO Last administered on 08:47; Admin Dose 30 ML; Start 03/12/17 at 09:00 Calcium Carbonate (Tums) 500 mg TID PO Last administered on 03/18/17 08:46; Admin Dose 500 MG; Start 03/11/17 at 23:30 Atorvastatin Calcium (Lipitor) 20 mg DAILY@21 PO Last administered on 21:16; Admin Dose 20 MG; Start 03/11/17 at 23:30 Ondansetron HCl (Zofran Tab) 4 mg Q6H PRN PO NAUSEA AND/OR VOMITING; Start at 21:15 Pantoprazole (Protonix Tab) 40 mg DAILY@06 PO Last administered on 03/18/17 05:40; Admin Dose 40 MG; Start 03/12/17 at 06:00 Diagnostic Test (Pha) 1 ea 1 ea 02 XX Last administered on 03/12/17 02:14; Admin Dose 1 EA; Start 03/12/17 at 02:00 Meropenem/Sodium Chloride (Merrem 1 Gm/50 ml (Pmx)) 50 ml @ 100 mls/hr Q8 IVPB Last administered on 03/18/17 05:42; Admin Dose 100 MLS/HR; Start 03/11/17 at 23:30 Miscellaneous Information 1 ea NOTE XX ; Start 03/11/17 at 23:30 Glucose (Glutose) 15 gm Q15M PRN PO DECREASED GLUCOSE; Start 03/11/17 at 23:30 Glucose (Glutose) 22.5 gm Q15M PRN PO DECREASED GLUCOSE; Start 03/11/17 at 23: 30 Dextrose (D50w Syringe) 25 ml Q15M PRN IV DECREASED GLUCOSE; Start 03/11/17 at 23:30 Dextrose (D50w Syringe) 50 ml Q15M PRN IV DECREASED GLUCOSE; Start 03/11/17 at 23:30 Glucagon (Glucagen) 1 mg Q15M PRN IM DECREASED GLUCOSE; Start 03/11/17 at 23: 30 Glucose (Glutose) 15 gm Q15M PRN BUCCAL DECREASED GLUCOSE; Start 03/11/17 at 23:30 Acetaminophen/ Hydrocodone Bitart ([place] (5/325)) 1 tab Q4H PRN PO PAIN LEVEL 1 -5; Start 03/15/17 at 13:30 Acetaminophen/ Hydrocodone Bitart ([place] (5/325)) 2 tab Q4H PRN PO PAIN LEVEL 6 -10 Last administered on 03/18/17 03:50; Admin Dose 2 TAB; Start 03/15/17 at 13:30 Heparin Sodium (Porcine) (Heparin (5000 Units/0.5 ml)) 5,000 unit Q8 SC Last administered on 03/18/17 05:41; Admin Dose 5,000 UNIT; Start 03/16/17 at 14: 00 Oxycodone HCl (Oxycontin) 10 mg Q12 PO Last administered on 03/18/17 08:55; Admin Dose 10 MG; Start 03/17/17 at 21:00 Carvedilol (Coreg) 6.25 mg TID PO ; Start 03/18/17 at 13:00 Assessment/Plan Chief Complaint/Hosp Course IMPRESSION: 1. s/p Hypoxemic respiratory failure with possible healthcare-associated pneumonia versus aspiration. Possible underlying ARVIND. 2. Non-ST elevation myocardial infarction. 3. Acute cholecystitis status post cholecystostomy tube PLAN: 1. Extubated post respiratory failure continue incentive spirometry postextubation. Encourage out of bed. 2. De-escalate/DC antibiotics 3. Discussed with general surgery. Percutaneous drainage. 4. Deep venous thrombosis and GI prophylaxis. 5. Glycemic management per primary team. 6. Outpatient sleep study Transfer to telemetry okay from pulmonary standpoint Problems: RAMY CAMPBELL MD, [facility] Mar 18, 2017 11:46
--- NOTE | 2017-03-18 14:54 | PN ---
Date/Time of Note Date/Time of Note DATE: 03/18/17 TIME: 14:29 Assessment/Plan VTE Prophylaxis VTE Prophylaxis Intervention: heparin Lines/Catheters IV Catheter Type (from Nrsg): Central Line Central line still needed: Yes (for IV access) Urinary Cath still in place: No Assessment/Plan Assessment/Plan 71-year-old female with: 1. Acute cholecystitis, status post cholecystostomy tube placement POD#3. Cultures with ESBL E coli sensitive to carbipenems. Continue current Meropenem, off vancomycin. Patient tolerating p.o. Follow-up further surgical recommendations, Dr Leavitt. 2. Episode of atrial fibrillation, appreciate recommendations from . 2D echocardiogram done on admission unchanged Continue Carvedilol. Replete electrolytes. 3. Elevated troponin resolved, likely secondary to renal insufficiency but also demand ischemia. Resolved. 2D echocardiogram with preserved EF and no wall motion abnormalities. 4. S/p acute respiratory failure 2ry to right lower lobe pneumonia, sepsis and likely COPD exacerbation, patient on nasal cannula and stable. Continue current antibiotics. CPAP at night. Continue respiratory/pulmonary toilet, MDI/nebulizer treatments 5. S/p sepsis, septic shock likely secondary to pneumonia and/or acute cholecystitis. Patient now stable, WBC has normalized x 3 days, vital signs and blood pressure stable and tolerating p.o. well. Blood cultures 1/2 with resistant coagulase-negative staph, likely contaminant, repeat blood cultures pending. ESBL E. coli from cholecystic fluid. 6. Acute kidney injury on ? chronic kidney disease. Renal function back to normal. Monitor renal function. 7. Super morbid obesity with possibly obstructive sleep apnea. CPAP at night. 8. Diastolic congestive heart failure with reported severe septal hypertrophy on previous echocardiogram and also mild to moderate mitral stenosis. Remains stable, will keep on the dry side. 9. Diabetes mellitus. Last A1c 7.3, BG better this AM on current regimen. Continue current insulin regimen, recheck A1c is 6.0. 10. Mild Anemia and thrombocytopenia: Stable hemoglobin so far, patient has been on ferrous sulfate supplements. 11. Chronic pain, narcotic dependent. OxyCodone prn for pain control. Continue OxyCOntin 12. Diabetic neuropathy. Resume Neurontin. Prophylaxis. Heparin subcu for DVT prophylaxis and Protonix for GI prophylaxis. DISPOSITION: Follow up with surgical recommendations, PT eval Subjective 24 Hr Interval Summary Free Text/Dictation Patient doing well actually Cholecystostomy tube in place still On IV abx PT and resp status stable Exam/Review of Systems Vital Signs Vitals Vital Signs Date Time Temp Pulse Resp B/P Pulse Ox O2 Delivery O2 Flow Rate FiO2 03/18/17 12:05 77 03/18/17 11:16 98.5 22 165/101 99 03/18/17 02:51 2.0 03/17/17 23:45 Nasal Cannula 03/16/17 08:00 30 Intake and Output 03/17/17 03/17/17 03/18/17 14:59 22:59 06:59 Intake Total 573.6 ml 100.1 ml 220 ml Output Total 272 ml 795 ml Balance 301.6 ml -694.9 ml 220 ml Exam Constitutional: alert, obese (morbid ), oriented Respiratory: clear to auscultation, normal air movement Cardiovascular: nl pulses, regular rate and rhythm Gastrointestinal: non-tender, other (cholecystostomy tube in place ), soft Musculoskeletal: nl extremities to inspection Extremities: normal pulses, other (no edema, clubbing or cyanosis ) Results Result Diagram: 03/18/17 0732 03/18/17 0732 Results 24 hrs Laboratory Tests Test 03/17/17 17:13 03/17/17 21:19 03/18/17 07:32 03/18/17 08:18 Bedside Glucose 128 138 128 White Blood Count 8.5 Red Blood Count 3.46 L Hemoglobin 10.0 L Hematocrit 32.7 L Mean Corpuscular Volume 94.5 Mean Corpuscular Hemoglobin 28.9 L Mean Corpuscular Hemoglobin Concent 30.6 L Red Cell Distribution Width 15.1 H Platelet Count 276 Mean Platelet Volume 11.7 H Neutrophils % 69.6 Lymphocytes % 18.4 Monocytes % 7.3 Eosinophils % 3.4 Basophils % 0.4 Nucleated Red Blood Cells % 0.0 Neutrophils # 5.9 Lymphocytes # 1.6 Monocytes # 0.6 Eosinophils # 0.3 Basophils # 0.0 Nucleated Red Blood Cells # 0.0 Sodium Level 140 Potassium Level 4.2 Chloride Level 106 Carbon Dioxide Level 26 Anion Gap 12 Blood Urea Nitrogen 27 H Creatinine 0.97 Glucose Level 90 # Calcium Level 8.8 Phosphorus Level 3.4 Magnesium Level 2.0 Total Bilirubin 0.1 L Direct Bilirubin 0.00 Indirect Bilirubin 0.1 Aspartate Amino Transf (AST/SGOT) 14 L Alanine Aminotransferase (ALT/SGPT) 28 Alkaline Phosphatase 76 Total Protein 5.1 L Albumin 2.4 L Globulin 2.70 Albumin/Globulin Ratio 0.88 Test 03/18/17 12:20 Bedside Glucose 112 Medications Medications Current Medications Insulin Glargine (Lantus) 12 unit DAILY SC Last administered on 03/18/17 09: 05; Admin Dose 12 UNIT; Start 03/12/17 at 09:00 Acetaminophen (Tylenol Tab) 650 mg Q6H PRN PO MILD PAIN LEVEL 1-3; Start 03/11 at 21:15 Allopurinol (Zyloprim) 100 mg BID PO Last administered on 03/18/17 08:48; Admin Dose 100 MG; Start 03/11/17 at 23:15 Ferrous Sulfate (Ferrous Sulfate (Ec)) 325 mg DAILY PO Last administered on 08:47; Admin Dose 325 MG; Start 03/12/17 at 09:00 Gabapentin (Neurontin) 300 mg TID PO Last administered on 03/18/17 12:24; Admin Dose 300 MG; Start 03/11/17 at 23:15 Lactulose (Enulose) 30 gm Q24H PO Last administered on 03/17/17 23:46; Admin Dose 30 GM; Start 03/11/17 at 23:30 Magnesium Hydroxide (Milk Of Mag) 30 ml DAILY PO Last administered on 08:47; Admin Dose 30 ML; Start 03/12/17 at 09:00 Calcium Carbonate (Tums) 500 mg TID PO Last administered on 03/18/17 12:26; Admin Dose 500 MG; Start 03/11/17 at 23:30 Atorvastatin Calcium (Lipitor) 20 mg DAILY@21 PO Last administered on 21:16; Admin Dose 20 MG; Start 03/11/17 at 23:30 Ondansetron HCl (Zofran Tab) 4 mg Q6H PRN PO NAUSEA AND/OR VOMITING; Start at 21:15 Pantoprazole (Protonix Tab) 40 mg DAILY@06 PO Last administered on 03/18/17 05:40; Admin Dose 40 MG; Start 03/12/17 at 06:00 Diagnostic Test (Pha) 1 ea 1 ea 02 XX Last administered on 03/12/17 02:14; Admin Dose 1 EA; Start 03/12/17 at 02:00 Meropenem/Sodium Chloride (Merrem 1 Gm/50 ml (Pmx)) 50 ml @ 100 mls/hr Q8 IVPB Last administered on 03/18/17 13:17; Admin Dose 100 MLS/HR; Start 03/11/17 at 23:30 Miscellaneous Information 1 ea NOTE XX ; Start 03/11/17 at 23:30 Glucose (Glutose) 15 gm Q15M PRN PO DECREASED GLUCOSE; Start 03/11/17 at 23:30 Glucose (Glutose) 22.5 gm Q15M PRN PO DECREASED GLUCOSE; Start 03/11/17 at 23: 30 Dextrose (D50w Syringe) 25 ml Q15M PRN IV DECREASED GLUCOSE; Start 03/11/17 at 23:30 Dextrose (D50w Syringe) 50 ml Q15M PRN IV DECREASED GLUCOSE; Start 03/11/17 at 23:30 Glucagon (Glucagen) 1 mg Q15M PRN IM DECREASED GLUCOSE; Start 03/11/17 at 23: 30 Glucose (Glutose) 15 gm Q15M PRN BUCCAL DECREASED GLUCOSE; Start 03/11/17 at 23:30 Acetaminophen/ Hydrocodone Bitart ([place] (5/325)) 1 tab Q4H PRN PO PAIN LEVEL 1 -5; Start 03/15/17 at 13:30 Acetaminophen/ Hydrocodone Bitart ([place] (5/325)) 2 tab Q4H PRN PO PAIN LEVEL 6 -10 Last administered on 03/18/17 03:50; Admin Dose 2 TAB; Start 03/15/17 at 13:30 Heparin Sodium (Porcine) (Heparin (5000 Units/0.5 ml)) 5,000 unit Q8 SC Last administered on 03/18/17 13:28; Admin Dose 5,000 UNIT; Start 03/16/17 at 14: 00 Oxycodone HCl (Oxycontin) 10 mg Q12 PO Last administered on 03/18/17 08:55; Admin Dose 10 MG; Start 03/17/17 at 21:00 Carvedilol (Coreg) 6.25 mg TID PO Last administered on 03/18/17 12:25; Admin Dose 6.25 MG; Start 03/18/17 at 13:00 REBECCA SALAS Mar 18, 2017 14:40
[2017-03-18] MEDS: BALSAM PERU/CASTOR OIL 60 GM TUBE TOP SCH (15:00)
[2017-03-18] MEDS: ATORVASTATIN 20 MG TAB PO SCH (21:12)
[2017-03-18] MEDS: LACTULOSE 30ML CUP PO SCH (23:30)
[2017-03-19] VITALS (11 sets, daily range): BP systolic 116–170; BP diastolic 59–80; PULSE 62–75; RESP 19–21
[2017-03-19] MEDS: ACCU-CHEK XX SCH ×2 (02:00→23:06)
[2017-03-19] MEDS: oxyCODONE (CR) 10 MG TAB [oxyCONTIN] PO SCH ×2 (06:43→21:07)
[2017-03-19] MEDS: MEROPENEM 1 GM/50ML(PMX) 50 ML IVPB SCH (06:44)
[2017-03-19] MEDS: PANTOPRAZOLE (EC) 40 MG TAB PO SCH (06:44)
[2017-03-19] MEDS: HEPARIN 5,000 UNIT/0.5 ML VIAL SC SCH ×2 (06:46→16:56)
[2017-03-19] MEDS: INSULIN ASPART [NOVOLOG] 3 ML PEN SC SCH ×4 (07:55→21:00)
[2017-03-19 08:50] LABS: ALBUMIN 2.4 g/dl (3.3-4.9); ALBUMIN/GLOBULIN RATIO 0.92; BILIRUBIN,INDIRECT 0.3 mg/dl (0-1.1); BILIRUBIN,TOTAL 0.3 mg/dl (0.2-1.3); CALCIUM 8.8 mg/dl (8.4-10.2); CREATININE 0.93 mg/dl (0.44-1.00); MAGNESIUM 1.7 mg/dl (1.7-2.5); POTASSIUM 4.3 mmol/L (3.5-5.1)
[2017-03-19] MEDS: MAGNESIUM HYDROXIDE 30ML CUP PO SCH (09:00)
[2017-03-19] MEDS: CALCIUM CARBONATE 500 MG CHEW TAB PO SCH ×3 (09:28→21:06)
[2017-03-19] MEDS: ALLOPURINOL 100 MG TAB PO SCH ×2 (09:29→21:07)
[2017-03-19] MEDS: GABAPENTIN 300 MG CAP PO SCH ×3 (09:29→21:06)
[2017-03-19] MEDS: FERROUS SULFATE (EC) 325 MG TAB PO SCH (09:29)
--- NOTE | 2017-03-19 09:31 | CONS ---
Date/Time of Note Date/Time of Note DATE: 03/19/17 TIME: 09:29 Consult Date/Type/Reason Admit Date/Time Mar 11, 2017 at 18:58 Initial Consult Date 03/13/17 Type of Consultation: cv Subjective CARDIOLOGY FOLLOW UP NOTE: S: Case discussed with staff and rhythm strip was reviewed. Patient has remained in sinus rhythm overnight. She denies any chest pain or pressure shortness of breath to me. No bleeding reported. Objective: General: obese female. no acute distress HEENT: NC/AT. pupils are equal. round. NECK: NO JVD. no stridor. CV: RRR. systolic murmur; no gallop or rubs. PULM: no wheezing or rhonchi. GI: SOFT, ND, no rebound or guarding . s/p drainage tube in right side Extremity: + B/L LE edema. no clubbing. neuro: awake and alert, OX3. Psych: calm and pleasant rectal: deferred Objective Vital Signs Date Time Temp Pulse Resp B/P Pulse Ox O2 Delivery O2 Flow Rate FiO2 03/19/17 08:19 70 03/19/17 07:34 98.1 21 128/59 100 03/19/17 02:22 2.0 03/18/17 20:00 Nasal Cannula 03/16/17 08:00 30 Intake and Output 03/18/17 03/18/17 03/19/17 15:00 23:00 07:00 Intake Total 650 ml 400 ml Balance 650 ml 400 ml Results/Medications Result Diagram: 03/18/17 0732 03/19/17 0745 Results 24 hrs Laboratory Tests Test 03/18/17 12:20 03/18/17 17:25 03/18/17 21:01 03/19/17 07:45 Bedside Glucose 112 133 110 Sodium Level 138 Potassium Level 4.3 Chloride Level 106 Carbon Dioxide Level 26 Anion Gap 10 Blood Urea Nitrogen 27 H Creatinine 0.93 Glucose Level 87 Calcium Level 8.8 Magnesium Level 1.7 Total Bilirubin 0.3 Direct Bilirubin 0.00 Indirect Bilirubin 0.3 Aspartate Amino Transf (AST/SGOT) 43 Alanine Aminotransferase (ALT/SGPT) 25 Alkaline Phosphatase 65 B-Type Natriuretic Peptide 80008 H Total Protein 5.0 L Albumin 2.4 L Globulin 2.60 Albumin/Globulin Ratio 0.92 Test 03/19/17 08:05 Bedside Glucose 81 Medications Current Medications Insulin Glargine (Lantus) 12 unit DAILY SC Last administered on 03/18/17 09: 05; Admin Dose 12 UNIT; Start 03/12/17 at 09:00 Acetaminophen (Tylenol Tab) 650 mg Q6H PRN PO MILD PAIN LEVEL 1-3; Start 03/11 at 21:15 Allopurinol (Zyloprim) 100 mg BID PO Last administered on 03/18/17 21:12; Admin Dose 100 MG; Start 03/11/17 at 23:15 Ferrous Sulfate (Ferrous Sulfate (Ec)) 325 mg DAILY PO Last administered on 08:47; Admin Dose 325 MG; Start 03/12/17 at 09:00 Gabapentin (Neurontin) 300 mg TID PO Last administered on 03/18/17 21:12; Admin Dose 300 MG; Start 03/11/17 at 23:15 Lactulose (Enulose) 30 gm Q24H PO Last administered on 03/18/17 23:30; Admin Dose 30 GM; Start 03/11/17 at 23:30 Magnesium Hydroxide (Milk Of Mag) 30 ml DAILY PO Last administered on 08:47; Admin Dose 30 ML; Start 03/12/17 at 09:00 Calcium Carbonate (Tums) 500 mg TID PO Last administered on 03/18/17 21:12; Admin Dose 500 MG; Start 03/11/17 at 23:30 Atorvastatin Calcium (Lipitor) 20 mg DAILY@21 PO Last administered on 21:12; Admin Dose 20 MG; Start 03/11/17 at 23:30 Ondansetron HCl (Zofran Tab) 4 mg Q6H PRN PO NAUSEA AND/OR VOMITING; Start at 21:15 Pantoprazole (Protonix Tab) 40 mg DAILY@06 PO Last administered on 03/19/17 06:44; Admin Dose 40 MG; Start 03/12/17 at 06:00 Diagnostic Test (Pha) 1 ea 1 ea 02 XX Last administered on 03/19/17 02:00; Admin Dose 1 EA; Start 03/12/17 at 02:00 Meropenem/Sodium Chloride (Merrem 1 Gm/50 ml (Pmx)) 50 ml @ 100 mls/hr Q8 IVPB Last administered on 03/19/17 06:44; Admin Dose 100 MLS/HR; Start 03/11/17 at 23:30 Miscellaneous Information 1 ea NOTE XX ; Start 03/11/17 at 23:30 Glucose (Glutose) 15 gm Q15M PRN PO DECREASED GLUCOSE; Start 03/11/17 at 23:30 Glucose (Glutose) 22.5 gm Q15M PRN PO DECREASED GLUCOSE; Start 03/11/17 at 23: 30 Dextrose (D50w Syringe) 25 ml Q15M PRN IV DECREASED GLUCOSE; Start 03/11/17 at 23:30 Dextrose (D50w Syringe) 50 ml Q15M PRN IV DECREASED GLUCOSE; Start 03/11/17 at 23:30 Glucagon (Glucagen) 1 mg Q15M PRN IM DECREASED GLUCOSE; Start 03/11/17 at 23: 30 Glucose (Glutose) 15 gm Q15M PRN BUCCAL DECREASED GLUCOSE; Start 03/11/17 at 23:30 Acetaminophen/ Hydrocodone Bitart ([place] (5/325)) 1 tab Q4H PRN PO PAIN LEVEL 1 -5; Start 03/15/17 at 13:30 Acetaminophen/ Hydrocodone Bitart ([place] (5/325)) 2 tab Q4H PRN PO PAIN LEVEL 6 -10 Last administered on 03/18/17 03:50; Admin Dose 2 TAB; Start 03/15/17 at 13:30 Heparin Sodium (Porcine) (Heparin (5000 Units/0.5 ml)) 5,000 unit Q8 SC Last administered on 03/19/17 06:46; Admin Dose 5,000 UNIT; Start 03/16/17 at 14: 00 Oxycodone HCl (Oxycontin) 10 mg Q12 PO Last administered on 03/19/17 06:43; Admin Dose 10 MG; Start 03/17/17 at 21:00 Carvedilol 6.25 mg 6.25 mg TID PO Last administered on 03/18/17 21:13; Admin Dose 6.25 MG; Start 03/18/17 at 13:00 Magnesium Sulfate/ Dextrose (Magnesium Sulfate/D5W) 106 ml @ 35.333 mls/ hr ONCE ONCE IVPB ; Start 03/19/17 at 09:30; Stop 03/19/17 at 12:29; Status UNV Assessment/Plan Chief Complaint/Hosp Course 1. Paroxysmal atrial fibrillation with rapid ventricular response: Currently back in sinus rhythm on amiodarone 2. Status post sepsis 3. Cholecystitis status post drainage in place. 4. Status post respiratory failure currently extubated. 5. Hypertension 6. Diabetes 7. Morbid obesity 8. Anemia 9. Mildly abnormal troponin secondary to above: we will will follow. 10. CHF. fluid overload Recommendations: lasix po daily Electrolytes will be checked and adjusted accordingly. will give Mg today Beta-safia as tolerated will be continued. Respiratory care as per pie maker. Antibiotic management as per internal medicine. Follow-up with surgery recommendations. Thank you for his referral. We will continue to follow along with you. REGINALDO TAYLOR MD [facility] Problems: REGINALDO TAYLOR MD Mar 19, 2017 09:31
[2017-03-19] MEDS: INSULIN GLARGINE [LANtus] 3 ML PEN SC SCH (09:48)
--- NOTE | 2017-03-19 10:18 | PN ---
Date/Time of Note Date/Time of Note DATE: 03/19/17 TIME: 10:16 Assessment/Plan Lines/Catheters IV Catheter Type (from Nrs): Central Line Kyle in Place (from Nrs): Yes Assessment/Plan Chief Complaint/Hosp Course The patient is a 72-year-old morbidly obese diabetic female who resides in a assisted facility. She was admitted 2 days ago because of respiratory failure, and required intubation. She is still intubated. He has had a low- grade white blood cell count in the 15,000 range. While on the ventilator the patient complained of abdominal pain. A CT scan showed a distended gallbladder with stones and findings suggestive of cholecystitis. Surgical consultation was requested in that regard. Problems: Assessment/Plan Cholecystostomy is draining nicely Patient when discharged, will go home with cholecystostomy and home health. 3 weeks post cholecystostomy, arrangements will need to be made for outpatient cholangiogram through the cholecystostomy, then outpatient follow-up with me. Subjective 24 Hr Interval Summary Patient is in good spirits and tolerating a general diet Abdominal examination is benign Exam/Review of Systems Vital Signs Vitals Vital Signs Date Time Temp Pulse Resp B/P Pulse Ox O2 Delivery O2 Flow Rate FiO2 03/19/17 08:19 70 03/19/17 07:34 98.1 21 128/59 100 03/19/17 02:22 2.0 03/18/17 20:00 Nasal Cannula 03/16/17 08:00 30 Intake and Output 03/18/17 03/18/17 03/19/17 15:00 23:00 07:00 Intake Total 650 ml 400 ml Balance 650 ml 400 ml Results Result Diagram: 03/18/17 0732 03/19/17 0745 DEJA FLORENCE MD Mar 19, 2017 10:18
[2017-03-19] MEDS ORDERED: MAGNESIUM SULFATE 3 GM in DEXTROSE 5% 100 ML IVPB ONE (10:30)
[2017-03-19] MEDS: SPIRONOLACTONE 25 MG TAB PO SCH (10:55)
[2017-03-19] MEDS: HYDROCODONE/APAP (5/325) TAB PO PRN ×3 (10:56→21:08)
[2017-03-19] MEDS: FUROSEMIDE 40 MG TAB PO SCH (10:56)
[2017-03-19] MEDS: BALSAM PERU/CASTOR OIL 60 GM TUBE TOP SCH (11:00)
--- NOTE | 2017-03-19 11:36 | CONS ---
Date/Time of Note Date/Time of Note DATE: 03/19/17 TIME: 11:35 Consult Date/Type/Reason Admit Date/Time Mar 11, 2017 at 18:58 Initial Consult Date 03/13/17 Type of Consultation: Pulm Subjective Comfortable sitting up in bed Objective Vital Signs Date Time Temp Pulse Resp B/P Pulse Ox O2 Delivery O2 Flow Rate FiO2 03/19/17 08:19 70 03/19/17 07:34 98.1 21 128/59 100 03/19/17 07:20 2.0 03/18/17 20:00 Nasal Cannula 03/16/17 08:00 30 Intake and Output 03/18/17 03/18/17 03/19/17 15:00 23:00 07:00 Intake Total 650 ml 400 ml Balance 650 ml 400 ml Exam PHYSICAL EXAMINATION: GENERAL: Morbidly obese lady, comfortable at rest no acute distress VITAL SIGNS: As above. HEENT: Dry mucous membranes. Pupils equal and reactive to light. CARDIAC: S1, S2, no added sounds or murmurs. CHEST: Diminished air entry bilaterally. ABDOMEN: Tender right upper quadrant. EXTREMITIES: No cyanosis, clubbing, edema. NEUROLOGIC: Generalized weakness. Results/Medications Result Diagram: 03/18/17 0732 03/19/17 0745 Results 24 hrs Laboratory Tests Test 03/18/17 12:20 03/18/17 17:25 03/18/17 21:01 03/19/17 07:45 Bedside Glucose 112 133 110 Sodium Level 138 Potassium Level 4.3 Chloride Level 106 Carbon Dioxide Level 26 Anion Gap 10 Blood Urea Nitrogen 27 H Creatinine 0.93 Glucose Level 87 Calcium Level 8.8 Magnesium Level 1.7 Total Bilirubin 0.3 Direct Bilirubin 0.00 Indirect Bilirubin 0.3 Aspartate Amino Transf (AST/SGOT) 43 Alanine Aminotransferase (ALT/SGPT) 25 Alkaline Phosphatase 65 B-Type Natriuretic Peptide 55987 H Total Protein 5.0 L Albumin 2.4 L Globulin 2.60 Albumin/Globulin Ratio 0.92 Test 03/19/17 08:05 Bedside Glucose 81 Medications Current Medications Insulin Glargine (Lantus) 12 unit DAILY SC Last administered on 03/19/17t 09: 48; Admin Dose 12 UNIT; Start 03/12/17 at 09:00 Acetaminophen (Tylenol Tab) 650 mg Q6H PRN PO MILD PAIN LEVEL 1-3; Start 03/11 at 21:15 Allopurinol (Zyloprim) 100 mg BID PO Last administered on 03/19/17 09:29; Admin Dose 100 MG; Start 03/11/17 at 23:15 Ferrous Sulfate (Ferrous Sulfate (Ec)) 325 mg DAILY PO Last administered on 09:29; Admin Dose 325 MG; Start 03/12/17 at 09:00 Gabapentin (Neurontin) 300 mg TID PO Last administered on 03/19/17 09:29; Admin Dose 300 MG; Start 03/11/17 at 23:15 Lactulose (Enulose) 30 gm Q24H PO Last administered on 03/18/17 23:30; Admin Dose 30 GM; Start 03/11/17 at 23:30 Magnesium Hydroxide (Milk Of Mag) 30 ml DAILY PO Last administered on 08:47; Admin Dose 30 ML; Start 03/12/17 at 09:00 Calcium Carbonate (Tums) 500 mg TID PO Last administered on 03/19/17 09:28; Admin Dose 500 MG; Start 03/11/17 at 23:30 Atorvastatin Calcium (Lipitor) 20 mg DAILY@21 PO Last administered on 21:12; Admin Dose 20 MG; Start 03/11/17 at 23:30 Ondansetron HCl (Zofran Tab) 4 mg Q6H PRN PO NAUSEA AND/OR VOMITING; Start at 21:15 Pantoprazole (Protonix Tab) 40 mg DAILY@06 PO Last administered on 03/19/17 06:44; Admin Dose 40 MG; Start 03/12/17 at 06:00 Diagnostic Test (Pha) 1 ea 1 ea 02 XX Last administered on 03/19/17 02:00; Admin Dose 1 EA; Start 03/12/17 at 02:00 Meropenem/Sodium Chloride (Merrem 1 Gm/50 ml (Pmx)) 50 ml @ 100 mls/hr Q8 IVPB Last administered on 03/19/17 06:44; Admin Dose 100 MLS/HR; Start 03/11/17 at 23:30 Miscellaneous Information 1 ea NOTE XX ; Start 03/11/17 at 23:30 Glucose (Glutose) 15 gm Q15M PRN PO DECREASED GLUCOSE; Start 03/11/17 at 23:30 Glucose (Glutose) 22.5 gm Q15M PRN PO DECREASED GLUCOSE; Start 03/11/17 at 23: 30 Dextrose (D50w Syringe) 25 ml Q15M PRN IV DECREASED GLUCOSE; Start 03/11/17 at 23:30 Dextrose (D50w Syringe) 50 ml Q15M PRN IV DECREASED GLUCOSE; Start 03/11/17 at 23:30 Glucagon (Glucagen) 1 mg Q15M PRN IM DECREASED GLUCOSE; Start 03/11/17 at 23: 30 Glucose (Glutose) 15 gm Q15M PRN BUCCAL DECREASED GLUCOSE; Start 03/11/17 at 23:30 Acetaminophen/ Hydrocodone Bitart ([place] (5/325)) 1 tab Q4H PRN PO PAIN LEVEL 1 -5; Start 03/15/17 at 13:30 Acetaminophen/ Hydrocodone Bitart ([place] (5/325)) 2 tab Q4H PRN PO PAIN LEVEL 6 -10 Last administered on 03/19/17 10:56; Admin Dose 2 TAB; Start 03/15/17 at 13:30 Heparin Sodium (Porcine) (Heparin (5000 Units/0.5 ml)) 5,000 unit Q8 SC Last administered on 03/19/17 06:46; Admin Dose 5,000 UNIT; Start 03/16/17 at 14: 00 Oxycodone HCl (Oxycontin) 10 mg Q12 PO Last administered on 03/19/17 06:43; Admin Dose 10 MG; Start 03/17/17 at 21:00 Carvedilol 6.25 mg 6.25 mg TID PO Last administered on 03/19/17 09:30; Admin Dose 6.25 MG; Start 03/18/17 at 13:00 Magnesium Sulfate/ Dextrose (Magnesium Sulfate/D5W) 106 ml @ 35.333 mls/ hr ONCE ONCE IVPB Last administered on 03/19/17 10:47; Admin Dose 35.333 MLS/HR ; Start 03/19/17 at 10:30; Stop 03/19/17 at 13:29 Furosemide (Lasix) 40 mg DAILY PO Last administered on 03/19/17 10:56; Admin Dose 40 MG; Start 03/19/17 at 10:00 Spironolactone (Aldactone) 25 mg DAILY PO Last administered on 03/19/17t 10:55 ; Admin Dose 25 MG; Start 03/19/17 at 10:00 Assessment/Plan Chief Complaint/Hosp Course IMPRESSION: 1. s/p Hypoxemic respiratory failure with possible healthcare-associated pneumonia versus aspiration. Possible underlying ARVIND. 2. Non-ST elevation myocardial infarction. 3. Acute cholecystitis status post cholecystostomy tube PLAN: 1. Extubated post respiratory failure continue incentive spirometry postextubation. Encourage out of bed. 2. De-escalate/DC antibiotics 3. Discussed with general surgery. Percutaneous drainage. 4. Deep venous thrombosis and GI prophylaxis. 5. Glycemic management per primary team. 6. Outpatient sleep study will s/o reconsult as needed. Problems: RAMY CAMPBELL MD, [facility] Mar 19, 2017 11:36
[2017-03-19] MEDS ORDERED: LIDOCAINE 1% (MPF) 5 ML VIAL SC ONE (14:30)
--- NOTE | 2017-03-19 14:34 | PN ---
Date/Time of Note Date/Time of Note DATE: 03/19/17 TIME: 14:22 Assessment/Plan VTE Prophylaxis VTE Prophylaxis Intervention: heparin Lines/Catheters IV Catheter Type (from Nrsg): Central Line Central line still needed: Yes (For IV access, inserting PICC line today.) Urinary Cath still in place: No Assessment/Plan Assessment/Plan 71-year-old female with: 1. Acute cholecystitis, status post cholecystostomy tube placement POD#4. Cultures with ESBL E coli sensitive to carbipenems, will change antibiotic to Ertapenem in anticipation of discharge to care home facility tomorrow. Patient tolerating p.o. Appreciate surgical recommendations from Dr Leavitt. 2. Episode of atrial fibrillation, appreciate recommendations from . 2D echocardiogram done on admission unchanged. Currently in sinus rhythm, Continue Carvedilol. Repleting electrolytes today. 3. Elevated troponin resolved, likely secondary to renal insufficiency but also demand ischemia. Resolved. 2D echocardiogram with preserved EF and no wall motion abnormalities. 4. S/p acute respiratory failure 2ry to right lower lobe pneumonia, sepsis and likely COPD exacerbation, patient on nasal cannula and stable. Continue current antibiotics. Recommending CPAP at night. Continue respiratory/pulmonary toilet, MDI/nebulizer treatments 5. S/p sepsis, septic shock likely secondary to pneumonia and/or acute cholecystitis. Patient now stable, WBC has normalized x 3 days, vital signs and blood pressure stable and tolerating p.o. well. Blood cultures 1/2 with resistant coagulase-negative staph, likely contaminant, repeat blood cultures NGTD, putting a PICC line today, central line will be discontinued afterwards. ESBL E. coli from cholecystic fluid patient to continue IV antibiotics. 6. Acute kidney injury on ? chronic kidney disease. Renal function back to normal. Monitor renal function. 7. Super morbid obesity with possibly obstructive sleep apnea. Recommending CPAP at night. 8. Diastolic congestive heart failure with reported severe septal hypertrophy on previous echocardiogram and also mild to moderate mitral stenosis. Remains stable, will keep on the dry side, patient on Lasix and Aldactone currently. Renal function stable. 9. Diabetes mellitus. Last A1c 7.3, BG better this AM on current regimen. Continue current insulin regimen, recheck A1c is 6.0. 10. Mild Anemia and thrombocytopenia: Stable hemoglobin so far, patient has been on ferrous sulfate supplements. 11. Chronic pain, narcotic dependent. OxyCodone prn for pain control. Continue OxyCOntin 12. Diabetic neuropathy. Resume Neurontin. Prophylaxis. Heparin subcu for DVT prophylaxis and Protonix for GI prophylaxis. DISPOSITION: PICC line placement today, appreciate surgical recommendations, discharge planning to care home facility within 24 hours. Patient on isolation for ESBL. Subjective 24 Hr Interval Summary Free Text/Dictation Patient remained stable this morning, she still has a central line that will be removed after PICC line placement today. We will switch antibiotics to ertapenem Patient getting additional electrolyte replacement, remains in sinus rhythm, discharge planning back to care home facility tomorrow. Appreciate recommendations from general surgery. Exam/Review of Systems Vital Signs Vitals Vital Signs Date Time Temp Pulse Resp B/P Pulse Ox O2 Delivery O2 Flow Rate FiO2 03/19/17 12:23 70 03/19/17 11:49 98.3 20 116/60 100 03/19/17 08:00 Nasal Cannula 03/19/17 07:20 2.0 03/16/17 08:00 30 Intake and Output 03/18/17 03/18/17 03/19/17 15:00 23:00 07:00 Intake Total 650 ml 400 ml Balance 650 ml 400 ml Exam Constitutional: alert, obese (Morbid), oriented Respiratory: clear to auscultation, normal air movement Cardiovascular: nl pulses, other (Maintaining sinus rhythm), regular rate and rhythm Gastrointestinal: non-tender, other (Cholecystostomy drain in place), soft Musculoskeletal: nl extremities to inspection, other (Patient has not been ambulatory for a while.) Extremities: normal pulses, other (No edema, clubbing or cyanosis) Neurological: 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 intact, nl mental status, nl speech, other (Strength at baseline, patient again has been mostly bedridden for a while.) Results Result Diagram: 03/18/17 0732 03/19/17 0745 Results 24 hrs Laboratory Tests Test 03/18/17 17:25 03/18/17 21:01 03/19/17 07:45 03/19/17 08:05 Bedside Glucose 133 110 81 Sodium Level 138 Potassium Level 4.3 Chloride Level 106 Carbon Dioxide Level 26 Anion Gap 10 Blood Urea Nitrogen 27 H Creatinine 0.93 Glucose Level 87 Calcium Level 8.8 Magnesium Level 1.7 Total Bilirubin 0.3 Direct Bilirubin 0.00 Indirect Bilirubin 0.3 Aspartate Amino Transf (AST/SGOT) 43 Alanine Aminotransferase (ALT/SGPT) 25 Alkaline Phosphatase 65 B-Type Natriuretic Peptide 54570 H Total Protein 5.0 L Albumin 2.4 L Globulin 2.60 Albumin/Globulin Ratio 0.92 Test 03/19/17 12:38 Bedside Glucose 110 Medications Medications Current Medications Insulin Glargine (Lantus) 12 unit DAILY SC Last administered on 03/19/17 09: 48; Admin Dose 12 UNIT; Start 03/12/17 at 09:00 Acetaminophen (Tylenol Tab) 650 mg Q6H PRN PO MILD PAIN LEVEL 1-3; Start 03/11 at 21:15 Allopurinol (Zyloprim) 100 mg BID PO Last administered on 03/19/17 09:29; Admin Dose 100 MG; Start 03/11/17 at 23:15 Ferrous Sulfate (Ferrous Sulfate (Ec)) 325 mg DAILY PO Last administered on 09:29; Admin Dose 325 MG; Start 03/12/17 at 09:00 Gabapentin (Neurontin) 300 mg TID PO Last administered on 03/19/17 09:29; Admin Dose 300 MG; Start 03/11/17 at 23:15 Lactulose (Enulose) 30 gm Q24H PO Last administered on 03/18/17 23:30; Admin Dose 30 GM; Start 03/11/17 at 23:30 Magnesium Hydroxide (Milk Of Mag) 30 ml DAILY PO Last administered on 08:47; Admin Dose 30 ML; Start 03/12/17 at 09:00 Calcium Carbonate (Tums) 500 mg TID PO Last administered on 03/19/17 09:28; Admin Dose 500 MG; Start 03/11/17 at 23:30 Atorvastatin Calcium (Lipitor) 20 mg DAILY@21 PO Last administered on 21:12; Admin Dose 20 MG; Start 03/11/17 at 23:30 Ondansetron HCl (Zofran Tab) 4 mg Q6H PRN PO NAUSEA AND/OR VOMITING; Start at 21:15 Pantoprazole (Protonix Tab) 40 mg DAILY@06 PO Last administered on 03/19/17 06:44; Admin Dose 40 MG; Start 03/12/17 at 06:00 Diagnostic Test (Pha) (Accu-Chek) 1 ea 02 XX Last administered on 03/19/17 02 :00; Admin Dose 1 EA; Start 03/12/17 at 02:00 Miscellaneous Information 1 ea NOTE XX ; Start 03/11/17 at 23:30 Glucose (Glutose) 15 gm Q15M PRN PO DECREASED GLUCOSE; Start 03/11/17 at 23:30 Glucose (Glutose) 22.5 gm Q15M PRN PO DECREASED GLUCOSE; Start 03/11/17 at 23: 30 Dextrose (D50w Syringe) 25 ml Q15M PRN IV DECREASED GLUCOSE; Start 03/11/17 at 23:30 Dextrose (D50w Syringe) 50 ml Q15M PRN IV DECREASED GLUCOSE; Start 03/11/17 at 23:30 Glucagon (Glucagen) 1 mg Q15M PRN IM DECREASED GLUCOSE; Start 03/11/17 at 23: 30 Glucose (Glutose) 15 gm Q15M PRN BUCCAL DECREASED GLUCOSE; Start 03/11/17 at 23:30 Acetaminophen/ Hydrocodone Bitart ([place] (5/325)) 1 tab Q4H PRN PO PAIN LEVEL 1 -5; Start 03/15/17 at 13:30 Acetaminophen/ Hydrocodone Bitart ([place] (5/325)) 2 tab Q4H PRN PO PAIN LEVEL 6 -10 Last administered on 03/19/17 10:56; Admin Dose 2 TAB; Start 03/15/17 at 13:30 Heparin Sodium (Porcine) (Heparin (5000 Units/0.5 ml)) 5,000 unit Q8 SC Last administered on 03/19/17 06:46; Admin Dose 5,000 UNIT; Start 03/16/17 at 14: 00 Oxycodone HCl (Oxycontin) 10 mg Q12 PO Last administered on 03/19/17 06:43; Admin Dose 10 MG; Start 03/17/17 at 21:00 Carvedilol (Coreg) 6.25 mg TID PO Last administered on 03/19/17 09:30; Admin Dose 6.25 MG; Start 03/18/17 at 13:00 Furosemide (Lasix) 40 mg DAILY PO Last administered on 03/19/17 10:56; Admin Dose 40 MG; Start 03/19/17 at 10:00 Spironolactone 25 mg 25 mg DAILY PO Last administered on 03/19/17t 10:55; Admin Dose 25 MG; Start 03/19/17 at 10:00 Ertapenem/Sodium Chloride (Invanz/NS) 100 ml @ 200 mls/hr Q24H IVPB ; Start at 14:00 REBECCA SALAS Mar 19, 2017 14:32
--- NOTE | 2017-03-19 15:42 | RADRPT ---
PROCEDURE: Ultrasound guidance for placement of needle in left upper extremity vein. CLINICAL INDICATION: Venous access. TECHNIQUE: Limited sonography of the left upper extremity was performed. Ultrasound images were recorded and s tored in the patient's medical record. COMPARISON: None. FINDINGS: The ultrasound images demonstrate a patent left upper extremity vein. The PICC line was inserted by the PICC line nurse. IMPRESSION: 1. Ultrasound guidance for a needle placement in a left upper extremity vein. 2. The left upper extremity vein is patent. RPTAT: QQ .Kris Carroll MD, MD Date Time Electronically viewed and signed by .Kris Carroll MD, MD on 03/19/2017 15:41 .R/
--- NOTE | 2017-03-19 15:54 | RADRPT ---
PROCEDURE: XR Chest. CLINICAL INDICATION: PICC line placement TECHNIQUE: Single frontal view of the chest was obtained COMPARISON: 03/16 FINDINGS: There is a new left-sided PICC line in place with its tip overlying the low right atrium.. There is a right-sided central line in place. There is mild cardiomegaly. There is a right perihilar and right lower lobe infiltrate and right pleural effusion. RPTAT: AA IMPRESSION: New left-sided PICC line with its tip overlying the low right atrium. Retraction is recommended. .Andrew Christian MD, MD Date Time Electronically viewed and signed by .Andrew Christian MD, MD on 03/19/2017 15:53 .S/
--- NOTE | 2017-03-19 15:54 | RADRPT ---
PROCEDURE: XR Chest. CLINICAL INDICATION: PICC line placement TECHNIQUE: Single frontal view of the chest was obtained COMPARISON: Same day FINDINGS: There is a new left-sided PICC line in place with its tip overlying the upper right atrium. The heart, mediastinum, and lungs are unchanged. RPTAT: AA IMPRESSION: New PICC line in appropriate position. .Andrew Christian MD, MD Date Time Electronically viewed and signed by .Andrew Christian MD, MD on 03/19/2017 15:54 .S/
[2017-03-19] MEDS ORDERED: SOD CHLORIDE 0.9% 100 ML ONE (16:01)
[2017-03-19] MEDS: ERTAPENEM SODIUM 1 GM in SOD CHLORIDE 0.9% 100 ML IVPB SCH (16:49)
[2017-03-19] MEDS: ATORVASTATIN 20 MG TAB PO SCH (21:06)
[2017-03-20] VITALS (10 sets, daily range): BP systolic 109–150; BP diastolic 55–63; PULSE 59–79; RESP 18–20
[2017-03-20] MEDS: LACTULOSE 30ML CUP PO SCH (00:15)
[2017-03-20] MEDS: HEPARIN 5,000 UNIT/0.5 ML VIAL SC SCH ×3 (00:16→14:29)
[2017-03-20] MEDS: PANTOPRAZOLE (EC) 40 MG TAB PO SCH (07:10)
[2017-03-20] MEDS: HYDROCODONE/APAP (5/325) TAB PO PRN (07:10)
[2017-03-20] MEDS: INSULIN ASPART [NOVOLOG] 3 ML PEN SC SCH ×3 (07:55→17:05)
[2017-03-20] MEDS: MAGNESIUM HYDROXIDE 30ML CUP PO SCH (08:33)
[2017-03-20] MEDS: SPIRONOLACTONE 25 MG TAB PO SCH (08:34)
[2017-03-20] MEDS: ALLOPURINOL 100 MG TAB PO SCH (08:34)
[2017-03-20] MEDS: FERROUS SULFATE (EC) 325 MG TAB PO SCH (08:34)
[2017-03-20] MEDS: CALCIUM CARBONATE 500 MG CHEW TAB PO SCH ×2 (08:35→13:03)
[2017-03-20] MEDS: GABAPENTIN 300 MG CAP PO SCH ×2 (08:35→13:04)
[2017-03-20] MEDS: FUROSEMIDE 40 MG TAB PO SCH (08:36)
[2017-03-20] MEDS: INSULIN GLARGINE [LANtus] 3 ML PEN SC SCH (08:45)
[2017-03-20] MEDS: BALSAM PERU/CASTOR OIL 60 GM TUBE TOP SCH (08:46)
[2017-03-20] MEDS: oxyCODONE (CR) 10 MG TAB [oxyCONTIN] PO SCH (08:46)
[2017-03-20 10:06] LABS: ALBUMIN 2.6 g/dl (3.3-4.9); ALBUMIN/GLOBULIN RATIO 0.89; BILIRUBIN,INDIRECT 0.2 mg/dl (0-1.1); BILIRUBIN,TOTAL 0.2 mg/dl (0.2-1.3); CALCIUM 9.1 mg/dl (8.4-10.2); CREATININE 1.19 mg/dl (0.44-1.00); MAGNESIUM 2.3 mg/dl (1.7-2.5); POTASSIUM 4.2 mmol/L (3.5-5.1); TOTAL PROTEIN 5.5 g/dl (6.1-8.1)
--- NOTE | 2017-03-20 10:16 | PDOCDIS ---
Discharge Instructions CONDITION Patient Condition: Stable HOME CARE INSTRUCTIONS: Special Diet: 1800 madhuri ADA ACTIVITY: Activity Restrictions: Slowly Increase Activity FOLLOW UP/APPOINTMENTS Follow-up Plan Follow up with PCP at SNF, patient to go to SNF with cholecystostomy . 3 weeks post cholecystostomy (anytime after 04/05/17), arrangements needs to be made for outpatient cholangiogram through the cholecystostomy, then outpatient follow-up with Dr Leavitt. Follow up with Dr Leavitt in 2 to 3 weeks REBECCA SALAS Mar 20, 2017 10:16
--- NOTE | 2017-03-20 10:57 | CONS ---
Date/Time of Note Date/Time of Note DATE: 03/20/17 TIME: 10:56 Consult Date/Type/Reason Admit Date/Time Mar 11, 2017 at 18:58 Initial Consult Date 03/13/17 Type of Consultation: cv Subjective CARDIOLOGY FOLLOW UP NOTE: S: Discussed with Case discussed with staff and rhythm strip was reviewed. Patient has remained in sinus rhythm overnight. She denies any chest pain or pressure shortness of breath to me. No bleeding reported. Objective: General: obese female. no acute distress HEENT: NC/AT. pupils are equal. round. NECK: NO JVD. no stridor. CV: RRR. systolic murmur; no gallop or rubs. PULM: no wheezing or rhonchi. GI: SOFT, ND, no rebound or guarding . s/p drainage tube in right side Extremity: + B/L LE edema. no clubbing. neuro: awake and alert, OX3. Psych: calm and pleasant Objective Vital Signs Date Time Temp Pulse Resp B/P Pulse Ox O2 Delivery O2 Flow Rate FiO2 03/20/17 08:20 Nasal Cannula 2.0 03/20/17 08:15 79 03/20/17 07:26 98.0 20 128/56 03/20/17 03:56 96 03/16/17 08:00 30 Intake and Output 03/19/17 03/19/17 03/20/17 15:00 23:00 07:00 Intake Total 900 ml 300 ml Output Total 100 ml 200 ml Balance 800 ml 100 ml Results/Medications Result Diagram: 03/18/17 0732 03/20/17 0752 Results 24 hrs Laboratory Tests Test 03/19/17 12:38 03/19/17 17:54 03/19/17 20:57 03/20/17 07:52 Bedside Glucose 110 93 123 Sodium Level 139 Potassium Level 4.2 Chloride Level 100 Carbon Dioxide Level 32 H Anion Gap 11 Blood Urea Nitrogen 28 H Creatinine 1.19 H Glucose Level 101 Calcium Level 9.1 Magnesium Level 2.3 Total Bilirubin 0.2 Direct Bilirubin 0.00 Indirect Bilirubin 0.2 Aspartate Amino Transf (AST/SGOT) 15 Alanine Aminotransferase (ALT/SGPT) 28 Alkaline Phosphatase 74 B-Type Natriuretic Peptide 00462 H Total Protein 5.5 L Albumin 2.6 L Globulin 2.90 Albumin/Globulin Ratio 0.89 Test 03/20/17 08:32 Bedside Glucose 100 Medications Current Medications Insulin Glargine (Lantus) 12 unit DAILY SC Last administered on 03/20/17 08: 45; Admin Dose 12 UNIT; Start 03/12/17 at 09:00 Acetaminophen (Tylenol Tab) 650 mg Q6H PRN PO MILD PAIN LEVEL 1-3; Start 03/11 at 21:15 Allopurinol (Zyloprim) 100 mg BID PO Last administered on 03/20/17 08:34; Admin Dose 100 MG; Start 03/11/17 at 23:15 Ferrous Sulfate (Ferrous Sulfate (Ec)) 325 mg DAILY PO Last administered on 08:34; Admin Dose 325 MG; Start 03/12/17 at 09:00 Gabapentin (Neurontin) 300 mg TID PO Last administered on 03/20/17 08:35; Admin Dose 300 MG; Start 03/11/17 at 23:15 Lactulose (Enulose) 30 gm Q24H PO Last administered on 03/20/17 00:15; Admin Dose 30 GM; Start 03/11/17 at 23:30 Magnesium Hydroxide (Milk Of Mag) 30 ml DAILY PO Last administered on 08:33; Admin Dose 30 ML; Start 03/12/17 at 09:00 Calcium Carbonate (Tums) 500 mg TID PO Last administered on 03/20/17 08:35; Admin Dose 500 MG; Start 03/11/17 at 23:30 Atorvastatin Calcium (Lipitor) 20 mg DAILY@21 PO Last administered on 21:06; Admin Dose 20 MG; Start 03/11/17 at 23:30 Ondansetron HCl (Zofran Tab) 4 mg Q6H PRN PO NAUSEA AND/OR VOMITING; Start at 21:15 Pantoprazole (Protonix Tab) 40 mg DAILY@06 PO Last administered on 03/20/17 07:10; Admin Dose 40 MG; Start 03/12/17 at 06:00 Diagnostic Test (Pha) (Accu-Chek) 1 ea 02 XX Last administered on 03/19/17 02 :00; Admin Dose 1 EA; Start 03/12/17 at 02:00 Miscellaneous Information 1 ea NOTE XX ; Start 03/11/17 at 23:30 Glucose (Glutose) 15 gm Q15M PRN PO DECREASED GLUCOSE; Start 03/11/17 at 23:30 Glucose (Glutose) 22.5 gm Q15M PRN PO DECREASED GLUCOSE; Start 03/11/17 at 23: 30 Dextrose (D50w Syringe) 25 ml Q15M PRN IV DECREASED GLUCOSE; Start 03/11/17 at 23:30 Dextrose (D50w Syringe) 50 ml Q15M PRN IV DECREASED GLUCOSE; Start 03/11/17 at 23:30 Glucagon (Glucagen) 1 mg Q15M PRN IM DECREASED GLUCOSE; Start 03/11/17 at 23: 30 Glucose (Glutose) 15 gm Q15M PRN BUCCAL DECREASED GLUCOSE; Start 03/11/17 at 23:30 Acetaminophen/ Hydrocodone Bitart ([place] (5/325)) 1 tab Q4H PRN PO PAIN LEVEL 1 -5 Last administered on 03/20/17 07:10; Admin Dose 1 TAB; Start 03/15/17 at 13:30 Acetaminophen/ Hydrocodone Bitart ([place] (5/325)) 2 tab Q4H PRN PO PAIN LEVEL 6 -10 Last administered on 03/19/17 16:47; Admin Dose 2 TAB; Start 03/15/17 at 13:30 Heparin Sodium (Porcine) (Heparin (5000 Units/0.5 ml)) 5,000 unit Q8 SC Last administered on 03/20/17 07:18; Admin Dose 5,000 UNIT; Start 03/16/17 at 14: 00 Oxycodone HCl (Oxycontin) 10 mg Q12 PO Last administered on 03/20/17 08:46; Admin Dose 10 MG; Start 03/17/17 at 21:00 Carvedilol (Coreg) 6.25 mg TID PO Last administered on 03/20/17 08:35; Admin Dose 6.25 MG; Start 03/18/17 at 13:00 Furosemide (Lasix) 40 mg DAILY PO Last administered on 03/20/17 08:36; Admin Dose 40 MG; Start 03/19/17 at 10:00 Spironolactone 25 mg 25 mg DAILY PO Last administered on 03/20/17 08:34; Admin Dose 25 MG; Start 03/19/17 at 10:00 Ertapenem/Sodium Chloride (Invanz/NS) 100 ml @ 200 mls/hr Q24H IVPB Last administered on 03/19/17t 16:49; Admin Dose 200 MLS/HR; Start 03/19/17 at 14: 00 IV Flush (NS 10 ml) 10 ml PRN PRN IV IV PROTOCOL; Start 03/19/17 at 16:00 Assessment/Plan Chief Complaint/Hosp Course 1. Paroxysmal atrial fibrillation with rapid ventricular response: Currently back in sinus rhythm on amiodarone 2. Status post sepsis 3. Cholecystitis status post drainage in place. 4. Status post respiratory failure currently extubated. 5. Hypertension 6. Diabetes 7. Morbid obesity 8. Anemia 9. Mildly abnormal troponin secondary to above: we will will follow. 10. CHF. fluid overload Recommendations: lasix po daily Electrolytes will be checked and adjusted accordingly. Beta-safia as tolerated will be continued. Respiratory care as per property underwriter. Antibiotic management as per internal medicine. Follow-up with surgery recommendations. DC planning is in process. Thank you for his referral. We will continue to follow along with you. REGINALDO TAYLOR MD [facility] Problems: REGINALDO TAYLOR MD Mar 20, 2017 10:57
[2017-03-20] MEDS ORDERED: LACTOBACILLUS RHAMNOSUS CAP PO SCH (13:00)
--- NOTE | 2017-03-20 13:00 | PN ---
Date/Time of Note Date/Time of Note DATE: 03/20/17 TIME: 12:23 Assessment/Plan VTE Prophylaxis VTE Prophylaxis Intervention: heparin Lines/Catheters IV Catheter Type (from Nrs): PICC Line Central line still needed: Yes (For IV access) Urinary Cath still in place: No Assessment/Plan Assessment/Plan 71-year-old female with: 1. Acute cholecystitis, status post cholecystostomy tube placement POD#6. Cultures with ESBL E coli sensitive to carbipenems, on Ertapenem for 14 days. Patient tolerating p.o. Appreciate surgical recommendations from Dr Leavitt patient will need further additional radiological study, cholecystogram prior to follow-up with Dr. Leavitt and this needs to be done in the next 2-3 weeks. 2. Episode of atrial fibrillation, appreciate recommendations from . 2D echocardiogram done on admission unchanged. Currently in sinus rhythm, Continue Carvedilol. Follow-up with cardiology as an outpatient within 2-3 weeks 3. Elevated troponin resolved, likely secondary to renal insufficiency but also demand ischemia. Resolved. 2D echocardiogram with preserved EF and no wall motion abnormalities. 4. S/p acute respiratory failure 2ry to right lower lobe pneumonia, sepsis and likely COPD exacerbation, patient on nasal cannula and stable. Continue current antibiotics. Recommending CPAP at night as needed Continue respiratory/pulmonary toilet, MDI/nebulizer treatments 5. S/p sepsis, septic shock likely secondary to pneumonia and/or acute cholecystitis. Patient now stable, WBC has normalized x 5 days, vital signs and blood pressure stable and tolerating p.o. well. Blood cultures 1/2 with resistant coagulase-negative staph, likely contaminant, repeat blood cultures negative ESBL E. coli from cholecystic fluid patient to continue IV Ertapenem for 14 more days. 6. Acute kidney injury on ? chronic kidney disease. Renal function back to baseline. Monitor renal function. 7. Super morbid obesity with possibly obstructive sleep apnea. Recommending CPAP at night. 8. Diastolic congestive heart failure with reported severe septal hypertrophy on previous echocardiogram and also mild to moderate mitral stenosis. Remains stable, will keep on the dry side, patient on Lasix and Aldactone currently. Renal function stable. 9. Diabetes mellitus. Last A1c 7.3, BG better this AM on current regimen. Continue current insulin regimen, recheck A1c is 6.0. 10. Mild Anemia and thrombocytopenia: Stable hemoglobin so far, patient has been on ferrous sulfate supplements. 11. Chronic pain, narcotic dependent. OxyCodone prn for pain control. Continue OxyCOntin twice daily 12. Diabetic neuropathy. Continue Neurontin. Prophylaxis. Heparin subcu for DVT prophylaxis and Protonix for GI prophylaxis. DISPOSITION: [facility], follow-up with general surgery and cardiology in the next 2-3 weeks. Patient on isolation for ESBL. Subjective 24 Hr Interval Summary Free Text/Dictation Patient doing well, no complaints. She is feeling better every day, she has not used CPAP lately, she stable on room air to 2 L nasal cannula. She is on isolation for ESBL from the pericholecystic fluid. Appreciate recommendations from general surgery, patient will be discharged with a cholecystostomy tube to remain in place until cholangiogram is done as an outpatient and further decisions are made per Dr. Leavitt. She will also be discharged on antibiotics with PICC line in place. Exam/Review of Systems Vital Signs Vitals Vital Signs Date Time Temp Pulse Resp B/P Pulse Ox O2 Delivery O2 Flow Rate FiO2 03/20/17 12:10 62 03/20/17 11:29 98.2 18 109/55 100 03/20/17 08:20 Nasal Cannula 2.0 03/16/17 08:00 30 Intake and Output 03/19/17 03/19/17 03/20/17 15:00 23:00 07:00 Intake Total 900 ml 300 ml Output Total 100 ml 200 ml Balance 800 ml 100 ml Exam Constitutional: alert, oriented, well developed Respiratory: clear to auscultation, normal air movement Cardiovascular: nl pulses, regular rate and rhythm Gastrointestinal: non-tender, other (Cholecystostomy tube in place), soft Musculoskeletal: muscle weakness (Muscle wasting also noted.), nl extremities to inspection, other (Patient not really ambulatory.) Extremities: normal pulses, other (No edema, clubbing or cyanosis) Neurological: [employer] II-XII intact, nl mental status, nl speech, other (Not very ambulatory) Results Result Diagram: 03/18/17 0732 03/20/17 0752 Results 24 hrs Laboratory Tests Test 03/19/17 12:38 03/19/17 17:54 03/19/17 20:57 03/20/17 07:52 Bedside Glucose 110 93 123 Sodium Level 139 Potassium Level 4.2 Chloride Level 100 Carbon Dioxide Level 32 H Anion Gap 11 Blood Urea Nitrogen 28 H Creatinine 1.19 H Glucose Level 101 Calcium Level 9.1 Magnesium Level 2.3 Total Bilirubin 0.2 Direct Bilirubin 0.00 Indirect Bilirubin 0.2 Aspartate Amino Transf (AST/SGOT) 15 Alanine Aminotransferase (ALT/SGPT) 28 Alkaline Phosphatase 74 B-Type Natriuretic Peptide 73752 H Total Protein 5.5 L Albumin 2.6 L Globulin 2.90 Albumin/Globulin Ratio 0.89 Test 03/20/17 08:32 Bedside Glucose 100 Medications Medications Current Medications Insulin Glargine (Lantus) 12 unit DAILY SC Last administered on 03/20/17 08: 45; Admin Dose 12 UNIT; Start 03/12/17 at 09:00 Acetaminophen (Tylenol Tab) 650 mg Q6H PRN PO MILD PAIN LEVEL 1-3; Start 03/11 at 21:15 Allopurinol (Zyloprim) 100 mg BID PO Last administered on 03/20/17 08:34; Admin Dose 100 MG; Start 03/11/17 at 23:15 Ferrous Sulfate (Ferrous Sulfate (Ec)) 325 mg DAILY PO Last administered on 08:34; Admin Dose 325 MG; Start 03/12/17 at 09:00 Gabapentin (Neurontin) 300 mg TID PO Last administered on 03/20/17 08:35; Admin Dose 300 MG; Start 03/11/17 at 23:15 Lactulose (Enulose) 30 gm Q24H PO Last administered on 03/20/17 00:15; Admin Dose 30 GM; Start 03/11/17 at 23:30 Magnesium Hydroxide (Milk Of Mag) 30 ml DAILY PO Last administered on 08:33; Admin Dose 30 ML; Start 03/12/17 at 09:00 Calcium Carbonate (Tums) 500 mg TID PO Last administered on 03/20/17 08:35; Admin Dose 500 MG; Start 03/11/17 at 23:30 Atorvastatin Calcium (Lipitor) 20 mg DAILY@21 PO Last administered on 21:06; Admin Dose 20 MG; Start 03/11/17 at 23:30 Ondansetron HCl (Zofran Tab) 4 mg Q6H PRN PO NAUSEA AND/OR VOMITING; Start at 21:15 Pantoprazole (Protonix Tab) 40 mg DAILY@06 PO Last administered on 03/20/17 07:10; Admin Dose 40 MG; Start 03/12/17 at 06:00 Diagnostic Test (Pha) (Accu-Chek) 1 ea 02 XX Last administered on 03/19/17 02 :00; Admin Dose 1 EA; Start 03/12/17 at 02:00 Miscellaneous Information 1 ea NOTE XX ; Start 03/11/17 at 23:30 Glucose (Glutose) 15 gm Q15M PRN PO DECREASED GLUCOSE; Start 03/11/17 at 23:30 Glucose (Glutose) 22.5 gm Q15M PRN PO DECREASED GLUCOSE; Start 03/11/17 at 23: 30 Dextrose (D50w Syringe) 25 ml Q15M PRN IV DECREASED GLUCOSE; Start 03/11/17 at 23:30 Dextrose (D50w Syringe) 50 ml Q15M PRN IV DECREASED GLUCOSE; Start 03/11/17 at 23:30 Glucagon (Glucagen) 1 mg Q15M PRN IM DECREASED GLUCOSE; Start 03/11/17 at 23: 30 Glucose (Glutose) 15 gm Q15M PRN BUCCAL DECREASED GLUCOSE; Start 03/11/17 at 23:30 Acetaminophen/ Hydrocodone Bitart (Sharon (5/325)) 1 tab Q4H PRN PO PAIN LEVEL 1 -5 Last administered on 03/20/17 07:10; Admin Dose 1 TAB; Start 03/15/17 at 13:30 Acetaminophen/ Hydrocodone Bitart (Sharon (5/325)) 2 tab Q4H PRN PO PAIN LEVEL 6 -10 Last administered on 03/19/17 16:47; Admin Dose 2 TAB; Start 03/15/17 at 13:30 Heparin Sodium (Porcine) (Heparin (5000 Units/0.5 ml)) 5,000 unit Q8 SC Last administered on 03/20/17 07:18; Admin Dose 5,000 UNIT; Start 03/16/17 at 14: 00 Oxycodone HCl (Oxycontin) 10 mg Q12 PO Last administered on 03/20/17 08:46; Admin Dose 10 MG; Start 03/17/17 at 21:00 Carvedilol (Coreg) 6.25 mg TID PO Last administered on 03/20/17 08:35; Admin Dose 6.25 MG; Start 03/18/17 at 13:00 Furosemide (Lasix) 40 mg DAILY PO Last administered on 03/20/17 08:36; Admin Dose 40 MG; Start 03/19/17 at 10:00 Spironolactone 25 mg 25 mg DAILY PO Last administered on 03/20/17 08:34; Admin Dose 25 MG; Start 03/19/17 at 10:00 Ertapenem/Sodium Chloride (Invanz/NS) 100 ml @ 200 mls/hr Q24H IVPB Last administered on 03/19/17 16:49; Admin Dose 200 MLS/HR; Start 03/19/17 at 14: 00 IV Flush (NS 10 ml) 10 ml PRN PRN IV IV PROTOCOL; Start 03/19/17 at 16:00 Lactobacillus Acidophilus/ Rhamnosus (Culturelle) 1 cap BID PO ; Start at 13:00 REBECCA SALAS Mar 20, 2017 12:33
[2017-03-20] MEDS: ERTAPENEM SODIUM 1 GM in SOD CHLORIDE 0.9% 100 ML IVPB SCH (13:06)
--- NOTE | 2017-03-20 14:39 | PN ---
Date/Time of Note Date/Time of Note DATE: 03/20/17 TIME: 14:38 Assessment/Plan Lines/Catheters IV Catheter Type (from [facility]): PICC Line Kyle in Place (from [facility]): No Assessment/Plan Chief Complaint/Hosp Course The patient is a 72-year-old morbidly obese diabetic female who resides in a [facility] facility. She was admitted 2 days ago because of respiratory failure, and required intubation. She is still intubated. He has had a low- grade white blood cell count in the 15,000 range. While on the ventilator the patient complained of abdominal pain. A CT scan showed a distended gallbladder with stones and findings suggestive of cholecystitis. Surgical consultation was requested in that regard. Problems: Assessment/Plan We will see patient as an outpatient when cholecystostomy cholangiogram is completed Subjective 24 Hr Interval Summary Patient is stable and resting comfortably Exam/Review of Systems Vital Signs Vitals Vital Signs Date Time Temp Pulse Resp B/P Pulse Ox O2 Delivery O2 Flow Rate FiO2 03/20/17 12:10 62 03/20/17 11:29 98.2 18 109/55 100 03/20/17 08:20 Nasal Cannula 2.0 03/16/17 08:00 30 Intake and Output 03/19/17 03/19/17 03/20/17 15:00 23:00 07:00 Intake Total 900 ml 300 ml Output Total 100 ml 200 ml Balance 800 ml 100 ml Results Result Diagram: 03/18/17 0732 03/20/17 0752 DEJA FLORENCE MD Mar 20, 2017 14:39
[2017-03-20] MEDS ORDERED: HYDROCODONE/APAP (5/325) TAB PO PRN (22:00)
== END 2017-03-20 20:03 | DRG 870 ==
LOC: E/R 14:36 → ICU 18:58 → E/R 21:02 → ICU 22:30 → TEL 03-17 23:01
PROVIDERS: ADMIT Legal Medicine; ATTEND Legal Medicine
PROC: 5A1955Z Respiratory Ventilation, Greater than 96 Consecutive Hours (ICD-10-PCS; principal; 2017-03-11)
PROC: 0BH17EZ Insertion of Endotracheal Airway into Trachea, Via Natural or Artificial Opening (ICD-10-PCS; 2017-03-11)
PROC: 0F9430Z Drainage of Gallbladder with Drainage Device, Percutaneous Approach (ICD-10-PCS; 2017-03-15)
PROC: 02H633Z Insertion of Infusion Device into Right Atrium, Percutaneous Approach (ICD-10-PCS; 2017-03-19)
DX: A41.9 Sepsis, unspecified organism (principal); J69.0 Pneumonitis due to inhalation of food and vomit; I21.4 Non-ST elevation (NSTEMI) myocardial infarction; R65.21 Severe sepsis with septic shock; J18.9 Pneumonia, unspecified organism; N17.9 Acute kidney failure, unspecified; J96.01 Acute respiratory failure with hypoxia; J96.02 Acute respiratory failure with hypercapnia; I13.0 Hypertensive heart and chronic kidney disease with heart failure and stage 1 through stage 4 chronic kidney disease, or unspecified chronic kidney disease; K81.0 Acute cholecystitis; I50.30 Unspecified diastolic (congestive) heart failure; J44.1 Chronic obstructive pulmonary disease with (acute) exacerbation; Z68.42 Body mass index [BMI] 45.0-49.9, adult; D69.6 Thrombocytopenia, unspecified; E11.22 Type 2 diabetes mellitus with diabetic chronic kidney disease; N18.3 Chronic kidney disease, stage 3 (moderate); E66.01 Morbid (severe) obesity due to excess calories; D64.9 Anemia, unspecified; E11.40 Type 2 diabetes mellitus with diabetic neuropathy, unspecified; G47.33 Obstructive sleep apnea (adult) (pediatric); Y95 Nosocomial condition; E11.21 Type 2 diabetes mellitus with diabetic nephropathy; I48.91 Unspecified atrial fibrillation; B96.20 Unspecified Escherichia coli [E. coli] as the cause of diseases classified elsewhere; Z88.0 Allergy status to penicillin; Z88.2 Allergy status to sulfonamides
CPT/HCPCS: 31500; 36415; 36569; 36600; 70450; 71010; 74176; 75989; 76937; 78227; 80048; 80053; 80061; 80202; 80306; 80307; 81001; 82150; 82550; 82553; 82803; 82962; 83036; 83605; 83690; 83735; 83880; 84100; 84436; 84439; 84443; 84479; 84484; 85025; 85610; 85730; 87040; 87070; 87075; 87081; 87086; 89220; 93005; 93306; 94002; 94003; 94640; 94664; 94770; 96365; 96375; 97110; 97162; 97530; A9537; J0282; J1335; J1644; J1650; J1815; J1940; J2185; J2270; J2805; J3010; J3370; J3475; J3480; J7030; J7050; J7060

== ENCOUNTER 2018-02-13 15:08 | Inpatient (IN) | END 2018-02-17 17:53 | DRG 189 ==